=== PATIENT | female | born 1950 | race Caucasian/White ===

== ENCOUNTER → 2016-07-11 | Outpatient (CLI) | payer BC ==
--- NOTE | 2016-07-11 16:26 | MR ---
EXAMINATION: MRI lumbar spine HISTORY: Radiculopathy COMPARISON: Radiographs dated 07/08/2015 TECHNIQUE: Multiplanar and multisequence images obtained through the lumbar spine without contrast. FINDINGS: There is grade 1 anterolisthesis of L4 on L5. The vertebral body heights appear grossly ma intained. Moderate endplate edema is noted at T11, T12, and L1. The distal spinal cord appears nancy l and the conus terminates at L1-L2. There is likely mild bilateral sacroiliitis. The visualized ret roperitoneal structures appear normal. Facet hypertrophy is noted from L2 to L5. T12-L1: Small diffuse disc bulge without significant spinal canal stenosis. Moderate to severe left and moderate right neural foraminal stenosis. L1-L2: Small diffuse disc bulge without significant spinal canal stenosis. Moderate bilateral neural foraminal stenosis. L2-L3: Small diffuse disc bulge with mild facet hypertrophy resulting in mild spinal canal stenosis. Severe right and mild left neural foraminal stenosis. L3-L4: Tiny diffuse disc bulge without significant spinal canal stenosis. Moderate bilateral neural foraminal stenosis. L4-L5: Large diffuse pseudobulge with severe spinal canal stenosis. Moderate right and mild left ryan ral foraminal stenosis. L5-S1: Unremarkable. IMPRESSION: 1. Moderate multilevel degenerative disc disease noted within the lumbar spine most prominent at L4- L5 with grade 1 anterolisthesis and severe spinal canal stenosis. Individual details above.
== END ==
LOC: MW.MRI 12:09
PROVIDERS: ATTEND Student in an Organized Health Care Education/Training Program
DX: M48.06 Spinal stenosis, lumbar region (principal); M51.16 Intervertebral disc disorders with radiculopathy, lumbar region
CPT/HCPCS: 72148; 72148-26

== ENCOUNTER 2016-07-30 17:32 | Emergency (ER) | payer BC ==
[2016-07-30] MEDS ORDERED: Sodium Chloride 0.9% 2.5 ML Syringe FLUSH PRN (17:45)
[2016-07-30] MEDS ORDERED: Sodium Chloride 0.9% 10 ML Syringe FLUSH PRN (17:45)
--- NOTE | 2016-07-30 17:49 | EDM.PDOC ---
<Rina Moreno - Last Filed: 07/30/16 18:39> ED HPI GENERAL MEDICAL PROBLEM - General Chief Complaint: ENT Problem Stated Complaint: SWOLLEN AND ABNORMAL PAIN AFTER DENTAL WORK Time Seen by Provider: 07/30/16 17:38 - History of Present Illness INITIAL COMMENTS - FREE TEXT/NARRATIVE: HISTORY AND PHYSICAL: History of present illness: The patient is a 66-year-old female who presents with complaints of swelling to her face and neck after she was at the dentist at 11:00 AM and he was throwing her tooth and it triggered the swelling. According to the patient she was there to have a filling and he was doing drilling on her right lower jaw area when suddenly there was swelling of her mandible and her face and he stopped the procedure. He told her that with the drilling air was injected into the tissues and that she would need to ice it and it would go away spontaneously. The patient was also placed on antibiotics but not given anything for pain. The patient states that her face and right eyelid and jaw have maintained the swelling she had initially but she feels that her side of her neck is becoming more swollen and she is feeling very anxious about this. She is able to swallow in fact had an ice cream shake before coming here without difficulty. She's not feeling short of breath or having chest tightness. The patient has a history of hypercholesterolemia hypertension hypothyroidism and depression all of which are stable and she also states she watches her diet for borderline diabetes. Review of systems: As per history of present illness and below otherwise all systems reviewed and negative. Past medical history: As per history of present illness and as reviewed below otherwise noncontributory. Surgical history: As per history of present illness and as reviewed below otherwise noncontributory. Social history: No reported history of drug or alcohol abuse. Family history: As per history of present illness and as reviewed below otherwise noncontributory. Physical exam: General: Well-developed well-nourished female speaking clearly and easily without distress and is not breathless. She has visible soft tissue swelling of her right mandible, right cheek and periorbital area without any erythema or warmth. There is some tenderness at the right mandible area and there is palpable crepitus in this region as well as inferiorly in the soft tissue of the neck. The point of maximum crepitus along the angle of the mandible but it does extend inferiorly and superiorly with less intensity There is no fluctuance appreciated throughout the soft tissue swelling HEENT: Atraumatic, normocephalic, pupils reactive, EOMs intact, negative for conjunctival pallor or scleral icterus, mucous membranes moist, throat clear, neck supple, nontender, trachea midline. There is some gum swelling and tenderness at the rate mandibular area but no fluctuance is appreciated. Lungs: Clear to auscultation, breath sounds equal bilaterally, chest nontender. No work of breathing and no chest wall crepitus is appreciated Heart: S1S2, regular, negative for clicks, rubs, or JVD. Abdomen: Soft, nondistended, nontender. NABS Genitourinary: Deferred. Rectal: Deferred. Extremities: Atraumatic, negative for cords or calf pain. Neurovascular unremarkable. Neuro: Awake, alert, oriented. Cranial nerves II through XII unremarkable. Cerebellum unremarkable. Motor and sensory unremarkable throughout. Exam nonfocal. Diagnostics: CBC CMP CT scan soft tissue of the neck Therapeutics: Toradol CT scan of the soft tissue neck was endorsed to Dr. Cleary at 1900 hours. He will follow that CAT scan up and disposition the patient appropriately. She is currently breathing easily having no difficulty with swallow. Patient was given antibiotics by her dentist or rate which she has not started. Impression: Soft tissue facial and neck subcutaneous air after dental procedure stable Definitive disposition and diagnosis as appropriate pending reevaluation and review of above. Right Face Pain Score (Numeric/FACES): 5 - Related Data Allergies Allergy/AdvReac Type Severity Reaction Status Date / Time No Known Allergies Allergy Verified 07/30/16 17:37 Home Meds: Home Meds Esomeprazole [NexIUM] 40 mg PO DAILY 09/25/13 [History] Levothyroxine 100 mcg PO DAILY 09/25/13 [History] Metoprolol Tartrate 25 mg PO BID 09/25/13 [History] Simvastatin [Zocor] 40 mg PO BEDTIME 09/25/13 [History] ALPRAZolam [Alprazolam ODT] 1 tab PO TID 07/30/16 [History] Amoxicillin 1 cap PO TID 07/30/16 [History] Cholecalciferol (Vitamin D3) [Vitamin D3] 1 tab PO DAILY 07/30/16 [History] Doxepin HCl [Doxepin] 250 mg PO DAILY 07/30/16 [History] Losartan Potassium 1 tab PO DAILY 07/30/16 [History] Past Medical History HEENT History: Reports: None Cardiovascular History: Reports: Hypertension Respiratory History: Reports: None Gastrointestinal History: Reports: None Genitourinary History: Reports: None Neurological History: Reports: None Psychiatric History: Reports: Depression Endocrine/Metabolic History: Reports: Diabetes, type II - Infectious Disease History Infectious Disease History: Reports: Chicken pox, Influenza, Measles - Past Surgical History HEENT Surgical History: Reports: Tonsillectomy GI Surgical History: Reports: None Female Surgical History: Reports: None Endocrine Surgical History: Reports: Thyroidectomy Musculoskeletal Surgical History: Reports: None Social & Family History - Tobacco Use Smoking Status *Q: Never Smoker - Alcohol Use Days Per Week of Alcohol Use: 0 - Recreational Drug Use Recreational Drug Use: No ED ROS GENERAL - Review of Systems Review Of Systems: ROS reveals no pertinent complaints other than HPI. ED EXAM, GENERAL - Physical Exam Exam: See Below (See dictation) Course - Vital Signs Last Recorded V/S: Last Vital Signs Temp 36.2 C 07/30/16 17:38 Pulse 81 07/30/16 17:38 Resp 16 07/30/16 17:38 BP 166/81 H 07/30/16 17:38 Pulse Ox 99 07/30/16 17:38 - Orders/Labs/Meds Orders: Active Orders 24 hr Category Date Time Status EKG Documentation Completion [RC] STAT Care 07/30/16 20:27 Ordered Chest 1V Frontal [CR] Stat Exams 07/30/16 20:23 Ordered Soft Tissue Neck w Cont [CT] Stat Exams 07/30/16 17:45 Ordered CULTURE BLOOD [BC] Stat Lab 07/30/16 20:14 Ordered CULTURE BLOOD [BC] Stat Lab 07/30/16 20:14 Ordered Clindamycin Phosphate [Cleocin] 300 mg Med 07/30/16 20:14 Ordered Sodium Chloride 0.9% [Normal Saline] 50 ml IV ONETIME Piperacillin/Tazobactam [Piperacil-Tazobact] 4.5 gm Med 07/30/16 20:14 Ordered Sodium Chloride 0.9% [Normal Saline] 100 ml IV ONETIME Sodium Chloride 0.9% [Normal Saline] 1,000 ml Med 07/30/16 20:30 Active IV ASDIRECTED Sodium Chloride 0.9% [Saline Flush] Med 07/30/16 17:45 Active 10 ml FLUSH ASDIRECTED PRN Sodium Chloride 0.9% [Saline Flush] Med 07/30/16 17:45 Active 2.5 ml FLUSH ASDIRECTED PRN Vancomycin 1,000 mg Med 07/30/16 20:14 Ordered Dextrose 5% in Water 250 ml IV ONETIME Blood Culture x2 Reflex Set [OM.PC] Stat Oth 07/30/16 20:14 Ordered Saline Lock Insert [OM.PC] Stat Oth 07/30/16 17:45 Ordered Medication Orders Piperacillin Sod/Tazobactam (Sod 4.5 gm/ Sodium Chloride) 100 mls @ 100 mls/hr IV ONETIME ONE Stop: 07/30/16 21:13 Last Admin: 07/30/16 20:28 Dose: 100 mls/hr Vancomycin HCl 1,000 mg/ (Dextrose/Water) 250 mls @ 167 mls/hr IV ONETIME ONE Stop: 07/30/16 21:43 Sodium Chloride (Normal Saline) 1,000 mls @ 999 mls/hr IV ASDIRECTED JORGE Sodium Chloride (Saline Flush) 10 ml FLUSH ASDIRECTED PRN PRN Reason: Keep Vein Open Sodium Chloride (Saline Flush) 2.5 ml FLUSH ASDIRECTED PRN PRN Reason: Keep Vein Open Labs: Laboratory Tests 07/30/16 07/30/16 07/30/16 Range/Units 18:04 18:04 20:26 WBC 13.90 H (4.0-11.0) K/uL RBC 4.77 (4.30-5.90) M/uL Hgb 13.5 (12.0-16.0) g/dL Hct 40.2 (36.0-46.0) % MCV 84.3 (80.0-98.0) fL MCH 28.3 (27.0-32.0) pg MCHC 33.6 (31.0-37.0) g/dL RDW Std Deviation 38.9 (28.0-62.0) fl RDW Coeff of Eran 13 (11.0-15.0) % Plt Count 238 (150-400) K/uL MPV 9.20 (7.40-12.00) fL Neut % (Auto) 72.6 (48.0-80.0) % Lymph % (Auto) 19.8 (16.0-40.0) % [place] % (Auto) 6.3 (0.0-15.0) % Eos % (Auto) 1.2 (0.0-7.0) % Baso % (Auto) 0.1 (0.0-1.5) % Neut # 10.1 H (1.4-5.7) K/uL Lymph # 2.8 H (0.6-2.4) K/uL [place] # 0.9 H (0.0-0.8) K/uL Eos # 0.2 (0.0-0.7) K/uL Baso # 0.0 (0.0-0.1) K/uL Nucleated RBC % 0.0 /100WBC Nucleated RBCs # 0 K/uL Lactate 1.8 (0.20-2.00) mmol/L Sodium 139 (136-146) mmol/L Potassium 4.0 (3.5-5.1) mmol/L Chloride 103 (98-110) mmol/L Carbon Dioxide 27 (21-31) mmol/L BUN 12 (6.0-23.0) mg/dL Creatinine 0.8 (0.6-1.5) mg/dL Est Cr Clr Drug Dosing TNP Estimated GFR (MDRD) > 60.0 ml/min Glucose 130 H (60-110) mg/dL Calcium 9.3 (8.8-10.8) mg/dL Total Bilirubin 0.5 (0.1-1.5) mg/dL AST 19 (5-40) IU/L ALT 23 (8-54) IU/L Alkaline Phosphatase 124 (40-150) Total Protein 7.5 (6.0-8.0) g/dL Albumin 4.3 (3.4-4.8) g/dL Globulin 3.2 (2.0-3.5) g/dL Albumin/Globulin Ratio 1.3 (1.3-2.8) Meds: Medications Generic Name Dose Route Start Last Admin Trade Name Freq PRN Reason Stop Dose Admin Piperacillin Sod/Tazobactam 100 mls @ 100 mls/hr 07/30/16 20:14 07/30/16 20: 28 Sod 4.5 gm/ Sodium Chloride IV 07/30/16 21:13 100 mls/hr ONETIME ONE Administration Vancomycin HCl 1,000 mg/ 250 mls @ 167 mls/hr 07/30/16 20:14 Dextrose/Water IV 07/30/16 21:43 ONETIME ONE Sodium Chloride 1,000 mls @ 999 mls/hr 07/30/16 20:30 Normal Saline IV ASDIRECTED JORGE Sodium Chloride 10 ml 07/30/16 17:45 Saline Flush FLUSH ASDIRECTED PRN Keep Vein Open Sodium Chloride 2.5 ml 07/30/16 17:45 Saline Flush FLUSH ASDIRECTED PRN Keep Vein Open Discontinued Medications Generic Name Dose Route Start Last Admin Trade Name Freq PRN Reason Stop Dose Admin Clindamycin Phosphate 300 mg/ 52 mls @ 100 mls/hr 07/30/16 20:14 Sodium Chloride IV 07/30/16 20:45 ONETIME ONE Iopamidol 80 ml 07/30/16 17:52 07/30/16 17:53 Isovue Multipack-370 (76%) IVPUSH 07/30/16 17:53 80 ml ONETIME STA Administration Ketorolac Tromethamine 30 mg 07/30/16 17:53 07/30/16 18:28 Toradol IVPUSH 07/30/16 17:54 30 mg ONETIME ONE Administration Morphine Sulfate 2 mg 07/30/16 17:53 07/30/16 18:37 Morphine IVPUSH 07/30/16 17:54 Not Given ONETIME ONE Departure - Departure Disposition: DC/Tfer to Acute Hospital 02 Condition: good Clinical Impression: Right facial swelling, Pneumomediastinum, Leukocytosis, Pneumothorax on left Subcutaneous air Qualifiers: Encounter type: initial encounter Qualified Code(s): T79.7XXA - Traumatic subcutaneous emphysema, initial encounter Referrals: Alonzo Gupta MD [Primary Care Provider] - Forms: ED Department Discharge - My Orders Last 24 Hours: My Active Orders 07/30/16 20:14 CULTURE BLOOD [BC] Stat CULTURE BLOOD [BC] Stat Clindamycin Phosphate [Cleocin] 300 mg Sodium Chloride 0.9% [Normal Saline] 50 ml IV ONETIME Piperacillin/Tazobactam [Piperacil-Tazobact] 4.5 gm Sodium Chloride 0.9% [ Normal Saline] 100 ml IV ONETIME Vancomycin 1,000 mg Dextrose 5% in Water 250 ml IV ONETIME Blood Culture x2 Reflex Set [OM.PC] Stat 07/30/16 20:23 Chest 1V Frontal [CR] Stat 07/30/16 20:27 EKG Documentation Completion [RC] STAT 07/30/16 20:30 Sodium Chloride 0.9% [Normal Saline] 1,000 ml IV ASDIRECTED - Assessment/Plan Last 24 Hours: My Active Orders 07/30/16 20:14 CULTURE BLOOD [BC] Stat CULTURE BLOOD [BC] Stat Clindamycin Phosphate [Cleocin] 300 mg Sodium Chloride 0.9% [Normal Saline] 50 ml IV ONETIME Piperacillin/Tazobactam [Piperacil-Tazobact] 4.5 gm Sodium Chloride 0.9% [ Normal Saline] 100 ml IV ONETIME Vancomycin 1,000 mg Dextrose 5% in Water 250 ml IV ONETIME Blood Culture x2 Reflex Set [OM.PC] Stat 07/30/16 20:23 Chest 1V Frontal [CR] Stat 07/30/16 20:27 EKG Documentation Completion [RC] STAT 07/30/16 20:30 Sodium Chloride 0.9% [Normal Saline] 1,000 ml IV ASDIRECTED <Denys Cleary - Last Filed: 07/30/16 21:00> Course - Vital Signs Text/Narrative:: At 1900 assumed care the patient from Dr. Moreno to follow results of CT and disposition patient. Per tomorrow patient has been clinically stable and well-appearing with unremarkable vital signs. She is afebrile. 66-year-old female with a history of hypertension hypothyroidism depression and type 2 diabetes which is diet controlled, now with right neck and right facial swelling and discomfort. White blood cell count elevated at 13.9. Cutaneous air of the right mandibular and right neck distribution prompted evaluation with a CT of the neck. Result of CT of the neck received by me at 8:12 PM shows "extensive pneumomediastinum with probable small left apical pneumothorax. Extensive subcutaneous emphysema right greater than left which involves the superficial and deep soft tissues." She history was of dental procedure and not fever or infectious prodrome however cannot rule out possibility of mediastinitis with a gas forming organism. Blood cultures ordered and spectrum antibiotic coverage with Zosyn vancomycin and clindamycin ordered. Case discussed with Dr. Desai surgery weigher production nazia is aware of history and findings and agrees with stat transport to a facility with cardiothoracic surgery availability, for availability of surgical treatment as needed. Case discussed with Dr. Grimaldo emergency medicine physician at [facility] in [place], Dr. Grimaldo as where history and findings accept patient in emergent transfer for ICU admission and CT surgery consultation as needed. Patient continues to be hemodynamically stable. EKG interpreted by me with normal sinus rhythm at 76 normal axis no STEMI. Critical care 32 minutes. Multiple bedside reevaluation in the setting of potentially life-threatening presumed infection of mediastinitis. Consultation call to surgery in transfer arrangements to the hospital made. Departure - Departure Time of Disposition: 20:55 Condition: serious
[2016-07-30] MEDS ORDERED: Iopamidol 755 MG/ML 500 ML Multipack Bottle IVPUSH STA (17:52)
[2016-07-30] MEDS ORDERED: Ketorolac 30 MG/ML SDV IVPUSH ONE (17:53)
[2016-07-30] MEDS ORDERED: Morphine 2 MG/ML Syringe IVPUSH ONE (17:53)
[2016-07-30 18:34] LABS: CHLORIDE,CL 103 mmol/L (98-110); SODIUM,NA 139 mmol/L (136-146)
[2016-07-30] MEDS ORDERED: Piperacillin/Tazobactam 4.5 GM in Sodium Chloride 0.9% 100 ML IV ONE (20:14)
[2016-07-30] MEDS ORDERED: Clindamycin Phosphate 300 MG in Dextrose 5% in Water 50 ML IV ONE ×2 (20:14)
[2016-07-30] MEDS ORDERED: Sodium Chloride 0.9% 1,000 ML IV SCH (20:30)
[2016-07-30] MEDS ORDERED: Clindamycin Phosphate in D5W 300 MG in Premix Bag 1 BAG IV ONE ×2 (20:50)
--- NOTE | 2016-07-31 15:50 | CT ---
EXAM DATE: 07/30/16 PATIENT'S AGE: 66 Patient: KARLA BOLANOS Facility: [place], [place] Site . Site : 1950 Study: CT ST Neck [id number]/20/2017 7:20:19 PM Ordering Physician: Tiffanie Flynn Final Report: INDICATION: Subcutaneous emphysema. Evaluate deep versus superficial TECHNIQUE: CT soft tissue of the neck was acquired with IV contrast. COMPARISON: None FINDINGS: Skull base: Unremarkable. Pharynx: Unremarkable. Larynx and trachea: Unremarkable. Salivary glands: Unremarkable. Thyroid gland: Unremarkable. Vessels: Unremarkable for age. Bones: Unremarkable for age. Misc: No mass or lymphadenopathy. Extensive subcutaneous emphysema right greater than left which involves the superficial and deep soft tissues. Probable 5 millimeters asymmetrical density anterior to the right side of the posterior arytenoid cartilage. Lung apices: Pneumomediastinum with probable small left apical pneumothorax. IMPRESSION: Extensive pneumomediastinum with probable small left apical pneumothorax. Extensive subcutaneous emphysema right greater than left which involves the superficial and deep soft tissues. Probable 5 millimeter asymmetric density anterior to the right side of the posterior arytenoid cartilage. Dictated by Alonzo Chen MD @ 07/30/2016 7:59:25 PM Dictated by: Alonzo Chen MD @ 07/30/2016 19:59:41 ----- ADDENDUM ----- Confirmation of report received on 07/30/2016 at 8:[address] Cleary: Dictated by Alonzo Chen MD @ Jul 30 2016 8:39PM (Electronic Signature) Report Signed by Proxy and Original Signed Document filed in the Medical Record. [facility] HOSPITALJose Raul
--- NOTE | 2016-07-31 15:51 | CR ---
EXAM DATE: 07/30/16 PATIENT'S AGE: 66 Patient: KARLA BOLANOS Facility: [place], [place] Site . Site : 1950 Study: XRay Chest [id number]/20/2017 8:45:58 PM Ordering Physician: Evin Mcfarlane Final Report: INDICATION: pain, sob TECHNIQUE: Chest 1 view COMPARISON: None FINDINGS: Cardiovascular and mediastinum: Heart size and vasculature are normal in caliber and appearance. Mediastinum is within normal limits. Lungs and pleural space: Horizontal stranding/atelectasis along the lingula. No sign of pleural effusion. No pneumothorax. Bones and soft tissues: Degenerative changes. IMPRESSION: No acute cardiopulmonary disease. Dictated by Jorden Hayden MD @ 07/30/2016 8:53:14 PM Dictated by: Jorden Hayden MD @ 07/30/2016 20:54:28 (Electronic Signature) Report Signed by Proxy and Original Signed Document filed in the Medical Record. MTDD
== END 2016-07-30 21:41 ==
LOC: MW.ED 17:32
DX: R22.2 Localized swelling, mass and lump, trunk (principal); D72.829 Elevated white blood cell count, unspecified; J93.9 Pneumothorax, unspecified; E78.00 Pure hypercholesterolemia, unspecified; I10 Essential (primary) hypertension; E03.9 Hypothyroidism, unspecified; Z79.899 Other long term (current) drug therapy; E11.9 Type 2 diabetes mellitus without complications; Z98.890 Other specified postprocedural states; T79.7XXA Traumatic subcutaneous emphysema, initial encounter
CPT/HCPCS: 36415; 70491; 71010; 80053; 83605; 85025; 87040; 93005; 96365; 96368; 96375; 99285; J1885; J2543; J3370; J7030; J7040; J7050; Q9967

== ENCOUNTER 2017-06-05 09:38 | Day surgery (SDC) | payer BC ==
[~2017-06-05 09:38] MED LIST: Lactated Ringers 1,000 ML IV SCH; Sodium Chloride 0.9% 10 ML Syringe FLUSH PRN; Sodium Chloride 0.9% 2.5 ML Syringe FLUSH PRN
[2017-06-05] MEDS ORDERED: Lidocaine 2% 5 ML SDV ONE (11:03)
[2017-06-05] MEDS ORDERED: Propofol 200 MG/20 ML SDV ONE (11:04)
[2017-06-05] MEDS ORDERED: fentaNYL 100 MCG/2 ML SDV ONE (11:04)
--- NOTE | 2017-06-05 11:25 | PCM.PREANE ---
Preanesthetic Assessment - Anesthesia/Transfusion/Family Hx Anesthesia History: Prior Anesthesia Reaction Type of Anesthesia Reaction: Other (see below) (stopped breathing during dental sedation in oral surgeon office) Transfusion History: No Prior Transfusion(s) - Review of Systems General: No Symptoms Pulmonary: No Symptoms Cardiovascular: No Symptoms Gastrointestinal: No Symptoms Neurological: No Symptoms Other: Reports: None - Physical Assessment NPO Status Date: 06/04/17 NPO Status Time: 21:00 O2 Sat by Pulse Oximetry: 96 Respiratory Rate: 16 Vital Signs: Last Vital Signs Temp 36.8 C 06/05/17 10:01 Pulse 66 06/05/17 10:01 Resp 16 06/05/17 10:01 BP 138/80 06/05/17 10:01 Pulse Ox 96 06/05/17 10:01 Height: 1.57 m Weight: 74.843 kg ASA Class: 2 Mental Status: Alert & Oriented x3 Airway Class: Mallampati = 2 Dentition: Reports: Normal Dentition ROM/Head Extension: Full Lungs: Clear to Auscultation, Normal Respiratory Effort Cardiovascular: Regular Rate, Regular Rhythm - Allergies Allergies/Adverse Reactions: Allergies Allergy/AdvReac Type Severity Reaction Status Date / Time No Known Allergies Allergy Verified 07/30/16 17:37 - Anesthesia Plan Pre-Op Medication Ordered: None - Acknowledgements Anesthesia Type Planned: MAC Pt an Appropriate Candidate for the Planned Anesthesia: Yes Alternatives and Risks of Anesthesia Discussed w Pt/Guardian: Yes Pt/Guardian Understands and Agrees with Anesthesia Plan: Yes Additional Comments: has chronic cough, also has vocal cord paralysis since thyroid surgery, DM is diet controll only, PreAnesthesia Questionnaire HEENT History: Reports: Other (See Below) Other HEENT History: wears glasses Cardiovascular History: Reports: Heart Murmur, High Cholesterol, Hypertension Respiratory History: Reports: None Gastrointestinal History: Reports: GERD Genitourinary History: Reports: None Musculoskeletal History: Reports: Arthritis, Back Pain, Chronic, Fracture Other Musculoskeletal History: hx fx wrist as a child Neurological History: Reports: None Psychiatric History: Reports: Anxiety, Depression Endocrine/Metabolic History: Reports: Diabetes, Type II, Hypothyroidism - Infectious Disease History Infectious Disease History: Reports: Chicken Pox, Influenza, Measles - Past Surgical History Head Surgeries/Procedures: Reports: None HEENT Surgical History: Reports: Tonsillectomy GI Surgical History: Reports: None Female Surgical History: Reports: None Endocrine Surgical History: Reports: Thyroidectomy Musculoskeletal Surgical History: Reports: None - SUBSTANCE USE Smoking Status *Q: Never Smoker Days Per Week of Alcohol Use: 0 Recreational Drug Use History: No - HOME MEDS Home Medications: Home Meds Esomeprazole [NexIUM] 40 mg PO DAILY 09/25/13 [History] Levothyroxine 100 mcg PO DAILY 09/25/13 [History] Metoprolol Tartrate 25 mg PO BID 09/25/13 [History] Simvastatin [Zocor] 40 mg PO BEDTIME 09/25/13 [History] Doxepin HCl [Doxepin] 2 tab PO DAILY 07/30/16 [History] ALPRAZolam [Alprazolam] 1 - 2 tab PO DAILY 05/31/17 [History] Ibuprofen [Advil] 200 mg PO ASDIRECTED PRN 05/31/17 [History] Losartan Potassium 25 mg PO DAILY 05/31/17 [History] - CURRENT (IN HOUSE) MEDS Current Meds: Current Medications Lactated Ringer's (Ringers, Lactated) 1,000 mls @ 125 mls/hr IV ASDIRECTED JORGE Last Admin: 06/05/17 10:03 Dose: 125 mls/hr Sodium Chloride (Saline Flush) 10 ml FLUSH ASDIRECTED PRN PRN Reason: Keep Vein Open Sodium Chloride (Saline Flush) 2.5 ml FLUSH ASDIRECTED PRN PRN Reason: Keep Vein Open Sodium Chloride (Saline Flush) 10 ml FLUSH ASDIRECTED PRN PRN Reason: Keep Vein Open Sodium Chloride (Saline Flush) 2.5 ml FLUSH ASDIRECTED PRN PRN Reason: Keep Vein Open Discontinued Medications Fentanyl (Sublimaze) Confirm Administered Dose 100 mcg .ROUTE .STK-MED ONE Stop: 06/05/17 11:05 Lidocaine (Xylocaine-Mpf 2%) Confirm Administered Dose 5 ml .ROUTE .STK-MED ONE Stop: 06/05/17 11:04 Propofol (Diprivan 20 Ml) Confirm Administered Dose 400 mg .ROUTE .STK-MED ONE Stop: 06/05/17 11:05
[2017-06-05] MEDS ORDERED: Glycopyrrolate 0.2 MG/ML SDV ONE (13:30)
--- NOTE | 2017-06-05 13:52 | PCM.OPNOTE ---
- General Post-Op/Procedure Note Date of Surgery/Procedure: 06/05/17 Operative Procedure(s): Screening colonoscopy Findings: Screening colonoscopy Pre Op Diagnosis: Screening colonoscopy Post-Op Diagnosis: Normal colon Anesthesia Technique: MAC Primary Surgeon: Shena Desai Condition: Good
--- NOTE | 2017-06-05 14:26 | OR ---
SURGEON: KEYANA ROSE MD DATE OF PROCEDURE: 06/05/2017 PREOPERATIVE DIAGNOSIS: Screening colonoscopy. POSTOPERATIVE DIAGNOSIS: Screening colonoscopy. PROCEDURE PERFORMED: Screening colonoscopy. ANESTHESIA: MAC. INSTRUMENT USED: Olympus colonoscope. EXTENT OF EXAM: To the cecum. PREPARATION: Good. LIMITATIONS: None. INDICATIONS FOR EXAMINATION: The patient is a 67-year-old female who presents for a repeat screening colonoscopy. She had one approximately 10 years ago that was normal. The patient and I discussed the procedure as well as expected perioperative course. We discussed the risks including bleeding, infection, or damage to surrounding structures including perforation. The patient verbalized understanding and wishes to proceed. PROCEDURE IN DETAIL: The patient was brought into the endoscopy suite and placed in the left lateral decubitus position. A time-out was completed verifying the patient's name, age, date of , allergies, and procedure to be performed. Monitored anesthesia care was induced and continuous oxygen was provided via nasal cannula throughout the procedure. After adequate sedation was achieved, a digital rectal exam was performed. This exam was within normal limits. A well lubricated colonoscope was inserted into the rectum and advanced under direct visualization to the level of the cecum. The cecum was identified by both visual and anatomic landmarks. A photograph was taken of the cecal cap as well as the scope retroflexed within the cecum. The scope was then straightened out and fully withdrawn while examining the color, texture, anatomy, and integrity of the mucosa from the cecum to the anal canal. The patient was found to have normal colonic mucosa. The scope was brought into the rectum and retroflexed to allow visualization of the anal canal opening. This appeared normal and a photograph was taken. The scope was then straightened out and removed from the patient. The cecum to anus time was 7 minutes. The patient tolerated the procedure well and was taken to PACU in stable condition. ENDOSCOPIC DIAGNOSIS: Normal colonoscopy. RECOMMENDATIONS: Follow up in clinic in 10 years. KEVIN / FERNANDO /[id number]
--- NOTE | 2017-06-05 14:44 | PCM.POSTAN ---
POST ANESTHESIA ASSESSMENT - MENTAL STATUS Mental Status: Alert, Oriented - RESPIRATORY Respiratory Status: Respiratory Rate WNL, Airway Patent, O2 Saturation Stable - CARDIOVASCULAR CV Status: Pulse Rate WNL, Blood Pressure Stable - GASTROINTESTINAL GI Status: No Symptoms - POST OP HYDRATION Hydration Status: Adequate & Stable
--- NOTE | 2017-06-05 14:44 | PCM48HPAN ---
Post Anesthesia Note - EVALUATION WITHIN 48HRS OF ANESTHETIC Vital Signs in Normal Range: Yes Patient Participated in Evaluation: Yes Respiratory Function Stable: Yes Airway Patent: Yes Cardiovascular Function Stable: Yes Hydration Status Stable: Yes Pain Control Satisfactory: Yes Nausea and Vomiting Control Satisfactory: Yes Mental Status Recovered: Yes
[2017-06-05 14:47] VITALS: BP 124/70
== END 2017-06-05 14:40 | disposition home or self-care (01) ==
LOC: MW.SDS 09:38
PROVIDERS: ATTEND Surgery
DX: Z12.11 Encounter for screening for malignant neoplasm of colon (principal); E78.00 Pure hypercholesterolemia, unspecified; I10 Essential (primary) hypertension; R01.1 Cardiac murmur, unspecified; K21.9 Gastro-esophageal reflux disease without esophagitis; M19.90 Unspecified osteoarthritis, unspecified site; F41.9 Anxiety disorder, unspecified; F32.9 Major depressive disorder, single episode, unspecified; E11.9 Type 2 diabetes mellitus without complications; E89.0 Postprocedural hypothyroidism; Z90.89 Acquired absence of other organs; Z79.899 Other long term (current) drug therapy
CPT/HCPCS: 45378; J3010; J7120; J2704

== ENCOUNTER 2019-01-26 21:45 | Emergency (ER) | payer MEDICARE, BC ==
[2019-01-26] MEDS ORDERED: Diphtheria,Pertussis(Acell),Tetanus Vaccine 0.5 ML Syringe IM ONE (22:28)
--- NOTE | 2019-01-26 22:34 | EDM.PDOC ---
ED HPI GENERAL MEDICAL PROBLEM - General Chief Complaint: Bite:Animal, Insect Stated Complaint: CAT BITE ON RIGHT TOE Time Seen by Provider: 01/26/19 22:20 - History of Present Illness INITIAL COMMENTS - FREE TEXT/NARRATIVE: HISTORY AND PHYSICAL: History of present illness: The patient is a 69-year-old female who presents after she was bitten on her right great toe by her own cat while feeding the cat food. The cat is in good health and can be observed in the cat is up-to-date on immunizations. She only sustained a puncture wound to the inner aspect of her right great toe and she washed it out and there is no redness or drainage that she is appreciated but she is concerned that she needs prophylactic antibiotics. The patient is a type II diabetic and takes other prescription medications. She is unsure of her last tetanus shot. She has no other injuries and earlier today she was in her usual state of good maggy without any systemic compaints Review of systems: As per history of present illness and below otherwise all systems reviewed and negative. Past medical history: As per history of present illness and as reviewed below otherwise noncontributory. Surgical history: As per history of present illness and as reviewed below otherwise noncontributory. Social history: No reported history of drug or alcohol abuse. Family history: As per history of present illness and as reviewed below otherwise noncontributory. Physical exam: General: Well-developed well-nourished female who is nontoxic and vital signs are noted by me HEENT: Atraumatic, normocephalic, negative for conjunctival pallor or scleral icterus, mucous membranes moist, throat clear, neck supple, nontender, trachea midline. Lungs: Clear to auscultation, breath sounds equal bilaterally, chest nontender. Heart: S1S2, regular and rhythm no overt murmurs Abdomen: Soft, nondistended, nontender. NABS Pelvis: Deferred Genitourinary: Deferred. Rectal: Deferred. Extremities: Atraumatic, full range of motion of all extremities with the exception of the right great toe where there is a small punctum seen on the inner aspect of the toe medially which has no redness drainage or swelling and the remainder of the toe has no redness swelling tenderness crepitus or deformities. Neurovascular unremarkable. Neuro: Awake, alert, oriented. Cranial nerves II through XII unremarkable. Cerebellum unremarkable. Motor and sensory unremarkable throughout. Exam nonfocal. Diagnostics: Patient declined an x-ray of the toe Therapeutics: Tdap Impression: Cat bite right great toe Definitive disposition and diagnosis as appropriate pending reevaluation and review of above. Right great toe Pain Score (Numeric/FACES): 3 - Related Data Allergies Allergy/AdvReac Type Severity Reaction Status Date / Time No Known Allergies Allergy Verified 01/26/19 22:22 Home Meds: Home Meds Esomeprazole [NexIUM] 40 mg PO DAILY 09/25/13 [History] Levothyroxine 100 mcg PO DAILY 09/25/13 [History] Metoprolol Tartrate 25 mg PO BID 09/25/13 [History] Simvastatin [Zocor] 40 mg PO BEDTIME 09/25/13 [History] Doxepin HCl [Doxepin] 1 tab PO DAILY 07/30/16 [History] ALPRAZolam [Alprazolam] 1 - 3 tab PO DAILY 05/31/17 [History] Ibuprofen [Advil] 200 mg PO ASDIRECTED PRN 05/31/17 [History] Losartan Potassium 25 mg PO DAILY 05/31/17 [History] QUEtiapine [SEROquel] 100 mg PO BEDTIME 05/04/18 [History] traZODone HCl [Trazodone HCl] 50 mg PO BEDTIME 05/04/18 [History] Diltiazem [Cardizem CD] 120 mg PO DAILY 01/26/19 [History] Glimepiride 1 mg PO 01/26/19 [History] Liothyronine [Cytomel] 01/26/19 [History] Ranitidine HCl [Zantac] 25 mg IJ 01/26/19 [History] Past Medical History HEENT History: Reports: Other (See Below) Other HEENT History: wears glasses Cardiovascular History: Reports: Heart Murmur, High Cholesterol, Hypertension Respiratory History: Reports: None Gastrointestinal History: Reports: GERD Genitourinary History: Reports: None Musculoskeletal History: Reports: Arthritis, Back Pain, Chronic, Fracture Other Musculoskeletal History: hx fx wrist as a child Neurological History: Reports: None Psychiatric History: Reports: Anxiety, Depression Endocrine/Metabolic History: Reports: Diabetes, Type II, Hypothyroidism Immunologic History: Reports: None - Infectious Disease History Infectious Disease History: Reports: Chicken Pox, Influenza, Measles - Past Surgical History Head Surgeries/Procedures: Reports: None HEENT Surgical History: Reports: Tonsillectomy GI Surgical History: Reports: None Female Surgical History: Reports: None Endocrine Surgical History: Reports: Thyroidectomy Musculoskeletal Surgical History: Reports: None Social & Family History - Family History Family Medical History: Noncontributory - Caffeine Use Caffeine Use: Reports: Coffee, Tea ED ROS GENERAL - Review of Systems Review Of Systems: ROS reveals no pertinent complaints other than HPI. ED EXAM, ANIMAL BITE - Physical Exam Exam: See Below (see Dictation) Course - Vital Signs Last Recorded V/S: Last Vital Signs Temp 36.9 C 01/26/19 22:21 Pulse 79 01/26/19 22:21 Resp 16 01/26/19 22:21 BP 149/77 H 01/26/19 22:21 Pulse Ox 97 01/26/19 22:21 - Orders/Labs/Meds Orders: Active Orders 24 hr Category Date Time Status Vaccines to be Administered [RC] PER UNIT ROUTINE Care 01/26/19 22:28 Ordered Diphth,Pertuss(Acell),Tet Vac [Adacel] Med 01/26/19 22:28 Once 0.5 ml IM .ONCE ONE Departure - Departure Time of Disposition: 22:32 Disposition: Home, Self-Care 01 Condition: Good Clinical Impression: Cat bite Qualifiers: Encounter type: initial encounter Qualified Code(s): W55.01XA - Bitten by cat, initial encounter - Discharge Information Referrals: Calin Nieto MD [Primary Care Provider] - Additional Instructions: The following information is given to patients seen in the emergency department who are being discharged to home. This information is to outline your options for follow-up care. We provide all patients seen in our emergency department with a follow-up referral. The need for follow-up, as well as the timing and circumstances, are variable depending upon the specifics of your emergency department visit. If you don't have a primary care physician on staff, we will provide you with a referral. We always advise you to contact your personal physician following an emergency department visit to inform them of the circumstance of the visit and for follow-up with them and/or the need for any referrals to a consulting specialist. The emergency department will also refer you to a specialist when appropriate. This referral assures that you have the opportunity for followup care with a specialist. All of these measure are taken in an effort to provide you with optimal care, which includes your followup. Under all circumstances we always encourage you to contact your private physician who remains a resource for coordinating your care. When calling for followup care, please make the office aware that this follow-up is from your recent emergency room visit. If for any reason you are refused follow-up, please contact the [facility] emergency department at and ask to speak to the emergency department charge nurse. Primary care- Internal Medicine and Family [address] [address] Elevate the foot as much as possible and keep the area clean and dry with mild soap and water pat dry and apply bacitracin or Neosporin. He states the antibiotics as prescribed here from [facility], Augmentin. Please follow-up with your provider in the clinic or one of hours for reevaluation and further care and return to ER as needed and as discussed continue to observe your cat for any abnormal behavior or behavioral changes and bring to the neuroradiologist as needed - My Orders Last 24 Hours: My Active Orders 01/26/19 22:28 Vaccines to be Administered [RC] PER UNIT ROUTINE Diphth,Pertuss(Acell),Tet Vac [Adacel] 0.5 ml IM .ONCE ONE - Assessment/Plan Last 24 Hours: My Active Orders 01/26/19 22:28 Vaccines to be Administered [RC] PER UNIT ROUTINE Diphth,Pertuss(Acell),Tet Vac [Adacel] 0.5 ml IM .ONCE ONE
[2019-01-26 22:57] VITALS: BP 140/74; PULSE 74
== END 2019-01-26 23:01 | disposition home or self-care (01) ==
LOC: MW.ED 21:45
DX: S91.151A Open bite of right great toe without damage to nail, initial encounter (principal); I10 Essential (primary) hypertension; E78.00 Pure hypercholesterolemia, unspecified; K21.9 Gastro-esophageal reflux disease without esophagitis; F41.9 Anxiety disorder, unspecified; F32.9 Major depressive disorder, single episode, unspecified; E03.9 Hypothyroidism, unspecified; E11.9 Type 2 diabetes mellitus without complications; Z23 Encounter for immunization; Z79.899 Other long term (current) drug therapy; Z79.84 Long term (current) use of oral hypoglycemic drugs; W55.01XA Bitten by cat, initial encounter
CPT/HCPCS: 90471; 90715; 99282; 99283

== ENCOUNTER 2019-02-21 12:27 | Emergency (ER) | payer MEDICARE, BC ==
--- NOTE | 2019-02-21 12:52 | EDM.PDOC ---
ED HPI GENERAL MEDICAL PROBLEM - General Chief Complaint: Genitourinary Problem Stated Complaint: LUMP Time Seen by Provider: 02/21/19 12:28 Source of Information: Reports: Patient History Limitations: Reports: No Limitations - History of Present Illness INITIAL COMMENTS - FREE TEXT/NARRATIVE: HISTORY AND PHYSICAL: History of present illness: Patient is a 69-year-old female who presents to the ED today with concern of a lump on the left side of her genitalia that she had noticed since this morning. Patient states the lump is slightly painful when she presses on it and is red. Patient states she has not had this lump before. Patient denies any other symptoms or concerns at this time. Patient denies any drainage of the lump. Patient denies any change in vaginal discharge or vaginal irritation. Patient denies fever, chills, chest pain, shortness of breath, or cough. Denies headache, neck stiff ness, change in vision, syncope, or near syncope. Denies nausea, vomiting, abdominal pain, diarrhea, constipation, or dysuria. Has not noted any blood in urine or stool. Patient has been eating and drinking appropriately. Review of systems: As per history of present illness and below otherwise all systems reviewed and negative. Past medical history: As per history of present illness and as reviewed below otherwise noncontributory. Surgical history: As per history of present illness and as reviewed below otherwise noncontributory. Social history: See social history for further information Family history: As per history of present illness and as reviewed below otherwise noncontributory. Physical exam: General: Patient is alert, oriented, and in no acute distress. Patient laying comfortably on exam table. HEENT: Atraumatic, normocephalic, pupils equal and reactive bilaterally, negative for conjunctival pallor or scleral icterus, mucous membranes moist, TMs normal bilaterally, throat clear, neck supple, nontender, trachea midline. No drooling or trismus noted. No meningeal signs. No hot potato voice noted. Lungs: Clear to auscultation, breath sounds equal bilaterally, chest nontender. Heart: S1S2, regular rate and rhythm without overt murmur Abdomen: Soft, nondistended, nontender. Negative for masses or hepatosplenomegaly. Negative for costovertebral tenderness. Pelvis: Stable nontender. Genitourinary: There is a 1cm circular area of erythema of the outer labia majora that has localized erythematous and mildly painful to palpation and non edematous. Margins easily palpated and no depth to the lesion, no crepitus. Rectal: Deferred. Skin: Intact, warm, dry. No lesions or rashes noted. Extremities: Atraumatic, negative for cords or calf pain. Neurovascular unremarkable. Neuro: Awake, alert, oriented. Cranial nerves II through XII unremarkable. Cerebellum unremarkable. Motor and sensory unremarkable throughout. Exam nonfocal. Notes: Dr. Moreno verbally involved in patient care. Discussed the importance for follow-up with the women's health provider. Voices understanding and is agreeable to plan of care. Denies any further questions or concerns at this time. Diagnostics: None Therapeutics: None Prescription: Keflex Impression: Labia majora cellulitis, left Plan: 1. Take medication as prescribed. You can alternate ibuprofen and Tylenol as directed for pain and discomfort. 2. Follow-up with the women's health provider as discussed. The number has been provided above for you to call and set up an appointment time to call saturday. 3. Return to the ED as needed and as discussed. Continue to monitor infection for improvement/spreading infection as discussed. Definitive disposition and diagnosis as appropriate pending reevaluation and review of above. Vagina Pain Score (Numeric/FACES): 3 - Related Data Allergies Allergy/AdvReac Type Severity Reaction Status Date / Time levofloxacin Allergy Other Verified 02/21/19 12:40 Home Meds: Home Meds Esomeprazole [NexIUM] 40 mg PO DAILY 09/25/13 [History] Simvastatin [Zocor] 40 mg PO BEDTIME 09/25/13 [History] Doxepin HCl [Doxepin] 1 tab PO DAILY 07/30/16 [History] ALPRAZolam [Alprazolam] 1 - 3 tab PO DAILY 05/31/17 [History] Losartan Potassium 25 mg PO DAILY 05/31/17 [History] QUEtiapine [SEROquel] 100 mg PO BEDTIME 05/04/18 [History] Diltiazem [Cardizem CD] 120 mg PO DAILY 01/26/19 [History] Glimepiride 1 mg PO DAILY 01/26/19 [History] Liothyronine [Cytomel] 25 mg PO BTNUNITS 01/26/19 [History] Citalopram [Citalopram HBr] 20 mg PO DAILY 02/21/19 [History] Ketamine Hcl [Ketamine Nasal Harper Compound] 100 mg NASBOTH QID 02/21/19 [ History] Levothyroxine [Synthroid] 50 mcg PO DAILY 02/21/19 [History] raNITIdine HCl [Zantac] 150 mg PO DAILY 02/21/19 [History] Past Medical History HEENT History: Reports: Other (See Below) Other HEENT History: wears glasses Cardiovascular History: Reports: Heart Murmur, High Cholesterol, Hypertension Respiratory History: Reports: None Gastrointestinal History: Reports: GERD Genitourinary History: Reports: None Musculoskeletal History: Reports: Arthritis, Back Pain, Chronic, Fracture Other Musculoskeletal History: hx fx wrist as a child Neurological History: Reports: None Psychiatric History: Reports: Anxiety, Depression Endocrine/Metabolic History: Reports: Diabetes, Type II, Hypothyroidism Immunologic History: Reports: None - Infectious Disease History Infectious Disease History: Reports: Chicken Pox, Measles, Mumps - Past Surgical History Head Surgeries/Procedures: Reports: None HEENT Surgical History: Reports: Tonsillectomy GI Surgical History: Reports: None Female Surgical History: Reports: None Endocrine Surgical History: Reports: Thyroidectomy Musculoskeletal Surgical History: Reports: None Social & Family History - Family History Family Medical History: Noncontributory - Tobacco Use Smoking Status *Q: Never Smoker - Caffeine Use Caffeine Use: Reports: Coffee, Tea - Recreational Drug Use Recreational Drug Use: No ED ROS GENERAL - Review of Systems Review Of Systems: ROS reveals no pertinent complaints other than HPI. ED EXAM, GENERAL - Physical Exam Exam: See Below (See dictation) Course - Vital Signs Last Recorded V/S: Last Vital Signs Temp 98.0 F 02/21/19 12:40 Pulse 93 02/21/19 12:40 Resp 15 02/21/19 12:40 BP 145/75 H 02/21/19 12:40 Pulse Ox 97 02/21/19 12:40 Departure - Departure Time of Disposition: 13:28 Disposition: Home, Self-Care 01 Clinical Impression: Cellulitis of labia majora - Discharge Information Referrals: Calin Nieto MD [Primary Care Provider] - Forms: ED Department Discharge Additional Instructions: The following information is given to patients seen in the emergency department who are being discharged to home. This information is to outline your options for follow-up care. We provide all patients seen in our emergency department with a follow-up referral. The need for follow-up, as well as the timing and circumstances, are variable depending upon the specifics of your emergency department visit. If you don't have a primary care physician on staff, we will provide you with a referral. We always advise you to contact your personal physician following an emergency department visit to inform them of the circumstance of the visit and for follow-up with them and/or the need for any referrals to a consulting specialist. The emergency department will also refer you to a specialist when appropriate. This referral assures that you have the opportunity for follow-up care with a specialist. All of these measure are taken in an effort to provide you with optimal care, which includes your follow-up. Under all circumstances we always encourage you to contact your private physician who remains a resource for coordinating your care. When calling for follow-up care, please make the office aware that this follow-up is from your recent emergency room visit. If for any reason you are refused follow-up, please contact the [facility] Emergency Department at and asked to speak to the emergency department charge nurse. [facility] [address] [place] [id number] [facility] [address] [place] [id number] [facility] [address], [place] [address] 1. Take medication as prescribed. You can alternate ibuprofen and Tylenol as directed for pain and discomfort. 2. Follow-up with the women's health provider as discussed. The number has been provided above for you to call and set up an appointment time to call saturday morning. 3. Return to the ED as needed and as discussed. Continue to monitor infection for improvement/spreading infection as discussed.
[2019-02-21 13:47] VITALS: BP 136/76; PULSE 83
== END 2019-02-21 13:53 | disposition home or self-care (01) ==
LOC: MW.ED 12:27
DX: N76.2 Acute vulvitis (principal); E78.00 Pure hypercholesterolemia, unspecified; I10 Essential (primary) hypertension; K21.9 Gastro-esophageal reflux disease without esophagitis; E11.9 Type 2 diabetes mellitus without complications; E03.9 Hypothyroidism, unspecified; F32.9 Major depressive disorder, single episode, unspecified; F41.9 Anxiety disorder, unspecified; Z88.1 Allergy status to other antibiotic agents; Z79.899 Other long term (current) drug therapy; Z79.890 Hormone replacement therapy; Z79.84 Long term (current) use of oral hypoglycemic drugs
CPT/HCPCS: 99282

== ENCOUNTER 2019-07-27 19:27 | Observation (INO) | payer MEDICARE, BC ==
[2019-07-27] MEDS ORDERED: Aspirin 81 MG Tab.Chew PO ONE (20:24)
--- NOTE | 2019-07-27 20:33 | EDM.PDOC ---
ED HPI GENERAL MEDICAL PROBLEM - General Chief Complaint: Cardiovascular Problem Stated Complaint: IRREGULAR HEART BEAT,SLIGHT CHEST PAIN Time Seen by Provider: 07/27/19 20:14 Source of Information: Reports: Patient History Limitations: Reports: No Limitations - History of Present Illness INITIAL COMMENTS - FREE TEXT/NARRATIVE: HISTORY OF PRESENT ILLNESS: Patient is a 69-year-old female with history of diabetes, hypertension, hyperlipidemia who presents the ER with complaints of palpitations and chest pain. States she has been having the chest pain intermittently for the past 2 to 3 weeks occurring more frequently rating the pain as 2 out of 10 in severity. States she is unable to describe the pain states it "just hurts". Denies any radiation of pain. No diaphoresis, nausea or vomiting. Denies any associated dyspnea or abdominal pain. No syncope. Pt recently had ZIO placed by Dr. Blunt. Father has history of CAD. Patient has a history of depression and her provider for this recently unexpectedly. Denies any suicidal or homicidal ideation. No hallucinations. REVIEW OF SYSTEMS: Other than the symptoms associated with the present events, the following is reported with regard to recent health: General: (-) fever. HENT: (-) congestion. 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 Cardiovascular: (+) chest pain. GI: (-) abdominal pain. : (-) urinary complaints. Musculoskeletal: (-) other aches or pains. Endocrine: (-) generalized weakness. Neurological: (-) localized weakness. Skin: (-) rash PAST MEDICAL HISTORY: reviewed as per nursing notes SOCIAL HISTORY: reviewed as per nursing notes, MEDICATIONS: Per nurse's note ALLERGIES: Per nurse's note, reviewed by me PHYSICAL EXAMINATION: GENERALIZED APPEARANCE: well developed, well nourished in no distress VITAL SIGNS: Per nurse's note, reviewed by me SKIN: Warm, dry; (-) cyanosis; (-) rash. HEAD: (-) scalp swelling, (-) tenderness. EYES: (-) conjunctival pallor, (-) scleral icterus. ENMT: (-) stridor; mucous membranes moist. NECK: (-) tenderness, (-) stiffness, CHEST AND RESPIRATORY: (-) rales, (-) rhonchi, (-) wheezes; breath sounds equal bilaterally. HEART AND CARDIOVASCULAR: (-) irregularity; (-) murmur, (-) gallop. ABDOMEN AND GI: Soft; (-) tenderness, (-) guarding, (-) rebound, (-) palpable masses, EXTREMITIES: (-) deformity, (-) edema. NEURO AND PSYCH: Alert. Cranial nerves grossly intact; strength symmetric. gait steady. no SI/HI DIAGNOSTICS: EKG: sr at 81 bpm. atrial premature complex. nml axis. no st elevation. CXR: as read by radiologist Labs ordered and reviewed by myself. EMERGENCY DEPARTMENT COURSE AND TREATMENT: Patient's condition remained stable during Emergency Department evaluation. given ASA here. EKG and first troponin negative. Pt moderate risk HEART score, will require admission for serial enzymes. Case d/w Dr. Cho who kindly agrees to admit PLAN AND FOLLOW-UP: admit. headache Pain Score (Numeric/FACES): 5 - Related Data Allergies Allergy/AdvReac Type Severity Reaction Status Date / Time levofloxacin Allergy Other Verified 02/21/19 12:40 Home Meds: Home Meds Esomeprazole [NexIUM] 40 mg PO BEDTIME 09/25/13 [History] Doxepin HCl [Doxepin] 1 tab PO BEDTIME 07/30/16 [History] ALPRAZolam [Alprazolam] 1 tab PO BID 05/31/17 [History] Losartan Potassium 25 mg PO BEDTIME 05/31/17 [History] QUEtiapine [SEROquel] 50 mg PO BEDTIME 05/04/18 [History] Diltiazem [Cardizem CD] 120 mg PO DAILY 01/26/19 [History] Glimepiride 1 mg PO DAILY 01/26/19 [History] Liothyronine [Cytomel] 12.5 mg PO DAILY 01/26/19 [History] Citalopram [Citalopram HBr] 20 mg PO BEDTIME 02/21/19 [History] Ketamine Hcl [Ketamine Nasal [place] Compound] 100 mg NASBOTH QID 02/21/19 [ History] Levothyroxine [Synthroid] 75 mcg PO DAILY 02/21/19 [History] Acetaminophen 1,000 mg PO ASDIRECTED PRN 07/28/19 [History] Ascorbic Acid [Vitamin C] 250 mg PO BEDTIME 07/28/19 [History] Cholecalciferol (Vitamin D3) [Vitamin D3] 10,000 unit PO BEDTIME 07/28/19 [ History] Ferrous Fumarate/Vitamin C [Vitron-C] 65 mg PO BID 07/28/19 [History] Losartan Potassium 50 mg PO DAILY 07/28/19 [History] Rosuvastatin [Crestor] 10 mg PO BEDTIME 07/28/19 [History] Past Medical History HEENT History: Reports: Other (See Below) Other HEENT History: wears glasses Cardiovascular History: Reports: Heart Murmur, High Cholesterol, Hypertension Respiratory History: Reports: None Gastrointestinal History: Reports: GERD Genitourinary History: Reports: None Musculoskeletal History: Reports: Arthritis, Back Pain, Chronic, Fracture Other Musculoskeletal History: hx fx wrist as a child Neurological History: Reports: None Psychiatric History: Reports: Anxiety, Depression Endocrine/Metabolic History: Reports: Diabetes, Type II, Hypothyroidism Immunologic History: Reports: None - Infectious Disease History Infectious Disease History: Reports: Chicken Pox, Measles, Mononucleosis - Past Surgical History Head Surgeries/Procedures: Reports: None HEENT Surgical History: Reports: Tonsillectomy GI Surgical History: Reports: None Female Surgical History: Reports: None Endocrine Surgical History: Reports: Thyroidectomy Musculoskeletal Surgical History: Reports: None Social & Family History - Family History Family Medical History: Noncontributory - Tobacco Use Smoking Status *Q: Never Smoker - Caffeine Use Caffeine Use: Reports: Coffee, Tea - Recreational Drug Use Recreational Drug Use: No ED ROS GENERAL - Review of Systems Review Of Systems: See Below (see dictation) ED EXAM, GENERAL - Physical Exam Exam: See Below (see dictation) Course - Vital Signs Last Recorded V/S: Last Vital Signs Temp 97.5 F 07/28/19 00:54 Pulse 66 07/28/19 01:42 Resp 16 07/28/19 00:54 BP 143/77 H 07/28/19 01:43 Pulse Ox 97 07/28/19 00:54 - Orders/Labs/Meds Orders: Active Orders 24 hr Category Date Time Status Cardiac Monitoring [RC] . DIRECTED Care 07/27/19 20:25 Active EKG 12 Lead [EKG Documentation Completion] [RC] STAT Care 07/27/19 19:58 Active Medication Orders Citalopram Hydrobromide (Celexa) 20 mg PO BEDTIME JORGE Last Admin: 07/28/19 01:43 Dose: 20 mg Diltiazem HCl (Cardizem Cd) 120 mg PO BEDTIME [facility] Last Admin: 07/28/19 01:42 Dose: 120 mg Doxepin HCl (Sinequan) 100 mg PO BEDTIME [facility] Last Admin: 07/28/19 02:19 Dose: 100 mg Famotidine (Pepcid) 20 mg PO DAILY [facility] Glimepiride (Glimepiride) 1 mg PO DAILY [facility] Insulin Aspart (Novolog) 0 unit SUBCUT TIDAC [facility]; Protocol Levothyroxine Sodium (Synthroid) 50 mcg PO DAILY [facility] Losartan Potassium (Cozaar) 25 mg PO BEDTIME [facility] Last Admin: 07/28/19 01:43 Dose: 25 mg Losartan Potassium (Cozaar) 50 mg PO DAILY [facility] Omeprazole (Omeprazole) 40 mg PO ACBREAKFAST [facility] Ondansetron HCl (Zofran) 4 mg IVPUSH Q4H PRN PRN Reason: Nausea Quetiapine Fumarate (Seroquel) 50 mg PO BEDTIME [facility] Last Admin: 07/28/19 02:19 Dose: 50 mg Rosuvastatin Calcium (Crestor) 10 mg PO BEDTIME [facility] Last Admin: 07/28/19 02:12 Dose: 10 mg Labs: Laboratory Tests 07/27/19 07/27/19 Range/Units 20:00 20:00 WBC 11.35 H (4.0-11.0) K/uL RBC 4.45 (4.30-5.90) M/uL Hgb 13.0 (12.0-16.0) g/dL Hct 38.8 (36.0-46.0) % MCV 87.2 (80.0-98.0) fL MCH 29.2 (27.0-32.0) pg MCHC 33.5 (31.0-37.0) g/dL RDW Std Deviation 42.9 (28.0-62.0) fl RDW Coeff of Eran 14 (11.0-15.0) % Plt Count 239 (150-400) K/uL MPV 9.10 (7.40-12.00) fL Neut % (Auto) 67.8 (48.0-80.0) % Lymph % (Auto) 24.2 (16.0-40.0) % [place] % (Auto) 6.4 (0.0-15.0) % Eos % (Auto) 1.4 (0.0-7.0) % Baso % (Auto) 0.2 (0.0-1.5) % Neut # (Auto) 7.7 H (1.4-5.7) K/uL Lymph # (Auto) 2.8 H (0.6-2.4) K/uL [place] # (Auto) 0.7 (0.0-0.8) K/uL Eos # (Auto) 0.2 (0.0-0.7) K/uL Baso # (Auto) 0.0 (0.0-0.1) K/uL Nucleated RBC % 0.0 /100WBC Nucleated RBCs # 0 K/uL Sodium 135 L (136-145) mmol/L Potassium 3.5 (3.5-5.1) mmol/L Chloride 97 L (98-107) mmol/L Carbon Dioxide 29.8 (21.0-32.0) mmol/L BUN 12 (7.0-18.0) mg/dL Creatinine 0.7 (0.6-1.0) mg/dL Est Cr Clr Drug Dosing 61.68 mL/min Estimated GFR (MDRD) > 60.0 ml/min Glucose 144 H (74-106) mg/dL Calcium 9.1 (8.5-10.1) mg/dL Magnesium 1.8 (1.8-2.4) mg/dL Troponin I < 0.050 (0.000-0.056) ng/mL Meds: Medications Generic Name Dose Route Start Last Admin Trade Name Famq PRN Reason Stop Dose Admin Citalopram Hydrobromide 20 mg 07/28/19 01:30 07/28/19 01:43 Celexa PO 20 mg BEDTIME JORGE Administration Diltiazem HCl 120 mg 07/28/19 01:30 07/28/19 01:42 Cardizem Cd PO 120 mg BEDTIME JORGE Administration Doxepin HCl 100 mg 07/28/19 02:00 07/28/19 02:19 Sinequan PO 100 mg BEDTIME JORGE Administration Famotidine 20 mg 07/28/19 09:00 Pepcid PO DAILY JOR[facility] Glimepiride 1 mg 07/28/19 09:00 Glimepiride PO DAILY [facility] Insulin Aspart 0 unit 07/28/19 07:30 Novolog SUBCUT TIDAC [facility] Protocol Levothyroxine Sodium 50 mcg 07/28/19 09:00 Synthroid PO DAILY [facility] Losartan Potassium 25 mg 07/28/19 01:30 07/28/19 01:43 Cozaar PO 25 mg BEDTIME JORGE Administration Losartan Potassium 50 mg 07/28/19 09:00 Cozaar PO DAILY [facility] Omeprazole 40 mg 07/28/19 07:30 Omeprazole PO ACBREAKFAST [facility] Ondansetron HCl 4 mg 07/27/19 23:41 Zofran IVPUSH Q4H PRN Nausea Quetiapine Fumarate 50 mg 07/28/19 01:59 07/28/19 02:19 Seroquel PO 50 mg BEDTIME JORGE Administration Rosuvastatin Calcium 10 mg 07/28/19 01:50 07/28/19 02:12 Crestor PO 10 mg BEDTIME JORGE Administration Discontinued Medications Generic Name Dose Route Start Last Admin Trade Name Freq PRN Reason Stop Dose Admin Aspirin 324 mg 07/27/19 20:24 07/27/19 20:34 Aspirin PO 07/27/19 20:25 324 mg ONETIME ONE Administration Citalopram Hydrobromide 20 mg 07/28/19 09:00 Celexa PO DAILY [facility] Diltiazem HCl 120 mg 07/28/19 09:00 Cardizem Cd PO DAILY [facility] Doxepin HCl 100 mg 07/28/19 09:00 Sinequan PO DAILY [facility] Losartan Potassium 25 mg 07/28/19 09:00 Cozaar PO DAILY [facility] Quetiapine Fumarate 100 mg 07/28/19 21:00 Seroquel PO BEDTIME [facility] Simvastatin 40 mg 07/28/19 21:00 Zocor PO BEDTIME [facility] Departure - Departure Time of Disposition: 21:30 Disposition: Admitted As Inpatient 68 Condition: Good Clinical Impression: Chest pain, Palpitations Sepsis Event Note - Evaluation Sepsis Screening Result: No Definite Risk - Focused Exam Vital Signs: Vital Signs Temp Pulse Resp BP Pulse Ox 07/27/19 19:44 95.2 F L 82 20 172/94 H 96 Date Exam was Performed: 07/28/19 Time Exam was Performed: 05:19 - My Orders Last 24 Hours: My Active Orders 07/27/19 19:58 EKG 12 Lead [EKG Documentation Completion] [RC] STAT 03/16/20 20:25 Cardiac Monitoring [RC] . DIRECTED - Assessment/Plan Last 24 Hours: My Active Orders 07/27/19 19:58 EKG 12 Lead [EKG Documentation Completion] [RC] STAT 07/27/19 20:25 Cardiac Monitoring [RC] . DIRECTED
[2019-07-27 20:36] LABS: BLOOD UREA NITROGEN,BUN 12 mg/dL (7.0-18.0); CARBON DIOXIDE,CO2 29.8 mmol/L (21.0-32.0); CHLORIDE,CL 97 mmol/L (98-107); GLUCOSE RANDOM 144 mg/dL (74-106); POTASSIUM,K 3.5 mmol/L (3.5-5.1); SODIUM,NA 135 mmol/L (136-145)
--- NOTE | 2019-07-27 20:49 | CR ---
Chest: PA view of the chest was obtained. Comparison: Prior chest x-ray of 05/04/18. Stable scarring is noted within the left midlung and right lower lung. No acute parenchymal change is seen. Heart is enlarged. Recording device is seen overlying the chest. Slight scoliosis is noted within the spine. Impression: 1. Findings as noted above. 2. Nothing acute is appreciated. Diagnostic code #2 Study was dictated in MDT
[2019-07-27] MEDS ORDERED: Ondansetron 4 MG/2 ML SDV IVPUSH PRN (23:41)
--- NOTE | 2019-07-27 23:46 | PCM.HP.2 ---
H&P History of Present Illness - General Date of Service: 07/27/19 Admit Problem/Dx: Admission Diagnosis/Problem Admission Diagnosis/Problem Chest pain - History of Present Illness Initial Comments - Free Text/Narative: 69 yo female with pmh of hypothyroidism, hypertension, and DM who presents with one day history of palpitations. PAtient also reports four day history of pain under left breast. She reports generalized fatigue. She denies any fevers, chills, or cough. headache Pain Score (Numeric/FACES): 5 - Related Data Allergies/Adverse Reactions: Allergies Allergy/AdvReac Type Severity Reaction Status Date / Time levofloxacin Allergy Other Verified 02/21/19 12:40 Home Medications: Home Meds Esomeprazole [NexIUM] 40 mg PO BEDTIME 09/25/13 [History] Doxepin HCl [Doxepin] 1 tab PO BEDTIME 07/30/16 [History] ALPRAZolam [Alprazolam] 1 tab PO BID 05/31/17 [History] Losartan Potassium 25 mg PO BEDTIME 05/31/17 [History] QUEtiapine [SEROquel] 50 mg PO BEDTIME 05/04/18 [History] Diltiazem [Cardizem CD] 120 mg PO DAILY 01/26/19 [History] Glimepiride 1 mg PO DAILY 01/26/19 [History] Liothyronine [Cytomel] 12.5 mg PO DAILY 01/26/19 [History] Citalopram [Citalopram HBr] 20 mg PO BEDTIME 02/21/19 [History] Ketamine Hcl [Ketamine Nasal [place] Compound] 100 mg NASBOTH QID 02/21/19 [ History] Levothyroxine [Synthroid] 75 mcg PO DAILY 02/21/19 [History] Acetaminophen 1,000 mg PO ASDIRECTED PRN 07/28/19 [History] Ascorbic Acid [Vitamin C] 250 mg PO BEDTIME 07/28/19 [History] Cholecalciferol (Vitamin D3) [Vitamin D3] 10,000 unit PO BEDTIME 07/28/19 [ History] Ferrous Fumarate/Vitamin C [Vitron-C] 65 mg PO BID 07/28/19 [History] Losartan Potassium 50 mg PO DAILY 07/28/19 [History] Rosuvastatin [Crestor] 10 mg PO BEDTIME 07/28/19 [History] Past Medical History HEENT History: Reports: Other (See Below) Other HEENT History: wears glasses Cardiovascular History: Reports: Heart Murmur, High Cholesterol, Hypertension Respiratory History: Reports: None Gastrointestinal History: Reports: GERD Genitourinary History: Reports: None Musculoskeletal History: Reports: Arthritis, Back Pain, Chronic, Fracture Other Musculoskeletal History: hx fx wrist as a child Neurological History: Reports: None Psychiatric History: Reports: Anxiety, Depression Endocrine/Metabolic History: Reports: Diabetes, Type II, Hypothyroidism Immunologic History: Reports: None - Infectious Disease History Infectious Disease History: Reports: Chicken Pox, Measles, Mononucleosis - Past Surgical History Head Surgeries/Procedures: Reports: None HEENT Surgical History: Reports: Tonsillectomy GI Surgical History: Reports: None Female Surgical History: Reports: None Endocrine Surgical History: Reports: Thyroidectomy Musculoskeletal Surgical History: Reports: None Social & Family History - Family History Family Medical History: Noncontributory - Tobacco Use Smoking Status *Q: Never Smoker - Caffeine Use Caffeine Use: Reports: Coffee, Tea - Recreational Drug Use Recreational Drug Use: No H&P Review of Systems - Review of Systems: Review Of Systems: Comprehensive ROS is negative, except as noted in HPI. Exam - Exam Exam: See Below - Vital Signs Vital Signs: Last Vital Signs Temp 37.2 C 07/27/19 22:05 Pulse 83 07/27/19 22:05 Resp 18 07/27/19 22:05 BP 122/62 07/27/19 22:05 Pulse Ox 95 07/27/19 22:05 Weight: 65.771 kg - Exam General: Alert, Oriented HEENT: Mucosa Moist & [place] Lungs: Clear to Auscultation, Normal Respiratory Effort Cardiovascular: Regular Rate, Regular Rhythm GI/Abdominal Exam: Normal Bowel Sounds, Soft, Non-Tender Extremities: Non-Tender, No Pedal Edema - Patient Data Lab Results Last 24 hrs: Laboratory Results - last 24 hr 07/27/19 07/27/19 Range/Units 20:00 20:00 WBC 11.35 H (4.0-11.0) K/uL RBC 4.45 (4.30-5.90) M/uL Hgb 13.0 (12.0-16.0) g/dL Hct 38.8 (36.0-46.0) % MCV 87.2 (80.0-98.0) fL MCH 29.2 (27.0-32.0) pg MCHC 33.5 (31.0-37.0) g/dL RDW Std Deviation 42.9 (28.0-62.0) fl RDW Coeff of Eran 14 (11.0-15.0) % Plt Count 239 (150-400) K/uL MPV 9.10 (7.40-12.00) fL Neut % (Auto) 67.8 (48.0-80.0) % Lymph % (Auto) 24.2 (16.0-40.0) % [place] % (Auto) 6.4 (0.0-15.0) % Eos % (Auto) 1.4 (0.0-7.0) % Baso % (Auto) 0.2 (0.0-1.5) % Neut # (Auto) 7.7 H (1.4-5.7) K/uL Lymph # (Auto) 2.8 H (0.6-2.4) K/uL [place] # (Auto) 0.7 (0.0-0.8) K/uL Eos # (Auto) 0.2 (0.0-0.7) K/uL Baso # (Auto) 0.0 (0.0-0.1) K/uL Nucleated RBC % 0.0 /100WBC Nucleated RBCs # 0 K/uL Sodium 135 L (136-145) mmol/L Potassium 3.5 (3.5-5.1) mmol/L Chloride 97 L (98-107) mmol/L Carbon Dioxide 29.8 (21.0-32.0) mmol/L BUN 12 (7.0-18.0) mg/dL Creatinine 0.7 (0.6-1.0) mg/dL Est Cr Clr Drug Dosing 61.68 mL/min Estimated GFR (MDRD) > 60.0 ml/min Glucose 144 H (74-106) mg/dL Calcium 9.1 (8.5-10.1) mg/dL Magnesium 1.8 (1.8-2.4) mg/dL Troponin I < 0.050 (0.000-0.056) ng/mL Result Diagrams: 07/28/19 08:25 07/28/19 08:25 Sepsis Event Note - Evaluation Sepsis Screening Result: No Definite Risk - Focused Exam Vital Signs: Vital Signs Temp Pulse Resp BP Pulse Ox 07/27/19 22:05 37.2 C 83 18 122/62 95 07/27/19 19:44 35.1 C L 82 20 172/94 H 96 Date Exam was Performed: 07/28/19 Time Exam was Performed: 16:25 Problem List Initiated/Reviewed/Updated: Yes Orders Last 24hrs: Active Orders 24 hr Category Date Time Status Admission Status [Patient Status] [ADT] Stat ADT 07/27/19 21:30 Active Antiembolic Devices [RC] PER UNIT ROUTINE Care 07/27/19 23:42 Active Cardiac Monitoring [RC] . DIRECTED Care 07/27/19 20:25 Active EKG 12 Lead [EKG Documentation Completion] [RC] STAT Care 07/27/19 19:58 Active Oxygen Therapy [RC] PRN Care 07/27/19 23:41 Active Telemetry Monitoring [Cardiac Monitoring] [RC] . Care 07/27/19 22:42 Active DIRECTED Up ad [place]ud[place]ka [RC] ASDIRECTED Care 07/27/19 23:41 Active VTE/DVT Education [RC] PER UNIT ROUTINE Care 07/27/19 23:41 Active Vital Signs [RC] Q4H Care 07/27/19 23:41 Active [employer] [place] [employer] Diet [DIET] Diet 07/27/19 Breakfast Active BASIC METABOLIC PANEL,BMP [CHEM] AM Lab 07/28/19 05:11 Ordered CBC WITH AUTO DIFF [HEME] AM Lab 07/28/19 05:11 Ordered TROPONIN I [CHEM] Q6H Lab 07/27/19 02:00 Ordered TROPONIN I [CHEM] Q6H Lab 07/27/19 08:00 Ordered UA RFX RACHEL AND CULT IF INDIC [URIN] Routine Lab 07/27/19 23:43 Ordered Citalopram [Celexa] Med 07/28/19 09:00 Ordered 20 mg PO DAILY Diltiazem [Cardizem CD] Med 07/28/19 09:00 Ordered 120 mg PO DAILY Doxepin HCl [Doxepin] Med 07/28/19 09:00 Ordered 1 tab PO DAILY Esomeprazole [NexIUM] Med 07/28/19 09:00 Ordered 40 mg PO DAILY Glimepiride Med 07/28/19 09:00 Ordered 1 mg PO DAILY Insulin Aspart [NovoLOG] Med 07/28/19 07:30 Ordered See Protocol SUBCUT TIDAC Levothyroxine [Synthroid] Med 07/28/19 09:00 Ordered 50 mcg PO DAILY Losartan Potassium Med 07/28/19 09:00 Ordered 25 mg PO DAILY Ondansetron [Zofran] Med 07/27/19 23:41 Ordered 4 mg IVPUSH Q4H PRN QUEtiapine [SEROqueL] Med 07/28/19 21:00 Ordered 100 mg PO BEDTIME Simvastatin [Zocor] Med 07/28/19 21:00 Ordered 40 mg PO BEDTIME raNITIdine HCl Med 07/28/19 09:00 Ordered 150 mg PO DAILY Sequential Compression Device [OM.PC] Per Unit Routine Oth 07/27/19 23:42 Ordered Resuscitation Status Routine Resus Stat 07/27/19 23:41 Ordered Medication Orders Citalopram Hydrobromide (Celexa) 20 mg PO DAILY [facility] Diltiazem HCl (Cardizem Cd) 120 mg PO DAILY [facility] Glimepiride (Glimepiride) 1 mg PO DAILY [facility] Insulin Aspart (Novolog) 0 unit SUBCUT TIDAC [facility]OR[facility]; Protocol Levothyroxine Sodium (Synthroid) 50 mcg PO DAILY [facility]ORGE Non-Formulary Medication (Doxepin Hcl [Doxepin]) 1 tab PO DAILY [facility]ORGE Non-Formulary Medication (Esomeprazole [Nexium]) 40 mg PO DAILY JORGE Non-Formulary Medication (Losartan Potassium) 25 mg PO DAILY JORGE Non-Formulary Medication (Ranitidine Hcl) 150 mg PO DAILY [facility] Ondansetron HCl (Zofran) 4 mg IVPUSH Q4H PRN PRN Reason: Nausea Quetiapine Fumarate (Seroquel) 100 mg PO BEDTIME JORGE Simvastatin (Zocor) 40 mg PO BEDTIME JORGE Assessment/Plan Comment:: 69 yo female admitted for palpitations and chest pain. We will monitor overnight on telemetry and rule out acute coronary syndrome with serial negative cardiac enzymes - Mortality Measure Prognosis:: Good
[2019-07-28] MEDS ORDERED: Diltiazem 120 MG Cap.CD PO SCH ×2 (01:30→09:00)
[2019-07-28] MEDS ORDERED: Losartan 50 MG Tab PO SCH ×3 (01:30→09:00)
[2019-07-28] MEDS ORDERED: Citalopram 20 MG Tab PO SCH ×2 (01:30→09:00)
[2019-07-28] MEDS ORDERED: Rosuvastatin 10 MG Tab PO SCH (01:50)
[2019-07-28] MEDS ORDERED: Doxepin 25 MG Cap PO SCH ×2 (02:00→09:00)
[2019-07-28] MEDS ORDERED: Insulin Aspart 100 Units/ML 3 ML Pen SUBCUT SCH (07:30)
[2019-07-28] MEDS ORDERED: Omeprazole 20 MG Cap.CR PO SCH (07:30)
[2019-07-28] MEDS ORDERED: Levothyroxine 75 MCG Tab PO SCH (07:30)
[2019-07-28] MEDS ORDERED: Famotidine 20 MG Tab PO SCH (09:00)
[2019-07-28 09:18] LABS: BLOOD UREA NITROGEN,BUN 13 mg/dL (7.0-18.0); CARBON DIOXIDE,CO2 34.2 mmol/L (21.0-32.0); CHLORIDE,CL 99 mmol/L (98-107); GLUCOSE RANDOM 157 mg/dL (74-106); POTASSIUM,K 3.9 mmol/L (3.5-5.1); SODIUM,NA 138 mmol/L (136-145)
[2019-07-28] MEDS ORDERED: Acetaminophen 325 MG Tab PO ONE (11:28)
--- NOTE | 2019-07-28 11:52 | PCM.DCSUM1 ---
Discharge Summary - Hospital Course Brief History: 69 yo female with pmh of hypothyroidism, hypertension, and DM who presents with one day history of palpitations. PAtient also reports four day history of pain under left breast. She reports generalized fatigue. She denies any fevers, chills, or cough. Troponins trend, telemetry showed no signs of ischemia. She is wondering why blood pressure has been elevated that last few weeks. We discussed salt intake along with stress and anxiety. She was told to monitor BP at home and keep a log. Try rid her diet of salts and stay away from soups and broths along with processed foods. She will have follow up with PCP and Dr Horn. Zio patch remains in place. She is to return to ED or clinic if concerns should arise. She is to continue all home medications - Discharge Data Discharge Date: 07/28/19 Discharge Disposition: Home, Self-Care 01 Condition: Good - Referral to Home Health Primary Care Physician: Calin Nieto MD - Patient Instructions Diet: Heart Healthy Diet Activity: As Tolerated, No Strenuous Activities Driving: Do Not Drive Showering/Bathing: May Shower Notify Provider of: Fever, Increased Pain, Swelling and Redness, Drainage, Nausea and/or Vomiting Other/Special Instructions: Monitor Blood pressure at home. - Discharge Plan *PRESCRIPTION DRUG MONITORING PROGRAM REVIEWED*: Not Applicable *COPY OF PRESCRIPTION DRUG MONITORING REPORT IN PATIENT KAREY: Not Applicable Home Medications: Home Meds Esomeprazole [NexIUM] 40 mg PO BEDTIME 09/25/13 [History] Doxepin HCl [Doxepin] 1 tab PO BEDTIME 07/30/16 [History] ALPRAZolam [Alprazolam] 1 tab PO BID 05/31/17 [History] Losartan Potassium 25 mg PO BEDTIME 05/31/17 [History] QUEtiapine [SEROquel] 50 mg PO BEDTIME 05/04/18 [History] Diltiazem [Cardizem CD] 120 mg PO DAILY 01/26/19 [History] Glimepiride 1 mg PO DAILY 01/26/19 [History] Liothyronine [Cytomel] 12.5 mg PO DAILY 01/26/19 [History] Citalopram [Citalopram HBr] 20 mg PO BEDTIME 02/21/19 [History] Ketamine Hcl [Ketamine Nasal [place] Compound] 100 mg NASBOTH QID 02/21/19 [ History] Levothyroxine [Synthroid] 75 mcg PO DAILY 02/21/19 [History] Acetaminophen 1,000 mg PO ASDIRECTED PRN 07/28/19 [History] Ascorbic Acid [Vitamin C] 250 mg PO BEDTIME 07/28/19 [History] Cholecalciferol (Vitamin D3) [Vitamin D3] 10,000 unit PO BEDTIME 07/28/19 [ History] Ferrous Fumarate/Vitamin C [Vitron-C] 65 mg PO BID 07/28/19 [History] Losartan Potassium 50 mg PO DAILY 07/28/19 [History] Rosuvastatin [Crestor] 10 mg PO BEDTIME 07/28/19 [History] Oxygen Therapy Mode: Room Air Patient Handouts: Nonspecific Chest Pain, Adult, [id number] Referrals: Judith Horn MD [Physician] - 08/18/19 9:45 am Calin Nieto MD [Primary Care Provider] - 08/05/19 4:00 pm (Arrive 15 minutes early with a photo ID and insurance card. ) - Discharge Summary/Plan Comment DC Time >30 min.: No - Patient Data Vitals - Most Recent: Last Vital Signs Temp 98.1 F 07/28/19 05:35 Pulse 89 07/28/19 05:35 Resp 18 07/28/19 05:35 BP 133/79 07/28/19 09:09 Pulse Ox 95 07/28/19 05:35 Weight - Most Recent: 74.571 kg I&O - Last 24 hours: Intake & Output 07/27/19 07/28/19 07/28/19 22:59 06:59 14:59 Intake Total 600 Output Total 1200 Balance -600 Lab Results - Last 24 hrs: Laboratory Results - last 24 hr 07/27/19 07/27/19 07/28/19 Range/Units 20:00 20:00 02:07 WBC 11.35 H (4.0-11.0) K/uL RBC 4.45 (4.30-5.90) M/uL Hgb 13.0 (12.0-16.0) g/dL Hct 38.8 (36.0-46.0) % MCV 87.2 (80.0-98.0) fL MCH 29.2 (27.0-32.0) pg MCHC 33.5 (31.0-37.0) g/dL RDW Std Deviation 42.9 (28.0-62.0) fl RDW Coeff of Eran 14 (11.0-15.0) % Plt Count 239 (150-400) K/uL MPV 9.10 (7.40-12.00) fL Neut % (Auto) 67.8 (48.0-80.0) % Lymph % (Auto) 24.2 (16.0-40.0) % Sumner % (Auto) 6.4 (0.0-15.0) % Eos % (Auto) 1.4 (0.0-7.0) % Baso % (Auto) 0.2 (0.0-1.5) % Neut # (Auto) 7.7 H (1.4-5.7) K/uL Lymph # (Auto) 2.8 H (0.6-2.4) K/uL Sumner # (Auto) 0.7 (0.0-0.8) K/uL Eos # (Auto) 0.2 (0.0-0.7) K/uL Baso # (Auto) 0.0 (0.0-0.1) K/uL Nucleated RBC % 0.0 /100WBC Nucleated RBCs # 0 K/uL Sodium 135 L (136-145) mmol/L Potassium 3.5 (3.5-5.1) mmol/L Chloride 97 L (98-107) mmol/L Carbon Dioxide 29.8 (21.0-32.0) mmol/L BUN 12 (7.0-18.0) mg/dL Creatinine 0.7 (0.6-1.0) mg/dL Est Cr Clr Drug Dosing 61.68 mL/min Estimated GFR (MDRD) > 60.0 ml/min Glucose 144 H (74-106) mg/dL POC Glucose (60-110) mg/dL Calcium 9.1 (8.5-10.1) mg/dL Magnesium 1.8 (1.8-2.4) mg/dL Troponin I < 0.050 < 0.050 (0.000-0.056) ng/mL 07/28/19 07/28/19 07/28/19 Range/Units 07:16 08:25 08:25 WBC 8.33 (4.0-11.0) K/uL RBC 4.47 (4.30-5.90) M/uL Hgb 13.0 (12.0-16.0) g/dL Hct 39.4 (36.0-46.0) % MCV 88.1 (80.0-98.0) fL MCH 29.1 (27.0-32.0) pg MCHC 33.0 (31.0-37.0) g/dL RDW Std Deviation 43.4 (28.0-62.0) fl RDW Coeff of Eran 14 (11.0-15.0) % Plt Count 235 (150-400) K/uL MPV 9.30 (7.40-12.00) fL Neut % (Auto) 53.7 (48.0-80.0) % Lymph % (Auto) 35.8 (16.0-40.0) % Sumner % (Auto) 7.7 (0.0-15.0) % Eos % (Auto) 2.6 (0.0-7.0) % Baso % (Auto) 0.2 (0.0-1.5) % Neut # (Auto) 4.5 (1.4-5.7) K/uL Lymph # (Auto) 3.0 H (0.6-2.4) K/uL Sumner # (Auto) 0.6 (0.0-0.8) K/uL Eos # (Auto) 0.2 (0.0-0.7) K/uL Baso # (Auto) 0.0 (0.0-0.1) K/uL Nucleated RBC % 0.0 /100WBC Nucleated RBCs # 0 K/uL Sodium 138 (136-145) mmol/L Potassium 3.9 (3.5-5.1) mmol/L Chloride 99 (98-107) mmol/L Carbon Dioxide 34.2 H (21.0-32.0) mmol/L BUN 13 (7.0-18.0) mg/dL Creatinine 0.7 (0.6-1.0) mg/dL Est Cr Clr Drug Dosing 61.68 mL/min Estimated GFR (MDRD) > 60.0 ml/min Glucose 157 H (74-106) mg/dL POC Glucose 88 (60-110) mg/dL Calcium 9.5 (8.5-10.1) mg/dL Magnesium (1.8-2.4) mg/dL Troponin I (0.000-0.056) ng/mL 07/28/19 Range/Units 08:25 WBC (4.0-11.0) K/uL RBC (4.30-5.90) M/uL Hgb (12.0-16.0) g/dL Hct (36.0-46.0) % MCV (80.0-98.0) fL MCH (27.0-32.0) pg MCHC (31.0-37.0) g/dL RDW Std Deviation (28.0-62.0) fl RDW Coeff of Eran (11.0-15.0) % Plt Count (150-400) K/uL MPV (7.40-12.00) fL Neut % (Auto) (48.0-80.0) % Lymph % (Auto) (16.0-40.0) % Sumner % (Auto) (0.0-15.0) % Eos % (Auto) (0.0-7.0) % Baso % (Auto) (0.0-1.5) % Neut # (Auto) (1.4-5.7) K/uL Lymph # (Auto) (0.6-2.4) K/uL Sumner # (Auto) (0.0-0.8) K/uL Eos # (Auto) (0.0-0.7) K/uL Baso # (Auto) (0.0-0.1) K/uL Nucleated RBC % /100WBC Nucleated RBCs # K/uL Sodium (136-145) mmol/L Potassium (3.5-5.1) mmol/L Chloride (98-107) mmol/L Carbon Dioxide (21.0-32.0) mmol/L BUN (7.0-18.0) mg/dL Creatinine (0.6-1.0) mg/dL Est Cr Clr Drug Dosing mL/min Estimated GFR (MDRD) ml/min Glucose (74-106) mg/dL POC Glucose (60-110) mg/dL Calcium (8.5-10.1) mg/dL Magnesium (1.8-2.4) mg/dL Troponin I < 0.050 (0.000-0.056) ng/mL Med Orders - Current: Current Medications Citalopram Hydrobromide (Celexa) 20 mg PO BEDTIME [facility] Last Admin: 07/28/19 01:43 Dose: 20 mg Diltiazem HCl (Cardizem Cd) 120 mg PO BEDTIME [facility] Last Admin: 07/28/19 01:42 Dose: 120 mg Doxepin HCl (Sinequan) 100 mg PO BEDTIME [facility] Last Admin: 07/28/19 02:19 Dose: 100 mg Famotidine (Pepcid) 20 mg PO DAILY [facility] Last Admin: 07/28/19 09:39 Dose: Not Given Glimepiride (Glimepiride) 1 mg PO DAILY [facility] Last Admin: 07/28/19 10:54 Dose: 1 mg Insulin Aspart (Novolog) 0 unit SUBCUT TIDAC [facility]; Protocol Last Admin: 07/28/19 07:16 Dose: Not Given Levothyroxine Sodium (Levothyroxine) 75 mcg PO ACBREAKFAST [facility] Last Admin: 07/28/19 07:26 Dose: 75 mcg Losartan Potassium (Cozaar) 25 mg PO BEDTIME [facility] Last Admin: 07/28/19 01:43 Dose: 25 mg Losartan Potassium (Cozaar) 50 mg PO DAILY [facility] Last Admin: 07/28/19 09:09 Dose: 50 mg Omeprazole (Omeprazole) 40 mg PO ACBREAKFAST [facility] Last Admin: 07/28/19 07:22 Dose: 40 mg Ondansetron HCl (Zofran) 4 mg IVPUSH Q4H PRN PRN Reason: Nausea Quetiapine Fumarate (Seroquel) 50 mg PO BEDTIME [facility] Last Admin: 07/28/19 02:19 Dose: 50 mg Rosuvastatin Calcium (Crestor) 10 mg PO BEDTIME [facility] Last Admin: 07/28/19 02:12 Dose: 10 mg Discontinued Medications Acetaminophen (Tylenol) 650 mg PO NOW ONE Stop: 07/28/19 11:29 Aspirin (Aspirin) 324 mg PO ONETIME ONE Stop: 07/27/19 20:25 Last Admin: 07/27/19 20:34 Dose: 324 mg Citalopram Hydrobromide (Celexa) 20 mg PO DAILY [facility] Diltiazem HCl (Cardizem Cd) 120 mg PO DAILY [facility] Doxepin HCl (Sinequan) 100 mg PO DAILY [facility] Losartan Potassium (Cozaar) 25 mg PO DAILY [facility] Quetiapine Fumarate (Seroquel) 100 mg PO BEDTIME [facility] Simvastatin (Zocor) 40 mg PO BEDTIME [facility]
[2019-07-28 13:33] VITALS: BP 132/64; PULSE 70
[2019-07-28] MEDS ORDERED: QUEtiapine 100 MG Tab PO SCH (21:00)
[2019-07-28] MEDS ORDERED: Simvastatin 40 MG Tab PO SCH (21:00)
== END 2019-07-28 13:00 | disposition home or self-care (01) ==
LOC: MW.ED 19:27 → MW.MS 21:30
PROVIDERS: ADMIT Internal Medicine; ATTEND Internal Medicine
DX: R07.9 Chest pain, unspecified (principal); R00.2 Palpitations; E03.9 Hypothyroidism, unspecified; I10 Essential (primary) hypertension; E11.9 Type 2 diabetes mellitus without complications; K21.9 Gastro-esophageal reflux disease without esophagitis; F32.9 Major depressive disorder, single episode, unspecified; F41.9 Anxiety disorder, unspecified; E78.00 Pure hypercholesterolemia, unspecified; Z79.84 Long term (current) use of oral hypoglycemic drugs; Z79.890 Hormone replacement therapy; Z79.899 Other long term (current) drug therapy; Z88.8 Allergy status to other drugs, medicaments and biological substances
CPT/HCPCS: 36415; 71045; 80048; 82962; 83735; 84484; 85025; 93005; 99285; A9270

== ENCOUNTER 2020-02-29 14:05 | Emergency (ER) | payer MEDICARE, BC ==
--- NOTE | 2020-02-29 14:26 | EDM.PDOC ---
ED [facility] GENERAL MEDICAL PROBLEM - General Chief Complaint: Abdominal Pain Stated Complaint: STOMACH PAIN,BLOODY STOOL Time Seen by Provider: 02/29/20 14:15 - History of Present Illness INITIAL COMMENTS - FREE TEXT/NARRATIVE: HISTORY AND PHYSICAL: History of present illness: This 70-year-old female with a past medical history of hypertension, diabetes mellitus and irregular heartbeat presents emergency department complaining of allover abdominal pain that has waxed and waned over the last few months. She has intermittent constipation and now has lots of gas and when she passes flatus she has blood and mucus come out. She is not having any diarrhea. No fevers. No vaginal symptoms or urinary symptoms. She rates the pain as moderate. Laying down at night seems to make it better. No vomiting but there is nausea. No other associated signs or symptoms. No other modifying, aggravating or alleviating factors. Review of systems: A 10-point review of systems, other than pertinent positives and negatives as stated per HPI, is otherwise negative. Past medical history: As per history of present illness and as reviewed below otherwise noncontributory. Surgical history: As per history of present illness and as reviewed below otherwise noncontributory. Social history: No reported history of drug or alcohol abuse. Family history: As per history of present illness and as reviewed below otherwise noncontribu tory. Physical exam: VITAL SIGNS: Reviewed. GENERAL: Peers to be in acute pain. Nontoxic appearing. HEAD: No signs of head trauma. EYES: Pupils are equal. Extraocular motions intact. EARS: Hearing grossly intact. MOUTH: Oropharynx is normal. NECK: No adenopathy, no JVD. CHEST: Chest with clear breath sounds bilaterally. No wheezes, rales, or rhonchi. CARDIAC: Regular rate and rhythm. Normal S1 and S2, without murmurs, gallops, or rubs. VASCULAR: Peripheral pulses normal and equal in all extremities. ABDOMEN: Soft, mild diffuse tenderness. No focal abdominal tenderness. No rebound or guarding. No distention. MUSCULOSKELETAL: Good range of motion of all major joints. Extremities without clubbing, cyanosis or edema. NEUROLOGIC EXAM: Alert and oriented x 3. No focal sensory or motor deficits. Speech normal. Follows commands. PSYCHIATRIC: Mood normal. SKIN: No rash or lesions. Initial Differential Diagnosis & Plan: The differential diagnosis would include appendicitis, cholecystitis, pyelonephritis, pancreatitis, mesenteric infarction, diverticulitis, small bowel obstruction, volvulus, and ACS. We will obtain labs, CT abdomen pelvis with IV contrast, and give symptomatic therapy initially with Compazine and reevaluate. Definitive disposition and diagnosis as appropriate pending reevaluation and review of above. abdomen Pain Score (Numeric/FACES): 6 - Related Data Allergies Allergy/AdvReac Type Severity Reaction Status Date / Time levofloxacin Allergy Other Verified 02/29/20 14:24 Home Meds: Home Meds Esomeprazole [NexIUM] 40 mg PO BEDTIME 09/25/13 [History] Doxepin HCl [Doxepin] 1 tab PO BEDTIME 07/30/16 [History] ALPRAZolam [Alprazolam] 1 tab PO BID 05/31/17 [History] Losartan Potassium 25 mg PO BEDTIME 05/31/17 [History] QUEtiapine [SEROquel] 50 mg PO BEDTIME 05/04/18 [History] Diltiazem [Cardizem CD] 120 mg PO DAILY 01/26/19 [History] Glimepiride 1 mg PO DAILY 01/26/19 [History] Liothyronine [Cytomel] 12.5 mg PO DAILY 01/26/19 [History] Citalopram [Citalopram HBr] 20 mg PO BEDTIME 02/21/19 [History] Ketamine Hcl [Ketamine Nasal [place] Compound] 100 mg NASBOTH QID 02/21/19 [History] Levothyroxine [Synthroid] 75 mcg PO DAILY 02/21/19 [History] Acetaminophen 1,000 mg PO ASDIRECTED PRN 07/28/19 [History] Ascorbic Acid [Vitamin C] 250 mg PO BEDTIME 07/28/19 [History] Cholecalciferol (Vitamin D3) [Vitamin D3] 10,000 unit PO BEDTIME 07/28/19 [History] Ferrous Fumarate/Vitamin C [Vitron-C] 65 mg PO BID 07/28/19 [History] Losartan Potassium 50 mg PO DAILY 07/28/19 [History] Rosuvastatin [Crestor] 10 mg PO BEDTIME 07/28/19 [History] Dicyclomine [Bentyl] 20 mg PO TID 4 Days #12 tab 02/29/20 [Rx] Prochlorperazine Maleate [Compazine] 10 mg PO TID PRN #30 tablet 02/29/20 [Rx] Psyllium Husk (With Sugar) [Metamucil Powder] 2 tbsp PO TID 14 Days #1042 powder 02/29/20 [Rx] Past Medical History HEENT History: Reports: Other (See Below) Other HEENT History: wears glasses Cardiovascular History: Reports: Heart Murmur, High Cholesterol, Hypertension Respiratory History: Reports: None Gastrointestinal History: Reports: GERD Genitourinary History: Reports: None Musculoskeletal History: Reports: Arthritis, Back Pain, Chronic, Fracture Other Musculoskeletal History: hx fx wrist as a child Neurological History: Reports: None Psychiatric History: Reports: Anxiety, Depression Endocrine/Metabolic History: Reports: Diabetes, Type II, Hypothyroidism Immunologic History: Reports: None - Infectious Disease History Infectious Disease History: Reports: Chicken Pox, Measles, Mononucleosis - Past Surgical History Head Surgeries/Procedures: Reports: None HEENT Surgical History: Reports: Tonsillectomy GI Surgical History: Reports: None Female Surgical History: Reports: None Endocrine Surgical History: Reports: Thyroidectomy Musculoskeletal Surgical History: Reports: None Social & Family History - Family History Family Medical History: Noncontributory - Caffeine Use Caffeine Use: Reports: Coffee, Tea ED ROS GENERAL - Review of Systems Review Of Systems: See Below (Noted) ED EXAM, GI/ABD - Physical Exam Exam: See Below (Noted) Course - Vital Signs Last Recorded V/S: Last Vital Signs Temp 95.5 F L 02/29/20 14:18 Pulse 85 02/29/20 14:18 Resp 16 02/29/20 14:18 BP 154/93 H 02/29/20 14:18 Pulse Ox 97 02/29/20 14:18 - Orders/Labs/Meds Orders: Active Orders 24 hr Category Date Time Status CULTURE URINE [RM] Stat Lab 02/29/20 15:56 Received Labs: Laboratory Tests 02/29/20 02/29/20 02/29/20 Range/Units 14:49 14:49 15:56 WBC 13.46 H (4.0-11.0) K/uL RBC 4.48 (4.30-5.90) M/uL Hgb 13.3 (12.0-16.0) g/dL Hct 39.4 (36.0-46.0) % MCV 87.9 (80.0-98.0) fL MCH 29.7 (27.0-32.0) pg MCHC 33.8 (31.0-37.0) g/dL RDW Std Deviation 38.5 (28.0-62.0) fl RDW Coeff of Eran 12 (11.0-15.0) % Plt Count 270 (150-400) K/uL MPV 8.60 (7.40-12.00) fL Neut % (Auto) 74.6 (48.0-80.0) % Lymph % (Auto) 17.5 (16.0-40.0) % [place] % (Auto) 6.9 (0.0-15.0) % Eos % (Auto) 0.9 (0.0-7.0) % Baso % (Auto) 0.1 (0.0-1.5) % Neut # (Auto) 10.0 H (1.4-5.7) K/uL Lymph # (Auto) 2.4 (0.6-2.4) K/uL [place] # (Auto) 0.9 H (0.0-0.8) K/uL Eos # (Auto) 0.1 (0.0-0.7) K/uL Baso # (Auto) 0.0 (0.0-0.1) K/uL Nucleated RBC % 0.0 /100WBC Nucleated RBCs # 0 K/uL Sodium 131 L (136-145) mmol/L Potassium 3.7 (3.5-5.1) mmol/L Chloride 92 L (98-107) mmol/L Carbon Dioxide 31.8 (21.0-32.0) mmol/L BUN 14 (7.0-18.0) mg/dL Creatinine 0.7 (0.6-1.0) mg/dL Est Cr Clr Drug Dosing 60.84 mL/min Estimated GFR (MDRD) > 60.0 ml/min Glucose 132 H (74-106) mg/dL POC Glucose (60-110) mg/dL Calcium 9.2 (8.5-10.1) mg/dL Total Bilirubin 0.5 (0.2-1.0) mg/dL AST 18 (15-37) IU/L ALT 37 (14-63) IU/L Alkaline Phosphatase 121 H (46-116) U/L Total Protein 7.6 (6.4-8.2) g/dL Albumin 4.1 (3.4-5.0) g/dL Globulin 3.5 (2.6-4.0) g/dL Albumin/Globulin Ratio 1.2 (0.9-1.6) Urine Color YELLOW Urine Appearance CLEAR Urine pH 6.5 (5.0-8.0) Ur Specific [place] <= 1.005 (1.001-1.035) Urine Protein NEGATIVE (NEGATIVE) mg/dL Urine Glucose (UA) NEGATIVE (NEGATIVE) mg/dL Urine Ketones NEGATIVE (NEGATIVE) mg/dL Urine Occult Blood NEGATIVE (NEGATIVE) Urine Nitrite NEGATIVE (NEGATIVE) Urine Bilirubin NEGATIVE (NEGATIVE) Urine Urobilinogen 0.2 (<2.0) EU/dL Ur Leukocyte Esterase TRACE H (NEGATIVE) Urine RBC 0-1 (0-2/HPF) Urine WBC 1-2 (0-5/HPF) Ur Epithelial Cells OCCASIONAL (NONE-FEW) Amorphous Sediment RARE (NEGATIVE) Urine Bacteria FEW (NEGATIVE) Urine Mucus RARE (NONE-MOD) 02/29/20 Range/Units 16:15 WBC (4.0-11.0) K/uL RBC (4.30-5.90) M/uL Hgb (12.0-16.0) g/dL Hct (36.0-46.0) % MCV (80.0-98.0) fL MCH (27.0-32.0) pg MCHC (31.0-37.0) g/dL RDW Std Deviation (28.0-62.0) fl RDW Coeff of Eran (11.0-15.0) % Plt Count (150-400) K/uL MPV (7.40-12.00) fL Neut % (Auto) (48.0-80.0) % Lymph % (Auto) (16.0-40.0) % [place] % (Auto) (0.0-15.0) % Eos % (Auto) (0.0-7.0) % Baso % (Auto) (0.0-1.5) % Neut # (Auto) (1.4-5.7) K/uL Lymph # (Auto) (0.6-2.4) K/uL [place] # (Auto) (0.0-0.8) K/uL Eos # (Auto) (0.0-0.7) K/uL Baso # (Auto) (0.0-0.1) K/uL Nucleated RBC % /100WBC Nucleated RBCs # K/uL Sodium (136-145) mmol/L Potassium (3.5-5.1) mmol/L Chloride (98-107) mmol/L Carbon Dioxide (21.0-32.0) mmol/L BUN (7.0-18.0) mg/dL Creatinine (0.6-1.0) mg/dL Est Cr Clr Drug Dosing mL/min Estimated GFR (MDRD) ml/min Glucose (74-106) mg/dL POC Glucose 109 (60-110) mg/dL Calcium (8.5-10.1) mg/dL Total Bilirubin (0.2-1.0) mg/dL AST (15-37) IU/L ALT (14-63) IU/L Alkaline Phosphatase (46-116) U/L Total Protein (6.4-8.2) g/dL Albumin (3.4-5.0) g/dL Globulin (2.6-4.0) g/dL Albumin/Globulin Ratio (0.9-1.6) Urine Color Urine Appearance Urine pH (5.0-8.0) Ur Specific Hudson (1.001-1.035) Urine Protein (NEGATIVE) mg/dL Urine Glucose (UA) (NEGATIVE) mg/dL Urine Ketones (NEGATIVE) mg/dL Urine Occult Blood (NEGATIVE) Urine Nitrite (NEGATIVE) Urine Bilirubin (NEGATIVE) Urine Urobilinogen (<2.0) EU/dL Ur Leukocyte Esterase (NEGATIVE) Urine RBC (0-2/HPF) Urine WBC (0-5/HPF) Ur Epithelial Cells (NONE-FEW) Amorphous Sediment (NEGATIVE) Urine Bacteria (NEGATIVE) Urine Mucus (NONE-MOD) Meds: Medications Discontinued Medications Generic Name Dose Route Start Last Admin Trade Name Freq PRN Reason Stop Dose Admin Sodium Chloride 1,000 mls @ 2,000 mls/hr 02/29/20 14:27 02/29/20 14:47 Normal Saline IV 02/29/20 14:56 2,000 mls/hr .Bolus ONE Administration Iopamidol 100 ml 02/29/20 16:21 02/29/20 16:21 Isovue Multipack-370 (76%) IVPUSH 02/29/20 16:22 100 ml ONETIME STA Administration Prochlorperazine Edisylate 10 mg 02/29/20 14:27 02/29/20 14:46 Compazine IVPUSH 02/29/20 14:28 10 mg ONETIME ONE Administration - Re-Assessments/Exams Free Text/Narrative Re-Assessment/Exam: 02/29/20 17:22 Patient reevaluated. Tolerating oral intake. Feeling slightly better. Relieved that her CT scan was normal. Antibiotics not indicated. I will discharge her home at this time. My diagnostic impression: 1. Abdominal pain 2. Diarrhea Departure - Departure Time of Disposition: 17:18 Disposition: Home, Self-Care 01 Clinical Impression: Diarrhea, Abdominal pain - Discharge Information *PRESCRIPTION DRUG MONITORING PROGRAM REVIEWED*: Not Applicable *COPY OF PRESCRIPTION DRUG MONITORING REPORT IN PATIENT KAREY: Not Applicable Referrals: Calin Nieto MD [Primary Care Provider] - Forms: ED Department Discharge Additional Instructions: The following information is given to patients seen in the emergency department who are being discharged to home. This information is to outline your options for follow-up care. We provide all patients seen in our emergency department with a follow-up referral. The need for follow-up, as well as the timing and circumstances, are variable depending upon the specifics of your emergency department visit. If you don't have a primary care physician on staff, we will provide you with a referral. We always advise you to contact your personal physician following an emergency department visit to inform them of the circumstance of the visit and for follow-up with them and/or the need for any referrals to a consulting specialist. The emergency department will also refer you to a specialist when appropriate. This referral assures that you have the opportunity for follow-up care with a specialist. All of these measure are taken in an effort to provide you with optimal care, which includes your follow-up. Thank you for coming to the [facility] urgency department for your care today. It was Dr. Yang's pleasure to take care of you. [facility] - [facility] [address] [place] [id number] [facility] [address] [place] [address] Your CAT scan today was normal. Your laboratory findings are essentially normal. Please return the emergency department for fever, uncontrolled pain or any other concerns. The cause of your abdominal pain and cramping is unclear. If this continues you should have stool cultures done by your primary care doctor. Please return for worsening or any other concerns. Under all circumstances we always encourage you to contact your private physician who remains a resource for coordinating your care. When calling for follow-up care, please make the office aware that this follow-up is from your recent emergency room visit. If for any reason you are refused follow-up, please contact the [facility] Emergency Department at and asked to speak to the emergency department charge nurse. Sepsis Event Note (ED) - Focused Exam Vital Signs: Vital Signs Temp Pulse Resp BP Pulse Ox 02/29/20 14:18 95.5 F L 85 16 154/93 H 97 - My Orders Last 24 Hours: My Active Orders 02/29/20 15:56 CULTURE URINE [RM] Stat - Assessment/Plan Last 24 Hours: My Active Orders 02/29/20 15:56 CULTURE URINE [RM] Stat
[2020-02-29] MEDS ORDERED: Sodium Chloride 0.9% 1,000 ML IV ONE (14:27)
[2020-02-29] MEDS ORDERED: Prochlorperazine 10 MG/2 ML SDV IVPUSH ONE (14:27)
[2020-02-29 15:25] LABS: BLOOD UREA NITROGEN,BUN 14 mg/dL (7.0-18.0); CARBON DIOXIDE,CO2 31.8 mmol/L (21.0-32.0); CHLORIDE,CL 92 mmol/L (98-107); GLUCOSE RANDOM 132 mg/dL (74-106); POTASSIUM,K 3.7 mmol/L (3.5-5.1); SODIUM,NA 131 mmol/L (136-145)
[2020-02-29] MEDS ORDERED: Iopamidol 755 MG/ML 500 ML Multipack Bottle IVPUSH STA (16:21)
--- NOTE | 2020-02-29 16:44 | CT ---
INDICATION: Constipation. Abdominal pain. Diarrhea. Mucus in stools. COMPARISON: None TECHNIQUE: CT examination of the abdomen and pelvis was performed following the uneventful intravenous administration of 100 cc of Isovue 370. Thin section axial images were obtained from the lung bases through the pubic symphysis. Oral contrast was not administered. Please note that all CT scans at this facility use dose modulation, iterative reconstruction, and/or weight-based dosing when appropriate to reduce radiation dose to as low as reasonably achievable. FINDINGS: LUNG BASES: Minimal bibasilar subsegmental atelectasis.Heart size top-normal at the lung bases. Small hiatal hernia. LIVER/BILIARY SYSTEM:Hepatic steatosis. No focal mass or biliary ductal dilatation. Tiny calculi or sludge within the gallbladder. No evidence of acute cholecystitis or common duct obstruction. ADRENALS: Normal KIDNEYS, URETERS and BLADDER:The kidneys appear normal. No visible mass, calculus or hydronephrosis. The ureters and bladder as visualized appear normal. SPLEEN:Normal appearance. PANCREAS: Appears normal. RETROPERITONEUM and MESENTERY: There is no mass, adenopathy or aortic aneurysm. Relatively mild atherosclerotic vascular calcification GASTROINTESTINAL SYSTEM: There is no evidence of diverticulitis, colitis or mechanical obstruction. There is diverticulosis. There is no undue fecal retention pattern. The small bowel as visualized appears normal. The etiology of the given clinical symptomatology is not clearly visible on this exam. PELVIS: No mass, adenopathy or free fluid. OSSEOUS STRUCTURES and ABDOMINAL WALL: There is an age-appropriate appearance of the osseous structures.No significant abdominal wall defect. OTHER: No free fluid or free air. IMPRESSION: There is no visible etiology for the given clinical symptomatology of constipation, abdominal pain, diarrhea and mucus in the stools. Incidental findings as discussed above Please note that all CT scans at this facility use dose modulation, iterative reconstruction, and/or weight-based dosing when appropriate to reduce radiation dose to as low as reasonably achievable. Dictated by Kris Interiano MD @ Feb 29 2020 4:34PM Signed by Dr. Kris Interiano @ Feb 29 2020 4:42PM
[2020-02-29 19:49] VITALS: BP 154/84; PULSE 81
== END 2020-02-29 18:00 | disposition home or self-care (01) ==
LOC: MW.ED 14:05
DX: R19.7 Diarrhea, unspecified (principal); R10.84 Generalized abdominal pain; I10 Essential (primary) hypertension; E11.9 Type 2 diabetes mellitus without complications; K59.00 Constipation, unspecified; K21.9 Gastro-esophageal reflux disease without esophagitis; E03.9 Hypothyroidism, unspecified; F41.9 Anxiety disorder, unspecified; F32.9 Major depressive disorder, single episode, unspecified; Z88.1 Allergy status to other antibiotic agents; Z79.899 Other long term (current) drug therapy
CPT/HCPCS: 36415; 74177; 80053; 81001; 82962; 85025; 87086; 96374; 99284; J0780; J7030; Q9967; 99283

== ENCOUNTER 2020-09-20 10:38 | Day surgery (SDC) | payer MEDICARE, BC ==
[~2020-09-20 10:38] MED LIST changes: +Midazolam 1 MG/ML 2 ML SDV ONE; +Propofol 200 MG/20 ML SDV ONE; +Sodium Chloride 0.9% 10 ML SDV IV PRN; +fentaNYL 100 MCG/2 ML SDV ONE
--- NOTE | 2020-09-20 11:30 | PCM.PREANE ---
Preanesthetic Assessment - Anesthesia/Transfusion/Family Hx Anesthesia History: Prior Anesthesia Without Reaction Other Type of Anesthesia Reaction Comment: apenic during dental procedure, given propofol, versed and fentanyl Transfusion History: No Prior Transfusion(s) - Review of Systems General: No Symptoms Pulmonary: No Symptoms Cardiovascular: No Symptoms Gastrointestinal: No Symptoms Neurological: No Symptoms Other: Reports: None - Physical Assessment NPO Status Date: 09/20/20 NPO Status Time: 00:01 Vital Signs: Last Vital Signs Temp 97.2 F 09/20/20 11:08 Pulse 87 09/20/20 11:08 Resp 16 09/20/20 11:08 BP 180/95 H 09/20/20 11:08 Pulse Ox 95 09/20/20 11:08 Height: 5 ft 2 in Weight: 182 lb ASA Class: 3 Mental Status: Alert & Oriented x3 Dentition: Reports: Normal Dentition ROM/Head Extension: Limited/Partial Lungs: Clear to Auscultation, Normal Respiratory Effort Cardiovascular: Regular Rate, Regular Rhythm - Allergies Allergies/Adverse Reactions: Allergies Allergy/AdvReac Type Severity Reaction Status Date / Time levofloxacin Allergy Swelling Verified 09/20/20 11:10 - Anesthesia Plan Pre-Op Medication Ordered: None - Acknowledgements Anesthesia Type Planned: General Anesthesia Pt an Appropriate Candidate for the Planned Anesthesia: Yes Alternatives and Risks of Anesthesia Discussed w Pt/Guardian: Yes Pt/Guardian Understands and Agrees with Anesthesia Plan: Yes Additional Comments: npo hayfever anxiety depression rigo htn asthma prn inhalers obesity bmi 33 tob none etoh 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 hx svt on rx hx chest pain stress test a few years ago told nl par no questions aodm oral surgeon told her she was allergic to either propofol, fentanyl, or versed after an oral surgery in their office PreAnesthesia Questionnaire HEENT History: Reports: Allergic Rhinitis, Other (See Below) Other HEENT History: wears glasses Cardiovascular History: Reports: Arrhythmia, Heart Murmur, High Cholesterol, Hypertension Other Cardiovascular History: murmur not usually heard, has "irregular" heartbeat Respiratory History: Reports: Other (See Below) Other Respiratory History: has chronic cough due to sinus drainage Gastrointestinal History: Reports: GERD, Hiatal Hernia Genitourinary History: Reports: None HEATING UNIT MECHANIC 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: Reports: None Musculoskeletal History: Reports: Arthritis, Back Pain, Chronic, Fracture, Neck Pain, Chronic Other Musculoskeletal History: hx fx wrist as a child, hx of spinal stenosis Neurological History: Reports: Other (See Below) Other Neuro History: degenerative disc disease Psychiatric History: Reports: Anxiety, Depression Endocrine/Metabolic History: Reports: Diabetes, Type II, Hypothyroidism Hematologic History: Reports: None Immunologic History: Reports: None Oncologic (Cancer) History: Reports: None Dermatologic History: Reports: None - Infectious Disease History Infectious Disease History: Reports: Chicken Pox, Measles, Mononucleosis - Past Surgical History Head Surgeries/Procedures: Reports: None HEENT Surgical History: Reports: Oral Surgery, Tonsillectomy Other HEENT Surgeries/Procedures: has 1 upper and lower dental implants, has 1 paralyzed vocal cord and the other ome tends to spasm (damaged during thyroidectomy) Cardiovascular Surgical History: Reports: None Respiratory Surgical History: Reports: None GI Surgical History: Reports: Colonoscopy Female Surgical History: Reports: None Endocrine Surgical History: Reports: Thyroidectomy Neurological Surgical History: Reports: None Musculoskeletal Surgical History: Reports: None Oncologic Surgical History: Reports: None Dermatological Surgical History: Reports: None - SUBSTANCE USE Tobacco Use Status *Q: Never Tobacco User Recreational Drug Use History: No - HOME MEDS Home Medications: Home Meds Esomeprazole [NexIUM] 40 mg PO BEDTIME 09/25/13 [History] Doxepin HCl [Doxepin] 100 mg PO BEDTIME 07/30/16 [History] ALPRAZolam [Alprazolam] 1 mg PO TID 05/31/17 [History] Diltiazem [Cardizem CD] 120 mg PO BEDTIME 01/26/19 [History] Glimepiride 1 mg PO QAM 01/26/19 [History] Citalopram [Citalopram HBr] 20 mg PO BEDTIME 02/21/19 [History] Acetaminophen 1,000 mg PO Q4H PRN 07/28/19 [History] Cholecalciferol (Vitamin D3) [Vitamin D3] 5,000 unit PO BEDTIME 07/28/19 [History] Rosuvastatin [Crestor] 10 mg PO BEDTIME 07/28/19 [History] Ibuprofen [Advil] 600 mg PO ASDIRECTED PRN 09/14/20 [History] Irbesartan [Avapro] 150 mg PO DAILY 09/14/20 [History] Levothyroxine Sodium [Synthroid] 100 mcg PO QAM 09/14/20 [History] risperiDONE [Risperdal] 1 mg PO BID 09/14/20 [History] - CURRENT (IN HOUSE) MEDS Current Meds: Current Medications Lactated Ringer's (Ringers, Lactated) 1,000 mls @ 125 mls/hr IV ASDIRECTED JORGE Sodium Chloride (Sodium Chloride 0.9% 10 Ml Syringe) 10 ml FLUSH ASDIRECTED PRN PRN Reason: Keep Vein Open Sodium Chloride (Sodium Chloride 0.9% 2.5 Ml Syringe) 2.5 ml FLUSH ASDIRECTED PRN PRN Reason: Keep Vein Open Sodium Chloride (Sodium Chloride 0.9% 10 Ml Syringe) 10 ml FLUSH ASDIRECTED PRN PRN Reason: Keep Vein Open Sodium Chloride (Sodium Chloride 0.9% 2.5 Ml Syringe) 2.5 ml FLUSH ASDIRECTED PRN PRN Reason: Keep Vein Open Sodium Chloride (Sodium Chloride 0.9% 10 Ml Sdv) 10 ml IV ASDIRECTED PRN PRN Reason: IV Use Discontinued Medications Fentanyl (Fentanyl 100 Mcg/2 Ml Sdv) Confirm Administered Dose 100 mcg .ROUTE .STK-MED ONE Stop: 09/20/20 07:42 Midazolam HCl (Midazolam 1 Mg/Ml 2 Ml Sdv) Confirm Administered Dose 2 mg .ROUTE .STK-MED ONE Stop: 09/20/20 07:42 Propofol (Propofol 200 Mg/20 Ml Sdv) Confirm Administered Dose 200 mg .ROUTE .STK-MED ONE Stop: 09/20/20 07:42
--- NOTE | 2020-09-20 12:09 | PCM.OPNOTE ---
- General Post-Op/Procedure Note Date of Surgery/Procedure: 09/20/20 Operative Procedure(s): Diagnostic colonoscopy with biopsy Findings: Normal appearing colon. Biopsies of cecum, ascending colon, transverse colon, descending colon, sigmoid colon and rectum. Pre Op Diagnosis: Change in bowel habits Post-Op Diagnosis: same Anesthesia Technique: MAC Primary Surgeon: Shena Desai Condition: Good
[2020-09-20 12:15] VITALS: BP 141/78; PULSE 74
--- NOTE | 2020-09-20 12:27 | PCM.POSTAN ---
POST ANESTHESIA ASSESSMENT - MENTAL STATUS Mental Status: Alert (no anesthetic problems), Oriented - VITAL SIGNS Vital Signs: Last Vital Signs Temp 97.2 F 09/20/20 11:08 Pulse 74 09/20/20 12:13 Resp 16 09/20/20 12:13 BP 141/78 H 09/20/20 12:13 Pulse Ox 95 09/20/20 12:13 - RESPIRATORY Respiratory Status: Respiratory Rate WNL, Airway Patent, O2 Saturation Stable - CARDIOVASCULAR CV Status: Pulse Rate WNL, Blood Pressure Stable - GASTROINTESTINAL GI Status: No Symptoms - POST OP HYDRATION Hydration Status: Adequate & Stable
--- NOTE | 2020-09-20 13:06 | PCM48HPAN ---
Post Anesthesia Note - EVALUATION WITHIN 48HRS OF ANESTHETIC Vital Signs in Normal Range: Yes Patient Participated in Evaluation: Yes Respiratory Function Stable: Yes Airway Patent: Yes Cardiovascular Function Stable: Yes Hydration Status Stable: Yes Pain Control Satisfactory: Yes Nausea and Vomiting Control Satisfactory: Yes Mental Status Recovered: Yes Vital Signs: Last Vital Signs Temp 97.2 F 09/20/20 11:08 Pulse 74 09/20/20 12:13 Resp 16 09/20/20 12:13 BP 141/78 H 09/20/20 12:13 Pulse Ox 95 09/20/20 12:13
--- NOTE | 2020-09-20 17:38 | OR ---
SURGEON: KEYANA ROSE MD DATE OF PROCEDURE: 09/20/2020 PREOPERATIVE DIAGNOSIS: Change in bowel habits. POSTOPERATIVE DIAGNOSIS: Change in bowel habits. PROCEDURE PERFORMED: Diagnostic colonoscopy. ANESTHESIA: MAC. INSTRUMENT USED: Olympus colonoscope. EXTENT OF EXAM: To the cecum. PREPARATION: Good. LIMITATIONS: None. INDICATIONS FOR EXAMINATION: The patient is a 70-year-old female who presents to clinic with a change in her bowel habits. We have tried conservative measures since she had a colonoscopy 2 years ago, which was grossly normal. Despite multiple attempts with different [id number] treatments, nothing has changed. The decision was made to proceed with a diagnostic colonoscopy. I explained the procedure, expected perioperative course, and the risks. She verbalized understanding and wishes to proceed. PROCEDURE IN DETAIL: The patient was brought to the endoscopy suite and placed in the left lateral decubitus position. A time-out was completed verifying the patient's name, age, date of , allergies, and procedure to be performed. Monitored anesthesia care was induced and continuous oxygen was provided via face mask throughout the procedure. After adequate sedation was achieved, a digital rectal exam was performed. This exam was within normal limits. A well-lubricated colonoscope was inserted into the rectum and advanced under direct visualization to the level of the cecum. The cecum was identified by both visual and anatomic landmarks. A photograph was taken of the cecal cap as well as with the scope retroflexed within the cecum. The scope was then fully withdrawn while examining the color, texture, anatomy, and integrity of mucosa from the cecum to the anal canal. The terminal ileum was closely inspected. This all appeared normal. The colonic mucosa showed no evidence of inflammation or ulceration. There were no polyps that were identified during the case. Random biopsies were taken of the cecum, ascending colon, transverse colon, descending colon, sigmoid colon, and rectum. These were sent for histologic review. The scope was then brought into the rectum, and a photograph taken of the rectum as well as with the scope retroflexed within the rectum. All the tissue here appeared normal. The scope was then straightened out and fully withdrawn. The cecum to anus time was 8 minutes. The patient tolerated the procedure well and was transferred to the PACU in stable condition. ENDOSCOPIC DIAGNOSIS: Change in bowel habits. RECOMMENDATIONS: Follow up in clinic in 2 weeks. KEVIN KING /[id number]
== END 2020-09-20 12:50 | disposition home or self-care (01) ==
LOC: MW.SDS 10:38
PROVIDERS: ATTEND Surgery
DX: R19.4 Change in bowel habit (principal); R14.0 Abdominal distension (gaseous); R15.9 Full incontinence of feces; E11.9 Type 2 diabetes mellitus without complications; E78.5 Hyperlipidemia, unspecified; E78.00 Pure hypercholesterolemia, unspecified; I10 Essential (primary) hypertension; E03.9 Hypothyroidism, unspecified; J45.909 Unspecified asthma, uncomplicated; E66.9 Obesity, unspecified; Z68.33 Body mass index [BMI] 33.0-33.9, adult; Z88.8 Allergy status to other drugs, medicaments and biological substances; Z79.899 Other long term (current) drug therapy
CPT/HCPCS: 45380; J2250; J2704; J3010; 88305

== ENCOUNTER 2020-11-04 21:59 | Emergency (ER) | payer MEDICARE, BC ==
[2020-11-04] MEDS ORDERED: Sodium Chloride 0.9% 10 ML Syringe FLUSH PRN (22:05)
[2020-11-04] MEDS ORDERED: Sodium Chloride 0.9% 2.5 ML Syringe FLUSH PRN (22:05)
[2020-11-04] MEDS ORDERED: Dexamethasone 10 MG/ML SDV IVPUSH ONE (22:05)
[2020-11-04] MEDS ORDERED: diphenhydrAMINE 50 MG/ML SDV IVPUSH ONE (22:05)
[2020-11-04] MEDS ORDERED: Dexamethasone 10 MG/ML SDV ONE (22:06)
[2020-11-04] MEDS ORDERED: diphenhydrAMINE 50 MG/ML SDV ONE (22:06)
--- NOTE | 2020-11-04 23:36 | EDM.PDOC ---
ED HPI GENERAL MEDICAL PROBLEM - General Chief Complaint: Allergic Reaction Stated Complaint: POSSIBLE MEDICATION REACTION Time Seen by Provider: 11/04/20 22:04 - History of Present Illness INITIAL COMMENTS - FREE TEXT/NARRATIVE: History of present illness: [] The patient reports she had a scratchy throat this morning. About a 2 days ago they increased her risperidone dose. Yesterday she had dental work and she started on amoxicillin. She has been on amoxicillin multiple times in the past. Tonight she felt like her throat was tight and scratchy and her voice was changed. She was little short of breath. She came in as a presumed allergic reaction. Her risperidone dose was increased 2 days ago and her amoxicillin was restarted today. She has been on both. She notes that for 4 days she has had intermittent red what she calls sores on her arms. Review of systems: As per history of present illness and below otherwise all systems reviewed and negative. Past medical history: As per history of present illness and as reviewed below otherwise noncontributory. Surgical history: As per history of present illness and as reviewed below otherwise noncontributory. Social history: No reported history of drug or alcohol abuse. Family history: As per history of present illness and as reviewed below otherwise noncontributory. Physical exam: Constitutional - well developed, well-nourished and in no acute distress HEENT - normocephalic, no evidence of trauma - external nose and mouth normal - no mass in neck and no JVD - mucosae moist EYES - full EOM, PERRL, no icterus - no evidence of inflammation, injection, or drainage Respiratory - no respiratory distress, equal bilateral expansion, lungs clear to auscultation and no abnormal lung sounds Cardiovascular - Regular Rhythm with S1 and S2 appreciated and no murmur, gallop or rub. GI - abdomen soft without distension or organomegaly - normal bowel sounds - no guard or rebound Musculoskeletal no gross deformity of long bones or joints - no tenderness, swelling or edema Neurologic - Alert and oriented times four - CN II-XII grossly intact - motor sensory and coordination symmetrically normal Psychiatric - appropriate mood and affect with normal thought content Hematologic - No petechiae or purpura - mucosa appropriate color and sclera not pale - normal nail bed color and refill Integument -the patient has reddened wheals that are raised on her posterior arms. These armond and disappear with compression and stretching of the skin. No evidence of trauma - normal turgor Diagnostics: [] Therapeutics: [] Impression: [] Plan: [] Definitive disposition and diagnosis as appropriate pending reevaluation and review of above. - Related Data Allergies Allergy/AdvReac Type Severity Reaction Status Date / Time levofloxacin Allergy Swelling Verified 09/20/20 11:10 Home Meds: Home Meds Esomeprazole [NexIUM] 40 mg PO BEDTIME 09/25/13 [History] Doxepin HCl [Doxepin] 100 mg PO BEDTIME 07/30/16 [History] ALPRAZolam [Alprazolam] 1 mg PO TID 05/31/17 [History] Diltiazem [Cardizem CD] 120 mg PO BEDTIME 01/26/19 [History] Glimepiride 1 mg PO QAM 01/26/19 [History] Citalopram [Citalopram HBr] 20 mg PO BEDTIME 02/21/19 [History] Acetaminophen 1,000 mg PO Q4H PRN 07/28/19 [History] Cholecalciferol (Vitamin D3) [Vitamin D3] 5,000 unit PO BEDTIME 07/28/19 [History] Rosuvastatin [Crestor] 10 mg PO BEDTIME 07/28/19 [History] Ibuprofen [Advil] 600 mg PO ASDIRECTED PRN 09/14/20 [History] Irbesartan [Avapro] 150 mg PO DAILY 09/14/20 [History] Levothyroxine Sodium [Synthroid] 100 mcg PO QAM 09/14/20 [History] risperiDONE [Risperdal] 1 mg PO BID 09/14/20 [History] methylPREDNISolone [Medrol Dose Pack] 4 mg PO DAILY #21 tab 11/04/20 [Rx] methylPREDNISolone [Medrol Dose Pack] 4 mg PO DAILY #21 tab 11/04/20 [Rx] Past Medical History HEENT History: Reports: Allergic Rhinitis, Other (See Below) Other HEENT History: wears glasses Cardiovascular History: Reports: Arrhythmia, Heart Murmur, High Cholesterol, Hypertension Other Cardiovascular History: murmur not usually heard, has "irregular" heartbeat Respiratory History: Reports: Other (See Below) Other Respiratory History: has chronic cough due to sinus drainage Gastrointestinal History: Reports: GERD, Hiatal Hernia Genitourinary History: Reports: None BRIM BLOCKER History: Reports: None Musculoskeletal History: Reports: Arthritis, Back Pain, Chronic, Fracture, Neck Pain, Chronic Other Musculoskeletal History: hx fx wrist as a child, hx of spinal stenosis Neurological History: Reports: Other (See Below) Other Neuro History: degenerative disc disease Psychiatric History: Reports: Anxiety, Depression Endocrine/Metabolic History: Reports: Diabetes, Type II, Hypothyroidism, Obesity/BMI 30+ Hematologic History: Reports: None Immunologic History: Reports: None Oncologic (Cancer) History: Reports: None Dermatologic History: Reports: None - Infectious Disease History Infectious Disease History: Reports: Chicken Pox, Measles, Mononucleosis - Past Surgical History Head Surgeries/Procedures: Reports: None HEENT Surgical History: Reports: Oral Surgery, Tonsillectomy Other HEENT Surgeries/Procedures: has 1 upper and lower dental implants, has 1 paralyzed vocal cord and the other ome tends to spasm (damaged during thyroidectomy) Cardiovascular Surgical History: Reports: None Respiratory Surgical History: Reports: None GI Surgical History: Reports: Colonoscopy Female Surgical History: Reports: None Endocrine Surgical History: Reports: Thyroidectomy Neurological Surgical History: Reports: None Musculoskeletal Surgical History: Reports: None Oncologic Surgical History: Reports: None Dermatological Surgical History: Reports: None Social & Family History - Family History Family Medical History: No Pertinent Family History - Tobacco Use Tobacco Use Status *Q: Never Tobacco User Second Hand Smoke Exposure: No - Caffeine Use Caffeine Use: Reports: Coffee, Tea - Recreational Drug Use Recreational Drug Use: No ED ROS ALLERGIC REACTION - Review of Systems Review Of Systems: Comprehensive ROS is negative, except as noted in HPI. ED EXAM GENERAL NO PERIP PULSE - Physical Exam Exam: See Below Text/Narrative:: My physical exam is in the HPI Course - Vital Signs Text/Narrative:: The patient improved markedly. Her voice is normal. She had no respiratory distress. She had hives on her I's. Is very unlikely that these hives that preceded her adjustment of her dose of risperidone and her amoxicillin restart had anything to do with that. Last Recorded V/S: Last Vital Signs Temp 36.3 C 11/04/20 22:05 Pulse 97 11/04/20 22:05 Resp 18 11/04/20 22:05 BP 160/76 H 11/04/20 22:05 Pulse Ox 96 11/04/20 22:05 - Orders/Labs/Meds Orders: Active Orders 24 hr Category Date Time Status CULTURE URINE [MREF] Stat Lab 11/05/20 00:06 Ordered UA W/RACHEL RFLX IF INDICATED [URIN] Stat Lab 11/04/20 22:10 Ordered Sodium Chloride 0.9% [Saline Flush] Med 11/04/20 22:05 Active 10 ml FLUSH ASDIRECTED PRN Sodium Chloride 0.9% [Saline Flush] Med 11/04/20 22:05 Active 2.5 ml FLUSH ASDIRECTED PRN Saline Lock Insert [OM.PC] Stat Oth 11/04/20 22:05 Ordered Medication Orders Sodium Chloride (Sodium Chloride 0.9% 10 Ml Syringe) 10 ml FLUSH ASDIRECTED PRN PRN Reason: Keep Vein Open Sodium Chloride (Sodium Chloride 0.9% 2.5 Ml Syringe) 2.5 ml FLUSH ASDIRECTED PRN PRN Reason: Keep Vein Open Meds: Medications Generic Name Dose Route Start Last Admin Trade Name Freq PRN Reason Stop Dose Admin Sodium Chloride 10 ml 11/04/20 22:05 Sodium Chloride 0.9% 10 Ml Syringe FLUSH ASDIRECTED PRN Keep Vein Open Sodium Chloride 2.5 ml 11/04/20 22:05 Sodium Chloride 0.9% 2.5 Ml Syringe FLUSH ASDIRECTED PRN Keep Vein Open Discontinued Medications Generic Name Dose Route Start Last Admin Trade Name Freq PRN Reason Stop Dose Admin Dexamethasone 10 mg 11/04/20 22:05 11/04/20 22:28 Dexamethasone 10 Mg/Ml Sdv IVPUSH 11/04/20 22:06 10 mg ONETIME ONE Administration Dexamethasone Confirm 11/04/20 22:06 11/04/20 22:28 Dexamethasone 10 Mg/Ml Sdv Administered 11/04/20 22:07 Not Given Dose 10 mg .ROUTE .STK-MED ONE Diphenhydramine HCl 50 mg 11/04/20 22:05 11/04/20 22:28 Diphenhydramine 50 Mg/Ml Sdv IVPUSH 11/04/20 22:06 50 mg ONETIME ONE Administration Diphenhydramine HCl Confirm 11/04/20 22:06 11/04/20 22:28 Diphenhydramine 50 Mg/Ml Sdv Administered 11/04/20 22:07 Not Given Dose 50 mg .ROUTE .STK-MED ONE Departure - Departure Time of Disposition: 00:30 Disposition: Home, Self-Care 01 Condition: Good Clinical Impression: Dysuria, Urticaria, Allergic reaction - Discharge Information Prescriptions: methylPREDNISolone [Medrol Dose Pack] 4 mg PO DAILY #21 tab methylPREDNISolone [Medrol Dose Pack] 4 mg PO DAILY #21 tab Instructions: Hives, Allergies, Adult, [id number] Referrals: Calin Nieto MD [Primary Care Provider] - Forms: ED Department Discharge Additional Instructions: Take Benadryl for at least 3 days 25 mg 3 times a day and follow-up with your doctor. [facility] [address] [place] [id number] [place] [address] The following information is given to patients seen in the emergency department who are being discharged to home. This information is to outline your options for follow-up care. We provide all patients seen in our emergency department with a follow-up referral. The need for follow-up, as well as the timing and circumstances, are variable depending upon the specifics of your emergency department visit. If you don't have a primary care physician on staff, we will provide you with a referral. We always advise you to contact your personal physician following an emergency department visit to inform them of the circumstance of the visit and for follow-up with them and/or the need for any referrals to a consulting specialist. The emergency department will also refer you to a specialist when appropriate. This referral assures that you have the opportunity for follow-up care with a specialist. All of these measure are taken in an effort to provide you with optimal care, which includes your follow-up. Under all circumstances we always encourage you to contact your private physician who remains a resource for coordinating your care. When calling for follow-up care, please make the office aware that this follow-up is from your recent emergency room visit. If for any reason you are refused follow-up, please contact the [facility] Emergency Department at and asked to speak to the emergency department charge nurse. Sepsis Event Note (ED) - Evaluation Sepsis Screening Result: No Definite Risk - Focused Exam Vital Signs: Vital Signs Temp Pulse Resp BP Pulse Ox 11/04/20 22:05 36.3 C 97 18 160/76 H 96 - My Orders Last 24 Hours: My Active Orders 11/04/20 22:05 Sodium Chloride 0.9% [Saline Flush] 10 ml FLUSH ASDIRECTED PRN Sodium Chloride 0.9% [Saline Flush] 2.5 ml FLUSH ASDIRECTED PRN Saline Lock Insert [OM.PC] Stat 11/04/20 22:10 UA W/RACHEL RFLX IF INDICATED [URIN] Stat 11/05/20 00:06 CULTURE URINE [MREF] Stat - Assessment/Plan Last 24 Hours: My Active Orders 11/04/20 22:05 Sodium Chloride 0.9% [Saline Flush] 10 ml FLUSH ASDIRECTED PRN Sodium Chloride 0.9% [Saline Flush] 2.5 ml FLUSH ASDIRECTED PRN Saline Lock Insert [OM.PC] Stat 11/04/20 22:10 UA W/RACHEL RFLX IF INDICATED [URIN] Stat 11/05/20 00:06 CULTURE URINE [MREF] Stat
[2020-11-05 01:24] VITALS: BP 147/70; PULSE 82
== END 2020-11-05 01:23 | disposition home or self-care (01) ==
LOC: MW.ED 21:59
DX: N39.0 Urinary tract infection, site not specified (principal); L50.0 Allergic urticaria; E78.00 Pure hypercholesterolemia, unspecified; I10 Essential (primary) hypertension; K21.9 Gastro-esophageal reflux disease without esophagitis; E11.9 Type 2 diabetes mellitus without complications; E03.9 Hypothyroidism, unspecified; E66.9 Obesity, unspecified; Z68.32 Body mass index [BMI] 32.0-32.9, adult; Z79.899 Other long term (current) drug therapy; Z88.1 Allergy status to other antibiotic agents
CPT/HCPCS: 81001; 87086; 87088; 87186; 96374; 96375; 99283; J1100; J1200; 99284

== ENCOUNTER 2020-11-11 02:41 | Inpatient (IN) | payer MEDICARE, BC ==
[2020-11-11] MEDS ORDERED: Nystatin Susp 100,000 Unit/ML 5 ML UD Cup PO ONE (03:55)
[2020-11-11] MEDS ORDERED: Al and Mag Hydroxide/Diphenhydramine/Lidocaine/Simethicone 237 ML Bottle PO STA (03:55)
--- NOTE | 2020-11-11 04:20 | CR ---
For Patients: As a result of the Century Cures Act, medical imaging exams and procedure reports are released immediately into your electronic medical record. You may view this report before your referring provider. If you have questions, please contact your health care provider. INDICATION: Chest pain TECHNIQUE: Chest radiograph 1 view COMPARISON: 05/04/2018 FINDINGS: Moderate degradation of image quality noted due to body habitus. Mediastinum: The mediastinum is normal in appearance. Moderate cardiomegaly is noted without interval change. Lung: Small lung volumes are present bilaterally with stable linear scarring seen in the left midlung zone. No sign of pleural effusion seen. No pneumothorax is identified. Bone and Soft tissue: Unremarkable for age. IMPRESSION: 1. Moderate cardiomegaly is noted without interval change. Dictated by Raúl Boogie MD @ 11/11/2020 4:17:54 AM Dictated by: Raúl Boogie MD @ 11/11/2020 04:17:58 (Electronically Signed)
[2020-11-11 04:46] LABS: BLOOD UREA NITROGEN,BUN 11 mg/dL (7.0-18.0); CARBON DIOXIDE,CO2 30.6 mmol/L (21.0-32.0); CHLORIDE,CL 84 mmol/L (98-107); GLUCOSE RANDOM 129 mg/dL (74-106); POTASSIUM,K 3.8 mmol/L (3.5-5.1)
[2020-11-11 04:48] LABS: SODIUM,NA 119 mmol/L (136-145)
[2020-11-11] MEDS ORDERED: Sodium Chloride 0.9% 1,000 ML IV ONE (05:08)
--- NOTE | 2020-11-11 05:49 | EDM.PDOC ---
ED HPI GENERAL MEDICAL PROBLEM - General Chief Complaint: General Stated Complaint: ANXIETY, UTI Time Seen by Provider: 11/11/20 03:05 - History of Present Illness INITIAL COMMENTS - FREE TEXT/NARRATIVE: CHIEF COMPLAINT(S): "I have a bladder infection." HISTORY OF PRESENT ILLNESS: This is a 70-year-old with man with a past medical history of recent diagnosis of urinary tract infection and resultant allergic reaction after taking amoxicillin after some dental work who was placed on methylprednisolone, history of depression and anxiety with multiple inpatient admissions, diabetes mellitus, hyperlipidemia, hypothyroidism who comes to the emergency department with a chief complaint of "I have a bladder infection." The patient states that for approximately 1 week now she has been feeling like she cannot empty her bladder. She denies any dysuria, hematuria, vaginal bleeding or vaginal discharge. She states that when she goes to the restroom she just cannot urinate. In addition to this she states that she has been on nitrofurantoin for the last 3 days which is appropriate according to her cultures and was contacted by the emergency department and her primary care physician to make sure. She states in addition to this she has lots of acid reflux and states that her throat and tongue lyles and that she is not eating a lot and does not have an appetite. She states that she is panicking and has depression. She thinks is that "it is in my mind I think." She states "I am diabetic." She denies any chest pain, shortness of breath, blurry vision, headache, numbness, tingling, abdominal pain, nausea, vomiting, diarrhea, constipation. She states that she is feeling depressed. She states that she frequently has suicidal ideation. She states that she does not have a plan but states that cutting her wrists would be the best way. She states that she has never tried to commit suicide in the past but has been admitted multiple times to inpatient psychiatry for depression. She states that she was admitted as she presented in admitted herself. REVIEW OF SYSTEMS: Constitutional: Denies fever, chills. Eyes: Denies eye pain Ears, Nose, Mouth, & Throat: Positive for tongue and mouth pain. Denies ear ache, runny nose Cardiovascular: Denies chest pain Respiratory: Denies shortness of breath Gastrointestinal: Denies Nausea, vomiting, diarrhea, hematochezia. Genitourinary: Positive for inability to urinate. Denies hematuria, dysuria, vaginal bleeding, vaginal discharge Skin:Denies a rash MSK: Denies joint pain Neurological: Denies blurred vision, numbness, tingling, weakness psychiatric: Positive for depression and suicidal ideation. PAST MEDICAL HISTORY: As per history of present illness and as reviewed below otherwise noncontributory. SURGICAL HISTORY: As per history of present illness and as reviewed below otherwise noncontributory. SOCIAL HISTORY: As per history of present illness and as reviewed below otherwise noncontributory. FAMILY HISTORY: As per history of present illness and as reviewed below otherwise noncontributory. EXAMINATION OF ORGAN SYSTEMS/BODY AREAS: Constitutional: Blood pressure is 138/88, heart rate 73, respiratory rate 18 with an oxygen saturation of 97% on room air. Temperature 36.3 General: Elderly woman who is sitting on the edge of the bed rocking back and forth Psychiatric: Flattened affect, depressed mood, almost catatonic. Positive for suicidal ideation. Denies suicidal attempt but is having thoughts. Denies any auditory or visual hallucinations. Eyes: No scleral icterus or conjunctival erythema pupils are equal round and reactive to light. Extraocular movements intact. No vertical or horizontal nystagmus. ENMT: Moist mucous membranes. No pharyngeal erythema there appears to be multiple white patches on the patient's roof of her mouth and under her tongue which is easily scraped off. Cardiovascular: Regular, rate, and rhythm. No gallops, murmurs, or rubs. Bilateral upper extremity pulses symmetric and intact. No peripheral edema. No JVD. Respiratory: Lungs clear to auscultation bilaterally. No wheezes, rales, or rhonchi. Gastrointestinal: Soft, non-tender, non-distended. Normoactive bowel sounds Genitourinary: No suprapubic tenderness no palpable masses. Musculoskeletal: Normal range of motion. Skin: No lesions or abrasions. Neurological: AOx4. CN grossly intact. Strength 5/5 in bilateral upper and lower extremity. Sensation is intact bilaterally in upper and lower extremity. Gait appears normal. MEDICAL DECISION MAKING AND COURSE IN THE ED WITH INTERPRETATION/REVIEW OF DIAGNOSTIC STUDIES: This is a 70-year-old with man with a past medical history of recent diagnosis of urinary tract infection and resultant allergic reaction after taking amoxicillin after some dental work who was placed on me thylprednisolone, history of depression and anxiety with multiple inpatient admissions, diabetes mellitus, hyperlipidemia, hypothyroidism who comes to the emergency department with with multiple clients including inability to urinate and concerned about urinary tract infection, evidence of what looks like thrush, and depression with suicidal ideation who has flattened affect and almost catatonic state. At this time I did discuss with patient that I would like to medically clear her. I would like to obtain a repeat urinalysis and screening laboratory analysis. I did discuss with her that at this time given the suicidal ideation and your history of depression that if everything checks out that we could admit her to an inpatient psychiatric unit. At this time the patient's is at bedside and able to watch the patient. lunchroom monitor at this time revealed sinus rhythm with normal rate and pulse oximetry with good waveform was 97 to 98% on room air. For the thrush we will provide the patient with Magic mouthwash and nystatin. We will provide the patient with 1 L of normal saline bolus. On review of the patient's prior record the prior urine culture did show E. coli which is ESBL. It was susceptible to nitrofurantoin. I do believe the patient's thrush is likely secondary to the recent dental procedure and methylprednisolone secondary to the allergic reaction she had to amoxicillin. Laboratory: CBC reveals a leukocytosis of 18.10 with increased neutrophils, lymphocytes and monocytes likely secondary to demargination from steroid use. Otherwise hemoglobin hematocrit and everything else are normal. CMP reveals hyponatremia at 119, hypochloremia 84, hyperglycemia at 129, elevated alkaline phosphatase at 119. Troponin is negative. Free T4 is 1.16 which is normal. He needs it was normal at 2. Covid negative Urinalysis was a clean catch and was negative for leukocyte esterase, negative for nitrites, and trace for blood. Interpretation: Negative. UDS is negative. The radiological images were viewed by myself along with reading the report from the radiologist. Chest x-ray reveals moderate cardiomegaly without any interval change. After initial labs I did discuss that she had hyponatremia and she would need to be admitted to the hospital. We did see if she was able to urinate. She was unable to urinate therefore we did straight catheterize the patient. The patient had approximately 950 cc of urine in her bladder. The patient appears to be normovolemic hyponatremia therefore we will provide the patient with normal saline. I did discuss with him at this time would like to admit him to the hospital. They were amenable to this plan. I contacted Dr. Cho who accepted the patient for admission. DISPOSITION: Patient was admitted to the hospital in stable yet serious condition CONDITION: Serious PROCEDURES: Cardiac monitoring interpretation, pulse oximetry interpretation FINAL IMPRESSION(S)/DIAGNOSES: 1. Acute normovolemic hyponatremia 2. Acute leukocytosis likely reactive secondary to steroid use 3. Acute thrush likely secondary to steroid use. 4. Acute suicidal ideation Aj Monique M.D. - Related Data Allergies Allergy/AdvReac Type Severity Reaction Status Date / Time levofloxacin Allergy Swelling Verified 11/11/20 03:07 Home Meds: Home Meds Esomeprazole [NexIUM] 40 mg PO BEDTIME 09/25/13 [History] Doxepin HCl [Doxepin] 100 mg PO BEDTIME 07/30/16 [History] ALPRAZolam [Alprazolam] 1 mg PO TID 05/31/17 [History] Diltiazem [Cardizem CD] 120 mg PO BEDTIME 01/26/19 [History] Glimepiride 1 mg PO QAM 01/26/19 [History] Citalopram [Citalopram HBr] 20 mg PO BEDTIME 02/21/19 [History] Acetaminophen 1,000 mg PO Q4H PRN 07/28/19 [History] Cholecalciferol (Vitamin D3) [Vitamin D3] 5,000 unit PO BEDTIME 07/28/19 [History] Rosuvastatin [Crestor] 10 mg PO BEDTIME 07/28/19 [History] Ibuprofen [Advil] 600 mg PO ASDIRECTED PRN 09/14/20 [History] Irbesartan [Avapro] 150 mg PO DAILY 09/14/20 [History] Levothyroxine Sodium [Synthroid] 100 mcg PO QAM 09/14/20 [History] risperiDONE [Risperdal] 1 mg PO BID 09/14/20 [History] methylPREDNISolone [Medrol Dose Pack] 4 mg PO DAILY #21 tab 11/04/20 [Rx] methylPREDNISolone [Medrol Dose Pack] 4 mg PO DAILY #21 tab 11/04/20 [Rx] Past Medical History HEENT History: Reports: Allergic Rhinitis, Other (See Below) Other HEENT History: wears glasses Cardiovascular History: Reports: Arrhythmia, Heart Murmur, High Cholesterol, Hypertension Other Cardiovascular History: murmur not usually heard, has "irregular" heartbeat Respiratory History: Reports: Other (See Below) Other Respiratory History: has chronic cough due to sinus drainage Gastrointestinal History: Reports: GERD, Hiatal Hernia Genitourinary History: Reports: None [employer] History: Reports: None Musculoskeletal History: Reports: Arthritis, Back Pain, Chronic, Fracture, Neck Pain, Chronic Other Musculoskeletal History: hx fx wrist as a child, hx of spinal stenosis Neurological History: Reports: Other (See Below) Other Neuro History: degenerative disc disease Psychiatric History: Reports: Anxiety, Depression Endocrine/Metabolic History: Reports: Diabetes, Type II, Hypothyroidism, Obesity/BMI 30+ Hematologic History: Reports: None Immunologic History: Reports: None Oncologic (Cancer) History: Reports: None Dermatologic History: Reports: None - Infectious Disease History Infectious Disease History: Reports: Chicken Pox, Measles, Mononucleosis - Past Surgical History Head Surgeries/Procedures: Reports: None HEENT Surgical History: Reports: Oral Surgery, Tonsillectomy Other HEENT Surgeries/Procedures: has 1 upper and lower dental implants, has 1 paralyzed vocal cord and the other ome tends to spasm (damaged during thyroidectomy) Cardiovascular Surgical History: Reports: None Respiratory Surgical History: Reports: None GI Surgical History: Reports: Colonoscopy Female Surgical History: Reports: None Endocrine Surgical History: Reports: Thyroidectomy Neurological Surgical History: Reports: None Musculoskeletal Surgical History: Reports: None Oncologic Surgical History: Reports: None Dermatological Surgical History: Reports: None Social & Family History - Family History Family Medical History: No Pertinent Family History - Tobacco Use Tobacco Use Status *Q: Never Tobacco User - Caffeine Use Caffeine Use: Reports: Tea - Recreational Drug Use Drug Use in Last 12 Months: No ED ROS GENERAL - Review of Systems Review Of Systems: See Below ED EXAM, GENERAL - Physical Exam Exam: See Below Course - Vital Signs Last Recorded V/S: Last Vital Signs Temp 36.3 C 11/11/20 03:07 Pulse 71 11/11/20 06:38 Resp 17 11/11/20 06:38 BP 155/85 H 11/11/20 06:38 Pulse Ox 96 11/11/20 06:38 - Orders/Labs/Meds Orders: Active Orders 24 hr Category Date Time Status EKG Documentation Completion [RC] STAT Care 11/11/20 03:54 Active Labs: Laboratory Tests 11/11/20 11/11/20 11/11/20 Range/Units 04:15 04:15 04:50 WBC 18.10 H (4.0-11.0) K/uL RBC 4.68 (4.30-5.90) M/uL Hgb 13.4 (12.0-16.0) g/dL Hct 37.6 (36.0-46.0) % MCV 80.3 (80.0-98.0) fL MCH 28.6 (27.0-32.0) pg MCHC 35.6 (31.0-37.0) g/dL RDW Std Deviation 36.1 (28.0-62.0) fl RDW Coeff of Eran 12 (11.0-15.0) % Plt Count 372 (150-400) K/uL MPV 8.30 (7.40-12.00) fL Neut % (Auto) 68.2 (48.0-80.0) % Lymph % (Auto) 21.9 (16.0-40.0) % Sac % (Auto) 8.4 (0.0-15.0) % Eos % (Auto) 1.4 (0.0-7.0) % Baso % (Auto) 0.1 (0.0-1.5) % Neut # (Auto) 12.4 H (1.4-5.7) K/uL Lymph # (Auto) 4.0 H (0.6-2.4) K/uL Sac # (Auto) 1.5 H (0.0-0.8) K/uL Eos # (Auto) 0.3 (0.0-0.7) K/uL Baso # (Auto) 0.0 (0.0-0.1) K/uL Nucleated RBC % 0.0 /100WBC Nucleated RBCs # 0 K/uL Sodium 119 L* (136-145) mmol/L Potassium 3.8 (3.5-5.1) mmol/L Chloride 84 L (98-107) mmol/L Carbon Dioxide 30.6 (21.0-32.0) mmol/L BUN 11 (7.0-18.0) mg/dL Creatinine 0.7 (0.6-1.0) mg/dL Est Cr Clr Drug Dosing 60.84 mL/min Estimated GFR (MDRD) > 60.0 ml/min Glucose 129 H (74-106) mg/dL Calcium 9.1 (8.5-10.1) mg/dL Magnesium 2.0 (1.8-2.4) mg/dL Total Bilirubin 0.8 (0.2-1.0) mg/dL AST 16 (15-37) IU/L ALT 38 (14-63) IU/L Alkaline Phosphatase 119 H (46-116) U/L Troponin I <0.050 (0.000-0.056) ng/mL Total Protein 7.4 (6.4-8.2) g/dL Albumin 4.0 (3.4-5.0) g/dL Globulin 3.4 (2.6-4.0) g/dL Albumin/Globulin Ratio 1.2 (0.9-1.6) Free T4 1.16 (0.76-1.46) ng/dL Urine Color YELLOW Urine Appearance CLEAR Urine pH 7.0 (5.0-8.0) Ur Specific [place] <= 1.005 (1.001-1.035) Urine Protein NEGATIVE (NEGATIVE) mg/dL Urine Glucose (UA) NEGATIVE (NEGATIVE) mg/dL Urine Ketones NEGATIVE (NEGATIVE) mg/dL Urine Occult Blood TRACE-INTACT H (NEGATIVE) Urine Nitrite NEGATIVE (NEGATIVE) Urine Bilirubin NEGATIVE (NEGATIVE) Urine Urobilinogen 0.2 (<2.0) EU/dL Ur Leukocyte Esterase NEGATIVE (NEGATIVE) Urine RBC 0-1 (0-2/HPF) Urine WBC 0-1 (0-5/HPF) Ur Epithelial Cells RARE (NONE-FEW) Urine Bacteria RARE (NEGATIVE) Urine Opiates Screen (NEGATIVE) Ur Oxycodone Screen (NEGATIVE) Urine Methadone Screen (NEGATIVE) Ur Barbiturates Screen (NEGATIVE) Ur Phencyclidine Scrn (NEGATIVE) Ur Amphetamine Screen (NEGATIVE) U Methamphetamines Scrn (NEGATIVE) U Benzodiazepines Scrn (NEGATIVE) U Cocaine Metab Screen (NEGATIVE) U Marijuana (THC) Screen (NEGATIVE) SARS-CoV-2 RNA (BRIDGET) (NEGATIVE) 11/11/20 11/11/20 Range/Units 04:50 05:05 WBC (4.0-11.0) K/uL RBC (4.30-5.90) M/uL Hgb (12.0-16.0) g/dL Hct (36.0-46.0) % MCV (80.0-98.0) fL MCH (27.0-32.0) pg MCHC (31.0-37.0) g/dL RDW Std Deviation (28.0-62.0) fl RDW Coeff of Eran (11.0-15.0) % Plt Count (150-400) K/uL MPV (7.40-12.00) fL Neut % (Auto) (48.0-80.0) % Lymph % (Auto) (16.0-40.0) % Sac % (Auto) (0.0-15.0) % Eos % (Auto) (0.0-7.0) % Baso % (Auto) (0.0-1.5) % Neut # (Auto) (1.4-5.7) K/uL Lymph # (Auto) (0.6-2.4) K/uL Sac # (Auto) (0.0-0.8) K/uL Eos # (Auto) (0.0-0.7) K/uL Baso # (Auto) (0.0-0.1) K/uL Nucleated RBC % /100WBC Nucleated RBCs # K/uL Sodium (136-145) mmol/L Potassium (3.5-5.1) mmol/L Chloride (98-107) mmol/L Carbon Dioxide (21.0-32.0) mmol/L BUN (7.0-18.0) mg/dL Creatinine (0.6-1.0) mg/dL Est Cr Clr Drug Dosing mL/min Estimated GFR (MDRD) ml/min Glucose (74-106) mg/dL Calcium (8.5-10.1) mg/dL Magnesium (1.8-2.4) mg/dL Total Bilirubin (0.2-1.0) mg/dL AST (15-37) IU/L ALT (14-63) IU/L Alkaline Phosphatase (46-116) U/L Troponin I (0.000-0.056) ng/mL Total Protein (6.4-8.2) g/dL Albumin (3.4-5.0) g/dL Globulin (2.6-4.0) g/dL Albumin/Globulin Ratio (0.9-1.6) Free T4 (0.76-1.46) ng/dL Urine Color Urine Appearance Urine pH (5.0-8.0) Ur Specific [place] (1.001-1.035) Urine Protein (NEGATIVE) mg/dL Urine Glucose (UA) (NEGATIVE) mg/dL Urine Ketones (NEGATIVE) mg/dL Urine Occult Blood (NEGATIVE) Urine Nitrite (NEGATIVE) Urine Bilirubin (NEGATIVE) Urine Urobilinogen (<2.0) EU/dL Ur Leukocyte Esterase (NEGATIVE) Urine RBC (0-2/HPF) Urine WBC (0-5/HPF) Ur Epithelial Cells (NONE-FEW) Urine Bacteria (NEGATIVE) Urine Opiates Screen NEGATIVE (NEGATIVE) Ur Oxycodone Screen NEGATIVE (NEGATIVE) Urine Methadone Screen NEGATIVE (NEGATIVE) Ur Barbiturates Screen NEGATIVE (NEGATIVE) Ur Phencyclidine Scrn NEGATIVE (NEGATIVE) Ur Amphetamine Screen NEGATIVE (NEGATIVE) U Methamphetamines Scrn NEGATIVE (NEGATIVE) U Benzodiazepines Scrn NEGATIVE (NEGATIVE) U Cocaine Metab Screen NEGATIVE (NEGATIVE) U Marijuana (THC) Screen NEGATIVE (NEGATIVE) SARS-CoV-2 RNA (BRIDGET) NEGATIVE (NEGATIVE) Meds: Medications Discontinued Medications Generic Name Dose Route Start Last Admin Trade Name Freq PRN Reason Stop Dose Admin Diphenhydr/Magaldrate/Simeth/Lidoca 15 ml 11/11/20 03:55 11/11/20 04:16 Al And Mag Hydroxide/Diphenhydramine/Lidocaine/Simethicone 237 Ml Bottle PO 11/11/20 03:56 15 ml ONETIME STA Administration Sodium Chloride 1,000 mls @ 999 mls/hr 11/11/20 05:08 11/11/20 05:11 Normal Saline IV 11/11/20 06:08 999 mls/hr .BOLUS ONE Administration Nystatin 5 ml 11/11/20 03:55 11/11/20 04:16 Nystatin Susp 100,000 Unit/Ml 5 Ml Ud Cup PO 11/11/20 03:56 5 ml ONETIME ONE Administration Departure - Departure Time of Disposition: 06:15 Disposition: Admitted As Inpatient 68 Condition: Serious Clinical Impression: Hyponatremia, Suicidal ideation - Discharge Information *PRESCRIPTION DRUG MONITORING PROGRAM REVIEWED*: No *COPY OF PRESCRIPTION DRUG MONITORING REPORT IN PATIENT KAREY: No Sepsis Event Note (ED) - Evaluation Sepsis Screening Result: No Definite Risk - Focused Exam Vital Signs: Vital Signs Temp Pulse Resp BP Pulse Ox 11/11/20 05:05 78 18 149/84 H 97 11/11/20 04:15 68 18 151/83 H 97 11/11/20 03:07 36.3 C 73 18 138/88 97 - My Orders Last 24 Hours: My Active Orders 11/11/20 03:54 EKG Documentation Completion [RC] STAT - Assessment/Plan Last 24 Hours: My Active Orders 11/11/20 03:54 EKG Documentation Completion [RC] STAT
--- NOTE | 2020-11-11 05:50 | PCM.EKG ---
#1 Interpretation EKG Date: 11/11/20 Time: 04:22 Rhythm: NSR Rate (Beats/Min): 68 [place]: Normal P-Wave: Present QRS: Normal ST-T: Normal QT: Normal Comparison: No Change (07/27/19) EKG Interpretation Comments: Sinus Rhythm
[2020-11-11] MEDS ORDERED: Lidocaine 2% Viscous Solution 15 ML Cup PO ONE (07:41)
[2020-11-11] MEDS ORDERED: Sodium Chloride 0.9% 2.5 ML Syringe FLUSH PRN (08:13)
--- NOTE | 2020-11-11 08:13 | PCM.HP.2 ---
H&P History of Present Illness - General Date of Service: 11/11/20 Admit Problem/Dx: Admission Diagnosis/Problem Admission Diagnosis/Problem Hyponatremia Source of Information: Patient, Old Records History Limitations: Reports: No Limitations - History of Present Illness Initial Comments - Free Text/Narative: This 70-year-old female with past medical history of hyperlipidemia, hypothyroidism status post thyroidectomy, type 2 diabetes significant history of depression anxiety with inpatient admissions and recent bladder infection with ESBL E. coli presented to the ER early this morning with complaints of having a bladder infection and overall not feeling well. She reports that for the last week she has been feeling weak she cannot empty her bladder. She denies any dysuria, hematuria, vaginal bleeding or vaginal discharge. She reports that she feels like she needs to go to the bathroom but is unable to urinate, or unable to completely empty her bladder. She reports that she was recently placed on nitrofurantoin for the last 3 days. She reports that he feels as though her mental clarity is foggy and this started the last day or 2. Reports that since she had her teeth removed from a dental implants placed she has not been eating or drinking much because of the painful mouth. She reports she recently had allergic reaction to amoxicillin after some dental work, after this she was placed on a Medrol Dosepak and reports that her acid reflux and mouth pain significantly worsened with white coating to her tongue and sores in her mouth. She reports she is having a lot of acid reflux and feels like her throat and tongue are burning. She denies any fevers or chills at home. She reports significant lethargy and overall generalized malaise. She feels at times that her body is glowing or that her skin is cold and the rest of her body is very hot. She reports this has been going on for approximately 5 to 6 years. She denies any chest pain or shortness of breath and no significant abdominal pain. She denies any leg swelling or abdominal swelling. She denies any history of heart failure and no liver disease. She denies any tobacco use no recreational drug use and no alcohol use. She denies any significant intake of sodas or dietary supplements. Patient affect extremely flat during conversation. at bedside. Patient reports she has thought of suicide in the past but currently has no plan and no current thoughts. She is just very nervous regarding her mental clarity being so fogged at this time. She was reassured that this likely could be due to her hyponatremia. Patient and counseled on symptoms of hyponatremia. In the ER leukocytosis noted at 18,000 hemoglobin 13.3 hematocrit 37.6. Platelets 372,000 sodium noted at 119 potassium 3.8 chloride 84 BUN 11 creatinine 0.7. Glucose 129 troponin negative urine negative with trace occult blood negative leukocyte esterase WBCs 0-1. Recently urine culture from the ER revealed ESBL E. coli. Vital signs in the ER stable heart rate 73 blood pressure 138/88 on room air 97% and afebrile. Patient was unable to void in the ER and straight cathed with straight cath nurses drained approximately 1 L of urine from her bladder. Chest x-ray done in the ER reveals moderate cardiomegaly without interval change. No sign of pleural effusion and no pneumothorax noted. Chronic scarring noted in the left midlung. In the ER patient treated with 1 L normal saline along with oral nystatin. Patient admitted inpatient to ICU due to hyponatremia. - Related Data Allergies/Adverse Reactions: Allergies Allergy/AdvReac Type Severity Reaction Status Date / Time amoxicillin Allergy Swelling Verified 11/11/20 09:03 levofloxacin Allergy Swelling Verified 11/11/20 09:03 Home Medications: Home Meds Glimepiride 1 mg PO QAM 01/26/19 [History] Citalopram [Citalopram HBr] 20 mg PO BEDTIME 02/21/19 [History] Rosuvastatin [Crestor] 10 mg PO BEDTIME 07/28/19 [History] Irbesartan [Avapro] 150 mg PO DAILY 09/14/20 [History] Levothyroxine Sodium [Synthroid] 100 mcg PO QAM 09/14/20 [History] ALPRAZolam [Alprazolam ER] 1 mg PO 11/11/20 [History] Acetaminophen [Tylenol Extra Strength] 1,000 mg PO Q4H PRN 11/11/20 [History] Cholecalciferol (Vitamin D3) [Vitamin D3] 2,000 unit PO 11/11/20 [History] Diltiazem [Cardizem CD] 120 mg PO DAILY 11/11/20 [History] Doxepin HCl 150 mg PO 11/11/20 [History] Esomeprazole [NexIUM] 40 mg PO DAILY 11/11/20 [History] nitrofurantoin macrocrystaL [Nitrofurantoin] 100 mg PO BID 11/11/20 [History] Past Medical History HEENT History: Reports: Allergic Rhinitis, Other (See Below) Other HEENT History: wears glasses Cardiovascular History: Reports: Arrhythmia, Heart Murmur, High Cholesterol, Hypertension. Denies: Afib, Blood Clots/VTE/DVT, Heart Failure Other Cardiovascular History: murmur not usually heard, has "irregular" heartbeat Respiratory History: Reports: Other (See Below) Other Respiratory History: has chronic cough due to sinus drainage Gastrointestinal History: Reports: GERD, Hiatal Hernia Genitourinary History: Reports: None INDUSTRIAL PHARMACIST History: Reports: None Musculoskeletal History: Reports: Arthritis, Back Pain, Chronic, Fracture, Neck Pain, Chronic Other Musculoskeletal History: hx fx wrist as a child, hx of spinal stenosis Neurological History: Reports: Other (See Below) Other Neuro History: degenerative disc disease Psychiatric History: Reports: Anxiety, Depression, Suicidal Ideation Endocrine/Metabolic History: Reports: Diabetes, Type II, Hypothyroidism, Obesity/BMI 30+ Hematologic History: Reports: None Immunologic History: Reports: None Oncologic (Cancer) History: Reports: None Dermatologic History: Reports: None - Infectious Disease History Infectious Disease History: Reports: Chicken Pox, Measles, Mononucleosis - Past Surgical History Head Surgeries/Procedures: Reports: None HEENT Surgical History: Reports: Oral Surgery, Tonsillectomy Other HEENT Surgeries/Procedures: has 1 upper and lower dental implants, has 1 paralyzed vocal cord and the other ome tends to spasm (damaged during thyroidectomy) Cardiovascular Surgical History: Reports: None Respiratory Surgical History: Reports: None GI Surgical History: Reports: Colonoscopy Female Surgical History: Reports: None Endocrine Surgical History: Reports: Thyroidectomy Neurological Surgical History: Reports: None Musculoskeletal Surgical History: Reports: None Oncologic Surgical History: Reports: None Dermatological Surgical History: Reports: None Social & Family History - Family History Family Medical History: No Pertinent Family History - Tobacco Use Tobacco Use Status *Q: Never Tobacco User - Caffeine Use Caffeine Use: Reports: Tea - Alcohol Use Alcohol Use History: No - Recreational Drug Use Drug Use in Last 12 Months: No - Living Situation & Occupation Living situation: Reports: Occupation: Retired H&P Review of Systems - Review of Systems: Review Of Systems: See Below General: Reports: Malaise, Weakness, Fatigue, Decreased Appetite. Denies: Fever, Chills HEENT: Reports: Sore Throat. Denies: Headaches, Sinus Congestion, Vertigo Pulmonary: Reports: No Symptoms. Denies: Shortness of Breath Cardiovascular: Reports: No Symptoms. Denies: Chest Pain Gastrointestinal: Reports: Constipation, Decreased Appetite. Denies: Abdominal Pain, Black Stool, Bloody Stool, Diarrhea, Nausea, Vomiting Genitourinary: Reports: Retention. Denies: Dysuria, Burning, Flank Pain Musculoskeletal: Reports: No Symptoms. Denies: Back Pain Skin: Reports: Erythema (Oral labia) Psychiatric: Reports: Depression, Anxiety. Denies: Suicidal Ideation, Hallucinations (Auditory), Hallucinations (Visual) Neurological: Reports: No Symptoms Hematologic/Lymphatic: Reports: No Symptoms Immunologic: Reports: No Symptoms Exam - Exam Exam: See Below - Vital Signs Vital Signs: Last Vital Signs Temp 97.4 F 11/11/20 03:07 Pulse 71 11/11/20 06:38 Resp 17 11/11/20 06:38 BP 155/85 H 11/11/20 06:38 Pulse Ox 96 11/11/20 06:38 Weight: 79.379 kg - Exam General: Alert, Oriented, Cooperative, Other (Very flat affect noted) HEENT: Conjunctiva Clear. No: Mucosa Moist & Edom (Dry lips with erythema noted around outer oral labia), Posterior Pharynx Clear (Erythematous with white plaque noted) Neck: Supple, Trachea Midline, Full Range of Motion Lungs: Clear to Auscultation, Normal Respiratory Effort Cardiovascular: Regular Rate, Regular Rhythm. No: Irregular Rhythm, Systolic Murmur GI/Abdominal Exam: Normal Bowel Sounds, Soft, Non-Tender Back Exam: Normal Inspection, Full Range of Motion Extremities: Normal Inspection, Normal Range of Motion, Non-Tender, No Pedal Edema Skin: Warm, Dry Neurological: Cranial Nerves Intact, Strength Equal Bilateral, Normal Gait Neuro Extensive - Mental Status: Alert, Oriented x3. No: Normal Mood/Affect (Flat affect) Neuro Extensive - Motor, Sensory, Reflexes: CN II-XII Intact, Normal Gait, Normal Reflexes Psychiatric: Alert, Normal Mood, Depressed. No: Normal Affect, Suicidal Ideation - Patient Data Lab Results Last 24 hrs: Laboratory Results - last 24 hr 11/11/20 11/11/20 11/11/20 Range/Units 04:15 04:15 04:50 WBC 18.10 H (4.0-11.0) K/uL RBC 4.68 (4.30-5.90) M/uL Hgb 13.4 (12.0-16.0) g/dL Hct 37.6 (36.0-46.0) % MCV 80.3 (80.0-98.0) fL MCH 28.6 (27.0-32.0) pg MCHC 35.6 (31.0-37.0) g/dL RDW Std Deviation 36.1 (28.0-62.0) fl RDW Coeff of Eran 12 (11.0-15.0) % Plt Count 372 (150-400) K/uL MPV 8.30 (7.40-12.00) fL Neut % (Auto) 68.2 (48.0-80.0) % Lymph % (Auto) 21.9 (16.0-40.0) % Bureau % (Auto) 8.4 (0.0-15.0) % Eos % (Auto) 1.4 (0.0-7.0) % Baso % (Auto) 0.1 (0.0-1.5) % Neut # (Auto) 12.4 H (1.4-5.7) K/uL Lymph # (Auto) 4.0 H (0.6-2.4) K/uL Bureau # (Auto) 1.5 H (0.0-0.8) K/uL Eos # (Auto) 0.3 (0.0-0.7) K/uL Baso # (Auto) 0.0 (0.0-0.1) K/uL Nucleated RBC % 0.0 /100WBC Nucleated RBCs # 0 K/uL Sodium 119 L* (136-145) mmol/L Potassium 3.8 (3.5-5.1) mmol/L Chloride 84 L (98-107) mmol/L Carbon Dioxide 30.6 (21.0-32.0) mmol/L BUN 11 (7.0-18.0) mg/dL Creatinine 0.7 (0.6-1.0) mg/dL Est Cr Clr Drug Dosing 60.84 mL/min Estimated GFR (MDRD) > 60.0 ml/min Glucose 129 H (74-106) mg/dL Calcium 9.1 (8.5-10.1) mg/dL Magnesium 2.0 (1.8-2.4) mg/dL Total Bilirubin 0.8 (0.2-1.0) mg/dL AST 16 (15-37) IU/L ALT 38 (14-63) IU/L Alkaline Phosphatase 119 H (46-116) U/L Troponin I <0.050 (0.000-0.056) ng/mL Total Protein 7.4 (6.4-8.2) g/dL Albumin 4.0 (3.4-5.0) g/dL Globulin 3.4 (2.6-4.0) g/dL Albumin/Globulin Ratio 1.2 (0.9-1.6) Free T4 1.16 (0.76-1.46) ng/dL Urine Color YELLOW Urine Appearance CLEAR Urine pH 7.0 (5.0-8.0) Ur Specific [place] <= 1.005 (1.001-1.035) Urine Protein NEGATIVE (NEGATIVE) mg/dL Urine Glucose (UA) NEGATIVE (NEGATIVE) mg/dL Urine Ketones NEGATIVE (NEGATIVE) mg/dL Urine Occult Blood TRACE-INTACT H (NEGATIVE) Urine Nitrite NEGATIVE (NEGATIVE) Urine Bilirubin NEGATIVE (NEGATIVE) Urine Urobilinogen 0.2 (<2.0) EU/dL Ur Leukocyte Esterase NEGATIVE (NEGATIVE) Urine RBC 0-1 (0-2/HPF) Urine WBC 0-1 (0-5/HPF) Ur Epithelial Cells RARE (NONE-FEW) Urine Bacteria RARE (NEGATIVE) Urine Opiates Screen (NEGATIVE) Ur Oxycodone Screen (NEGATIVE) Urine Methadone Screen (NEGATIVE) Ur Barbiturates Screen (NEGATIVE) Ur Phencyclidine Scrn (NEGATIVE) Ur Amphetamine Screen (NEGATIVE) U Methamphetamines Scrn (NEGATIVE) U Benzodiazepines Scrn (NEGATIVE) U Cocaine Metab Screen (NEGATIVE) U Marijuana (THC) Screen (NEGATIVE) SARS-CoV-2 RNA (BRIDGET) (NEGATIVE) 11/11/20 11/11/20 Range/Units 04:50 05:05 WBC (4.0-11.0) K/uL RBC (4.30-5.90) M/uL Hgb (12.0-16.0) g/dL Hct (36.0-46.0) % MCV (80.0-98.0) fL MCH (27.0-32.0) pg MCHC (31.0-37.0) g/dL RDW Std Deviation (28.0-62.0) fl RDW Coeff of Eran (11.0-15.0) % Plt Count (150-400) K/uL MPV (7.40-12.00) fL Neut % (Auto) (48.0-80.0) % Lymph % (Auto) (16.0-40.0) % Bureau % (Auto) (0.0-15.0) % Eos % (Auto) (0.0-7.0) % Baso % (Auto) (0.0-1.5) % Neut # (Auto) (1.4-5.7) K/uL Lymph # (Auto) (0.6-2.4) K/uL Bureau # (Auto) (0.0-0.8) K/uL Eos # (Auto) (0.0-0.7) K/uL Baso # (Auto) (0.0-0.1) K/uL Nucleated RBC % /100WBC Nucleated RBCs # K/uL Sodium (136-145) mmol/L Potassium (3.5-5.1) mmol/L Chloride (98-107) mmol/L Carbon Dioxide (21.0-32.0) mmol/L BUN (7.0-18.0) mg/dL Creatinine (0.6-1.0) mg/dL Est Cr Clr Drug Dosing mL/min Estimated GFR (MDRD) ml/min Glucose (74-106) mg/dL Calcium (8.5-10.1) mg/dL Magnesium (1.8-2.4) mg/dL Total Bilirubin (0.2-1.0) mg/dL AST (15-37) IU/L ALT (14-63) IU/L Alkaline Phosphatase (46-116) U/L Troponin I (0.000-0.056) ng/mL Total Protein (6.4-8.2) g/dL Albumin (3.4-5.0) g/dL Globulin (2.6-4.0) g/dL Albumin/Globulin Ratio (0.9-1.6) Free T4 (0.76-1.46) ng/dL Urine Color Urine Appearance Urine pH (5.0-8.0) Ur Specific Freeborn (1.001-1.035) Urine Protein (NEGATIVE) mg/dL Urine Glucose (UA) (NEGATIVE) mg/dL Urine Ketones (NEGATIVE) mg/dL Urine Occult Blood (NEGATIVE) Urine Nitrite (NEGATIVE) Urine Bilirubin (NEGATIVE) Urine Urobilinogen (<2.0) EU/dL Ur Leukocyte Esterase (NEGATIVE) Urine RBC (0-2/HPF) Urine WBC (0-5/HPF) Ur Epithelial Cells (NONE-FEW) Urine Bacteria (NEGATIVE) Urine Opiates Screen NEGATIVE (NEGATIVE) Ur Oxycodone Screen NEGATIVE (NEGATIVE) Urine Methadone Screen NEGATIVE (NEGATIVE) Ur Barbiturates Screen NEGATIVE (NEGATIVE) Ur Phencyclidine Scrn NEGATIVE (NEGATIVE) Ur Amphetamine Screen NEGATIVE (NEGATIVE) U Methamphetamines Scrn NEGATIVE (NEGATIVE) U Benzodiazepines Scrn NEGATIVE (NEGATIVE) U Cocaine Metab Screen NEGATIVE (NEGATIVE) U Marijuana (THC) Screen NEGATIVE (NEGATIVE) SARS-CoV-2 RNA (BRIDGET) NEGATIVE (NEGATIVE) Result Diagrams: 11/11/20 04:15 11/11/20 08:34 Sepsis Event Note - Evaluation Sepsis Screening Result: No Definite Risk - Focused Exam Vital Signs: Vital Signs Temp Pulse Resp BP Pulse Ox 11/11/20 06:38 71 17 155/85 H 96 11/11/20 05:05 78 18 149/84 H 97 11/11/20 04:15 68 18 151/83 H 97 11/11/20 03:07 97.4 F 73 18 138/88 97 - Problem List (1) Hyponatremia SNOMED Code(s): 13424458 ICD Code: E87.1 - HYPO-OSMOLALITY AND HYPONATREMIA Status: Acute Current Visit: Yes (2) UTI, Urinary tract infectious disease SNOMED Code(s): 69801247 ICD Code: N39.0 - URINARY TRACT INFECTION, SITE NOT SPECIFIED Status: Acute Current Visit: No (3) Oral thrush SNOMED Code(s): 38980256 ICD Code: B37.0 - CANDIDAL STOMATITIS Status: Acute Current Visit: Yes (4) Urinary retention SNOMED Code(s): 803619555 ICD Code: R33.9 - RETENTION OF URINE, UNSPECIFIED Status: Acute Current Visit: Yes (5) ESBL E. coli carrier SNOMED Code(s): 002398216 ICD Code: Z22.39 - CARRIER OF OTHER SPECIFIED BACTERIAL DISEASES Status: Acute Current Visit: Yes (6) Depression with anxiety SNOMED Code(s): 543355116 ICD Code: F41.8 - OTHER SPECIFIED ANXIETY DISORDERS Status: Chronic Curr ent Visit: Yes (7) H/O thyroidectomy SNOMED Code(s): 742124099, 658987521 ICD Code: 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 Current Visit: Yes (8) Hypothyroidism associated with surgical procedure SNOMED Code(s): 76600288 ICD Code: 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 Current Visit: Yes (9) Type 2 diabetes mellitus SNOMED Code(s): 91100635 ICD Code: E11.9 - TYPE 2 DIABETES MELLITUS WITHOUT COMPLICATIONS Status: Chronic Current Visit: Yes Qualifiers: 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 use: without [facility] use (10) HLD (hyperlipidemia) SNOMED Code(s): 04640120 ICD Code: E78.5 - HYPERLIPIDEMIA, UNSPECIFIED Status: Chronic Current Visit: Yes (11) HTN (hypertension) SNOMED Code(s): 86676998 ICD Code: I10 - ESSENTIAL (PRIMARY) HYPERTENSION Status: Chronic Current Visit: Yes Problem List Initiated/Reviewed/Updated: Yes Orders Last 24hrs: Active Orders 24 hr Category Date Time Status Admission Status [Patient Status] [ADT] Stat ADT 11/11/20 06:15 Active EKG Documentation Completion [RC] STAT Care 11/11/20 03:54 Active Assessment/Plan Comment:: This 70-year-old female admitted with hyponatremia and recent ESBL E. coli UTI 1. Hyponatremia -urine sodium 21 and urine osmolality pending, but appears to be hypovolemic hyponatremia -Repeat sodium 121 -Continue normal saline 100 mL/h -Goal sodium for the next 24 hours, approximately 124-125 -Monitor closely, repeat BMPs every 4 hours for now. 2. ESBL E. coli UTI -Urine looks improved but has significant leukocytosis could be related to dehydration from poor intake and recent steroid taper -We will start meropenem for now - patient does not appear septic at this moment. -CT abdomen pelvis reveals no urinary tract stone or obstruction that is evident. The bladder is noted to be distended. Liver and bile ducts are unremarkable tiny stones and/or sludge are present in the gallbladder otherwise unremarkable. Lung bases are essentially clear heart size is at the upper normal limits. -Check bladder scan likely place Gomez catheter if patient continues to retain urine. -Postvoid residuals ordered 3. Oral thrush -We will give dose of oral Diflucan -Magic mouthwash with nystatin 4 times daily -Recent multiple doses of antibiotics along with steroid taper. 4. Diabetes type 2 -Hold oral agents -Continue NovoLog sliding scale 3 times daily before meals -Start soft ADA diet -Blood sugars 3 times daily AC 5. Hypertension -Restart home medications of diltiazem and Irbesartan 6. Hypothyroidism secondary to thyroidectomy -TSH 5.12 -Restart levothyroxine 7. Depression/anxiety -Need clarification at home medication list will restart medications when able. VTE prophylaxis Heparin GI prophylaxis: Protonix CODE STATUS: Full code Dispo: 2 to 3 days pending improvement. - Mortality Measure Prognosis:: Good
[2020-11-11] MEDS ORDERED: Ondansetron 4 MG/2 ML SDV IVPUSH PRN (08:30)
[2020-11-11] MEDS ORDERED: Glucagon,Human Recombinant 1 MG Vial IM PRN (08:34)
[2020-11-11] MEDS ORDERED: 50% Dextrose in Water 50 ML Syringe IVPUSH PRN (08:34)
[2020-11-11] MEDS ORDERED: Docusate Sodium 100 MG Cap PO PRN (09:00)
[2020-11-11 09:13] LABS: BLOOD UREA NITROGEN,BUN 9 mg/dL (7.0-18.0); CHLORIDE,CL 89 mmol/L (98-107); GLUCOSE RANDOM 114 mg/dL (74-106); POTASSIUM,K 3.8 mmol/L (3.5-5.1); SODIUM,NA 121 mmol/L (136-145)
[2020-11-11] MEDS: Sodium Chloride 0.9% 1,000 ML IV SCH ×2 (09:22→20:15)
[2020-11-11] MEDS: Pantoprazole 40 MG in Sodium Chloride 0.9% 10 ML IV SCH (09:55)
[2020-11-11] MEDS: Heparin Sodium 5,000 Units/ML Vial SUBCUT SCH ×2 (09:56→16:35)
[2020-11-11] MEDS: Meropenem Premix 1 GM in Premix Bag 1 BAG IV SCH ×2 (10:01→16:35)
[2020-11-11] MEDS ORDERED: Fluconazole Susp 40 MG/1 ML 35 ML Bottle PO STA (10:18)
[2020-11-11] MEDS: LIDOCAINE 2% PO SCH ×6 (11:24→18:08)
[2020-11-11] MEDS: NYSTATIN PO SCH ×6 (11:24→18:08)
[2020-11-11] MEDS: DIPHENHYDRAMINE PO SCH ×6 (11:24→18:08)
--- NOTE | 2020-11-11 11:40 | CT ---
INDICATION: History urinary retention. Leukocytosis. TECHNIQUE: Volumetric helical scanning of the abdomen and pelvis was performed without contrast material. Coronal and sagittal reconstructions were obtained. COMPARISON: Abdomen/pelvis CT of 02/29/2020. FINDINGS: No urinary tract stone or obstruction is evident. The kidneys are normal in size, shape and attenuation. The bladder is distended. The uterus and ovaries are grossly negative. No free fluid is evident. The liver and bile ducts are unremarkable. Tiny stones and/or sludge present in the gallbladder. The spleen, adrenal glands and pancreas are within normal limits. The bowel is unremarkable except for a small hiatal hernia. The lung bases are essentially clear, and the heart size is at upper normal limits. IMPRESSION: 1. Bladder distention. 2. Tiny stones and/or sludge in the gallbladder. 3. Small hiatal hernia. Please note that all CT scans at this facility use dose modulation, iterative reconstruction, and/or weight-based dosing when appropriate to reduce radiation dose to as low as reasonably achievable. Dictated by Efrem Dean MD @ 11/11/2020 11:39:[address] Efrem Dean @ Nov 11 2020 11:39AM
[2020-11-11] MEDS ORDERED: Diphenhydramine/Lidocaine/Nystatin Suspension 237 ML Bottle PO SCH (12:00)
[2020-11-11] MEDS: Acetaminophen 325 MG Tab PO PRN ×2 (13:08→17:04)
[2020-11-11] MEDS: Irbesartan 150 MG Tab PO SCH (13:09)
[2020-11-11] MEDS: Diltiazem 120 MG Cap.CD PO SCH (13:09)
[2020-11-11] MEDS: Insulin Aspart 100 Units/ML 3 ML Pen SUBCUT SCH ×2 (13:14→17:59)
[2020-11-11 14:00] LABS: BLOOD UREA NITROGEN,BUN 8 mg/dL (7.0-18.0); CARBON DIOXIDE,CO2 27.7 mmol/L (21.0-32.0); CHLORIDE,CL 90 mmol/L (98-107); GLUCOSE RANDOM 128 mg/dL (74-106); POTASSIUM,K 4.1 mmol/L (3.5-5.1); SODIUM,NA 122 mmol/L (136-145)
[2020-11-11] MEDS: ALPRAZolam 0.5 MG Tab PO PRN (16:33)
[2020-11-11 17:10] LABS: BLOOD UREA NITROGEN,BUN 8 mg/dL (7.0-18.0); CARBON DIOXIDE,CO2 26.6 mmol/L (21.0-32.0); CHLORIDE,CL 89 mmol/L (98-107); GLUCOSE RANDOM 116 mg/dL (74-106); POTASSIUM,K 3.9 mmol/L (3.5-5.1); SODIUM,NA 121 mmol/L (136-145)
[2020-11-11] MEDS: Rosuvastatin 10 MG Tab PO SCH (20:15)
[2020-11-11 21:41] LABS: BLOOD UREA NITROGEN,BUN 8 mg/dL (7.0-18.0); CARBON DIOXIDE,CO2 27.1 mmol/L (21.0-32.0); CHLORIDE,CL 88 mmol/L (98-107); GLUCOSE RANDOM 169 mg/dL (74-106); POTASSIUM,K 3.7 mmol/L (3.5-5.1); SODIUM,NA 124 mmol/L (136-145)
[2020-11-12] MEDS: Meropenem Premix 1 GM in Premix Bag 1 BAG IV SCH ×4 (00:30→23:40)
[2020-11-12 00:58] LABS: BLOOD UREA NITROGEN,BUN 8 mg/dL (7.0-18.0); CARBON DIOXIDE,CO2 27.9 mmol/L (21.0-32.0); CHLORIDE,CL 90 mmol/L (98-107); GLUCOSE RANDOM 108 mg/dL (74-106); POTASSIUM,K 3.9 mmol/L (3.5-5.1); SODIUM,NA 125 mmol/L (136-145)
[2020-11-12 05:34] LABS: BLOOD UREA NITROGEN,BUN 7 mg/dL (7.0-18.0); CARBON DIOXIDE,CO2 29.9 mmol/L (21.0-32.0); CHLORIDE,CL 93 mmol/L (98-107); GLUCOSE RANDOM 123 mg/dL (74-106); POTASSIUM,K 4.2 mmol/L (3.5-5.1); SODIUM,NA 125 mmol/L (136-145)
[2020-11-12] MEDS: Acetaminophen 325 MG Tab PO PRN ×2 (06:25→18:50)
[2020-11-12] MEDS: LIDOCAINE 2% PO SCH ×15 (06:30→23:44)
[2020-11-12] MEDS: DIPHENHYDRAMINE PO SCH ×15 (06:30→23:44)
[2020-11-12] MEDS: NYSTATIN PO SCH ×15 (06:30→23:44)
[2020-11-12] MEDS: Sodium Chloride 0.9% 1,000 ML IV SCH ×2 (06:32→16:20)
[2020-11-12] MEDS: Insulin Aspart 100 Units/ML 3 ML Pen SUBCUT SCH ×5 (06:34→23:53)
[2020-11-12] MEDS: Heparin Sodium 5,000 Units/ML Vial SUBCUT SCH ×4 (06:34→23:42)
[2020-11-12] MEDS: Levothyroxine 100 MCG Tab PO SCH (07:47)
[2020-11-12 09:21] LABS: BLOOD UREA NITROGEN,BUN 6 mg/dL (7.0-18.0); CARBON DIOXIDE,CO2 26.6 mmol/L (21.0-32.0); CHLORIDE,CL 93 mmol/L (98-107); GLUCOSE RANDOM 124 mg/dL (74-106); POTASSIUM,K 3.8 mmol/L (3.5-5.1); SODIUM,NA 125 mmol/L (136-145)
[2020-11-12] MEDS: Pantoprazole 40 MG in Sodium Chloride 0.9% 10 ML IV SCH (09:31)
[2020-11-12] MEDS: Irbesartan 150 MG Tab PO SCH (09:31)
[2020-11-12] MEDS: ALPRAZolam 0.5 MG Tab PO PRN ×2 (09:31→18:52)
[2020-11-12] MEDS: Diltiazem 120 MG Cap.CD PO SCH (09:31)
--- NOTE | 2020-11-12 12:03 | PCM.PN ---
- General Info Date of Service: 11/12/20 - Review of Systems Systems Review Comment:: reports thirst, reports fatigue, denies any nausea, chest pain, or shortness of breath. - Patient Data Vitals - Most Recent: Last Vital Signs Temp 36.5 C 11/12/20 08:00 Pulse 81 11/12/20 09:31 Resp 19 11/12/20 11:00 BP 146/65 H 11/12/20 11:00 Pulse Ox 96 11/12/20 11:00 Weight - Most Recent: 73.573 kg I&O - Last 24 Hours: Intake & Output 11/11/20 11/12/20 11/12/20 22:59 06:59 14:59 Intake Total 1700 1200 800 Output Total 1850 1500 Balance -150 1200 -700 Lab Results Last 24 Hours: Laboratory Results - last 24 hr 11/11/20 11/11/20 11/11/20 Range/Units 06:05 12:31 13:38 WBC (4.0-11.0) K/uL RBC (4.30-5.90) M/uL Hgb (12.0-16.0) g/dL Hct (36.0-46.0) % MCV (80.0-98.0) fL MCH (27.0-32.0) pg MCHC (31.0-37.0) g/dL RDW Std Deviation (28.0-62.0) fl RDW Coeff of Eran (11.0-15.0) % Plt Count (150-400) K/uL MPV (7.40-12.00) fL Neut % (Auto) (48.0-80.0) % Lymph % (Auto) (16.0-40.0) % [place] % (Auto) (0.0-15.0) % Eos % (Auto) (0.0-7.0) % Baso % (Auto) (0.0-1.5) % Neut # (Auto) (1.4-5.7) K/uL Lymph # (Auto) (0.6-2.4) K/uL [place] # (Auto) (0.0-0.8) K/uL Eos # (Auto) (0.0-0.7) K/uL Baso # (Auto) (0.0-0.1) K/uL Nucleated RBC % /100WBC Nucleated RBCs # K/uL Sodium 122 L (136-145) mmol/L Potassium 4.1 (3.5-5.1) mmol/L Chloride 90 L (98-107) mmol/L Carbon Dioxide 27.7 (21.0-32.0) mmol/L BUN 8 (7.0-18.0) mg/dL Creatinine 0.7 (0.6-1.0) mg/dL Est Cr Clr Drug Dosing 60.84 mL/min Estimated GFR (MDRD) > 60.0 ml/min Glucose 128 H (74-106) mg/dL POC Glucose 154 H (70-99) mg/dL Calcium 8.2 L (8.5-10.1) mg/dL Phosphorus (2.6-4.7) mg/dL Magnesium (1.8-2.4) mg/dL Urine Osmolality 154 L (300-900) mosm/kg 11/11/20 11/11/20 11/11/20 Range/Units 16:40 17:53 21:13 WBC (4.0-11.0) K/uL RBC (4.30-5.90) M/uL Hgb (12.0-16.0) g/dL Hct (36.0-46.0) % MCV (80.0-98.0) fL MCH (27.0-32.0) pg MCHC (31.0-37.0) g/dL RDW Std Deviation (28.0-62.0) fl RDW Coeff of Eran (11.0-15.0) % Plt Count (150-400) K/uL MPV (7.40-12.00) fL Neut % (Auto) (48.0-80.0) % Lymph % (Auto) (16.0-40.0) % [place] % (Auto) (0.0-15.0) % Eos % (Auto) (0.0-7.0) % Baso % (Auto) (0.0-1.5) % Neut # (Auto) (1.4-5.7) K/uL Lymph # (Auto) (0.6-2.4) K/uL [place] # (Auto) (0.0-0.8) K/uL Eos # (Auto) (0.0-0.7) K/uL Baso # (Auto) (0.0-0.1) K/uL Nucleated RBC % /100WBC Nucleated RBCs # K/uL Sodium 121 L 124 L (136-145) mmol/L Potassium 3.9 3.7 (3.5-5.1) mmol/L Chloride 89 L 88 L (98-107) mmol/L Carbon Dioxide 26.6 27.1 (21.0-32.0) mmol/L BUN 8 8 (7.0-18.0) mg/dL Creatinine 0.6 0.7 (0.6-1.0) mg/dL Est Cr Clr Drug Dosing 70.98 60.84 mL/min Estimated GFR (MDRD) > 60.0 > 60.0 ml/min Glucose 116 H 169 H (74-106) mg/dL POC Glucose 116 H (70-99) mg/dL Calcium 7.8 L 7.9 L (8.5-10.1) mg/dL Phosphorus (2.6-4.7) mg/dL Magnesium (1.8-2.4) mg/dL Urine Osmolality (300-900) mosm/kg 11/12/20 11/12/20 11/12/20 Range/Units 00:35 01:25 05:00 WBC (4.0-11.0) K/uL RBC (4.30-5.90) M/uL Hgb (12.0-16.0) g/dL Hct (36.0-46.0) % MCV (80.0-98.0) fL MCH (27.0-32.0) pg MCHC (31.0-37.0) g/dL RDW Std Deviation (28.0-62.0) fl RDW Coeff of Eran (11.0-15.0) % Plt Count (150-400) K/uL MPV (7.40-12.00) fL Neut % (Auto) (48.0-80.0) % Lymph % (Auto) (16.0-40.0) % [place] % (Auto) (0.0-15.0) % Eos % (Auto) (0.0-7.0) % Baso % (Auto) (0.0-1.5) % Neut # (Auto) (1.4-5.7) K/uL Lymph # (Auto) (0.6-2.4) K/uL [place] # (Auto) (0.0-0.8) K/uL Eos # (Auto) (0.0-0.7) K/uL Baso # (Auto) (0.0-0.1) K/uL Nucleated RBC % /100WBC Nucleated RBCs # K/uL Sodium 125 L 125 L (136-145) mmol/L Potassium 3.9 4.2 (3.5-5.1) mmol/L Chloride 90 L 93 L (98-107) mmol/L Carbon Dioxide 27.9 29.9 (21.0-32.0) mmol/L BUN 8 7 (7.0-18.0) mg/dL Creatinine 0.7 0.8 (0.6-1.0) mg/dL Est Cr Clr Drug Dosing 60.84 53.23 mL/min Estimated GFR (MDRD) > 60.0 > 60.0 ml/min Glucose 108 H 123 H (74-106) mg/dL POC Glucose 116 H (70-99) mg/dL Calcium 8.1 L 8.2 L (8.5-10.1) mg/dL Phosphorus (2.6-4.7) mg/dL Magnesium (1.8-2.4) mg/dL Urine Osmolality (300-900) mosm/kg 11/12/20 11/12/20 11/12/20 Range/Units 05:00 05:00 06:33 WBC 12.27 H (4.0-11.0) K/uL RBC 4.15 L (4.30-5.90) M/uL Hgb 11.9 L (12.0-16.0) g/dL Hct 34.3 L (36.0-46.0) % MCV 82.7 (80.0-98.0) fL MCH 28.7 (27.0-32.0) pg MCHC 34.7 (31.0-37.0) g/dL RDW Std Deviation 38.7 (28.0-62.0) fl RDW Coeff of Eran 13 (11.0-15.0) % Plt Count 338 (150-400) K/uL MPV 8.30 (7.40-12.00) fL Neut % (Auto) 60.3 (48.0-80.0) % Lymph % (Auto) 29.4 (16.0-40.0) % [place] % (Auto) 8.7 (0.0-15.0) % Eos % (Auto) 1.5 (0.0-7.0) % Baso % (Auto) 0.1 (0.0-1.5) % Neut # (Auto) 7.4 H (1.4-5.7) K/uL Lymph # (Auto) 3.6 H (0.6-2.4) K/uL [place] # (Auto) 1.1 H (0.0-0.8) K/uL Eos # (Auto) 0.2 (0.0-0.7) K/uL Baso # (Auto) 0.0 (0.0-0.1) K/uL Nucleated RBC % 0.0 /100WBC Nucleated RBCs # 0 K/uL Sodium (136-145) mmol/L Potassium (3.5-5.1) mmol/L Chloride (98-107) mmol/L Carbon Dioxide (21.0-32.0) mmol/L BUN (7.0-18.0) mg/dL Creatinine (0.6-1.0) mg/dL Est Cr Clr Drug Dosing mL/min Estimated GFR (MDRD) ml/min Glucose (74-106) mg/dL POC Glucose 122 H (70-99) mg/dL Calcium (8.5-10.1) mg/dL Phosphorus 2.7 (2.6-4.7) mg/dL Magnesium 2.0 (1.8-2.4) mg/dL Urine Osmolality (300-900) mosm/kg 11/12/20 Range/Units 08:50 WBC (4.0-11.0) K/uL RBC (4.30-5.90) M/uL Hgb (12.0-16.0) g/dL Hct (36.0-46.0) % MCV (80.0-98.0) fL MCH (27.0-32.0) pg MCHC (31.0-37.0) g/dL RDW Std Deviation (28.0-62.0) fl RDW Coeff of Eran (11.0-15.0) % Plt Count (150-400) K/uL MPV (7.40-12.00) fL Neut % (Auto) (48.0-80.0) % Lymph % (Auto) (16.0-40.0) % [place] % (Auto) (0.0-15.0) % Eos % (Auto) (0.0-7.0) % Baso % (Auto) (0.0-1.5) % Neut # (Auto) (1.4-5.7) K/uL Lymph # (Auto) (0.6-2.4) K/uL [place] # (Auto) (0.0-0.8) K/uL Eos # (Auto) (0.0-0.7) K/uL Baso # (Auto) (0.0-0.1) K/uL Nucleated RBC % /100WBC Nucleated RBCs # K/uL Sodium 125 L (136-145) mmol/L Potassium 3.8 (3.5-5.1) mmol/L Chloride 93 L (98-107) mmol/L Carbon Dioxide 26.6 (21.0-32.0) mmol/L BUN 6 L (7.0-18.0) mg/dL Creatinine 0.7 (0.6-1.0) mg/dL Est Cr Clr Drug Dosing 60.84 mL/min Estimated GFR (MDRD) > 60.0 ml/min Glucose 124 H (74-106) mg/dL POC Glucose (70-99) mg/dL Calcium 7.7 L (8.5-10.1) mg/dL Phosphorus (2.6-4.7) mg/dL Magnesium (1.8-2.4) mg/dL Urine Osmolality (300-900) mosm/kg Med Orders - Current: Current Medications Acetaminophen (Acetaminophen 325 Mg Tab) 650 mg PO Q4H PRN PRN Reason: Pain (Mild 1-3)/fever Last Admin: 11/12/20 06:25 Dose: 650 mg Documented by: Alprazolam (Alprazolam 0.5 Mg Tab) 1 mg PO TID PRN PRN Reason: Anxiety Lidocaine HCl 5 ml/Diphenhydramine HCl 12.5 mg/Nystatin 5 ml 0 ml PO QID [facility] Last Admin: 11/12/20 06:30 Dose: 5 ml Documented by: Dextrose/Water (50% Dextrose In Water 50 Ml Syringe) 50 ml IVPUSH ASDIRECTED PRN PRN Reason: Hypoglycemia Diltiazem HCl (Diltiazem 120 Mg Cap.Cd) 120 mg PO DAILY [facility] Last Admin: 11/12/20 09:31 Dose: 120 mg Documented by: Docusate Sodium (Docusate Sodium 100 Mg Cap) 100 mg PO BID PRN PRN Reason: Constipation Glucagon (Glucagon,Human Recombinant 1 Mg Vial) 1 mg IM ASDIRECTED PRN PRN Reason: Hypoglycemia Heparin Sodium (Porcine) (Heparin Sodium 5,000 Units/Ml Vial) 5,000 units SUBCUT Q8H [facility] Last Admin: 11/12/20 08:30 Dose: 5,000 units Documented by: Meropenem/Sodium Chloride 1 gm (/ Premix) 50 mls @ 100 mls/hr IV Q8H [facility] Last Admin: 11/12/20 09:30 Dose: 100 mls/hr Documented by: Sodium Chloride (Normal Saline) 1,000 mls @ 100 mls/hr IV Q10H [facility] Last Admin: 11/12/20 06:32 Dose: 100 mls/hr Documented by: Pantoprazole Sodium 40 mg/ (Sodium Chloride) 10 mls @ 300 mls/hr IV Q24H [facility] Last Admin: 11/12/20 09:31 Dose: 300 mls/hr Documented by: Insulin Aspart (Insulin Aspart 100 Units/Ml 3 Ml Pen) 0 unit SUBCUT Q6H [facility]; Protocol Last Admin: 11/12/20 06:36 Dose: Not Given Documented by: Irbesartan (Irbesartan 150 Mg Tab) 150 mg PO DAILY [facility] Last Admin: 11/12/20 09:31 Dose: 150 mg Documented by: Levothyroxine Sodium (Levothyroxine 100 Mcg Tab) 100 mcg PO ACBREAKFAST [facility] Last Admin: 11/12/20 07:47 Dose: 100 mcg Documented by: Non-Formulary Medication (Doxepin Hcl [Doxepin Hcl]) 150 mg PO DAILY [facility] Ondansetron HCl (Ondansetron 4 Mg/2 Ml Sdv) 4 mg IVPUSH Q4H PRN PRN Reason: Nausea Rosuvastatin Calcium (Rosuvastatin 10 Mg Tab) 10 mg PO BEDTIME [facility] Last Admin: 11/11/20 20:15 Dose: 10 mg Documented by: Sodium Chloride (Sodium Chloride 0.9% 2.5 Ml Syringe) 2.5 ml FLUSH ASDIRECTED PRN PRN Reason: Keep Vein Open Discontinued Medications Alprazolam (Alprazolam 0.5 Mg Tab) 1 mg PO BID PRN PRN Reason: Anxiety Last Admin: 11/12/20 09:31 Dose: 1 mg Documented by: Diphenhydr/Magaldrate/Simeth/Lidoca (Al And Mag Hydroxide/Diphenhydramine/Lidocaine/Simethicone 237 Ml Bottle) 15 ml PO ONETIME STA Stop: 11/11/20 03:56 Last Admin: 11/11/20 04:16 Dose: 15 ml Documented by: Fluconazole (Fluconazole Susp 40 Mg/1 Ml 35 Ml Bottle) 150 mg PO NOW STA Stop: 11/11/20 10:19 Last Admin: 11/11/20 11:25 Dose: 4 ml Documented by: Sodium Chloride (Normal Saline) 1,000 mls @ 999 mls/hr IV .BOLUS ONE Stop: 11/11/20 06:08 Last Admin: 11/11/20 05:11 Dose: 999 mls/hr Documented by: Lidocaine HCl (Lidocaine 2% Viscous Solution 15 Ml Cup) 15 ml PO ONETIME ONE Stop: 11/11/20 07:42 Last Admin: 11/11/20 08:03 Dose: Not Given Documented by: Nystatin (Nystatin Susp 100,000 Unit/Ml 5 Ml Ud Cup) 5 ml PO ONETIME ONE Stop: 11/11/20 03:56 Last Admin: 11/11/20 04:16 Dose: 5 ml Documented by: - Exam Urinary Catheter Total Time: 0Days 20Hours General: Alert, Oriented Neck: Supple Lungs: Clear to Auscultation, Normal Respiratory Effort Cardiovascular: Regular Rate, Regular Rhythm GI/Abdominal Exam: Soft, Non-Tender, No Distention Extremities: Non-Tender, No Pedal Edema Skin: Warm, Dry, Intact Neurological: No New Focal Deficit - Patient Data Lab Results Last 24 hrs: Laboratory Results - last 24 hr 11/11/20 11/11/20 11/11/20 Range/Units 06:05 12:31 13:38 WBC (4.0-11.0) K/uL RBC (4.30-5.90) M/uL Hgb (12.0-16.0) g/dL Hct (36.0-46.0) % MCV (80.0-98.0) fL MCH (27.0-32.0) pg MCHC (31.0-37.0) g/dL RDW Std Deviation (28.0-62.0) fl RDW Coeff of Eran (11.0-15.0) % Plt Count (150-400) K/uL MPV (7.40-12.00) fL Neut % (Auto) (48.0-80.0) % Lymph % (Auto) (16.0-40.0) % [place] % (Auto) (0.0-15.0) % Eos % (Auto) (0.0-7.0) % Baso % (Auto) (0.0-1.5) % Neut # (Auto) (1.4-5.7) K/uL Lymph # (Auto) (0.6-2.4) K/uL [place] # (Auto) (0.0-0.8) K/uL Eos # (Auto) (0.0-0.7) K/uL Baso # (Auto) (0.0-0.1) K/uL Nucleated RBC % /100WBC Nucleated RBCs # K/uL Sodium 122 L (136-145) mmol/L Potassium 4.1 (3.5-5.1) mmol/L Chloride 90 L (98-107) mmol/L Carbon Dioxide 27.7 (21.0-32.0) mmol/L BUN 8 (7.0-18.0) mg/dL Creatinine 0.7 (0.6-1.0) mg/dL Est Cr Clr Drug Dosing 60.84 mL/min Estimated GFR (MDRD) > 60.0 ml/min Glucose 128 H (74-106) mg/dL POC Glucose 154 H (70-99) mg/dL Calcium 8.2 L (8.5-10.1) mg/dL Phosphorus (2.6-4.7) mg/dL Magnesium (1.8-2.4) mg/dL Urine Osmolality 154 L (300-900) mosm/kg 11/11/20 11/11/20 11/11/20 Range/Units 16:40 17:53 21:13 WBC (4.0-11.0) K/uL RBC (4.30-5.90) M/uL Hgb (12.0-16.0) g/dL Hct (36.0-46.0) % MCV (80.0-98.0) fL MCH (27.0-32.0) pg MCHC (31.0-37.0) g/dL RDW Std Deviation (28.0-62.0) fl RDW Coeff of Eran (11.0-15.0) % Plt Count (150-400) K/uL MPV (7.40-12.00) fL Neut % (Auto) (48.0-80.0) % Lymph % (Auto) (16.0-40.0) % [place] % (Auto) (0.0-15.0) % Eos % (Auto) (0.0-7.0) % Baso % (Auto) (0.0-1.5) % Neut # (Auto) (1.4-5.7) K/uL Lymph # (Auto) (0.6-2.4) K/uL [place] # (Auto) (0.0-0.8) K/uL Eos # (Auto) (0.0-0.7) K/uL Baso # (Auto) (0.0-0.1) K/uL Nucleated RBC % /100WBC Nucleated RBCs # K/uL Sodium 121 L 124 L (136-145) mmol/L Potassium 3.9 3.7 (3.5-5.1) mmol/L Chloride 89 L 88 L (98-107) mmol/L Carbon Dioxide 26.6 27.1 (21.0-32.0) mmol/L BUN 8 8 (7.0-18.0) mg/dL Creatinine 0.6 0.7 (0.6-1.0) mg/dL Est Cr Clr Drug Dosing 70.98 60.84 mL/min Estimated GFR (MDRD) > 60.0 > 60.0 ml/min Glucose 116 H 169 H (74-106) mg/dL POC Glucose 116 H (70-99) mg/dL Calcium 7.8 L 7.9 L (8.5-10.1) mg/dL Phosphorus (2.6-4.7) mg/dL Magnesium (1.8-2.4) mg/dL Urine Osmolality (300-900) mosm/kg 11/12/20 11/12/20 11/12/20 Range/Units 00:35 01:25 05:00 WBC (4.0-11.0) K/uL RBC (4.30-5.90) M/uL Hgb (12.0-16.0) g/dL Hct (36.0-46.0) % MCV (80.0-98.0) fL MCH (27.0-32.0) pg MCHC (31.0-37.0) g/dL RDW Std Deviation (28.0-62.0) fl RDW Coeff of Eran (11.0-15.0) % Plt Count (150-400) K/uL MPV (7.40-12.00) fL Neut % (Auto) (48.0-80.0) % Lymph % (Auto) (16.0-40.0) % [place] % (Auto) (0.0-15.0) % Eos % (Auto) (0.0-7.0) % Baso % (Auto) (0.0-1.5) % Neut # (Auto) (1.4-5.7) K/uL Lymph # (Auto) (0.6-2.4) K/uL [place] # (Auto) (0.0-0.8) K/uL Eos # (Auto) (0.0-0.7) K/uL Baso # (Auto) (0.0-0.1) K/uL Nucleated RBC % /100WBC Nucleated RBCs # K/uL Sodium 125 L 125 L (136-145) mmol/L Potassium 3.9 4.2 (3.5-5.1) mmol/L Chloride 90 L 93 L (98-107) mmol/L Carbon Dioxide 27.9 29.9 (21.0-32.0) mmol/L BUN 8 7 (7.0-18.0) mg/dL Creatinine 0.7 0.8 (0.6-1.0) mg/dL Est Cr Clr Drug Dosing 60.84 53.23 mL/min Estimated GFR (MDRD) > 60.0 > 60.0 ml/min Glucose 108 H 123 H (74-106) mg/dL POC Glucose 116 H (70-99) mg/dL Calcium 8.1 L 8.2 L (8.5-10.1) mg/dL Phosphorus (2.6-4.7) mg/dL Magnesium (1.8-2.4) mg/dL Urine Osmolality (300-900) mosm/kg 11/12/20 11/12/20 11/12/20 Range/Units 05:00 05:00 06:33 WBC 12.27 H (4.0-11.0) K/uL RBC 4.15 L (4.30-5.90) M/uL Hgb 11.9 L (12.0-16.0) g/dL Hct 34.3 L (36.0-46.0) % MCV 82.7 (80.0-98.0) fL MCH 28.7 (27.0-32.0) pg MCHC 34.7 (31.0-37.0) g/dL RDW Std Deviation 38.7 (28.0-62.0) fl RDW Coeff of Eran 13 (11.0-15.0) % Plt Count 338 (150-400) K/uL MPV 8.30 (7.40-12.00) fL Neut % (Auto) 60.3 (48.0-80.0) % Lymph % (Auto) 29.4 (16.0-40.0) % [place] % (Auto) 8.7 (0.0-15.0) % Eos % (Auto) 1.5 (0.0-7.0) % Baso % (Auto) 0.1 (0.0-1.5) % Neut # (Auto) 7.4 H (1.4-5.7) K/uL Lymph # (Auto) 3.6 H (0.6-2.4) K/uL [place] # (Auto) 1.1 H (0.0-0.8) K/uL Eos # (Auto) 0.2 (0.0-0.7) K/uL Baso # (Auto) 0.0 (0.0-0.1) K/uL Nucleated RBC % 0.0 /100WBC Nucleated RBCs # 0 K/uL Sodium (136-145) mmol/L Potassium (3.5-5.1) mmol/L Chloride (98-107) mmol/L Carbon Dioxide (21.0-32.0) mmol/L BUN (7.0-18.0) mg/dL Creatinine (0.6-1.0) mg/dL Est Cr Clr Drug Dosing mL/min Estimated GFR (MDRD) ml/min Glucose (74-106) mg/dL POC Glucose 122 H (70-99) mg/dL Calcium (8.5-10.1) mg/dL Phosphorus 2.7 (2.6-4.7) mg/dL Magnesium 2.0 (1.8-2.4) mg/dL Urine Osmolality (300-900) mosm/kg 11/12/20 Range/Units 08:50 WBC (4.0-11.0) K/uL RBC (4.30-5.90) M/uL Hgb (12.0-16.0) g/dL Hct (36.0-46.0) % MCV (80.0-98.0) fL MCH (27.0-32.0) pg MCHC (31.0-37.0) g/dL RDW Std Deviation (28.0-62.0) fl RDW Coeff of Eran (11.0-15.0) % Plt Count (150-400) K/uL MPV (7.40-12.00) fL Neut % (Auto) (48.0-80.0) % Lymph % (Auto) (16.0-40.0) % [place] % (Auto) (0.0-15.0) % Eos % (Auto) (0.0-7.0) % Baso % (Auto) (0.0-1.5) % Neut # (Auto) (1.4-5.7) K/uL Lymph # (Auto) (0.6-2.4) K/uL [place] # (Auto) (0.0-0.8) K/uL Eos # (Auto) (0.0-0.7) K/uL Baso # (Auto) (0.0-0.1) K/uL Nucleated RBC % /100WBC Nucleated RBCs # K/uL Sodium 125 L (136-145) mmol/L Potassium 3.8 (3.5-5.1) mmol/L Chloride 93 L (98-107) mmol/L Carbon Dioxide 26.6 (21.0-32.0) mmol/L BUN 6 L (7.0-18.0) mg/dL Creatinine 0.7 (0.6-1.0) mg/dL Est Cr Clr Drug Dosing 60.84 mL/min Estimated GFR (MDRD) > 60.0 ml/min Glucose 124 H (74-106) mg/dL POC Glucose (70-99) mg/dL Calcium 7.7 L (8.5-10.1) mg/dL Phosphorus (2.6-4.7) mg/dL Magnesium (1.8-2.4) mg/dL Urine Osmolality (300-900) mosm/kg Result Diagrams: 11/12/20 05:00 11/12/20 08:50 Sepsis Event Note - Evaluation Sepsis Screening Result: No Definite Risk - Focused Exam Vital Signs: Vital Signs Temp Pulse Resp BP BP Pulse Ox 11/12/20 11:00 19 146/65 H 96 11/12/20 10:00 14 157/82 H 95 11/12/20 09:31 81 157/82 H 11/12/20 09:00 17 144/67 H 94 L 11/12/20 08:00 36.5 C 16 145/66 H 95 11/12/20 05:00 15 138/71 92 L 11/12/20 04:00 16 152/81 H 94 L 11/12/20 03:00 13 101/51 L 93 L 11/12/20 02:00 11 L 138/77 92 L 11/12/20 01:00 17 143/77 H 93 L 11/12/20 00:00 36.1 C 17 153/75 H 93 L - Problem List Review Problem List Initiated/Reviewed/Updated: Yes - My Orders Last 24 Hours: My Active Orders 11/12/20 11:58 ALPRAZolam [Xanax] 1 mg PO TID PRN 11/13/20 09:00 Doxepin HCl [Doxepin HCl] 150 mg PO DAILY - Plan Plan:: This 70-year-old female admitted with hyponatremia and recent ESBL E. coli UTI 1. Hyponatremia -sodium has improved to 125, will continue to monitor 2. ESBL E. coli UTI -continue meropenum Urinary obstruction -possible due to increase dosage of doxapin, will continue with weeks for now, and clement need to be weened of doxapin 3. Oral thrush -oral Diflucan given -Magic mouthwash with nystatin 4 times daily 4. Diabetes type 2 -Hold oral agents -Continue NovoLog sliding scale 3 times daily before meals -Start soft ADA diet -Blood sugars 3 times daily AC 5. Hypertension -medications of diltiazem and Irbesartan 6. Hypothyroidism secondary to thyroidectomy -TSH 5.12 -Restart levothyroxine 7. severe depresion -consider telepsych consult when available. VTE prophylaxis Heparin GI prophylaxis: Protonix CODE STATUS: Full code Dispo: 2 to 3 days pending improvement.
[2020-11-12] MEDS ORDERED: DOXEPIN HCL 150 MG PO SCH ×2 (14:00→21:00)
[2020-11-12 17:07] LABS: BLOOD UREA NITROGEN,BUN 8 mg/dL (7.0-18.0); CARBON DIOXIDE,CO2 27.7 mmol/L (21.0-32.0); CHLORIDE,CL 91 mmol/L (98-107); GLUCOSE RANDOM 118 mg/dL (74-106); SODIUM,NA 123 mmol/L (136-145)
[2020-11-12] MEDS ORDERED: Sodium Chloride 3% 500 ML IV SCH (17:45)
[2020-11-12] MEDS: Rosuvastatin 10 MG Tab PO SCH (20:06)
[2020-11-12 23:30] LABS: BLOOD UREA NITROGEN,BUN 8 mg/dL (7.0-18.0); CARBON DIOXIDE,CO2 28.1 mmol/L (21.0-32.0); CHLORIDE,CL 93 mmol/L (98-107); GLUCOSE RANDOM 121 mg/dL (74-106); POTASSIUM,K 4.1 mmol/L (3.5-5.1); SODIUM,NA 127 mmol/L (136-145)
--- NOTE | 2020-11-12 23:39 | PN ---
THC Physician - Brief Progress EercIMSESEMIN89/03/2021 23:21[facility] Ravi Avila, [place] - JESSENIA (MIKY) - JESSENIA OFELIA KARLA MeghanDate of Service 11/12/2020 23:21HPI/Events o f Note Chart reviewed. On camera, the patient is asleep in bed, appears in NAD. Mrs Andres, R 70 presen nancy on 11/11 with c/o xbladder infectionx and decreased mental clarity. Recent teeth extraction with de ntal implants placed. Placed on Medrol dosepack resulting in dyspepsia, and white patches inside her mouth. PMH: DM2, HTN, HLD, hypothyroid, GERD, chr back pain, depression and anxiety. Investigations r eviewed.A/P:1. Hyponatermia, initially though to be hypovolemic (based on Dante 21 and poor po intake d ue to dental work), but low UOsm suggests polydipsia.Na 119 on 11/11 at 04:15, up to 125 on 11/12 at 00:3 0 and 05:00, down to 123 on 11/12 at 16:40.Goal Na no higher than 131 on 11/13 at 09:00Was on NS at 100 m L/hr initially. Currently on 3% saline at 30 mL/hr.F/up Na q4h.2. UTI with h/o ESBLRecxd 1L NS in ED. Is on Meropenem, acccording to sensitivity or prior cultures.3. Oral candidiasisRec'd Diflucan x1 and currently on Nystatin contwining mouthwash qid.4. [id number] scale to qidAC and bed.Goal BG<180 at a ll times and <150 fasting.5. Hypothyrodiism.TSH 5, FT4 normal.Continue home dose of Levopthyroxine.6. GI/DVT prophylaxis - is on PPI and Heparin SC. SCDs and mobility protocol.Interventions Major-Electr olyte abnormality - evaluation and management, Hypercarbia - evaluation and management, Infection - e valuation and management, Other: oral candidiasis, hypothyroidism.
[2020-11-13 04:46] LABS: BLOOD UREA NITROGEN,BUN 7 mg/dL (7.0-18.0); CARBON DIOXIDE,CO2 31.2 mmol/L (21.0-32.0); CHLORIDE,CL 94 mmol/L (98-107); GLUCOSE RANDOM 129 mg/dL (74-106); POTASSIUM,K 4.1 mmol/L (3.5-5.1); SODIUM,NA 129 mmol/L (136-145)
[2020-11-13] MEDS: LIDOCAINE 2% PO SCH ×9 (05:30→17:48)
[2020-11-13] MEDS: ALPRAZolam 0.5 MG Tab PO PRN ×3 (05:30→20:45)
[2020-11-13] MEDS: NYSTATIN PO SCH ×9 (05:30→17:48)
[2020-11-13] MEDS: DIPHENHYDRAMINE PO SCH ×9 (05:30→17:48)
[2020-11-13] MEDS: Diltiazem 120 MG Cap.CD PO SCH (08:22)
[2020-11-13] MEDS: Irbesartan 150 MG Tab PO SCH (08:22)
[2020-11-13] MEDS: Levothyroxine 100 MCG Tab PO SCH (08:22)
[2020-11-13] MEDS: Heparin Sodium 5,000 Units/ML Vial SUBCUT SCH ×2 (08:23→17:18)
[2020-11-13] MEDS: Pantoprazole 40 MG in Sodium Chloride 0.9% 10 ML IV SCH (08:23)
[2020-11-13] MEDS: Meropenem Premix 1 GM in Premix Bag 1 BAG IV SCH ×2 (08:24→17:17)
[2020-11-13] MEDS: Acetaminophen 325 MG Tab PO PRN (08:46)
[2020-11-13] MEDS: Insulin Aspart 100 Units/ML 3 ML Pen SUBCUT SCH ×4 (09:00→21:58)
[2020-11-13 11:38] LABS: BLOOD UREA NITROGEN,BUN 7 mg/dL (7.0-18.0); CARBON DIOXIDE,CO2 30.4 mmol/L (21.0-32.0); CHLORIDE,CL 93 mmol/L (98-107); GLUCOSE RANDOM 119 mg/dL (74-106); POTASSIUM,K 3.9 mmol/L (3.5-5.1); SODIUM,NA 129 mmol/L (136-145)
--- NOTE | 2020-11-13 12:42 | PCM.PN ---
- General Info Date of Service: 11/13/20 - Review of Systems Systems Review Comment:: reports bad dreams last night, has no apatite today, poor mood - Patient Data Vitals - Most Recent: Last Vital Signs Temp 36.1 C 11/13/20 08:00 Pulse 74 11/13/20 08:22 Resp 11 L 11/13/20 11:00 BP 135/77 11/13/20 11:00 Pulse Ox 94 L 11/13/20 11:00 Weight - Most Recent: 73.936 kg I&O - Last 24 Hours: Intake & Output 11/12/20 11/13/20 11/13/20 22:59 06:59 14:59 Intake Total 1610 945 60 Output Total 450 1350 Balance 1160 -405 60 Lab Results Last 24 Hours: Laboratory Results - last 24 hr 11/12/20 11/12/20 11/12/20 Range/Units 16:40 17:28 23:04 WBC (4.0-11.0) K/uL RBC (4.30-5.90) M/uL Hgb (12.0-16.0) g/dL Hct (36.0-46.0) % MCV (80.0-98.0) fL MCH (27.0-32.0) pg MCHC (31.0-37.0) g/dL RDW Std Deviation (28.0-62.0) fl RDW Coeff of Eran (11.0-15.0) % Plt Count (150-400) K/uL MPV (7.40-12.00) fL Neut % (Auto) (48.0-80.0) % Lymph % (Auto) (16.0-40.0) % Union % (Auto) (0.0-15.0) % Eos % (Auto) (0.0-7.0) % Baso % (Auto) (0.0-1.5) % Neut # (Auto) (1.4-5.7) K/uL Lymph # (Auto) (0.6-2.4) K/uL Union # (Auto) (0.0-0.8) K/uL Eos # (Auto) (0.0-0.7) K/uL Baso # (Auto) (0.0-0.1) K/uL Nucleated RBC % /100WBC Nucleated RBCs # K/uL Sodium 123 L 127 L (136-145) mmol/L Potassium 4.0 4.1 (3.5-5.1) mmol/L Chloride 91 L 93 L (98-107) mmol/L Carbon Dioxide 27.7 28.1 (21.0-32.0) mmol/L BUN 8 8 (7.0-18.0) mg/dL Creatinine 0.7 0.7 (0.6-1.0) mg/dL Est Cr Clr Drug Dosing 60.84 60.84 mL/min Estimated GFR (MDRD) > 60.0 > 60.0 ml/min Glucose 118 H 121 H (74-106) mg/dL POC Glucose 116 H (70-99) mg/dL Calcium 8.0 L 7.8 L (8.5-10.1) mg/dL 11/12/20 11/13/20 11/13/20 Range/Units 23:56 04:15 05:33 WBC (4.0-11.0) K/uL RBC (4.30-5.90) M/uL Hgb (12.0-16.0) g/dL Hct (36.0-46.0) % MCV (80.0-98.0) fL MCH (27.0-32.0) pg MCHC (31.0-37.0) g/dL RDW Std Deviation (28.0-62.0) fl RDW Coeff of Eran (11.0-15.0) % Plt Count (150-400) K/uL MPV (7.40-12.00) fL Neut % (Auto) (48.0-80.0) % Lymph % (Auto) (16.0-40.0) % Union % (Auto) (0.0-15.0) % Eos % (Auto) (0.0-7.0) % Baso % (Auto) (0.0-1.5) % Neut # (Auto) (1.4-5.7) K/uL Lymph # (Auto) (0.6-2.4) K/uL Union # (Auto) (0.0-0.8) K/uL Eos # (Auto) (0.0-0.7) K/uL Baso # (Auto) (0.0-0.1) K/uL Nucleated RBC % /100WBC Nucleated RBCs # K/uL Sodium 129 L (136-145) mmol/L Potassium 4.1 (3.5-5.1) mmol/L Chloride 94 L (98-107) mmol/L Carbon Dioxide 31.2 (21.0-32.0) mmol/L BUN 7 (7.0-18.0) mg/dL Creatinine 0.8 (0.6-1.0) mg/dL Est Cr Clr Drug Dosing 53.23 mL/min Estimated GFR (MDRD) > 60.0 ml/min Glucose 129 H (74-106) mg/dL POC Glucose 122 H 116 H (70-99) mg/dL Calcium 7.9 L (8.5-10.1) mg/dL 11/13/20 11/13/20 11/13/20 Range/Units 08:56 11:04 11:04 WBC 10.25 (4.0-11.0) K/uL RBC 4.08 L (4.30-5.90) M/uL Hgb 11.8 L (12.0-16.0) g/dL Hct 33.9 L (36.0-46.0) % MCV 83.1 (80.0-98.0) fL MCH 28.9 (27.0-32.0) pg MCHC 34.8 (31.0-37.0) g/dL RDW Std Deviation 39.6 (28.0-62.0) fl RDW Coeff of Eran 13 (11.0-15.0) % Plt Count 316 (150-400) K/uL MPV 8.30 (7.40-12.00) fL Neut % (Auto) 67.3 (48.0-80.0) % Lymph % (Auto) 23.2 (16.0-40.0) % Union % (Auto) 7.9 (0.0-15.0) % Eos % (Auto) 1.6 (0.0-7.0) % Baso % (Auto) 0.0 (0.0-1.5) % Neut # (Auto) 6.9 H (1.4-5.7) K/uL Lymph # (Auto) 2.4 (0.6-2.4) K/uL Union # (Auto) 0.8 (0.0-0.8) K/uL Eos # (Auto) 0.2 (0.0-0.7) K/uL Baso # (Auto) 0.0 (0.0-0.1) K/uL Nucleated RBC % 0.0 /100WBC Nucleated RBCs # 0 K/uL Sodium 129 L (136-145) mmol/L Potassium 3.9 (3.5-5.1) mmol/L Chloride 93 L (98-107) mmol/L Carbon Dioxide 30.4 (21.0-32.0) mmol/L BUN 7 (7.0-18.0) mg/dL Creatinine 0.8 (0.6-1.0) mg/dL Est Cr Clr Drug Dosing 53.23 mL/min Estimated GFR (MDRD) > 60.0 ml/min Glucose 119 H (74-106) mg/dL POC Glucose 108 H (70-99) mg/dL Calcium 8.0 L (8.5-10.1) mg/dL 11/13/20 Range/Units 12:21 WBC (4.0-11.0) K/uL RBC (4.30-5.90) M/uL Hgb (12.0-16.0) g/dL Hct (36.0-46.0) % MCV (80.0-98.0) fL MCH (27.0-32.0) pg MCHC (31.0-37.0) g/dL RDW Std Deviation (28.0-62.0) fl RDW Coeff of Eran (11.0-15.0) % Plt Count (150-400) K/uL MPV (7.40-12.00) fL Neut % (Auto) (48.0-80.0) % Lymph % (Auto) (16.0-40.0) % Union % (Auto) (0.0-15.0) % Eos % (Auto) (0.0-7.0) % Baso % (Auto) (0.0-1.5) % Neut # (Auto) (1.4-5.7) K/uL Lymph # (Auto) (0.6-2.4) K/uL Union # (Auto) (0.0-0.8) K/uL Eos # (Auto) (0.0-0.7) K/uL Baso # (Auto) (0.0-0.1) K/uL Nucleated RBC % /100WBC Nucleated RBCs # K/uL Sodium (136-145) mmol/L Potassium (3.5-5.1) mmol/L Chloride (98-107) mmol/L Carbon Dioxide (21.0-32.0) mmol/L BUN (7.0-18.0) mg/dL Creatinine (0.6-1.0) mg/dL Est Cr Clr Drug Dosing mL/min Estimated GFR (MDRD) ml/min Glucose (74-106) mg/dL POC Glucose 137 H (70-99) mg/dL Calcium (8.5-10.1) mg/dL Med Orders - Current: Current Medications Acetaminophen (Acetaminophen 325 Mg Tab) 650 mg PO Q4H PRN PRN Reason: Pain (Mild 1-3)/fever Last Admin: 11/13/20 08:46 Dose: 650 mg Documented by: Alprazolam (Alprazolam 0.5 Mg Tab) 1 mg PO TID PRN PRN Reason: Anxiety Last Admin: 11/13/20 05:30 Dose: 1 mg Documented by: Lidocaine HCl 5 ml/Diphenhydramine HCl 12.5 mg/Nystatin 5 ml 0 ml PO QID [facility] Last Admin: 11/13/20 11:26 Dose: 15 ml Documented by: Dextrose/Water (50% Dextrose In Water 50 Ml Syringe) 50 ml IVPUSH ASDIRECTED PRN PRN Reason: Hypoglycemia Diltiazem HCl (Diltiazem 120 Mg Cap.Cd) 120 mg PO DAILY [facility] Last Admin: 11/13/20 08:22 Dose: 120 mg Documented by: Docusate Sodium (Docusate Sodium 100 Mg Cap) 100 mg PO BID PRN PRN Reason: Constipation Glucagon (Glucagon,Human Recombinant 1 Mg Vial) 1 mg IM ASDIRECTED PRN PRN Reason: Hypoglycemia Heparin Sodium (Porcine) (Heparin Sodium 5,000 Units/Ml Vial) 5,000 units SUBCUT Q8H [facility] Last Admin: 11/13/20 08:23 Dose: 5,000 units Documented by: Meropenem/Sodium Chloride 1 gm (/ Premix) 50 mls @ 100 mls/hr IV Q8H [facility] Last Admin: 11/13/20 08:24 Dose: 100 mls/hr Documented by: Pantoprazole Sodium 40 mg/ (Sodium Chloride) 10 mls @ 300 mls/hr IV Q24H [facility] Last Admin: 11/13/20 08:23 Dose: 300 mls/hr Documented by: Sodium Chloride (Sodium Chloride 3%) 500 mls @ 30 mls/hr IV ASDIRECTED [facility] Last Infusion: 11/12/20 19:08 Dose: 30 mls/hr Documented by: Insulin Aspart (Insulin Aspart 100 Units/Ml 3 Ml Pen) 0 unit SUBCUT QIDACANDBED [facility]; Protocol Last Admin: 11/13/20 09:00 Dose: Not Given Documented by: Irbesartan (Irbesartan 150 Mg Tab) 150 mg PO DAILY [facility] Last Admin: 11/13/20 08:22 Dose: 150 mg Documented by: Levothyroxine Sodium (Levothyroxine 100 Mcg Tab) 100 mcg PO ACBREAKFAST [facility] Last Admin: 11/13/20 08:22 Dose: 100 mcg Documented by: Ondansetron HCl (Ondansetron 4 Mg/2 Ml Sdv) 4 mg IVPUSH Q4H PRN PRN Reason: Nausea Doxepin Hcl 100 Mg (Capsule) 1 each PO BEDTIME [facility] Rosuvastatin Calcium (Rosuvastatin 10 Mg Tab) 10 mg PO BEDTIME [facility] Last Admin: 11/12/20 20:06 Dose: 10 mg Documented by: Sodium Chloride (Sodium Chloride 0.9% 2.5 Ml Syringe) 2.5 ml FLUSH ASDIRECTED PRN PRN Reason: Keep Vein Open Discontinued Medications Alprazolam (Alprazolam 0.5 Mg Tab) 1 mg PO BID PRN PRN Reason: Anxiety Last Admin: 11/12/20 09:31 Dose: 1 mg Documented by: Diphenhydr/Magaldrate/Simeth/Lidoca (Al And Mag Hydroxide/Diphenhydramine/Lidocaine/Simethicone 237 Ml Bottle) 15 ml PO ONETIME STA Stop: 11/11/20 03:56 Last Admin: 11/11/20 04:16 Dose: 15 ml Documented by: Fluconazole (Fluconazole Susp 40 Mg/1 Ml 35 Ml Bottle) 150 mg PO NOW STA Stop: 11/11/20 10:19 Last Admin: 11/11/20 11:25 Dose: 4 ml Documented by: Sodium Chloride (Normal Saline) 1,000 mls @ 999 mls/hr IV .BOLUS ONE Stop: 11/11/20 06:08 Last Admin: 11/11/20 05:11 Dose: 999 mls/hr Documented by: Sodium Chloride (Normal Saline) 1,000 mls @ 100 mls/hr IV Q10H [facility] Last Infusion: 11/12/20 18:48 Dose: 0 mls/hr Documented by: Insulin Aspart (Insulin Aspart 100 Units/Ml 3 Ml Pen) 0 unit SUBCUT Q6H [facility]; Protocol Last Admin: 11/12/20 18:12 Dose: Not Given Documented by: Lidocaine HCl (Lidocaine 2% Viscous Solution 15 Ml Cup) 15 ml PO ONETIME ONE Stop: 11/11/20 07:42 Last Admin: 11/11/20 08:03 Dose: Not Given Documented by: Nystatin (Nystatin Susp 100,000 Unit/Ml 5 Ml Ud Cup) 5 ml PO ONETIME ONE Stop: 11/11/20 03:56 Last Admin: 11/11/20 04:16 Dose: 5 ml Documented by: Doxepin Hcl 150 Mg (Capsule) 1 each PO DAILY [facility] Last Admin: 11/12/20 14:47 Dose: Not Given Documented by: Doxepin Hcl 150 Mg (Capsule) 1 each PO BEDTIME [facility] Last Admin: 11/12/20 20:07 Dose: 1 each Documented by: - Exam Urinary Catheter Total Time: 1Days 21Hours General: Alert, Oriented Neck: Supple Lungs: Clear to Auscultation, Normal Respiratory Effort Cardiovascular: Regular Rate, Regular Rhythm GI/Abdominal Exam: Soft, Non-Tender, No Distention Extremities: Non-Tender, No Pedal Edema Skin: Warm, Dry, Intact Neurological: No New Focal Deficit - Patient Data Lab Results Last 24 hrs: Laboratory Results - last 24 hr 11/12/20 11/12/20 11/12/20 Range/Units 16:40 17:28 23:04 WBC (4.0-11.0) K/uL RBC (4.30-5.90) M/uL Hgb (12.0-16.0) g/dL Hct (36.0-46.0) % MCV (80.0-98.0) fL MCH (27.0-32.0) pg MCHC (31.0-37.0) g/dL RDW Std Deviation (28.0-62.0) fl RDW Coeff of Eran (11.0-15.0) % Plt Count (150-400) K/uL MPV (7.40-12.00) fL Neut % (Auto) (48.0-80.0) % Lymph % (Auto) (16.0-40.0) % Union % (Auto) (0.0-15.0) % Eos % (Auto) (0.0-7.0) % Baso % (Auto) (0.0-1.5) % Neut # (Auto) (1.4-5.7) K/uL Lymph # (Auto) (0.6-2.4) K/uL Union # (Auto) (0.0-0.8) K/uL Eos # (Auto) (0.0-0.7) K/uL Baso # (Auto) (0.0-0.1) K/uL Nucleated RBC % /100WBC Nucleated RBCs # K/uL Sodium 123 L 127 L (136-145) mmol/L Potassium 4.0 4.1 (3.5-5.1) mmol/L Chloride 91 L 93 L (98-107) mmol/L Carbon Dioxide 27.7 28.1 (21.0-32.0) mmol/L BUN 8 8 (7.0-18.0) mg/dL Creatinine 0.7 0.7 (0.6-1.0) mg/dL Est Cr Clr Drug Dosing 60.84 60.84 mL/min Estimated GFR (MDRD) > 60.0 > 60.0 ml/min Glucose 118 H 121 H (74-106) mg/dL POC Glucose 116 H (70-99) mg/dL Calcium 8.0 L 7.8 L (8.5-10.1) mg/dL 11/12/20 11/13/20 11/13/20 Range/Units 23:56 04:15 05:33 WBC (4.0-11.0) K/uL RBC (4.30-5.90) M/uL Hgb (12.0-16.0) g/dL Hct (36.0-46.0) % MCV (80.0-98.0) fL MCH (27.0-32.0) pg MCHC (31.0-37.0) g/dL RDW Std Deviation (28.0-62.0) fl RDW Coeff of Eran (11.0-15.0) % Plt Count (150-400) K/uL MPV (7.40-12.00) fL Neut % (Auto) (48.0-80.0) % Lymph % (Auto) (16.0-40.0) % Union % (Auto) (0.0-15.0) % Eos % (Auto) (0.0-7.0) % Baso % (Auto) (0.0-1.5) % Neut # (Auto) (1.4-5.7) K/uL Lymph # (Auto) (0.6-2.4) K/uL Union # (Auto) (0.0-0.8) K/uL Eos # (Auto) (0.0-0.7) K/uL Baso # (Auto) (0.0-0.1) K/uL Nucleated RBC % /100WBC Nucleated RBCs # K/uL Sodium 129 L (136-145) mmol/L Potassium 4.1 (3.5-5.1) mmol/L Chloride 94 L (98-107) mmol/L Carbon Dioxide 31.2 (21.0-32.0) mmol/L BUN 7 (7.0-18.0) mg/dL Creatinine 0.8 (0.6-1.0) mg/dL Est Cr Clr Drug Dosing 53.23 mL/min Estimated GFR (MDRD) > 60.0 ml/min Glucose 129 H (74-106) mg/dL POC Glucose 122 H 116 H (70-99) mg/dL Calcium 7.9 L (8.5-10.1) mg/dL 11/13/20 11/13/20 11/13/20 Range/Units 08:56 11:04 11:04 WBC 10.25 (4.0-11.0) K/uL RBC 4.08 L (4.30-5.90) M/uL Hgb 11.8 L (12.0-16.0) g/dL Hct 33.9 L (36.0-46.0) % MCV 83.1 (80.0-98.0) fL MCH 28.9 (27.0-32.0) pg MCHC 34.8 (31.0-37.0) g/dL RDW Std Deviation 39.6 (28.0-62.0) fl RDW Coeff of Eran 13 (11.0-15.0) % Plt Count 316 (150-400) K/uL MPV 8.30 (7.40-12.00) fL Neut % (Auto) 67.3 (48.0-80.0) % Lymph % (Auto) 23.2 (16.0-40.0) % Union % (Auto) 7.9 (0.0-15.0) % Eos % (Auto) 1.6 (0.0-7.0) % Baso % (Auto) 0.0 (0.0-1.5) % Neut # (Auto) 6.9 H (1.4-5.7) K/uL Lymph # (Auto) 2.4 (0.6-2.4) K/uL Union # (Auto) 0.8 (0.0-0.8) K/uL Eos # (Auto) 0.2 (0.0-0.7) K/uL Baso # (Auto) 0.0 (0.0-0.1) K/uL Nucleated RBC % 0.0 /100WBC Nucleated RBCs # 0 K/uL Sodium 129 L (136-145) mmol/L Potassium 3.9 (3.5-5.1) mmol/L Chloride 93 L (98-107) mmol/L Carbon Dioxide 30.4 (21.0-32.0) mmol/L BUN 7 (7.0-18.0) mg/dL Creatinine 0.8 (0.6-1.0) mg/dL Est Cr Clr Drug Dosing 53.23 mL/min Estimated GFR (MDRD) > 60.0 ml/min Glucose 119 H (74-106) mg/dL POC Glucose 108 H (70-99) mg/dL Calcium 8.0 L (8.5-10.1) mg/dL 11/13/20 Range/Units 12:21 WBC (4.0-11.0) K/uL RBC (4.30-5.90) M/uL Hgb (12.0-16.0) g/dL Hct (36.0-46.0) % MCV (80.0-98.0) fL MCH (27.0-32.0) pg MCHC (31.0-37.0) g/dL RDW Std Deviation (28.0-62.0) fl RDW Coeff of Eran (11.0-15.0) % Plt Count (150-400) K/uL MPV (7.40-12.00) fL Neut % (Auto) (48.0-80.0) % Lymph % (Auto) (16.0-40.0) % Union % (Auto) (0.0-15.0) % Eos % (Auto) (0.0-7.0) % Baso % (Auto) (0.0-1.5) % Neut # (Auto) (1.4-5.7) K/uL Lymph # (Auto) (0.6-2.4) K/uL Union # (Auto) (0.0-0.8) K/uL Eos # (Auto) (0.0-0.7) K/uL Baso # (Auto) (0.0-0.1) K/uL Nucleated RBC % /100WBC Nucleated RBCs # K/uL Sodium (136-145) mmol/L Potassium (3.5-5.1) mmol/L Chloride (98-107) mmol/L Carbon Dioxide (21.0-32.0) mmol/L BUN (7.0-18.0) mg/dL Creatinine (0.6-1.0) mg/dL Est Cr Clr Drug Dosing mL/min Estimated GFR (MDRD) ml/min Glucose (74-106) mg/dL POC Glucose 137 H (70-99) mg/dL Calcium (8.5-10.1) mg/dL Result Diagrams: 11/13/20 11:04 11/13/20 11:04 Sepsis Event Note - Evaluation Sepsis Screening Result: No Definite Risk - Focused Exam Vital Signs: Vital Signs Temp Pulse Resp BP BP Pulse Ox 11/13/20 11:00 11 L 135/77 94 L 11/13/20 10:00 13 164/87 H 94 L 07/04/21 09:00 17 144/93 H 93 L 11/13/20 08:22 74 150/84 H 11/13/20 08:00 36.1 C 12 150/84 H 94 L 11/13/20 07:00 11 L 132/81 92 L 11/13/20 06:00 16 157/90 H 94 L 11/13/20 05:00 12 130/66 93 L 11/13/20 04:00 36.0 C L 12 102/66 93 L 11/13/20 03:00 11 L 132/82 93 L 11/13/20 02:00 11 L 136/80 90 L 11/13/20 01:00 20 159/75 H 92 L - Problem List Review Problem List Initiated/Reviewed/Updated: Yes - My Orders Last 24 Hours: My Active Orders 11/12/20 14:00 ALPRAZolam [Xanax] 1 mg PO TID PRN 11/12/20 Dinner Fluid Restriction [DIET] 11/12/20 17:45 Sodium Chloride 3% 500 ml IV ASDIRECTED 11/13/20 17:00 BASIC METABOLIC PANEL,BMP [CHEM] Q5H 11/13/20 21:00 Patient's Own Medication [Ptom] 1 each PO BEDTIME 11/13/20 22:00 BASIC METABOLIC PANEL,BMP [CHEM] Q5H 11/14/20 05:11 BASIC METABOLIC PANEL,BMP [CHEM] AM CBC WITH AUTO DIFF [HEME] AM - Plan Plan:: This 70-year-old female admitted with hyponatremia and recent ESBL E. coli UTI 1. Hyponatremia likely due to polydipsia -sodium has improved to 129, will continue to monitor, fluid restrict 2. ESBL E. coli UTI -continue meropenum Urinary obstruction -possible due to increase dosage of doxapin, will continue with weeks for now, and may need to be weened of doxapin 3. Oral thrush -oral Diflucan given -Magic mouthwash with nystatin 4 times daily 4. Diabetes type 2 -Hold oral agents -Continue NovoLog sliding scale 4 times daily before meals and bed time -Start soft ADA diet 5. Hypertension -medications of diltiazem and Irbesartan 6. Hypothyroidism secondary to thyroidectomy -TSH 5.12 -Restart levothyroxine 7. severe depresion -consider telepsych consult when available. VTE prophylaxis Heparin GI prophylaxis: Protonix CODE STATUS: Full code Dispo: 2 to 3 days pending improvement.
[2020-11-13 17:37] LABS: BLOOD UREA NITROGEN,BUN 6 mg/dL (7.0-18.0); CARBON DIOXIDE,CO2 29.9 mmol/L (21.0-32.0); CHLORIDE,CL 93 mmol/L (98-107); GLUCOSE RANDOM 109 mg/dL (74-106); POTASSIUM,K 3.7 mmol/L (3.5-5.1); SODIUM,NA 129 mmol/L (136-145)
--- NOTE | 2020-11-13 18:18 | CR ---
Indication: Intermittent chest discomfort Technique: Chest 1 view Comparison: November 11, 2020 Findings/Impression: Stable cardiac size. Lung volumes are low. No focal infiltrate or effusion. No pneumothorax. No acute osseous abnormality. Air filled, dilated loop of small bowel in the left upper quadrant. Consider KUB for further evaluation if clinically indicated. Dictated by Jennifer Gao MD @ 11/13/2020 6:17:[address] Jennifer Gao @ Nov 13 2020 6:17PM
--- NOTE | 2020-11-13 20:43 | CR ---
INDICATION: Abdominal pain. COMPARISON: CT of the abdomen and pelvis 11/11/2020. Chest radiograph 11/13/2020. TECHNIQUE: Abdomen, 2 views. FINDINGS: Family prominent loops of small bowel in a lower abdomen. No definite obstruction. Large amount of stool in the ascending colon. The remainder of the colon is gas-filled which accounts for the finding on chest radiograph. No pneumatosis. The lung bases are clear. Left convex lumbar curve. IMPRESSION: 1. Few mildly prominent loops of small bowel in the lower abdomen. No definite obstruction. 2. Large amount of stool in the ascending colon. The remainder of the colon is gas-filled which accounts for the finding on chest radiograph. Dictated by Ramona Yan MD @ 11/13/2020 8:41:[address] Ramona Yan @ Nov 13 2020 8:41PM
[2020-11-13] MEDS: Rosuvastatin 10 MG Tab PO SCH (20:45)
[2020-11-13 22:27] LABS: BLOOD UREA NITROGEN,BUN 6 mg/dL (7.0-18.0); CHLORIDE,CL 95 mmol/L (98-107); GLUCOSE RANDOM 111 mg/dL (74-106); POTASSIUM,K 3.9 mmol/L (3.5-5.1); SODIUM,NA 130 mmol/L (136-145)
[2020-11-14] MEDS: Meropenem Premix 1 GM in Premix Bag 1 BAG IV SCH ×4 (00:14→23:31)
[2020-11-14] MEDS: Heparin Sodium 5,000 Units/ML Vial SUBCUT SCH ×4 (00:14→23:31)
[2020-11-14] MEDS: LIDOCAINE 2% PO SCH ×15 (00:15→23:27)
[2020-11-14] MEDS: DIPHENHYDRAMINE PO SCH ×15 (00:15→23:27)
[2020-11-14] MEDS: NYSTATIN PO SCH ×15 (00:15→23:27)
[2020-11-14 05:33] LABS: BLOOD UREA NITROGEN,BUN 5 mg/dL (7.0-18.0); CARBON DIOXIDE,CO2 31.3 mmol/L (21.0-32.0); CHLORIDE,CL 95 mmol/L (98-107); GLUCOSE RANDOM 112 mg/dL (74-106); POTASSIUM,K 3.9 mmol/L (3.5-5.1); SODIUM,NA 131 mmol/L (136-145)
[2020-11-14] MEDS: Acetaminophen 325 MG Tab PO PRN (06:03)
[2020-11-14] MEDS: ALPRAZolam 0.5 MG Tab PO PRN ×3 (06:04→20:38)
[2020-11-14] MEDS: Insulin Aspart 100 Units/ML 3 ML Pen SUBCUT SCH ×4 (07:32→22:09)
[2020-11-14] MEDS: Levothyroxine 100 MCG Tab PO SCH (07:33)
[2020-11-14] MEDS: Pantoprazole 40 MG in Sodium Chloride 0.9% 10 ML IV SCH (08:01)
[2020-11-14] MEDS: Diltiazem 120 MG Cap.CD PO SCH (08:02)
[2020-11-14] MEDS: Irbesartan 150 MG Tab PO SCH (08:02)
--- NOTE | 2020-11-14 11:52 | PCM.PN ---
- General Info Date of Service: 11/14/20 Admission Dx/Problem (Free Text): Admission Diagnosis/Problem Admission Diagnosis/Problem Hyponatremia Subjective Update: Patient seen at bedside, no acute distress, states that she wants to go home, denies any active or passive suicidal ideations. Per she has been struggling with her depression for last 5 years, patient does have a little flat affect but was answering my questions appropriately and engaging in a conversation.. Functional Status: Reports: Pain Controlled, Tolerating Diet, Urinating ( Gomez catheter) - Review of Systems General: Reports: Weakness. Denies: Fever, Fatigue, Malaise Pulmonary: Denies: Shortness of Breath, Pleuritic Chest Pain Cardiovascular: Denies: Chest Pain, Palpitations Gastrointestinal: Denies: Abdominal Pain, Constipation Genitourinary: Denies: Dysuria, Frequency, Burning, Pain Musculoskeletal: Denies: Neck Pain, Shoulder Pain Neurological: Denies: Confusion, Dizziness Psychiatric: Denies: Confusion, Depression, Mood Lability - Patient Data Vitals - Most Recent: Last Vital Signs Temp 36.1 C 11/14/20 08:00 Pulse 78 11/14/20 11:00 Resp 18 11/14/20 11:00 BP 138/70 11/14/20 10:00 Pulse Ox 97 11/14/20 11:00 Weight - Most Recent: 73.936 kg I&O - Last 24 Hours: Intake & Output 11/13/20 11/14/20 11/14/20 22:59 06:59 14:59 Intake Total 1140 410 60 Output Total 1720 1350 Balance -580 -940 60 Lab Results Last 24 Hours: Laboratory Results - last 24 hr 11/13/20 11/13/20 11/13/20 Range/Units 12:21 17:07 17:35 WBC (4.0-11.0) K/uL RBC (4.30-5.90) M/uL Hgb (12.0-16.0) g/dL Hct (36.0-46.0) % MCV (80.0-98.0) fL MCH (27.0-32.0) pg MCHC (31.0-37.0) g/dL RDW Std Deviation (28.0-62.0) fl RDW Coeff of Eran (11.0-15.0) % Plt Count (150-400) K/uL MPV (7.40-12.00) fL Neut % (Auto) (48.0-80.0) % Lymph % (Auto) (16.0-40.0) % [place] % (Auto) (0.0-15.0) % Eos % (Auto) (0.0-7.0) % Baso % (Auto) (0.0-1.5) % Neut # (Auto) (1.4-5.7) K/uL Lymph # (Auto) (0.6-2.4) K/uL [place] # (Auto) (0.0-0.8) K/uL Eos # (Auto) (0.0-0.7) K/uL Baso # (Auto) (0.0-0.1) K/uL Nucleated RBC % /100WBC Nucleated RBCs # K/uL Sodium 129 L (136-145) mmol/L Potassium 3.7 (3.5-5.1) mmol/L Chloride 93 L (98-107) mmol/L Carbon Dioxide 29.9 (21.0-32.0) mmol/L BUN 6 L (7.0-18.0) mg/dL Creatinine 0.6 (0.6-1.0) mg/dL Est Cr Clr Drug Dosing 70.98 mL/min Estimated GFR (MDRD) > 60.0 ml/min Glucose 109 H (74-106) mg/dL POC Glucose 137 H (70-99) mg/dL Calcium 8.2 L (8.5-10.1) mg/dL Troponin I <0.050 (0.000-0.056) ng/mL Urine Color YELLOW Urine Appearance CLEAR Urine pH 7.5 (5.0-8.0) Ur Specific [place] 1.010 (1.001-1.035) Urine Protein NEGATIVE (NEGATIVE) mg/dL Urine Glucose (UA) NEGATIVE (NEGATIVE) mg/dL Urine Ketones NEGATIVE (NEGATIVE) mg/dL Urine Occult Blood SMALL H (NEGATIVE) Urine Nitrite NEGATIVE (NEGATIVE) Urine Bilirubin NEGATIVE (NEGATIVE) Urine Urobilinogen 0.2 (<2.0) EU/dL Ur Leukocyte Esterase NEGATIVE (NEGATIVE) Urine RBC 1-4 (0-2/HPF) Urine WBC 0-1 (0-5/HPF) Ur Epithelial Cells RARE (NONE-FEW) Urine Bacteria RARE (NEGATIVE) 11/13/20 11/13/20 11/13/20 Range/Units 17:54 20:49 22:01 WBC (4.0-11.0) K/uL RBC (4.30-5.90) M/uL Hgb (12.0-16.0) g/dL Hct (36.0-46.0) % MCV (80.0-98.0) fL MCH (27.0-32.0) pg MCHC (31.0-37.0) g/dL RDW Std Deviation (28.0-62.0) fl RDW Coeff of Eran (11.0-15.0) % Plt Count (150-400) K/uL MPV (7.40-12.00) fL Neut % (Auto) (48.0-80.0) % Lymph % (Auto) (16.0-40.0) % [place] % (Auto) (0.0-15.0) % Eos % (Auto) (0.0-7.0) % Baso % (Auto) (0.0-1.5) % Neut # (Auto) (1.4-5.7) K/uL Lymph # (Auto) (0.6-2.4) K/uL [place] # (Auto) (0.0-0.8) K/uL Eos # (Auto) (0.0-0.7) K/uL Baso # (Auto) (0.0-0.1) K/uL Nucleated RBC % /100WBC Nucleated RBCs # K/uL Sodium 130 L (136-145) mmol/L Potassium 3.9 (3.5-5.1) mmol/L Chloride 95 L (98-107) mmol/L Carbon Dioxide 30.0 (21.0-32.0) mmol/L BUN 6 L (7.0-18.0) mg/dL Creatinine 0.7 (0.6-1.0) mg/dL Est Cr Clr Drug Dosing 60.84 mL/min Estimated GFR (MDRD) > 60.0 ml/min Glucose 111 H (74-106) mg/dL POC Glucose 116 H 140 H (70-99) mg/dL Calcium 8.0 L (8.5-10.1) mg/dL Troponin I (0.000-0.056) ng/mL Urine Color Urine Appearance Urine pH (5.0-8.0) Ur Specific [place] (1.001-1.035) Urine Protein (NEGATIVE) mg/dL Urine Glucose (UA) (NEGATIVE) mg/dL Urine Ketones (NEGATIVE) mg/dL Urine Occult Blood (NEGATIVE) Urine Nitrite (NEGATIVE) Urine Bilirubin (NEGATIVE) Urine Urobilinogen (<2.0) EU/dL Ur Leukocyte Esterase (NEGATIVE) Urine RBC (0-2/HPF) Urine WBC (0-5/HPF) Ur Epithelial Cells (NONE-FEW) Urine Bacteria (NEGATIVE) 11/14/20 11/14/20 11/14/20 Range/Units 04:53 04:53 06:01 WBC 12.57 H (4.0-11.0) K/uL RBC 4.16 L (4.30-5.90) M/uL Hgb 11.8 L (12.0-16.0) g/dL Hct 34.6 L (36.0-46.0) % MCV 83.2 (80.0-98.0) fL MCH 28.4 (27.0-32.0) pg MCHC 34.1 (31.0-37.0) g/dL RDW Std Deviation 38.8 (28.0-62.0) fl RDW Coeff of Eran 13 (11.0-15.0) % Plt Count 321 (150-400) K/uL MPV 8.40 (7.40-12.00) fL Neut % (Auto) 59.3 (48.0-80.0) % Lymph % (Auto) 30.4 (16.0-40.0) % [place] % (Auto) 8.2 (0.0-15.0) % Eos % (Auto) 2.0 (0.0-7.0) % Baso % (Auto) 0.1 (0.0-1.5) % Neut # (Auto) 7.5 H (1.4-5.7) K/uL Lymph # (Auto) 3.8 H (0.6-2.4) K/uL [place] # (Auto) 1.0 H (0.0-0.8) K/uL Eos # (Auto) 0.3 (0.0-0.7) K/uL Baso # (Auto) 0.0 (0.0-0.1) K/uL Nucleated RBC % 0.0 /100WBC Nucleated RBCs # 0 K/uL Sodium 131 L (136-145) mmol/L Potassium 3.9 (3.5-5.1) mmol/L Chloride 95 L (98-107) mmol/L Carbon Dioxide 31.3 (21.0-32.0) mmol/L BUN 5 L (7.0-18.0) mg/dL Creatinine 0.9 (0.6-1.0) mg/dL Est Cr Clr Drug Dosing 47.32 mL/min Estimated GFR (MDRD) > 60.0 ml/min Glucose 112 H (74-106) mg/dL POC Glucose 135 H (70-99) mg/dL Calcium 8.0 L (8.5-10.1) mg/dL Troponin I (0.000-0.056) ng/mL Urine Color Urine Appearance Urine pH (5.0-8.0) Ur Specific [place] (1.001-1.035) Urine Protein (NEGATIVE) mg/dL Urine Glucose (UA) (NEGATIVE) mg/dL Urine Ketones (NEGATIVE) mg/dL Urine Occult Blood (NEGATIVE) Urine Nitrite (NEGATIVE) Urine Bilirubin (NEGATIVE) Urine Urobilinogen (<2.0) EU/dL Ur Leukocyte Esterase (NEGATIVE) Urine RBC (0-2/HPF) Urine WBC (0-5/HPF) Ur Epithelial Cells (NONE-FEW) Urine Bacteria (NEGATIVE) 11/14/20 Range/Units 11:18 WBC (4.0-11.0) K/uL RBC (4.30-5.90) M/uL Hgb (12.0-16.0) g/dL Hct (36.0-46.0) % MCV (80.0-98.0) fL MCH (27.0-32.0) pg MCHC (31.0-37.0) g/dL RDW Std Deviation (28.0-62.0) fl RDW Coeff of Eran (11.0-15.0) % Plt Count (150-400) K/uL MPV (7.40-12.00) fL Neut % (Auto) (48.0-80.0) % Lymph % (Auto) (16.0-40.0) % [place] % (Auto) (0.0-15.0) % Eos % (Auto) (0.0-7.0) % Baso % (Auto) (0.0-1.5) % Neut # (Auto) (1.4-5.7) K/uL Lymph # (Auto) (0.6-2.4) K/uL [place] # (Auto) (0.0-0.8) K/uL Eos # (Auto) (0.0-0.7) K/uL Baso # (Auto) (0.0-0.1) K/uL Nucleated RBC % /100WBC Nucleated RBCs # K/uL Sodium (136-145) mmol/L Potassium (3.5-5.1) mmol/L Chloride (98-107) mmol/L Carbon Dioxide (21.0-32.0) mmol/L BUN (7.0-18.0) mg/dL Creatinine (0.6-1.0) mg/dL Est Cr Clr Drug Dosing mL/min Estimated GFR (MDRD) ml/min Glucose (74-106) mg/dL POC Glucose 139 H (70-99) mg/dL Calcium (8.5-10.1) mg/dL Troponin I (0.000-0.056) ng/mL Urine Color Urine Appearance Urine pH (5.0-8.0) Ur Specific [place] (1.001-1.035) Urine Protein (NEGATIVE) mg/dL Urine Glucose (UA) (NEGATIVE) mg/dL Urine Ketones (NEGATIVE) mg/dL Urine Occult Blood (NEGATIVE) Urine Nitrite (NEGATIVE) Urine Bilirubin (NEGATIVE) Urine Urobilinogen (<2.0) EU/dL Ur Leukocyte Esterase (NEGATIVE) Urine RBC (0-2/HPF) Urine WBC (0-5/HPF) Ur Epithelial Cells (NONE-FEW) Urine Bacteria (NEGATIVE) Med Orders - Current: Current Medications Acetaminophen (Acetaminophen 325 Mg Tab) 650 mg PO Q4H PRN PRN Reason: Pain (Mild 1-3)/fever Last Admin: 11/14/20 06:03 Dose: 650 mg Documented by: Alprazolam (Alprazolam 0.5 Mg Tab) 1 mg PO TID PRN PRN Reason: Anxiety Last Admin: 11/14/20 06:04 Dose: 1 mg Documented by: Lidocaine HCl 5 ml/Diphenhydramine HCl 12.5 mg/Nystatin 5 ml 0 ml PO QID [facility] Last Admin: 11/14/20 11:20 Dose: 15 ml Documented by: Dextrose/Water (50% Dextrose In Water 50 Ml Syringe) 50 ml IVPUSH ASDIRECTED PRN PRN Reason: Hypoglycemia Diltiazem HCl (Diltiazem 120 Mg Cap.Cd) 120 mg PO DAILY [facility] Last Admin: 11/14/20 08:02 Dose: 120 mg Documented by: Docusate Sodium (Docusate Sodium 100 Mg Cap) 100 mg PO BID PRN PRN Reason: Constipation Glucagon (Glucagon,Human Recombinant 1 Mg Vial) 1 mg IM ASDIRECTED PRN PRN Reason: Hypoglycemia Heparin Sodium (Porcine) (Heparin Sodium 5,000 Units/Ml Vial) 5,000 units SUBCUT Q8H [facility] Last Admin: 11/14/20 07:33 Dose: 5,000 units Documented by: Meropenem/Sodium Chloride 1 gm (/ Premix) 50 mls @ 100 mls/hr IV Q8H [facility] Last Admin: 11/14/20 07:33 Dose: 100 mls/hr Documented by: Pantoprazole Sodium 40 mg/ (Sodium Chloride) 10 mls @ 300 mls/hr IV Q24H [facility] Last Admin: 11/14/20 08:01 Dose: 300 mls/hr Documented by: Insulin Aspart (Insulin Aspart 100 Units/Ml 3 Ml Pen) 0 unit SUBCUT QIDACANDBED [facility]; Protocol Last Admin: 11/14/20 11:25 Dose: Not Given Documented by: Irbesartan (Irbesartan 150 Mg Tab) 150 mg PO DAILY [facility] Last Admin: 11/14/20 08:02 Dose: 150 mg Documented by: Levothyroxine Sodium (Levothyroxine 100 Mcg Tab) 100 mcg PO ACBREAKFAST [facility] Last Admin: 11/14/20 07:33 Dose: 100 mcg Documented by: Ondansetron HCl (Ondansetron 4 Mg/2 Ml Sdv) 4 mg IVPUSH Q4H PRN PRN Reason: Nausea Doxepin Hcl 100 Mg (Capsule) 1 each PO BEDTIME [facility] Last Admin: 11/13/20 20:46 Dose: 1 each Documented by: Rosuvastatin Calcium (Rosuvastatin 10 Mg Tab) 10 mg PO BEDTIME [facility] Last Admin: 11/13/20 20:45 Dose: 10 mg Documented by: Sodium Chloride (Sodium Chloride 0.9% 2.5 Ml Syringe) 2.5 ml FLUSH ASDIRECTED PRN PRN Reason: Keep Vein Open Discontinued Medications Alprazolam (Alprazolam 0.5 Mg Tab) 1 mg PO BID PRN PRN Reason: Anxiety Last Admin: 11/12/20 09:31 Dose: 1 mg Documented by: Diphenhydr/Magaldrate/Simeth/Lidoca (Al And Mag Hydroxide/Diphenhydramine/Lidocaine/Simethicone 237 Ml Bottle) 15 ml PO ONETIME STA Stop: 11/11/20 03:56 Last Admin: 11/11/20 04:16 Dose: 15 ml Documented by: Fluconazole (Fluconazole Susp 40 Mg/1 Ml 35 Ml Bottle) 150 mg PO NOW STA Stop: 11/11/20 10:19 Last Admin: 11/11/20 11:25 Dose: 4 ml Documented by: Sodium Chloride (Normal Saline) 1,000 mls @ 999 mls/hr IV .BOLUS ONE Stop: 11/11/20 06:08 Last Admin: 11/11/20 05:11 Dose: 999 mls/hr Documented by: Sodium Chloride (Normal Saline) 1,000 mls @ 100 mls/hr IV Q10H [facility] Last Infusion: 11/12/20 18:48 Dose: 0 mls/hr Documented by: Sodium Chloride (Sodium Chloride 3%) 500 mls @ 30 mls/hr IV ASDIRECTED [facility] Last Infusion: 11/12/20 19:08 Dose: 30 mls/hr Documented by: Insulin Aspart (Insulin Aspart 100 Units/Ml 3 Ml Pen) 0 unit SUBCUT Q6H [facility]; Protocol Last Admin: 11/12/20 18:12 Dose: Not Given Documented by: Lidocaine HCl (Lidocaine 2% Viscous Solution 15 Ml Cup) 15 ml PO ONETIME ONE Stop: 11/11/20 07:42 Last Admin: 11/11/20 08:03 Dose: Not Given Documented by: Nystatin (Nystatin Susp 100,000 Unit/Ml 5 Ml Ud Cup) 5 ml PO ONETIME ONE Stop: 11/11/20 03:56 Last Admin: 11/11/20 04:16 Dose: 5 ml Documented by: Doxepin Hcl 150 Mg (Capsule) 1 each PO DAILY [facility] Last Admin: 11/12/20 14:47 Dose: Not Given Documented by: Doxepin Hcl 150 Mg (Capsule) 1 each PO BEDTIME [facility] Last Admin: 11/12/20 20:07 Dose: 1 each Documented by: - Exam Urinary Catheter Total Time: 2Days 22Hours General: Alert, Oriented, Cooperative, No Acute Distress Neck: Supple, Trachea Midline Lungs: Clear to Auscultation, Normal Respiratory Effort Cardiovascular: Regular Rate, Regular Rhythm GI/Abdominal Exam: Normal Bowel Sounds, Soft, Non-Tender Extremities: Normal Inspection, Normal Range of Motion - Patient Data Lab Results Last 24 hrs: Laboratory Results - last 24 hr 11/13/20 11/13/20 11/13/20 Range/Units 12:21 17:07 17:35 WBC (4.0-11.0) K/uL RBC (4.30-5.90) M/uL Hgb (12.0-16.0) g/dL Hct (36.0-46.0) % MCV (80.0-98.0) fL MCH (27.0-32.0) pg MCHC (31.0-37.0) g/dL RDW Std Deviation (28.0-62.0) fl RDW Coeff of Eran (11.0-15.0) % Plt Count (150-400) K/uL MPV (7.40-12.00) fL Neut % (Auto) (48.0-80.0) % Lymph % (Auto) (16.0-40.0) % [place] % (Auto) (0.0-15.0) % Eos % (Auto) (0.0-7.0) % Baso % (Auto) (0.0-1.5) % Neut # (Auto) (1.4-5.7) K/uL Lymph # (Auto) (0.6-2.4) K/uL [place] # (Auto) (0.0-0.8) K/uL Eos # (Auto) (0.0-0.7) K/uL Baso # (Auto) (0.0-0.1) K/uL Nucleated RBC % /100WBC Nucleated RBCs # K/uL Sodium 129 L (136-145) mmol/L Potassium 3.7 (3.5-5.1) mmol/L Chloride 93 L (98-107) mmol/L Carbon Dioxide 29.9 (21.0-32.0) mmol/L BUN 6 L (7.0-18.0) mg/dL Creatinine 0.6 (0.6-1.0) mg/dL Est Cr Clr Drug Dosing 70.98 mL/min Estimated GFR (MDRD) > 60.0 ml/min Glucose 109 H (74-106) mg/dL POC Glucose 137 H (70-99) mg/dL Calcium 8.2 L (8.5-10.1) mg/dL Troponin I <0.050 (0.000-0.056) ng/mL Urine Color YELLOW Urine Appearance CLEAR Urine pH 7.5 (5.0-8.0) Ur Specific [place] 1.010 (1.001-1.035) Urine Protein NEGATIVE (NEGATIVE) mg/dL Urine Glucose (UA) NEGATIVE (NEGATIVE) mg/dL Urine Ketones NEGATIVE (NEGATIVE) mg/dL Urine Occult Blood SMALL H (NEGATIVE) Urine Nitrite NEGATIVE (NEGATIVE) Urine Bilirubin NEGATIVE (NEGATIVE) Urine Urobilinogen 0.2 (<2.0) EU/dL Ur Leukocyte Esterase NEGATIVE (NEGATIVE) Urine RBC 1-4 (0-2/HPF) Urine WBC 0-1 (0-5/HPF) Ur Epithelial Cells RARE (NONE-FEW) Urine Bacteria RARE (NEGATIVE) 11/13/20 11/13/20 11/13/20 Range/Units 17:54 20:49 22:01 WBC (4.0-11.0) K/uL RBC (4.30-5.90) M/uL Hgb (12.0-16.0) g/dL Hct (36.0-46.0) % MCV (80.0-98.0) fL MCH (27.0-32.0) pg MCHC (31.0-37.0) g/dL RDW Std Deviation (28.0-62.0) fl RDW Coeff of Eran (11.0-15.0) % Plt Count (150-400) K/uL MPV (7.40-12.00) fL Neut % (Auto) (48.0-80.0) % Lymph % (Auto) (16.0-40.0) % [place] % (Auto) (0.0-15.0) % Eos % (Auto) (0.0-7.0) % Baso % (Auto) (0.0-1.5) % Neut # (Auto) (1.4-5.7) K/uL Lymph # (Auto) (0.6-2.4) K/uL [place] # (Auto) (0.0-0.8) K/uL Eos # (Auto) (0.0-0.7) K/uL Baso # (Auto) (0.0-0.1) K/uL Nucleated RBC % /100WBC Nucleated RBCs # K/uL Sodium 130 L (136-145) mmol/L Potassium 3.9 (3.5-5.1) mmol/L Chloride 95 L (98-107) mmol/L Carbon Dioxide 30.0 (21.0-32.0) mmol/L BUN 6 L (7.0-18.0) mg/dL Creatinine 0.7 (0.6-1.0) mg/dL Est Cr Clr Drug Dosing 60.84 mL/min Estimated GFR (MDRD) > 60.0 ml/min Glucose 111 H (74-106) mg/dL POC Glucose 116 H 140 H (70-99) mg/dL Calcium 8.0 L (8.5-10.1) mg/dL Troponin I (0.000-0.056) ng/mL Urine Color Urine Appearance Urine pH (5.0-8.0) Ur Specific [place] (1.001-1.035) Urine Protein (NEGATIVE) mg/dL Urine Glucose (UA) (NEGATIVE) mg/dL Urine Ketones (NEGATIVE) mg/dL Urine Occult Blood (NEGATIVE) Urine Nitrite (NEGATIVE) Urine Bilirubin (NEGATIVE) Urine Urobilinogen (<2.0) EU/dL Ur Leukocyte Esterase (NEGATIVE) Urine RBC (0-2/HPF) Urine WBC (0-5/HPF) Ur Epithelial Cells (NONE-FEW) Urine Bacteria (NEGATIVE) 11/14/20 11/14/20 11/14/20 Range/Units 04:53 04:53 06:01 WBC 12.57 H (4.0-11.0) K/uL RBC 4.16 L (4.30-5.90) M/uL Hgb 11.8 L (12.0-16.0) g/dL Hct 34.6 L (36.0-46.0) % MCV 83.2 (80.0-98.0) fL MCH 28.4 (27.0-32.0) pg MCHC 34.1 (31.0-37.0) g/dL RDW Std Deviation 38.8 (28.0-62.0) fl RDW Coeff of Eran 13 (11.0-15.0) % Plt Count 321 (150-400) K/uL MPV 8.40 (7.40-12.00) fL Neut % (Auto) 59.3 (48.0-80.0) % Lymph % (Auto) 30.4 (16.0-40.0) % [place] % (Auto) 8.2 (0.0-15.0) % Eos % (Auto) 2.0 (0.0-7.0) % Baso % (Auto) 0.1 (0.0-1.5) % Neut # (Auto) 7.5 H (1.4-5.7) K/uL Lymph # (Auto) 3.8 H (0.6-2.4) K/uL [place] # (Auto) 1.0 H (0.0-0.8) K/uL Eos # (Auto) 0.3 (0.0-0.7) K/uL Baso # (Auto) 0.0 (0.0-0.1) K/uL Nucleated RBC % 0.0 /100WBC Nucleated RBCs # 0 K/uL Sodium 131 L (136-145) mmol/L Potassium 3.9 (3.5-5.1) mmol/L Chloride 95 L (98-107) mmol/L Carbon Dioxide 31.3 (21.0-32.0) mmol/L BUN 5 L (7.0-18.0) mg/dL Creatinine 0.9 (0.6-1.0) mg/dL Est Cr Clr Drug Dosing 47.32 mL/min Estimated GFR (MDRD) > 60.0 ml/min Glucose 112 H (74-106) mg/dL POC Glucose 135 H (70-99) mg/dL Calcium 8.0 L (8.5-10.1) mg/dL Troponin I (0.000-0.056) ng/mL Urine Color Urine Appearance Urine pH (5.0-8.0) Ur Specific [place] (1.001-1.035) Urine Protein (NEGATIVE) mg/dL Urine Glucose (UA) (NEGATIVE) mg/dL Urine Ketones (NEGATIVE) mg/dL Urine Occult Blood (NEGATIVE) Urine Nitrite (NEGATIVE) Urine Bilirubin (NEGATIVE) Urine Urobilinogen (<2.0) EU/dL Ur Leukocyte Esterase (NEGATIVE) Urine RBC (0-2/HPF) Urine WBC (0-5/HPF) Ur Epithelial Cells (NONE-FEW) Urine Bacteria (NEGATIVE) 11/14/20 Range/Units 11:18 WBC (4.0-11.0) K/uL RBC (4.30-5.90) M/uL Hgb (12.0-16.0) g/dL Hct (36.0-46.0) % MCV (80.0-98.0) fL MCH (27.0-32.0) pg MCHC (31.0-37.0) g/dL RDW Std Deviation (28.0-62.0) fl RDW Coeff of Eran (11.0-15.0) % Plt Count (150-400) K/uL MPV (7.40-12.00) fL Neut % (Auto) (48.0-80.0) % Lymph % (Auto) (16.0-40.0) % [place] % (Auto) (0.0-15.0) % Eos % (Auto) (0.0-7.0) % Baso % (Auto) (0.0-1.5) % Neut # (Auto) (1.4-5.7) K/uL Lymph # (Auto) (0.6-2.4) K/uL [place] # (Auto) (0.0-0.8) K/uL Eos # (Auto) (0.0-0.7) K/uL Baso # (Auto) (0.0-0.1) K/uL Nucleated RBC % /100WBC Nucleated RBCs # K/uL Sodium (136-145) mmol/L Potassium (3.5-5.1) mmol/L Chloride (98-107) mmol/L Carbon Dioxide (21.0-32.0) mmol/L BUN (7.0-18.0) mg/dL Creatinine (0.6-1.0) mg/dL Est Cr Clr Drug Dosing mL/min Estimated GFR (MDRD) ml/min Glucose (74-106) mg/dL POC Glucose 139 H (70-99) mg/dL Calcium (8.5-10.1) mg/dL Troponin I (0.000-0.056) ng/mL Urine Color Urine Appearance Urine pH (5.0-8.0) Ur Specific [place] (1.001-1.035) Urine Protein (NEGATIVE) mg/dL Urine Glucose (UA) (NEGATIVE) mg/dL Urine Ketones (NEGATIVE) mg/dL Urine Occult Blood (NEGATIVE) Urine Nitrite (NEGATIVE) Urine Bilirubin (NEGATIVE) Urine Urobilinogen (<2.0) EU/dL Ur Leukocyte Esterase (NEGATIVE) Urine RBC (0-2/HPF) Urine WBC (0-5/HPF) Ur Epithelial Cells (NONE-FEW) Urine Bacteria (NEGATIVE) Result Diagrams: 11/14/20 04:53 11/14/20 04:53 Sepsis Event Note - Evaluation Sepsis Screening Result: No Definite Risk - Focused Exam Vital Signs: Vital Signs Temp Pulse Pulse Resp BP BP Pulse Ox 11/14/20 11:00 78 18 97 11/14/20 10:00 19 138/70 92 L 11/14/20 09:00 74 13 138/70 94 L 11/14/20 08:02 76 152/72 H 11/14/20 08:00 36.1 C 76 17 152/72 H 94 L 11/14/20 07:00 60 15 105/59 L 92 L 11/14/20 06:00 10 L 148/70 H 92 L 11/14/20 05:00 15 151/78 H 92 L 11/14/20 04:00 36.0 C L 11 L 104/65 92 L 11/14/20 03:00 9 L 113/68 95 11/14/20 02:00 15 128/58 L 92 L 11/14/20 01:00 13 114/48 L 95 11/14/20 00:00 36.0 C L 12 96/49 L 94 L - Problem List & Annotations (1) Hyponatremia SNOMED Code(s): 35971291 Code(s): E87.1 - HYPO-OSMOLALITY AND HYPONATREMIA Status: Acute Current Visit: Yes (2) Oral thrush SNOMED Code(s): 07118763 Code(s): B37.0 - CANDIDAL STOMATITIS Status: Acute Current Visit: Yes (3) Urinary retention SNOMED Code(s): 056901016 Code(s): R33.9 - RETENTION OF URINE, UNSPECIFIED Status: Acute Current Visit: Yes (4) Depression with anxiety SNOMED Code(s): 143449849 Code(s): F41.8 - OTHER SPECIFIED ANXIETY DISORDERS Status: Chronic Current Visit: Yes (5) H/O thyroidectomy SNOMED Code(s): 431285483, 233044109 Code(s): 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 Current Visit: Yes (6) HLD (hyperlipidemia) SNOMED Code(s): 92362103 Code(s): E78.5 - HYPERLIPIDEMIA, UNSPECIFIED Status: Chronic Current Visit: Yes (7) HTN (hypertension) SNOMED Code(s): 76116612 Code(s): I10 - ESSENTIAL (PRIMARY) HYPERTENSION Status: Chronic Current Visit: Yes (8) Type 2 diabetes mellitus SNOMED Code(s): 78213606 Code(s): E11.9 - TYPE 2 DIABETES MELLITUS WITHOUT COMPLICATIONS Status: Chronic Current Visit: Yes Qualifiers: Diabetes mellitus regional [employer] insulin use: without fpc use (9) Leukocytosis SNOMED Code(s): 841746012, 276724705 Code(s): D72.829 - ELEVATED WHITE BLOOD CELL COUNT, UNSPECIFIED Status: Acute Current Visit: No - Problem List Review Problem List Initiated/Reviewed/Updated: Yes - My Orders Last 24 Hours: My Active Orders 11/14/20 11:50 Remove Gomez Catheter [Urinary Catheter Removal] [RC] PER UNIT ROUTINE 11/14/20 18:00 BASIC METABOLIC PANEL,BMP [CHEM] Routine - Plan Plan:: This 70-year-old female admitted with hyponatremia and recent ESBL E. coli UTI 1. Hyponatremia likely due to polydipsia -sodium has improved to 131, will continue to monitor, fluid restrict 2. ESBL E. coli UTI -Although the UA is not significant for UTI but IV antibiotics were continued due to concern of leukocytosis, no cultures available, today there is a mild increase in WBC count, no source of infection is evident, will continue meropenum to complete the course, Urinary obstruction -possible due to increase dosage of doxapin, will do a voiding trial today and see if patient can be taken off the Gomez 3. Oral thrush -oral Diflucan given -Magic mouthwash with nystatin 4 times daily 4. Diabetes type 2 -Hold oral agents -Continue NovoLog sliding scale 4 times daily before meals and bed time -Start soft ADA diet 5. Hypertension -medications of diltiazem and Irbesartan 6. Hypothyroidism secondary to thyroidectomy -TSH 5.12 -Restart levothyroxine 7. severe depresion -No active or passive suicidal ideation today, patient states she is at her baseline in terms of her depression -will consider telepsych consult when available. VTE prophylaxis Heparin GI prophylaxis: Protonix CODE STATUS: Full code Dispo: 2 to 3 days pending improvement.
[2020-11-14 18:35] LABS: BLOOD UREA NITROGEN,BUN 8 mg/dL (7.0-18.0); CARBON DIOXIDE,CO2 31.5 mmol/L (21.0-32.0); CHLORIDE,CL 94 mmol/L (98-107); GLUCOSE RANDOM 123 mg/dL (74-106); SODIUM,NA 129 mmol/L (136-145)
[2020-11-14] MEDS: Rosuvastatin 10 MG Tab PO SCH (20:35)
[2020-11-15] MEDS: Acetaminophen 325 MG Tab PO PRN ×2 (00:56→09:44)
[2020-11-15] MEDS: DIPHENHYDRAMINE PO SCH ×6 (06:12→12:35)
[2020-11-15] MEDS: NYSTATIN PO SCH ×6 (06:12→12:35)
[2020-11-15] MEDS: LIDOCAINE 2% PO SCH ×6 (06:12→12:35)
[2020-11-15 06:31] LABS: BLOOD UREA NITROGEN,BUN 8 mg/dL (7.0-18.0); CARBON DIOXIDE,CO2 31.3 mmol/L (21.0-32.0); CHLORIDE,CL 95 mmol/L (98-107); GLUCOSE RANDOM 124 mg/dL (74-106); POTASSIUM,K 3.8 mmol/L (3.5-5.1); SODIUM,NA 129 mmol/L (136-145)
[2020-11-15] MEDS: Levothyroxine 100 MCG Tab PO SCH (07:37)
[2020-11-15] MEDS: Insulin Aspart 100 Units/ML 3 ML Pen SUBCUT SCH ×2 (07:38→12:35)
[2020-11-15] MEDS: Pantoprazole 40 MG in Sodium Chloride 0.9% 10 ML IV SCH (09:43)
[2020-11-15] MEDS: Meropenem Premix 1 GM in Premix Bag 1 BAG IV SCH (09:43)
[2020-11-15] MEDS: Diltiazem 120 MG Cap.CD PO SCH (09:45)
[2020-11-15] MEDS: Irbesartan 150 MG Tab PO SCH (09:45)
[2020-11-15] MEDS: Heparin Sodium 5,000 Units/ML Vial SUBCUT SCH (09:46)
[2020-11-15 12:41] VITALS: BP 139/75; PULSE 71
--- NOTE | 2020-11-15 12:54 | PCM.DCSUM1 ---
Discharge Summary - Discharge Data Discharge Date: 11/15/20 Discharge Disposition: Home, W Home Health Agency 06 Condition: Stable - Referral to Home Health Date of Face to Face Encounter: 11/15/20 Reason for Homebound Status: deconditioning from recent hospitalization, patient has a weeks, Primary Care Physician: Calin Nieto MD Skilled Need: fdc for weeks care. - Discharge Diagnosis/Problem(s) (1) Hyponatremia SNOMED Code(s): 35360410 ICD Code: E87.1 - HYPO-OSMOLALITY AND HYPONATREMIA Status: Acute Current Visit: Yes (2) Oral thrush SNOMED Code(s): 23495672 ICD Code: B37.0 - CANDIDAL STOMATITIS Status: Acute Current Visit: Yes (3) Urinary retention SNOMED Code(s): 970358700 ICD Code: R33.9 - RETENTION OF URINE, UNSPECIFIED Status: Acute Current Visit: Yes (4) Depression with anxiety SNOMED Code(s): 509314896 ICD Code: F41.8 - OTHER SPECIFIED ANXIETY DISORDERS Status: Chronic Current Visit: Yes (5) H/O thyroidectomy SNOMED Code(s): 335741120, 823870322 ICD Code: 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 Current Visit: Yes (6) HLD (hyperlipidemia) SNOMED Code(s): 47866155 ICD Code: E78.5 - HYPERLIPIDEMIA, UNSPECIFIED Status: Chronic Current Visit: Yes (7) HTN (hypertension) SNOMED Code(s): 04226242 ICD Code: I10 - ESSENTIAL (PRIMARY) HYPERTENSION Status: Chronic Current Visit: Yes (8) Type 2 diabetes mellitus SNOMED Code(s): 26555922 ICD Code: E11.9 - TYPE 2 DIABETES MELLITUS WITHOUT COMPLICATIONS Status: Chronic Current Visit: Yes Qualifiers: Diabetes mellitus hardware manager insulin use: without [facility] use (9) Leukocytosis SNOMED Code(s): 586836771, 860109993 ICD Code: D72.829 - ELEVATED WHITE BLOOD CELL COUNT, UNSPECIFIED Status: Acute Current Visit: No - Patient Summary/Data Consults: Consultations 11/14/20 12:34 Consult to Home Health [CONS] Routine - Patient Instructions Diet: Usual Diet as Tolerated Activity: As Tolerated Driving: Do Not Drive Showering/Bathing: May Shower Notify Provider of: Fever, Increased Pain, Swelling and Redness, Drainage, Nausea and/or Vomiting - Discharge Plan *PRESCRIPTION DRUG MONITORING PROGRAM REVIEWED*: No *COPY OF PRESCRIPTION DRUG MONITORING REPORT IN PATIENT KAREY: No Prescriptions/Med Rec: Doxepin HCl [Doxepin] 100 mg PO DAILY #30 capsule Home Medications: Home Meds Glimepiride 1 mg PO QAM 01/26/19 [History] Citalopram [Citalopram HBr] 20 mg PO BEDTIME 02/21/19 [History] Rosuvastatin [Crestor] 10 mg PO BEDTIME 07/28/19 [History] Irbesartan [Avapro] 150 mg PO DAILY 09/14/20 [History] Levothyroxine Sodium [Synthroid] 100 mcg PO QAM 09/14/20 [History] ALPRAZolam [Alprazolam ER] 1 mg PO TID MDD Two to three times per day 11/11/20 [History] Acetaminophen [Tylenol Extra Strength] 1,000 mg PO Q4H PRN 11/11/20 [History] Cholecalciferol (Vitamin D3) [Vitamin D3] 6,000 unit PO DAILY 11/11/20 [History] Diltiazem [Cardizem CD] 120 mg PO DAILY 11/11/20 [History] Esomeprazole [NexIUM] 40 mg PO DAILY 11/11/20 [History] nitrofurantoin macrocrystaL [Nitrofurantoin] 100 mg PO BID 11/11/20 [History] Doxepin HCl [Doxepin] 100 mg PO DAILY #30 capsule 11/15/20 [Rx] Oxygen Therapy Mode: Room Air Patient Handouts: Indwelling Urinary Catheter Care, Adult, ESBL Infection Information, Hyponatremia, Acute Urinary Retention, Female, [id number] Referrals: Roma Braga DO [Ordering Only Provider] - 12/19/20 3:45 pm Calin Nieto MD [Primary Care Provider] - 11/23/20 9:00 am - Patient Data Vitals - Most Recent: Last Vital Signs Temp 36.1 C 11/15/20 12:40 Pulse 71 11/15/20 12:40 Resp 16 11/15/20 12:40 BP 139/75 11/15/20 12:40 Pulse Ox 96 11/15/20 12:40 Weight - Most Recent: 73.8 kg I&O - Last 24 hours: Intake & Output 11/14/20 11/15/20 11/15/20 22:59 06:59 14:59 Intake Total 50 750 Output Total 800 1400 Balance -750 -650 Lab Results - Last 24 hrs: Laboratory Results - last 24 hr 11/14/20 11/14/20 11/14/20 Range/Units 15:46 18:02 20:32 WBC (4.0-11.0) K/uL RBC (4.30-5.90) M/uL Hgb (12.0-16.0) g/dL Hct (36.0-46.0) % MCV (80.0-98.0) fL MCH (27.0-32.0) pg MCHC (31.0-37.0) g/dL RDW Std Deviation (28.0-62.0) fl RDW Coeff of Eran (11.0-15.0) % Plt Count (150-400) K/uL MPV (7.40-12.00) fL Neut % (Auto) (48.0-80.0) % Lymph % (Auto) (16.0-40.0) % [place] % (Auto) (0.0-15.0) % Eos % (Auto) (0.0-7.0) % Baso % (Auto) (0.0-1.5) % Neut # (Auto) (1.4-5.7) K/uL Lymph # (Auto) (0.6-2.4) K/uL [place] # (Auto) (0.0-0.8) K/uL Eos # (Auto) (0.0-0.7) K/uL Baso # (Auto) (0.0-0.1) K/uL Nucleated RBC % /100WBC Nucleated RBCs # K/uL Sodium 129 L (136-145) mmol/L Potassium 4.0 (3.5-5.1) mmol/L Chloride 94 L (98-107) mmol/L Carbon Dioxide 31.5 (21.0-32.0) mmol/L BUN 8 (7.0-18.0) mg/dL Creatinine 0.8 (0.6-1.0) mg/dL Est Cr Clr Drug Dosing 53.23 mL/min Estimated GFR (MDRD) > 60.0 ml/min Glucose 123 H (74-106) mg/dL POC Glucose 137 H 150 H (70-99) mg/dL Calcium 8.2 L (8.5-10.1) mg/dL Phosphorus (2.6-4.7) mg/dL Magnesium (1.8-2.4) mg/dL 11/15/20 11/15/20 11/15/20 Range/Units 05:30 05:30 07:36 WBC 11.24 H (4.0-11.0) K/uL RBC 4.03 L (4.30-5.90) M/uL Hgb 11.6 L (12.0-16.0) g/dL Hct 33.5 L (36.0-46.0) % MCV 83.1 (80.0-98.0) fL MCH 28.8 (27.0-32.0) pg MCHC 34.6 (31.0-37.0) g/dL RDW Std Deviation 39.2 (28.0-62.0) fl RDW Coeff of Eran 13 (11.0-15.0) % Plt Count 310 (150-400) K/uL MPV 8.50 (7.40-12.00) fL Neut % (Auto) 54.7 (48.0-80.0) % Lymph % (Auto) 35.4 (16.0-40.0) % [place] % (Auto) 7.5 (0.0-15.0) % Eos % (Auto) 2.2 (0.0-7.0) % Baso % (Auto) 0.2 (0.0-1.5) % Neut # (Auto) 6.2 H (1.4-5.7) K/uL Lymph # (Auto) 4.0 H (0.6-2.4) K/uL [place] # (Auto) 0.8 (0.0-0.8) K/uL Eos # (Auto) 0.3 (0.0-0.7) K/uL Baso # (Auto) 0.0 (0.0-0.1) K/uL Nucleated RBC % 0.0 /100WBC Nucleated RBCs # 0 K/uL Sodium 129 L (136-145) mmol/L Potassium 3.8 (3.5-5.1) mmol/L Chloride 95 L (98-107) mmol/L Carbon Dioxide 31.3 (21.0-32.0) mmol/L BUN 8 (7.0-18.0) mg/dL Creatinine 0.7 (0.6-1.0) mg/dL Est Cr Clr Drug Dosing 60.84 mL/min Estimated GFR (MDRD) > 60.0 ml/min Glucose 124 H (74-106) mg/dL POC Glucose 122 H (70-99) mg/dL Calcium 8.3 L (8.5-10.1) mg/dL Phosphorus 2.4 L (2.6-4.7) mg/dL Magnesium 2.1 (1.8-2.4) mg/dL 11/15/20 Range/Units 12:33 WBC (4.0-11.0) K/uL RBC (4.30-5.90) M/uL Hgb (12.0-16.0) g/dL Hct (36.0-46.0) % MCV (80.0-98.0) fL MCH (27.0-32.0) pg MCHC (31.0-37.0) g/dL RDW Std Deviation (28.0-62.0) fl RDW Coeff of Eran (11.0-15.0) % Plt Count (150-400) K/uL MPV (7.40-12.00) fL Neut % (Auto) (48.0-80.0) % Lymph % (Auto) (16.0-40.0) % [place] % (Auto) (0.0-15.0) % Eos % (Auto) (0.0-7.0) % Baso % (Auto) (0.0-1.5) % Neut # (Auto) (1.4-5.7) K/uL Lymph # (Auto) (0.6-2.4) K/uL [place] # (Auto) (0.0-0.8) K/uL Eos # (Auto) (0.0-0.7) K/uL Baso # (Auto) (0.0-0.1) K/uL Nucleated RBC % /100WBC Nucleated RBCs # K/uL Sodium (136-145) mmol/L Potassium (3.5-5.1) mmol/L Chloride (98-107) mmol/L Carbon Dioxide (21.0-32.0) mmol/L BUN (7.0-18.0) mg/dL Creatinine (0.6-1.0) mg/dL Est Cr Clr Drug Dosing mL/min Estimated GFR (MDRD) ml/min Glucose (74-106) mg/dL POC Glucose 103 H (70-99) mg/dL Calcium (8.5-10.1) mg/dL Phosphorus (2.6-4.7) mg/dL Magnesium (1.8-2.4) mg/dL Med Orders - Current: Current Medications Acetaminophen (Acetaminophen 325 Mg Tab) 650 mg PO Q4H PRN PRN Reason: Pain (Mild 1-3)/fever Last Admin: 11/15/20 09:44 Dose: 650 mg Documented by: Alprazolam (Alprazolam 0.5 Mg Tab) 1 mg PO TID PRN PRN Reason: Anxiety Last Admin: 11/14/20 20:38 Dose: 1 mg Documented by: Lidocaine HCl 5 ml/Diphenhydramine HCl 12.5 mg/Nystatin 5 ml 0 ml PO QID [facility] Last Admin: 11/15/20 12:35 Dose: 15 ml Documented by: Dextrose/Water (50% Dextrose In Water 50 Ml Syringe) 50 ml IVPUSH ASDIRECTED PRN PRN Reason: Hypoglycemia Diltiazem HCl (Diltiazem 120 Mg Cap.Cd) 120 mg PO DAILY [facility] Last Admin: 11/15/20 09:45 Dose: 120 mg Documented by: Docusate Sodium (Docusate Sodium 100 Mg Cap) 100 mg PO BID PRN PRN Reason: Constipation Last Admin: 11/15/20 07:37 Dose: 100 mg Documented by: Glucagon (Glucagon,Human Recombinant 1 Mg Vial) 1 mg IM ASDIRECTED PRN PRN Reason: Hypoglycemia Heparin Sodium (Porcine) (Heparin Sodium 5,000 Units/Ml Vial) 5,000 units SUBCUT Q8H [facility] Last Admin: 11/15/20 09:46 Dose: 5,000 units Documented by: Meropenem/Sodium Chloride 1 gm (/ Premix) 50 mls @ 100 mls/hr IV Q8H [facility] Last Admin: 11/15/20 09:43 Dose: 100 mls/hr Documented by: Pantoprazole Sodium 40 mg/ (Sodium Chloride) 10 mls @ 300 mls/hr IV Q24H [facility] Last Admin: 11/15/20 09:43 Dose: 300 mls/hr Documented by: Insulin Aspart (Insulin Aspart 100 Units/Ml 3 Ml Pen) 0 unit SUBCUT QIDACANDBED [facility]; Protocol Last Admin: 11/15/20 12:35 Dose: Not Given Documented by: Irbesartan (Irbesartan 150 Mg Tab) 150 mg PO DAILY [facility] Last Admin: 11/15/20 09:45 Dose: 150 mg Documented by: Levothyroxine Sodium (Levothyroxine 100 Mcg Tab) 100 mcg PO ACBREAKFAST [facility] Last Admin: 11/15/20 07:37 Dose: 100 mcg Documented by: Ondansetron HCl (Ondansetron 4 Mg/2 Ml Sdv) 4 mg IVPUSH Q4H PRN PRN Reason: Nausea Doxepin Hcl 100 Mg (Capsule) 1 each PO BEDTIME [facility] Last Admin: 11/14/20 20:35 Dose: 1 each Documented by: Rosuvastatin Calcium (Rosuvastatin 10 Mg Tab) 10 mg PO BEDTIME [facility] Last Admin: 11/14/20 20:35 Dose: 10 mg Documented by: Sodium Chloride (Sodium Chloride 0.9% 2.5 Ml Syringe) 2.5 ml FLUSH ASDIRECTED P RN PRN Reason: Keep Vein Open Discontinued Medications Alprazolam (Alprazolam 0.5 Mg Tab) 1 mg PO BID PRN PRN Reason: Anxiety Last Admin: 11/12/20 09:31 Dose: 1 mg Documented by: Diphenhydr/Magaldrate/Simeth/Lidoca (Al And Mag Hydroxide/Diphenhydramine/Lidocaine/Simethicone 237 Ml Bottle) 15 ml PO ONETIME STA Stop: 11/11/20 03:56 Last Admin: 11/11/20 04:16 Dose: 15 ml Documented by: Fluconazole (Fluconazole Susp 40 Mg/1 Ml 35 Ml Bottle) 150 mg PO NOW STA Stop: 11/11/20 10:19 Last Admin: 11/11/20 11:25 Dose: 4 ml Documented by: Sodium Chloride (Normal Saline) 1,000 mls @ 999 mls/hr IV .BOLUS ONE Stop: 11/11/20 06:08 Last Admin: 11/11/20 05:11 Dose: 999 mls/hr Documented by: Sodium Chloride (Normal Saline) 1,000 mls @ 100 mls/hr IV Q10H [facility] Last Infusion: 11/12/20 18:48 Dose: 0 mls/hr Documented by: Sodium Chloride (Sodium Chloride 3%) 500 mls @ 30 mls/hr IV ASDIRECTED [facility] Last Infusion: 11/12/20 19:08 Dose: 30 mls/hr Documented by: Insulin Aspart (Insulin Aspart 100 Units/Ml 3 Ml Pen) 0 unit SUBCUT Q6H [facility]; Protocol Last Admin: 11/12/20 18:12 Dose: Not Given Documented by: Lidocaine HCl (Lidocaine 2% Viscous Solution 15 Ml Cup) 15 ml PO ONETIME ONE Stop: 11/11/20 07:42 Last Admin: 11/11/20 08:03 Dose: Not Given Documented by: Nystatin (Nystatin Susp 100,000 Unit/Ml 5 Ml Ud Cup) 5 ml PO ONETIME ONE Stop: 11/11/20 03:56 Last Admin: 11/11/20 04:16 Dose: 5 ml Documented by: Doxepin Hcl 150 Mg (Capsule) 1 each PO DAILY [facility] Last Admin: 11/12/20 14:47 Dose: Not Given Documented by: Doxepin Hcl 150 Mg (Capsule) 1 each PO BEDTIME [facility] Last Admin: 11/12/20 20:07 Dose: 1 each Documented by:
[2020-11-15] MEDS: ALPRAZolam 0.5 MG Tab PO PRN (13:15)
== END 2020-11-15 14:40 | disposition home health service (06) | DRG 641 ==
LOC: MW.ED 02:41 → MW.ICU 06:15 → MW.MS 11-14 17:44
PROVIDERS: ADMIT Internal Medicine; ATTEND Internal Medicine
DX: E87.1 Hypo-osmolality and hyponatremia (principal); R45.851 Suicidal ideations; B37.0 Candidal stomatitis; N39.0 Urinary tract infection, site not specified; F41.8 Other specified anxiety disorders; E78.5 Hyperlipidemia, unspecified; I10 Essential (primary) hypertension; E66.9 Obesity, unspecified; E89.0 Postprocedural hypothyroidism; K21.9 Gastro-esophageal reflux disease without esophagitis; Z79.899 Other long term (current) drug therapy; E11.9 Type 2 diabetes mellitus without complications; B96.20 Unspecified Escherichia coli [E. coli] as the cause of diseases classified elsewhere; Z90.89 Acquired absence of other organs; Z97.3 Presence of spectacles and contact lenses; Z79.4 Long term (current) use of insulin; Z20.822 Contact with and (suspected) exposure to COVID-19
CPT/HCPCS: 36415; 71045; 80053; 80305; 81001; 83735; 83935; 84300; 84439; 84484; 85025; A9270 ×2; J7030; U0002; 51702; 74018; 74018-26; 74176; 74176-26; 80048; 82947; 84100; 84443; 93005; 93010; 99284; C9113; J1644; J1815-GY; J2185; J7131

== ENCOUNTER 2020-11-30 22:38 | Inpatient (IN) | payer MEDICARE, BC ==
[2020-11-30] MEDS ORDERED: Sodium Chloride 0.9% 1,000 ML IV ONE (23:50)
[2020-11-30] MEDS ORDERED: Sodium Chloride 0.9% 10 ML Syringe FLUSH PRN (23:50)
[2020-11-30] MEDS ORDERED: Ondansetron 4 MG/2 ML SDV IVPUSH ONE (23:50)
[2020-11-30] MEDS ORDERED: Ketorolac 15 MG/ML SDV IVPUSH ONE (23:50)
[2020-11-30] MEDS ORDERED: Sodium Chloride 0.9% 2.5 ML Syringe FLUSH PRN (23:50)
[2020-12-01 00:10] LABS: CARBON DIOXIDE,CO2 24.3 mmol/L (21.0-32.0); POTASSIUM,K 4.1 mmol/L (3.5-5.1)
--- NOTE | 2020-12-01 00:53 | CT ---
INDICATION: Abdominal pain. COMPARISON: Noncontrast CT of the abdomen and pelvis from 11/11/2020 TECHNIQUE: CT examination of the abdomen and pelvis was performed without contrast enhancement using 2.5 mm thick axial sections from the lung bases through the pubic symphysis. Oral contrast was not administered. Please note that all CT scans at this facility use dose modulation, iterative reconstruction, and/or weight-based dosing when appropriate to reduce radiation dose to as low as reasonably achievable. FINDINGS: In the abdomen, the unenhanced liver, spleen, pancreas, and adrenals are normal in appearance. The unenhanced kidneys are normal in appearance. There is stable minimal cholelithiasis, with a tiny amount of small dependent calculi in the gallbladder. There is no sign of gallbladder wall thickening or pericholecystic fluid. The abdominal aorta is normal in caliber with no sign of dilatation. There is no sign of retroperitoneal mass or adenopathy. The stomach, loops of small bowel, and colon in the abdomen are normal in appearance. Again seen is a tiny fat containing periumbilical hernia. In the pelvis, the appendix is normal in appearance with no sign of inflammatory process. The loops of small bowel and colon in the pelvis are normal in appearance. The uterus and adnexal regions are normal in appearance. The urinary bladder now contains a Gomez catheter and is now empty. There is no sign of pelvic or inguinal mass or adenopathy. Again seen are small fat containing bilateral umbilical hernias, right greater than left. There is no sign of free air or free fluid in the abdomen or pelvis. Again seen is mild atelectasis of the posterior left lower lobe along the left hemidiaphragm. The lung bases are otherwise clear. There is stable grade 1 anterior subluxation of L4 on L5 with moderate L4-5 disc degenerative disease, associated with moderate bilateral facet arthropathy. Again seen is mild anterior wedging of the T12 vertebral body, an old mild compression fracture. Again seen is moderate scoliosis of the lumbar spine convex towards the left. IMPRESSION: Nothing seen to explain the patient`s abdominal pain. No sign of bowel distension. No sign of urinary system abnormality. No sign of pancreatitis. CT of the abdomen shows no change in minimal cholelithiasis without evidence of acute cholecystitis. CT of the pelvis show satisfactory positioning of a Gomez catheter. Please note that all CT scans at this facility use dose modulation, iterative reconstruction, and/or weight-based dosing when appropriate to reduce radiation dose to as low as reasonably achievable. Dictated by Karl Fried MD @ 12/01/2020 12:52:[address] Karl Fried @ Dec 01 2020 12:52AM
[2020-12-01] MEDS ORDERED: Lactated Ringers 1,000 ML IV SCH ×2 (01:15→01:45)
--- NOTE | 2020-12-01 01:20 | EDM.PDOC ---
ED HPI GENERAL MEDICAL PROBLEM - General Chief Complaint: General Time Seen by Provider: 11/30/20 23:47 - History of Present Illness INITIAL COMMENTS - FREE TEXT/NARRATIVE: HISTORY AND PHYSICAL: History of present illness: This is a 70-year-old female with a history significant for type 2 diabetes, hypothyroidism, hyponatremia (patient's sodium prior to her last discharge was 132), hyperlipidemia, urinary retention, recent bladder infection with ESBL E. coli who has been recently treated with meropenem, he was discharged from the hospital with a Gomez catheter secondary to her history of urinary retention resulting in urinary tract infections, who presents ER today secondary to fever of 103.3 at home with generalized malaise and diffuse body aches and weakness. Patient reports that she is nauseous with no vomiting. Patient reports that she is got diffuse abdominal discomfort in her lower abdomen. Patient reports no change in her urinary output. Patient describes episode of rigors at home. Patient denies any diarrhea and reports that she has a problem with moving her bowels. Patient denies any recent URI symptoms such as cough cold or runny nose. Patient reports that while she was in the hospital that she was told that she had oral thrush but that appears to been treated. Review of systems: As per history of present illness and below otherwise all systems reviewed and negative. Past medical history: As per history of present illness and as reviewed below otherwise noncontributory. Surgical history: As per history of present illness and as reviewed below otherwise noncontributory. Social history: No reported history of drug abuse. Family history: As per history of present illness and as reviewed below otherwise noncontributory. Physical exam: This patient was seen and evaluated during the 2019 SARS-CoV-2 novel coronavirus pandemic period. Community viral transmission is ongoing at time of this encounter and the emergency department is operating under pandemic response procedures. Constitutional: Patient is oriented to person, place, and time. Appears well- developed and well-nourished. No distress. HEENT: Moist mucous membranes Head: Normocephalic and atraumatic Eyes: Right eye exhibits no discharge. Left eye exhibits no discharge. No scleral icterus Neck: Normal range of motion. No tracheal deviation present. Cardiovascular: Normal rate and regular rhythm. Pulmonary: Effort normal, no respiratory distress. Abd: Soft, nondistended, no rebound/guarding, no psoas or obturator signs, no tenderness at Mcberney's point, no Story's sign. Pt does not present with an exam that would be consistent with an acute surgical abdomen at this time, mild tenderness to palpation to her lower abdomen Musculoskeletal: Normal range of motion Neurologic: Alert and oriented to person, place and time. Skin: [place], warm and dry. Psychiatric: Normal mood and affect. Behavior is normal. Judgment and thought content normal. Nursing note and vital signs have been reviewed Diagnostics: Chest Xray: Normal cardiac silhouette No infiltrates or effusions identified. No PTX No evidence of acute bony fracture. As interpreted by ER MD: Jonel EKG: As interpreted by ER physician: Jonel: Nonspecific ST-T wave abnormalities Normal axis No evidence of ST elevation [place] Normal sinus rhythm heart rate of 90 CT abdomen pelvis without any acute pathology identified UA reveals a significant amount of [id number]-and a small amount of WBCs (2-6), and 2+ bacteria with moderate leukocyte Estrace. Covid test pending Therapeutics: [] Assessment and plan: This is a 70-year-old female with a history significant for multiple urinary tract infections presumed to be secondary to urinary retention who presents ER today with a Gomez catheter in place and fever of 103.3 at home that started earlier today with some rigors. Patient reports that she had nausea but no episodes of vomiting. Patient does complain of some abdominal discomfort in her lower abdomen. Patient's labs here in the ED are significant for hyponatremia with a sodium of 125. Patient's BUN and creatinine were 16 and 1.0. Patient's white count was noted to be elevated at 14,000 without a significant left shift. Given patient's hyponatremia, her fever at home with rigors, her elevated white count patient will be admitted to the hospital for hydration as well as monitoring her hyponatremia and possible UTI as source of her fever. Discussed with Dr. Martínez who agrees with ops telemetry level of care. Patient had a chest x-ray that was unremarkable Definitive disposition and diagnosis as appropriate pending reevaluation and review of above. 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: Reports: Acetaminophen flank area Pain Score (Numeric/FACES): 7 - Related Data Allergies Allergy/AdvReac Type Severity Reaction Status Date / Time amoxicillin Allergy Swelling Verified 11/30/20 23:16 levofloxacin Allergy Swelling Verified 11/30/20 23:16 Home Meds: Home Meds Glimepiride 1 mg PO QAM 01/26/19 [History] Citalopram [Citalopram HBr] 20 mg PO BEDTIME 02/21/19 [History] Rosuvastatin [Crestor] 10 mg PO BEDTIME 07/28/19 [History] Irbesartan [Avapro] 150 mg PO DAILY 09/14/20 [History] Levothyroxine Sodium [Synthroid] 100 mcg PO QAM 09/14/20 [History] ALPRAZolam [Alprazolam ER] 1 mg PO TID MDD Two to three times per day 11/11/20 [History] Acetaminophen [Tylenol Extra Strength] 1,000 mg PO Q4H PRN 11/11/20 [History] Cholecalciferol (Vitamin D3) [Vitamin D3] 6,000 unit PO DAILY 11/11/20 [History] Diltiazem [Cardizem CD] 120 mg PO DAILY 11/11/20 [History] Esomeprazole [NexIUM] 40 mg PO DAILY 11/11/20 [History] Doxepin HCl [Doxepin] 100 mg PO DAILY #30 capsule 11/15/20 [Rx] Nystatin [Mycostatin] 5 ml PO QID #1 bottle 11/15/20 [Rx] Esomeprazole [NexIUM] 40 mg PO DAILY 11/30/20 [History] Past Medical History HEENT History: Reports: Allergic Rhinitis, Other (See Below) Other HEENT History: wears glasses. 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: Reports: None Musculoskeletal History: Reports: Arthritis, Back Pain, Chronic, Fracture, Neck Pain, Chronic Other Musculoskeletal History: hx fx wrist as a child, hx of spinal stenosis Neurological History: Reports: Other (See Below) Other Neuro History: degenerative disc disease Psychiatric History: Reports: Anxiety, Depression, Suicidal Ideation Endocrine/Metabolic History: Reports: Diabetes, Type II, Hypothyroidism, Obesity/BMI 30+ Insulin Pump Model and Gift Basket Packer: None Hematologic History: Reports: None Immunologic History: Reports: None Oncologic (Cancer) History: Reports: None Dermatologic History: Reports: None - Infectious Disease History Infectious Disease History: Reports: Chicken Pox, Measles, Mononucleosis - Past Surgical History Head Surgeries/Procedures: Reports: None HEENT Surgical History: Reports: Oral Surgery, Tonsillectomy Cardiovascular Surgical History: Reports: None Respiratory Surgical History: Reports: None GI Surgical History: Reports: None, Colonoscopy Female Surgical History: Reports: None Endocrine Surgical History: Reports: Thyroidectomy Neurological Surgical History: Reports: None Musculoskeletal Surgical History: Reports: None Oncologic Surgical History: Reports: None Dermatological Surgical History: Reports: None Social & Family History - Family History Family Medical History: No Pertinent Family History - Caffeine Use Caffeine Use: Reports: Tea - Recreational Drug Use Recreational Drug Use: No - Living Situation & Occupation Living situation: Reports: Occupation: Retired ED ROS GENERAL - Review of Systems Review Of Systems: See Below ED EXAM, GENERAL - Physical Exam Exam: See Below #1 Interpretation EKG Interpretation Comments: EKG: As interpreted by ER physician: Jonel: Nonspecific ST-T wave abnormalities Normal axis No evidence of ST elevation [place] Normal sinus rhythm heart rate of 90 Course - Vital Signs Last Recorded V/S: Last Vital Signs Temp 99.2 F 12/01/20 02:39 Pulse 79 12/01/20 02:39 Resp 18 12/01/20 02:39 BP 102/55 L 12/01/20 02:39 Pulse Ox 95 12/01/20 02:39 - Orders/Labs/Meds Orders: Active Orders 24 hr Category Date Time Status Patient Status [ADT] Routine ADT 12/01/20 02:43 Active EKG Documentation Completion [RC] AM Care 11/30/20 23:50 Active CULTURE BLOOD [BC] Stat Lab 11/30/20 23:51 Received CULTURE BLOOD [BC] Stat Lab 11/30/20 23:51 Received Lactated Ringers [Ringers, Lactated] 1,000 ml Med 12/01/20 01:15 Active IV .BOLUS Lactated Ringers [Ringers, Lactated] 1,000 ml Med 12/01/20 01:45 Active IV .BOLUS Sodium Chloride 0.9% [Saline Flush] Med 11/30/20 23:50 Active 10 ml FLUSH ASDIRECTED PRN Sodium Chloride 0.9% [Saline Flush] Med 11/30/20 23:50 Active 2.5 ml FLUSH ASDIRECTED PRN Blood Culture x2 Reflex Set [OM.PC] Stat Oth 11/30/20 23:51 Ordered Saline Lock Insert [OM.PC] Stat Ot 11/30/20 23:50 Ordered Medication Orders Lactated Ringer's (Ringers, Lactated) 1,000 mls @ 999 mls/hr IV .BOLUS JORGE Last Admin: 12/01/20 01:29 Dose: 999 mls/hr Documented by: CHEYANNE Lactated Ringer's (Ringers, Lactated) 1,000 mls @ 999 mls/hr IV .BOLUS JORGE Last Admin: 12/01/20 01:43 Dose: 999 mls/hr Documented by: CHEYANNE Sodium Chloride (Sodium Chloride 0.9% 10 Ml Syringe) 10 ml FLUSH ASDIRECTED PRN PRN Reason: Keep Vein Open Sodium Chloride (Sodium Chloride 0.9% 2.5 Ml Syringe) 2.5 ml FLUSH ASDIRECTED PRN PRN Reason: Keep Vein Open Labs: Laboratory Tests 11/30/20 11/30/20 11/30/20 Range/Units 23:20 23:20 23:20 WBC 13.98 H (4.0-11.0) K/uL RBC 3.98 L (4.30-5.90) M/uL Hgb 11.4 L (12.0-16.0) g/dL Hct 32.7 L (36.0-46.0) % MCV 82.2 (80.0-98.0) fL MCH 28.6 (27.0-32.0) pg MCHC 34.9 (31.0-37.0) g/dL RDW Std Deviation 39.8 (28.0-62.0) fl RDW Coeff of Eran 13 (11.0-15.0) % Plt Count 340 (150-400) K/uL MPV 8.50 (7.40-12.00) fL Neut % (Auto) 78.3 (48.0-80.0) % Lymph % (Auto) 10.4 L (16.0-40.0) % [place] % (Auto) 11.0 (0.0-15.0) % Eos % (Auto) 0.1 (0.0-7.0) % Baso % (Auto) 0.2 (0.0-1.5) % Neut # (Auto) 10.9 H (1.4-5.7) K/uL Lymph # (Auto) 1.5 (0.6-2.4) K/uL [place] # (Auto) 1.5 H (0.0-0.8) K/uL Eos # (Auto) 0.0 (0.0-0.7) K/uL Baso # (Auto) 0.0 (0.0-0.1) K/uL Nucleated RBC % 0.0 /100WBC Nucleated RBCs # 0 K/uL Sodium 125 L (136-145) mmol/L Potassium 4.1 (3.5-5.1) mmol/L Chloride 89 L (98-107) mmol/L Carbon Dioxide 24.3 (21.0-32.0) mmol/L BUN 16 (7.0-18.0) mg/dL Creatinine 1.0 (0.6-1.0) mg/dL Est Cr Clr Drug Dosing 42.59 mL/min Estimated GFR (MDRD) 55.1 ml/min Glucose 210 H (74-106) mg/dL Lactic Acid (0.4-2.0) mmol/L Calcium 8.7 (8.5-10.1) mg/dL Total Bilirubin 0.3 (0.2-1.0) mg/dL AST 13 L (15-37) IU/L ALT 32 (14-63) IU/L Alkaline Phosphatase 116 (46-116) U/L Total Protein 7.1 (6.4-8.2) g/dL Albumin 3.4 (3.4-5.0) g/dL Globulin 3.7 (2.6-4.0) g/dL Albumin/Globulin Ratio 0.9 (0.9-1.6) Lipase 160 (73-393) U/L Urine Color YELLOW Urine Appearance SLT CLOUDY Urine pH 6.0 (5.0-8.0) Ur Specific [place] 1.015 (1.001-1.035) Urine Protein 30 H (NEGATIVE) mg/dL Urine Glucose (UA) 250 H (NEGATIVE) mg/dL Urine Ketones NEGATIVE (NEGATIVE) mg/dL Urine Occult Blood MODERATE H (NEGATIVE) Urine Nitrite NEGATIVE (NEGATIVE) Urine Bilirubin NEGATIVE (NEGATIVE) Urine Urobilinogen 0.2 (<2.0) EU/dL Ur Leukocyte Esterase MODERATE H (NEGATIVE) Urine RBC 30-40 (0-2/HPF) Urine WBC 2-6 (0-5/HPF) Ur Epithelial Cells FEW (NONE-FEW) Urine Bacteria 2+ H (NEGATIVE) Urinalysis Comment SARS-CoV-2 RNA (BRIDGET) (NEGATIVE) 11/30/20 12/01/20 Range/Units 23:20 01:00 WBC (4.0-11.0) K/uL RBC (4.30-5.90) M/uL Hgb (12.0-16.0) g/dL Hct (36.0-46.0) % MCV (80.0-98.0) fL MCH (27.0-32.0) pg MCHC (31.0-37.0) g/dL RDW Std Deviation (28.0-62.0) fl RDW Coeff of Eran (11.0-15.0) % Plt Count (150-400) K/uL MPV (7.40-12.00) fL Neut % (Auto) (48.0-80.0) % Lymph % (Auto) (16.0-40.0) % [place] % (Auto) (0.0-15.0) % Eos % (Auto) (0.0-7.0) % Baso % (Auto) (0.0-1.5) % Neut # (Auto) (1.4-5.7) K/uL Lymph # (Auto) (0.6-2.4) K/uL [place] # (Auto) (0.0-0.8) K/uL Eos # (Auto) (0.0-0.7) K/uL Baso # (Auto) (0.0-0.1) K/uL Nucleated RBC % /100WBC Nucleated RBCs # K/uL Sodium (136-145) mmol/L Potassium (3.5-5.1) mmol/L Chloride (98-107) mmol/L Carbon Dioxide (21.0-32.0) mmol/L BUN (7.0-18.0) mg/dL Creatinine (0.6-1.0) mg/dL Est Cr Clr Drug Dosing mL/min Estimated GFR (MDRD) ml/min Glucose (74-106) mg/dL Lactic Acid 1.9 (0.4-2.0) mmol/L Calcium (8.5-10.1) mg/dL Total Bilirubin (0.2-1.0) mg/dL AST (15-37) IU/L ALT (14-63) IU/L Alkaline Phosphatase (46-116) U/L Total Protein (6.4-8.2) g/dL Albumin (3.4-5.0) g/dL Globulin (2.6-4.0) g/dL Albumin/Globulin Ratio (0.9-1.6) Lipase (73-393) U/L Urine Color Urine Appearance Urine pH (5.0-8.0) Ur Specific [place] (1.001-1.035) Urine Protein (NEGATIVE) mg/dL Urine Glucose (UA) (NEGATIVE) mg/dL Urine Ketones (NEGATIVE) mg/dL Urine Occult Blood (NEGATIVE) Urine Nitrite (NEGATIVE) Urine Bilirubin (NEGATIVE) Urine Urobilinogen (<2.0) EU/dL Ur Leukocyte Esterase (NEGATIVE) Urine RBC (0-2/HPF) Urine WBC (0-5/HPF) Ur Epithelial Cells (NONE-FEW) Urine Bacteria (NEGATIVE) Urinalysis Comment SARS-CoV-2 RNA (BRIDGET) NEGATIVE (NEGATIVE) Meds: Medications Generic Name Dose Route Start Last Admin Trade Name Freq PRN Reason Stop Dose Admin Lactated Ringer's 1,000 mls @ 999 mls/hr 12/01/20 01:15 12/01/20 01:29 Ringers, Lactated IV 999 mls/hr .BOLUS JORGE Administration Lactated Ringer's 1,000 mls @ 999 mls/hr 12/01/20 01:45 12/01/20 01:43 Ringers, Lactated IV 999 mls/hr .BOLUS JORGE Administration Sodium Chloride 10 ml 11/30/20 23:50 Sodium Chloride 0.9% 10 Ml Syringe FLUSH ASDIRECTED PRN Keep Vein Open Sodium Chloride 2.5 ml 11/30/20 23:50 Sodium Chloride 0.9% 2.5 Ml Syringe FLUSH ASDIRECTED PRN Keep Vein Open Discontinued Medications Generic Name Dose Route Start Last Admin Trade Name Freq PRN Reason Stop Dose Admin Sodium Chloride 1,000 mls @ 999 mls/hr 11/30/20 23:50 12/01/20 00:14 Normal Saline IV 12/01/20 00:50 999 mls/hr .Bolus ONE Administration Meropenem/Sodium Chloride 50 mls @ 100 mls/hr 12/01/20 01:27 12/01/20 01:42 Meropenem In Ns 1 Gm/50 Ml IV 12/01/20 01:56 100 mls/hr ONETIME ONE Administration Ketorolac Tromethamine 15 mg 11/30/20 23:50 12/01/20 00:14 Ketorolac 15 Mg/Ml Sdv IVPUSH 11/30/20 23:51 15 mg ONETIME ONE Administration Ondansetron HCl 4 mg 11/30/20 23:50 12/01/20 00:14 Ondansetron 4 Mg/2 Ml Sdv IVPUSH 11/30/20 23:51 4 mg ONETIME ONE Administration Departure - Departure Time of Disposition: 02:45 Disposition: Refer to Observation Condition: Good Clinical Impression: Hyponatremia, Dehydration, Urinary tract infection, Abdominal pain - Discharge Information Referrals: Calin Nieto MD [Primary Care Provider] - Forms: ED Department Discharge Sepsis Event Note (ED) - Evaluation Sepsis Screening Result: No Definite Risk - Focused Exam Vital Signs: Vital Signs Temp Temp Pulse Resp BP Pulse Ox 12/01/20 02:39 99.2 F 79 18 102/55 L 95 12/01/20 02:10 78 18 95/47 L 93 L 12/01/20 00:55 100 F 85 20 84/43 L 92 L 11/30/20 23:45 95 20 99/45 L 93 L 11/30/20 23:05 100 F 84 20 148/76 H 94 L - My Orders Last 24 Hours: My Active Orders 11/30/20 23:50 EKG Documentation Completion [RC] AM Sodium Chloride 0.9% [Saline Flush] 10 ml FLUSH ASDIRECTED PRN Sodium Chloride 0.9% [Saline Flush] 2.5 ml FLUSH ASDIRECTED PRN Saline Lock Insert [OM.PC] Stat 11/30/20 23:51 CULTURE BLOOD [BC] Stat CULTURE BLOOD [BC] Stat Blood Culture x2 Reflex Set [OM.PC] Stat 12/01/20 01:15 Lactated Ringers [Ringers, Lactated] 1,000 ml IV .BOLUS 12/01/20 01:45 Lactated Ringers [Ringers, Lactated] 1,000 ml IV .BOLUS 12/01/20 02:43 Patient Status [ADT] Routine - Assessment/Plan Last 24 Hours: My Active Orders 11/30/20 23:50 EKG Documentation Completion [RC] AM Sodium Chloride 0.9% [Saline Flush] 10 ml FLUSH ASDIRECTED PRN Sodium Chloride 0.9% [Saline Flush] 2.5 ml FLUSH ASDIRECTED PRN Saline Lock Insert [OM.PC] Stat 11/30/20 23:51 CULTURE BLOOD [BC] Stat CULTURE BLOOD [BC] Stat Blood Culture x2 Reflex Set [OM.PC] Stat 12/01/20 01:15 Lactated Ringers [Ringers, Lactated] 1,000 ml IV .BOLUS 12/01/20 01:45 Lactated Ringers [Ringers, Lactated] 1,000 ml IV .BOLUS 12/01/20 02:43 Patient Status [ADT] Routine
[2020-12-01] MEDS ORDERED: Meropenem Premix 50 ML IV ONE (01:27)
[2020-12-01] MEDS ORDERED: Ondansetron 4 MG/2 ML SDV IVPUSH PRN (05:19)
[2020-12-01] MEDS ORDERED: Albuterol/Ipratropium 3.0-0.5 MG/3 ML Neb Soln NEB PRN (05:20)
[2020-12-01] MEDS ORDERED: Glucagon,Human Recombinant 1 MG Vial IM PRN (05:22)
[2020-12-01] MEDS ORDERED: 50% Dextrose in Water 50 ML Syringe IVPUSH PRN (05:22)
[2020-12-01] MEDS ORDERED: ALPRAZolam 0.5 MG Tab PO SCH (06:00)
[2020-12-01] MEDS: Lactated Ringers 1,000 ML IV SCH ×2 (06:31→15:03)
[2020-12-01 06:44] LABS: BLOOD UREA NITROGEN,BUN 11 mg/dL (7.0-18.0); CARBON DIOXIDE,CO2 26.5 mmol/L (21.0-32.0); CHLORIDE,CL 95 mmol/L (98-107); GLUCOSE RANDOM 133 mg/dL (74-106); POTASSIUM,K 4.2 mmol/L (3.5-5.1); SODIUM,NA 130 mmol/L (136-145)
[2020-12-01] MEDS: Acetaminophen 325 MG Tab PO PRN ×3 (06:50→19:36)
[2020-12-01] MEDS ORDERED: Levothyroxine 100 MCG Tab PO SCH (07:30)
[2020-12-01] MEDS: Insulin Aspart 100 Units/ML 3 ML Pen SUBCUT SCH ×3 (07:42→16:50)
--- NOTE | 2020-12-01 08:18 | PCM.HP.2 ---
H&P History of Present Illness - General Date of Service: 12/01/20 Admit Problem/Dx: Admission Diagnosis/Problem Admission Diagnosis/Problem Hyponatremia Source of Information: Patient History Limitations: Reports: No Limitations - History of Present Illness Initial Comments - Free Text/Narative: This 70-year-old female with past medical history of HLD, hypothyroidism post thyroidectomy, type 2 diabetes, history of depression anxiety with inpatient admissions and recent bladder infection secondary to urinary retention with ESBL E. coli presented to the ER with concerns of fevers and chills at home. She was recently admitted for hyponatremia as well as urinary retention with a Gomez catheter placed. She was treated with meropenem and discharged home on Macrobid. Patient reports that she had a fever yesterday that started with generalized malaise, diffuse body aches and weakness. Reports that she has had mild nausea but no vomiting. Reports diffuse abdominal discomfort and lower abdomen. She denies any diarrhea or constipation and no black or bloody bowel movements. No chest pain shortness of breath palpitation sore throat sinus congestion or neck pain. In ER leukocytosis noted at 13,000 hemoglobin 11.4 sodium 125 chloride 89. BUN 16 creatinine 1.0 glucose 210. Lactic acid 1.9. AST 13 ALT 32. Lipase 160 UA reveals moderate occult blood negative nitrite moderate leukocyte esterase 2-6 WBCs bacteria 2+. Covid swab negative. CT of her abdomen pelvis completed due to abdominal pain. Cholelithiasis noted without any sign of gallbladder wall t hickening or pericholecystic fluid. No bowel distention no signs of pancreatitis. In the ER she was treated with IV fluid bolus x3 L along with Zofran and meropenem. Patient will be admitted for hyponatremia and UTI with indwelling catheter. Patient has had readmission secondary to urinary retention and UTIs. Patient reports that this urinary retention started after increased dose of doxepin a couple months ago. Doxepin was decreased down to 100 mg last admission so she has been off high dose for approximately 2 weeks. Patient very unmotivated with self-cares and reports she needs significant help with ADLs from her . Back Pain Score (Numeric/FACES): 7 flank area Pain Score (Numeric/FACES): 7 - Related Data Allergies/Adverse Reactions: Allergies Allergy/AdvReac Type Severity Reaction Status Date / Time amoxicillin Allergy Swelling Verified 12/01/20 03:40 levofloxacin Allergy Swelling Verified 12/01/20 03:40 Home Medications: Home Meds Glimepiride 1 mg PO QAM 01/26/19 [History] Citalopram [Citalopram HBr] 20 mg PO BEDTIME 02/21/19 [History] Rosuvastatin [Crestor] 10 mg PO BEDTIME 07/28/19 [History] Irbesartan [Avapro] 150 mg PO BEDTIME 09/14/20 [History] Levothyroxine Sodium [Synthroid] 100 mcg PO QAM 09/14/20 [History] ALPRAZolam [Alprazolam ER] 1 mg PO TID MDD Two to three times per day 11/11/20 [History] Acetaminophen [Tylenol Extra Strength] 1,000 mg PO Q4H PRN 11/11/20 [History] Cholecalciferol (Vitamin D3) [Vitamin D3] 5,000 intnl unit PO DAILY 11/11/20 [History] Diltiazem [Cardizem CD] 120 mg PO DAILY 11/11/20 [History] Esomeprazole [NexIUM] 40 mg PO DAILY 11/11/20 [History] Esomeprazole [NexIUM] 40 mg PO DAILY 11/30/20 [History] ALPRAZolam [Xanax] 1 mg PO QID 12/01/20 [History] Doxepin HCl [Doxepin] 100 mg PO BEDTIME 12/01/20 [History] Past Medical History HEENT History: Reports: Allergic Rhinitis, Other (See Below) Other HEENT History: wears glasses. 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: Reports: Musculoskeletal History: Reports: Arthritis, Back Pain, Chronic, Fracture, Neck Pain, Chronic Other Musculoskeletal History: hx fx wrist as a child, hx of spinal stenosis Neurological History: Reports: Other (See Below) Other Neuro History: Degenerative Disc Disease Psychiatric History: Reports: Anxiety, Depression, Suicidal Ideation Endocrine/Metabolic History: Reports: Diabetes, Type II, Hypothyroidism, Obesity/BMI 30+ Insulin Pump Model and Java Systems Analyst: None Hematologic History: Reports: None Immunologic History: Reports: None Oncologic (Cancer) History: Reports: None Dermatologic History: Reports: None - Infectious Disease History Infectious Disease History: Reports: Chicken Pox, Measles, Mononucleosis - Past Surgical History Head Surgeries/Procedures: Reports: None HEENT Surgical History: Reports: Oral Surgery, Tonsillectomy Other HEENT Surgeries/Procedures: total dental implants October 2020, 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 (damaged during thyroidect arthur) Cardiovascular Surgical History: Reports: None Respiratory Surgical History: Reports: None GI Surgical History: Reports: None, Colonoscopy Female Surgical History: Reports: None Endocrine Surgical History: Reports: Thyroidectomy Neurological Surgical History: Reports: None Musculoskeletal Surgical History: Reports: None Oncologic Surgical History: Reports: None Dermatological Surgical History: Reports: None Social & Family History - Family History Family Medical History: No Pertinent Family History - Tobacco Use Tobacco Use Status *Q: Never Tobacco User Second Hand Smoke Exposure: No - Caffeine Use Caffeine Use: Reports: Tea - Recreational Drug Use Recreational Drug Use: No - Living Situation & Occupation Living situation: Reports: Occupation: Retired H&P Review of Systems - Review of Systems: Review Of Systems: See Below General: Reports: Malaise, Fatigue HEENT: Reports: Headaches. Denies: Sinus Congestion, Vertigo Pulmonary: Reports: No Symptoms. Denies: Shortness of Breath Cardiovascular: Reports: No Symptoms. Denies: Chest Pain, Orthopnea, Edema Gastrointestinal: Reports: Abdominal Pain (lower). Denies: Black Stool, Bloody Stool Genitourinary: Reports: Other (lower abdominal pain) Musculoskeletal: Reports: No Symptoms Skin: Reports: No Symptoms Psychiatric: Reports: Depression Neurological: Reports: No Symptoms Hematologic/Lymphatic: Reports: No Symptoms Immunologic: Reports: No Symptoms Exam - Exam Exam: See Below - Vital Signs Vital Signs: Last Vital Signs Temp 100.7 F H 12/01/20 06:56 Pulse 102 H 12/01/20 03:29 Resp 16 12/01/20 03:29 BP 106/77 12/01/20 03:29 Pulse Ox 94 L 12/01/20 03:29 Weight: 78.698 kg - Exam Quality Assessment: DVT Prophylaxis. No: Supplemental Oxygen General: Alert, Oriented, Cooperative HEENT: Conjunctiva Clear. No: Mucosa Moist & Experiment (erythema to psoterior pharynx with white lacy appearance) Lungs: Clear to Auscultation, Normal Respiratory Effort Cardiovascular: Regular Rate, Regular Rhythm GI/Abdominal Exam: Normal Bowel Sounds, Tender (lower abdomen, scant) Extremities: Normal Inspection, Normal Range of Motion, Non-Tender, No Pedal Edema Skin: Warm, Dry, Intact Neuro Extensive - Mental Status: Alert, Oriented x3 Neuro Extensive - Motor, Sensory, Reflexes: CN II-XII Intact, Normal Gait Psychiatric: Alert, Depressed - Patient Data Lab Results Last 24 hrs: Laboratory Results - last 24 hr 11/30/20 11/30/20 11/30/20 Range/Units 23:20 23:20 23:20 WBC 13.98 H (4.0-11.0) K/uL RBC 3.98 L (4.30-5.90) M/uL Hgb 11.4 L (12.0-16.0) g/dL Hct 32.7 L (36.0-46.0) % MCV 82.2 (80.0-98.0) fL MCH 28.6 (27.0-32.0) pg MCHC 34.9 (31.0-37.0) g/dL RDW Std Deviation 39.8 (28.0-62.0) fl RDW Coeff of Eran 13 (11.0-15.0) % Plt Count 340 (150-400) K/uL MPV 8.50 (7.40-12.00) fL Neut % (Auto) 78.3 (48.0-80.0) % Lymph % (Auto) 10.4 L (16.0-40.0) % [place] % (Auto) 11.0 (0.0-15.0) % Eos % (Auto) 0.1 (0.0-7.0) % Baso % (Auto) 0.2 (0.0-1.5) % Neut # (Auto) 10.9 H (1.4-5.7) K/uL Lymph # (Auto) 1.5 (0.6-2.4) K/uL [place] # (Auto) 1.5 H (0.0-0.8) K/uL Eos # (Auto) 0.0 (0.0-0.7) K/uL Baso # (Auto) 0.0 (0.0-0.1) K/uL Nucleated RBC % 0.0 /100WBC Nucleated RBCs # 0 K/uL Sodium 125 L (136-145) mmol/L Potassium 4.1 (3.5-5.1) mmol/L Chloride 89 L (98-107) mmol/L Carbon Dioxide 24.3 (21.0-32.0) mmol/L BUN 16 (7.0-18.0) mg/dL Creatinine 1.0 (0.6-1.0) mg/dL Est Cr Clr Drug Dosing 42.59 mL/min Estimated GFR (MDRD) 55.1 ml/min Glucose 210 H (74-106) mg/dL POC Glucose (70-99) mg/dL Lactic Acid (0.4-2.0) mmol/L Calcium 8.7 (8.5-10.1) mg/dL Total Bilirubin 0.3 (0.2-1.0) mg/dL AST 13 L (15-37) IU/L ALT 32 (14-63) IU/L Alkaline Phosphatase 116 (46-116) U/L Total Protein 7.1 (6.4-8.2) g/dL Albumin 3.4 (3.4-5.0) g/dL Globulin 3.7 (2.6-4.0) g/dL Albumin/Globulin Ratio 0.9 (0.9-1.6) Lipase 160 (73-393) U/L Urine Color YELLOW Urine Appearance SLT CLOUDY Urine pH 6.0 (5.0-8.0) Ur Specific [place] 1.015 (1.001-1.035) Urine Protein 30 H (NEGATIVE) mg/dL Urine Glucose (UA) 250 H (NEGATIVE) mg/dL Urine Ketones NEGATIVE (NEGATIVE) mg/dL Urine Occult Blood MODERATE H (NEGATIVE) Urine Nitrite NEGATIVE (NEGATIVE) Urine Bilirubin NEGATIVE (NEGATIVE) Urine Urobilinogen 0.2 (<2.0) EU/dL Ur Leukocyte Esterase MODERATE H (NEGATIVE) Urine RBC 30-40 (0-2/HPF) Urine WBC 2-6 (0-5/HPF) Ur Epithelial Cells FEW (NONE-FEW) Urine Bacteria 2+ H (NEGATIVE) Urinalysis Comment SARS-CoV-2 RNA (BRIDGET) (NEGATIVE) 11/30/20 12/01/20 12/01/20 Range/Units 23:20 01:00 05:46 WBC 14.34 H (4.0-11.0) K/uL RBC 3.61 L (4.30-5.90) M/uL Hgb 10.4 L (12.0-16.0) g/dL Hct 29.8 L (36.0-46.0) % MCV 82.5 (80.0-98.0) fL MCH 28.8 (27.0-32.0) pg MCHC 34.9 (31.0-37.0) g/dL RDW Std Deviation 39.9 (28.0-62.0) fl RDW Coeff of Eran 13 (11.0-15.0) % Plt Count 294 (150-400) K/uL MPV 8.20 (7.40-12.00) fL Neut % (Auto) 78.7 (48.0-80.0) % Lymph % (Auto) 9.6 L (16.0-40.0) % [place] % (Auto) 11.5 (0.0-15.0) % Eos % (Auto) 0.1 (0.0-7.0) % Baso % (Auto) 0.1 (0.0-1.5) % Neut # (Auto) 11.3 H (1.4-5.7) K/uL Lymph # (Auto) 1.4 (0.6-2.4) K/uL [place] # (Auto) 1.7 H (0.0-0.8) K/uL Eos # (Auto) 0.0 (0.0-0.7) K/uL Baso # (Auto) 0.0 (0.0-0.1) K/uL Nucleated RBC % 0.0 /100WBC Nucleated RBCs # 0 K/uL Sodium (136-145) mmol/L Potassium (3.5-5.1) mmol/L Chloride (98-107) mmol/L Carbon Dioxide (21.0-32.0) mmol/L BUN (7.0-18.0) mg/dL Creatinine (0.6-1.0) mg/dL Est Cr Clr Drug Dosing mL/min Estimated GFR (MDRD) ml/min Glucose (74-106) mg/dL POC Glucose (70-99) mg/dL Lactic Acid 1.9 (0.4-2.0) mmol/L Calcium (8.5-10.1) mg/dL Total Bilirubin (0.2-1.0) mg/dL AST (15-37) IU/L ALT (14-63) IU/L Alkaline Phosphatase (46-116) U/L Total Protein (6.4-8.2) g/dL Albumin (3.4-5.0) g/dL Globulin (2.6-4.0) g/dL Albumin/Globulin Ratio (0.9-1.6) Lipase (73-393) U/L Urine Color Urine Appearance Urine pH (5.0-8.0) Ur Specific [place] (1.001-1.035) Urine Protein (NEGATIVE) mg/dL Urine Glucose (UA) (NEGATIVE) mg/dL Urine Ketones (NEGATIVE) mg/dL Urine Occult Blood (NEGATIVE) Urine Nitrite (NEGATIVE) Urine Bilirubin (NEGATIVE) Urine Urobilinogen (<2.0) EU/dL Ur Leukocyte Esterase (NEGATIVE) Urine RBC (0-2/HPF) Urine WBC (0-5/HPF) Ur Epithelial Cells (NONE-FEW) Urine Bacteria (NEGATIVE) Urinalysis Comment SARS-CoV-2 RNA (BRIDGET) NEGATIVE (NEGATIVE) 12/01/20 12/01/20 Range/Units 05:46 06:39 WBC (4.0-11.0) K/uL RBC (4.30-5.90) M/uL Hgb (12.0-16.0) g/dL Hct (36.0-46.0) % MCV (80.0-98.0) fL MCH (27.0-32.0) pg MCHC (31.0-37.0) g/dL RDW Std Deviation (28.0-62.0) fl RDW Coeff of Eran (11.0-15.0) % Plt Count (150-400) K/uL MPV (7.40-12.00) fL Neut % (Auto) (48.0-80.0) % Lymph % (Auto) (16.0-40.0) % [place] % (Auto) (0.0-15.0) % Eos % (Auto) (0.0-7.0) % Baso % (Auto) (0.0-1.5) % Neut # (Auto) (1.4-5.7) K/uL Lymph # (Auto) (0.6-2.4) K/uL [place] # (Auto) (0.0-0.8) K/uL Eos # (Auto) (0.0-0.7) K/uL Baso # (Auto) (0.0-0.1) K/uL Nucleated RBC % /100WBC Nucleated RBCs # K/uL Sodium 130 L (136-145) mmol/L Potassium 4.2 (3.5-5.1) mmol/L Chloride 95 L (98-107) mmol/L Carbon Dioxide 26.5 (21.0-32.0) mmol/L BUN 11 (7.0-18.0) mg/dL Creatinine 0.9 (0.6-1.0) mg/dL Est Cr Clr Drug Dosing 47.32 mL/min Estimated GFR (MDRD) > 60.0 ml/min Glucose 133 H (74-106) mg/dL POC Glucose 148 H (70-99) mg/dL Lactic Acid (0.4-2.0) mmol/L Calcium 8.3 L (8.5-10.1) mg/dL Total Bilirubin 0.4 (0.2-1.0) mg/dL AST 13 L (15-37) IU/L ALT 30 (14-63) IU/L Alkaline Phosphatase 106 (46-116) U/L Total Protein 6.3 L (6.4-8.2) g/dL Albumin 3.1 L (3.4-5.0) g/dL Globulin 3.2 (2.6-4.0) g/dL Albumin/Globulin Ratio 1.0 (0.9-1.6) Lipase (73-393) U/L Urine Color Urine Appearance Urine pH (5.0-8.0) Ur Specific [place] (1.001-1.035) Urine Protein (NEGATIVE) mg/dL Urine Glucose (UA) (NEGATIVE) mg/dL Urine Ketones (NEGATIVE) mg/dL Urine Occult Blood (NEGATIVE) Urine Nitrite (NEGATIVE) Urine Bilirubin (NEGATIVE) Urine Urobilinogen (<2.0) EU/dL Ur Leukocyte Esterase (NEGATIVE) Urine RBC (0-2/HPF) Urine WBC (0-5/HPF) Ur Epithelial Cells (NONE-FEW) Urine Bacteria (NEGATIVE) Urinalysis Comment SARS-CoV-2 RNA (BRIDGET) (NEGATIVE) Result Diagrams: 12/01/20 05:46 12/01/20 05:46 Sepsis Event Note - Evaluation Sepsis Screening Result: Sepsis Risk - Focused Exam Vital Signs: Vital Signs Temp Temp Pulse Resp BP Pulse Ox 12/01/20 06:56 100.7 F H 12/01/20 03:29 98.1 F 102 H 16 106/77 94 L 12/01/20 02:39 99.2 F 79 18 102/55 L 95 12/01/20 02:10 78 18 95/47 L 93 L 12/01/20 00:55 100 F 85 20 84/43 L 92 L 11/30/20 23:45 95 20 99/45 L 93 L 11/30/20 23:05 100 F 84 20 148/76 H 94 L - Problem List (1) Abdominal pain SNOMED Code(s): 33805849 ICD Code: R10.9 - UNSPECIFIED ABDOMINAL PAIN Status: Acute Current Visit: Yes (2) Gomez catheter in place on admission SNOMED Code(s): 206491893 ICD Code: Z97.8 - PRESENCE OF OTHER SPECIFIED DEVICES Status: Acute Cu rrent Visit: Yes (3) Dehydration SNOMED Code(s): 12193094 ICD Code: E86.0 - DEHYDRATION Status: Acute Current Visit: Yes (4) Hyponatremia SNOMED Code(s): 71827189 ICD Code: E87.1 - HYPO-OSMOLALITY AND HYPONATREMIA Status: Acute Current Visit: Yes (5) Urinary tract infection SNOMED Code(s): 24040071 ICD Code: N39.0 - URINARY TRACT INFECTION, SITE NOT SPECIFIED Status: Acute Current Visit: Yes (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 SNOMED Code(s): 543085198 ICD Code: Z22.39 - CARRIER OF OTHER SPECIFIED BACTERIAL DISEASES Status: Chronic Current Visit: No (7) Urinary retention SNOMED Code(s): 292840138 ICD Code: R33.9 - RETENTION OF URINE, UNSPECIFIED Status: Chronic Current Visit: No (8) Depression with anxiety SNOMED Code(s): 986650274 ICD Code: F41.8 - OTHER SPECIFIED ANXIETY DISORDERS Status: Chronic Current Visit: No (9) H/O thyroidectomy SNOMED Code(s): 588802976, 769428725 ICD Code: 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 Current Visit: No (10) HLD (hyperlipidemia) SNOMED Code(s): 98664301 ICD Code: E78.5 - HYPERLIPIDEMIA, UNSPECIFIED Status: Chronic Current Visit: No (11) HTN (hypertension) SNOMED Code(s): 77368529 ICD Code: I10 - ESSENTIAL (PRIMARY) HYPERTENSION Status: Chronic Current Visit: No (12) Hypothyroidism associated with surgical procedure SNOMED Code(s): 12007293 ICD Code: 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 Current Visit: No (13) Type 2 diabetes mellitus SNOMED Code(s): 63473406 ICD Code: E11.9 - TYPE 2 DIABETES MELLITUS WITHOUT COMPLICATIONS Status: Chronic Current Visit: No Qualifiers: 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 mellitus 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 insulin use: without nursing home use (14) Oral thrush SNOMED Code(s): 07847338 ICD Code: B37.0 - CANDIDAL STOMATITIS Status: Acute Current Visit: No Problem List Initiated/Reviewed/Updated: Yes Orders Last 24hrs: Active Orders 24 hr Category Date Time Status Patient Status [ADT] Routine ADT 12/01/20 02:43 Active Accu Check [Blood Glucose Check, Bedside] [RC] TIDAC Care 12/01/20 07:30 Active Ambulate [RC] ASDIRECTED Care 12/01/20 05:02 Active Antiembolic Devices [RC] PER UNIT ROUTINE Care 12/01/20 05:01 Active EKG Documentation Completion [RC] AM Care 11/30/20 23:50 Active Oxygen Therapy [RC] ASDIRECTED Care 12/01/20 05:04 Active RT Aerosol Therapy [RC] ASDIRECTED Care 12/01/20 05:21 Active Telemetry Monitoring [Cardiac Monitoring] [RC] . Care 12/01/20 03:08 Active DIRECTED Vital Signs [RC] Q4H Care 12/01/20 08:00 Active ADA Diabetic [[employer] Diet] [DIET Diet 12/01/20 Breakfast Active ] CULTURE BLOOD [BC] Stat Lab 11/30/20 23:51 Received CULTURE BLOOD [BC] Stat Lab 11/30/20 23:51 Received ALPRAZolam [Xanax] Med 12/01/20 06:00 Active 1 mg PO QID Acetaminophen [TylenoL] Med 12/01/20 05:17 Active 650 mg PO Q4H PRN Albuterol/Ipratropium [DuoNeb 3.0-0.5 MG/3 ML] Med 12/01/20 05:20 Active 3 ml NEB Q4HRRT PRN Dextrose 50% in Water Med 12/01/20 05:22 Active 50 ml IVPUSH ASDIRECTED PRN Doxepin [SINEquan] Med 12/01/20 21:00 Active 100 mg PO BEDTIME Glucagon,Human Recombinant [GlucaGen] Med 12/01/20 05:22 Active 1 mg IM ASDIRECTED PRN Insulin Aspart [NovoLOG] Med 12/01/20 07:30 Active See Protocol SUBCUT TIDAC Lactated Ringers [Ringers, Lactated] 1,000 ml Med 12/01/20 05:15 Active IV ASDIRECTED Levothyroxine [Synthroid] Med 12/01/20 07:30 Active 100 mcg PO ACBREAKFAST Meropenem Premix [Meropenem in NS 1 GM/50 ML] 50 ml Med 12/01/20 10:00 Active IV Q8H Nystatin [Mycostatin] Med 12/01/20 09:00 Active 5 ml PO BID Ondansetron [Zofran] Med 12/01/20 05:19 Active 4 mg IVPUSH Q4H PRN Pantoprazole [ProTONIX IV] 40 mg Med 12/01/20 09:00 Active Sodium Chloride 0.9% [Normal Saline] 10 ml IV DAILY Sodium Chloride 0.9% [Saline Flush] Med 11/30/20 23:50 Active 10 ml FLUSH ASDIRECTED PRN Sodium Chloride 0.9% [Saline Flush] Med 11/30/20 23:50 Active 2.5 ml FLUSH ASDIRECTED PRN Blood Culture x2 Reflex Set [OM.PC] Stat Oth 11/30/20 23:51 Ordered Saline Lock Insert [OM.PC] Stat Oth 11/30/20 23:50 Ordered Sequential Compression Device [OM.PC] Routine Oth 07/22/21 05:01 Ordered Medication Orders Acetaminophen (Acetaminophen 325 Mg Tab) 650 mg PO Q4H PRN PRN Reason: Pain/Fever Last Admin: 12/01/20 06:50 Dose: 650 mg Documented by: MADDIE Albuterol/Ipratropium (Albuterol/Ipratropium 3.0-0.5 Mg/3 Ml Neb Soln) 3 ml NEB Q4HRRT PRN PRN Reason: Shortness of Breath Alprazolam (Alprazolam 0.5 Mg Tab) 1 mg PO QID JORGE Last Admin: 12/01/20 06:31 Dose: 1 mg Documented by: MADDIE Dextrose/Water (50% Dextrose In Water 50 Ml Syringe) 50 ml IVPUSH ASDIRECTED PRN PRN Reason: Hypoglycemia Doxepin HCl (Doxepin 25 Mg Cap) 100 mg PO BEDTIME JORGE Glucagon (Glucagon,Human Recombinant 1 Mg Vial) 1 mg IM ASDIRECTED PRN PRN Reason: Hypoglycemia Lactated Ringer's (Ringers, Lactated) 1,000 mls @ 125 mls/hr IV ASDIRECTED JORGE Last Admin: 12/01/20 06:31 Dose: 125 mls/hr Documented by: MADDIE Meropenem/Sodium Chloride (Meropenem In Ns 1 Gm/50 Ml) 50 mls @ 100 mls/hr IV Q8H JORGE Pantoprazole Sodium 40 mg/ (Sodium Chloride) 10 mls @ 300 mls/hr IV DAILY [facility] Insulin Aspart (Insulin Aspart 100 Units/Ml 3 Ml Pen) 0 unit SUBCUT TIDAC [facility]; Protocol Last Admin: 12/01/20 07:42 Dose: Not Given Documented by: MADDIE Levothyroxine Sodium (Levothyroxine 100 Mcg Tab) 100 mcg PO ACBREAKFAST [facility] Nystatin (Nystatin Susp 100,000 Unit/Ml 5 Ml Ud Cup) 5 ml PO BID JORGE Ondansetron HCl (Ondansetron 4 Mg/2 Ml Sdv) 4 mg IVPUSH Q4H PRN PRN Reason: Nausea/Vomiting Sodium Chloride (Sodium Chloride 0.9% 10 Ml Syringe) 10 ml FLUSH ASDIRECTED PRN PRN Reason: Keep Vein Open Sodium Chloride (Sodium Chloride 0.9% 2.5 Ml Syringe) 2.5 ml FLUSH ASDIRECTED PRN PRN Reason: Keep Vein Open Assessment/Plan Comment:: This 70-year-old female admitted with hyponatremia and UTI with indwelling catheter 1. UTI with indwelling catheter, ESBL E. coli in previous cultures -Continue meropenem -Gomez catheter replaced in the ER -Continue IV fluid resuscitation -From previous admission she has follow-up with urology in December -Spoke with urologist, Dr. Braga from [facility]. I appreciate her recommendations. She is the urologist that patient has follow-up coming up in December with. She recommends removing Gomez catheter and teaching patient to self cath to help limit urinary tract infections. She also recommended estrogen if not indicated nightly to vaginal no tissues. Along with vaginal restore cleansing. I spoke with patient after my discussion with Dr. Braga patient extremely reluctant to learn how to self cath and becomes quite anxious and annoyed with our discussion. She feels as though she is unable to do this per herself and feels that her would be unable to do it due to health concerns. We discussed at length that this will likely be a recommendation from urologist when she sees her as an outpatient. We also discussed evidence-based practice regarding decrease infections with self cathing versus leaving indwelling Gomez catheter. Patient continues to decline wanting to learn. She was counseled on risks of reviewed keeping Gomez catheter in place such as sepsis continue to UTIs and hospitalizations. She verbalized understanding and does not want to try self cathing. We did recently decrease doxepin 14 days ago will attempt voiding trial this afternoon to see if she is able to void without Gomez catheter. If she continues to retain we will need to replace catheter and have her follow-up with Dr. Braga in person. 2. Hyponatremia -On previous admission patient initially thought to be hypovolemic hyponatremic but urine sodium 21 and urine abnormality low suggesting polydipsia. Patient was initially treated with IV fluids but then fluid restricted sodium then improved. -Patient noted to be dehydrated on assessment patient treated with IV fluids overnight and sodium did improve to 130. -Continue to monitor. 3. Oral thrush -Continues to have concerns and oropharyngeal tenderness and pain especially with swallowing -Will increase nystatin to 4 times daily -We will also add Diflucan 150 today followed by another dose tomorrow. 4. Diabetes type 2 -Hold oral agents -NovoLog sliding scale 3 times a day with meals -ADA diet 5. Hypertension -Due to hypotension currently will hold off on oral antihypertensives 6. Hypothyroidism secondary to thyroidectomy -Continue levothyroxine 7. Depression/anxiety -Continue home medications VTE prophylaxis: Heparin GI prophylaxis: Protonix CODE STATUS: Full code Dispo: We will make inpatient as she will likely need to have full course of IV therapy for ESBL E. coli in urine with Carbapenem.
[2020-12-01] MEDS ORDERED: Sodium Chloride 0.9% 2.5 ML Syringe FLUSH PRN (08:19)
[2020-12-01] MEDS: SYNTHROID 100 MCG PO SCH (08:45)
[2020-12-01] MEDS ORDERED: Nystatin Susp 100,000 Unit/ML 5 ML UD Cup PO SCH (09:00)
[2020-12-01] MEDS: Pantoprazole 40 MG in Sodium Chloride 0.9% 10 ML IV SCH (09:10)
[2020-12-01] MEDS: Meropenem Premix 50 ML IV SCH ×2 (10:03→17:00)
[2020-12-01] MEDS ORDERED: Phenol 1.4% Oral Spray 177 ML Bottle MUCMEM PRN (11:28)
[2020-12-01] MEDS: Fluconazole 100 MG Tab PO SCH (12:54)
[2020-12-01] MEDS: Nystatin Susp 100,000 Unit/ML 5 ML UD Cup PO SCH ×2 (12:56→17:00)
[2020-12-01] MEDS ORDERED: Doxepin 25 MG Cap PO SCH (21:00)
[2020-12-02] MEDS: Nystatin Susp 100,000 Unit/ML 5 ML UD Cup PO SCH ×5 (00:41→23:55)
[2020-12-02] MEDS: Lactated Ringers 1,000 ML IV SCH (00:42)
[2020-12-02] MEDS: Meropenem Premix 50 ML IV SCH ×3 (02:33→17:52)
[2020-12-02] MEDS ORDERED: ALPRAZOLAM 1 MG PO SCH (06:00)
[2020-12-02] MEDS: SYNTHROID 100 MCG PO SCH (06:55)
[2020-12-02] MEDS: Omeprazole 20 MG Cap.CR PO SCH (06:58)
[2020-12-02 07:18] LABS: BLOOD UREA NITROGEN,BUN 7 mg/dL (7.0-18.0); CARBON DIOXIDE,CO2 28.1 mmol/L (21.0-32.0); CHLORIDE,CL 90 mmol/L (98-107); GLUCOSE RANDOM 112 mg/dL (74-106); POTASSIUM,K 3.9 mmol/L (3.5-5.1); SODIUM,NA 126 mmol/L (136-145)
[2020-12-02] MEDS: Insulin Aspart 100 Units/ML 3 ML Pen SUBCUT SCH ×3 (07:39→18:50)
--- NOTE | 2020-12-02 08:07 | PCM.PN ---
- General Info Date of Service: 12/02/20 Admission Dx/Problem (Free Text): Admission Diagnosis/Problem Admission Diagnosis/Problem Hyponatremia Subjective Update: Very depressed affect today, feeling ill and not well. Complains she is having constipation. She is voiding. Denies chest pain or SOB. Denies suicidal ideation. Functional Status: Reports: Pain Controlled, Tolerating Diet, Ambulating, Urinating - Review of Systems General: Reports: Fatigue, Malaise HEENT: Reports: No Symptoms. Denies: Headaches, Sore Throat, Visual Changes Pulmonary: Reports: No Symptoms. Denies: Shortness of Breath Cardiovascular: Reports: No Symptoms. Denies: Chest Pain Gastrointestinal: Reports: Abdominal Pain, Constipation. Denies: Nausea, Vomiting Genitourinary: Reports: No Symptoms. Denies: Dysuria Musculoskeletal: Reports: No Symptoms Skin: Reports: No Symptoms Neurological: Reports: No Symptoms Psychiatric: Reports: No Symptoms - Patient Data Vitals - Most Recent: Last Vital Signs Temp 97.6 F 12/02/20 04:05 Pulse 86 12/02/20 04:05 Resp 19 12/02/20 04:05 BP 123/67 12/02/20 04:05 Pulse Ox 91 L 12/02/20 04:05 Weight - Most Recent: 78.698 kg I&O - Last 24 Hours: Intake & Output 12/01/20 12/02/20 12/02/20 22:59 06:59 14:59 Intake Total 200 2365 Output Total 1250 Balance 200 1115 Lab Results Last 24 Hours: Laboratory Results - last 24 hr 12/01/20 12/01/20 12/02/20 Range/Units 12:43 16:48 05:43 WBC 14.66 H (4.0-11.0) K/uL RBC 3.48 L (4.30-5.90) M/uL Hgb 9.9 L (12.0-16.0) g/dL Hct 29.1 L (36.0-46.0) % MCV 83.6 (80.0-98.0) fL MCH 28.4 (27.0-32.0) pg MCHC 34.0 (31.0-37.0) g/dL RDW Std Deviation 41.1 (28.0-62.0) fl RDW Coeff of Eran 14 (11.0-15.0) % Plt Count 309 (150-400) K/uL MPV 9.00 (7.40-12.00) fL Neut % (Auto) 77.2 (48.0-80.0) % Lymph % (Auto) 11.9 L (16.0-40.0) % Kane % (Auto) 9.7 (0.0-15.0) % Eos % (Auto) 1.1 (0.0-7.0) % Baso % (Auto) 0.1 (0.0-1.5) % Neut # (Auto) 11.3 H (1.4-5.7) K/uL Lymph # (Auto) 1.8 (0.6-2.4) K/uL Kane # (Auto) 1.4 H (0.0-0.8) K/uL Eos # (Auto) 0.2 (0.0-0.7) K/uL Baso # (Auto) 0.0 (0.0-0.1) K/uL Nucleated RBC % 0.0 /100WBC Nucleated RBCs # 0 K/uL Sodium (136-145) mmol/L Potassium (3.5-5.1) mmol/L Chloride (98-107) mmol/L Carbon Dioxide (21.0-32.0) mmol/L BUN (7.0-18.0) mg/dL Creatinine (0.6-1.0) mg/dL Est Cr Clr Drug Dosing mL/min Estimated GFR (MDRD) ml/min Glucose (74-106) mg/dL POC Glucose 149 H 122 H (70-99) mg/dL Calcium (8.5-10.1) mg/dL Phosphorus (2.6-4.7) mg/dL Magnesium (1.8-2.4) mg/dL 12/02/20 12/02/20 Range/Units 05:43 07:21 WBC (4.0-11.0) K/uL RBC (4.30-5.90) M/uL Hgb (12.0-16.0) g/dL Hct (36.0-46.0) % MCV (80.0-98.0) fL MCH (27.0-32.0) pg MCHC (31.0-37.0) g/dL RDW Std Deviation (28.0-62.0) fl RDW Coeff of Eran (11.0-15.0) % Plt Count (150-400) K/uL MPV (7.40-12.00) fL Neut % (Auto) (48.0-80.0) % Lymph % (Auto) (16.0-40.0) % Kane % (Auto) (0.0-15.0) % Eos % (Auto) (0.0-7.0) % Baso % (Auto) (0.0-1.5) % Neut # (Auto) (1.4-5.7) K/uL Lymph # (Auto) (0.6-2.4) K/uL Kane # (Auto) (0.0-0.8) K/uL Eos # (Auto) (0.0-0.7) K/uL Baso # (Auto) (0.0-0.1) K/uL Nucleated RBC % /100WBC Nucleated RBCs # K/uL Sodium 126 L (136-145) mmol/L Potassium 3.9 (3.5-5.1) mmol/L Chloride 90 L (98-107) mmol/L Carbon Dioxide 28.1 (21.0-32.0) mmol/L BUN 7 (7.0-18.0) mg/dL Creatinine 0.8 (0.6-1.0) mg/dL Est Cr Clr Drug Dosing 53.23 mL/min Estimated GFR (MDRD) > 60.0 ml/min Glucose 112 H (74-106) mg/dL POC Glucose 137 H (70-99) mg/dL Calcium 8.2 L (8.5-10.1) mg/dL Phosphorus 3.4 (2.6-4.7) mg/dL Magnesium 1.4 L (1.8-2.4) mg/dL Lazaro Results Last 24 Hours: Microbiology 12/01/20 00:47 Aerobic Blood Culture - Preliminary Blood - Venous - Lab Draw NO GROWTH AFTER 1 DAY Anaerobic Blood Culture - Preliminary NO GROWTH AFTER 1 DAY 12/01/20 00:25 Aerobic Blood Culture - Preliminary Blood - Venous Anaerobic Blood Culture - Preliminary NO GROWTH AFTER 1 DAY Med Orders - Current: Current Medications Acetaminophen (Acetaminophen 325 Mg Tab) 650 mg PO Q4H PRN PRN Reason: Pain/Fever Last Admin: 12/01/20 19:36 Dose: 650 mg Documented by: Albuterol/Ipratropium (Albuterol/Ipratropium 3.0-0.5 Mg/3 Ml Neb Soln) 3 ml NEB Q4HRRT PRN PRN Reason: Shortness of Breath Cholecalciferol (Cholecalciferol (Vitamin D3) 25 Mcg Tab) 125 mcg PO DAILY [facility] [place] Dextrose/Water (50% Dextrose In Water 50 Ml Syringe) 50 ml IVPUSH ASDIRECTED PRN PRN Reason: Hypoglycemia Diltiazem HCl (Diltiazem 120 Mg Cap.Cd) 120 mg PO DAILY JORGE Fluconazole (Fluconazole 100 Mg Tab) 150 mg PO DAILY [facility] [place] Stop: 12/02/20 09:01 Last Admin: 12/01/20 12:54 Dose: 150 mg Documented by: Glucagon (Glucagon,Human Recombinant 1 Mg Vial) 1 mg IM ASDIRECTED PRN PRN Reason: Hypoglycemia Meropenem/Sodium Chloride (Meropenem In Ns 1 Gm/50 Ml) 50 mls @ 100 mls/hr IV Q8H [facility] [place] Last Admin: 12/02/20 02:33 Dose: 100 mls/hr Documented by: Pantoprazole Sodium 40 mg/ (Sodium Chloride) 10 mls @ 300 mls/hr IV DAILY [facility] [place] Last Admin: 12/01/20 09:10 Dose: 300 mls/hr Documented by: Insulin Aspart (Insulin Aspart 100 Units/Ml 3 Ml Pen) 0 unit SUBCUT TIDAC [facility] [place]; Protocol Last Admin: 12/02/20 07:39 Dose: Not Given Documented by: Irbesartan (Irbesartan 150 Mg Tab) 150 mg PO BEDTIME [facility] [place] Nystatin (Nystatin Susp 100,000 Unit/Ml 5 Ml Ud Cup) 5 ml PO QID [facility] [place] Last Admin: 12/02/20 06:54 Dose: 5 ml Documented by: Omeprazole (Omeprazole 20 Mg Cap.Cr) 40 mg PO ACBREAKFAST [facility] [place] Last Admin: 12/02/20 06:58 Dose: 40 mg Documented by: Ondansetron HCl (Ondansetron 4 Mg/2 Ml Sdv) 4 mg IVPUSH Q4H PRN PRN Reason: Nausea/Vomiting Alprazolam 1 Mg (Tablet) 1 each PO 0400,1000,1600,2200 [facility] [place] Last Admin: 12/02/20 04:12 Dose: 1 each Documented by: Doxepin 100 Mg (Capsule) 1 each PO BEDTIME JORGE Last Admin: 12/01/20 21:13 Dose: 1 each Documented by: Synthroid 100 Mcg (Tablet) 1 each PO ACBREAKFAST JORGE Last Admin: 12/02/20 06:55 Dose: 1 each Documented by: Phenol/Menthol (Phenol 1.4% Oral Perkins 177 Ml Bottle) 0 ml MUCMEM Q2H PRN PRN Reason: Sore Throat Rosuvastatin Calcium (Rosuvastatin 10 Mg Tab) 10 mg PO BEDTIME JORGE Sodium Chloride (Sodium Chloride 0.9% 2.5 Ml Syringe) 2.5 ml FLUSH ASDIRECTED PRN PRN Reason: Keep Vein Open Discontinued Medications Alprazolam (Alprazolam 0.5 Mg Tab) 1 mg PO QID JORGE Last Admin: 12/01/20 06:31 Dose: 1 mg Documented by: Sodium Chloride (Normal Saline) 1,000 mls @ 999 mls/hr IV .Bolus ONE Stop: 12/01/20 00:50 Last Admin: 12/01/20 00:14 Dose: 999 mls/hr Documented by: Lactated Ringer's (Ringers, Lactated) 1,000 mls @ 999 mls/hr IV .BOLUS JORGE Last Admin: 12/01/20 01:29 Dose: 999 mls/hr Documented by: Meropenem/Sodium Chloride (Meropenem In Ns 1 Gm/50 Ml) 50 mls @ 100 mls/hr IV ONETIME ONE Stop: 12/01/20 01:56 Last Admin: 12/01/20 01:42 Dose: 100 mls/hr Documented by: Lactated Ringer's (Ringers, Lactated) 1,000 mls @ 999 mls/hr IV .BOLUS JORGE Last Admin: 12/01/20 01:43 Dose: 999 mls/hr Documented by: Lactated Ringer's (Ringers, Lactated) 1,000 mls @ 125 mls/hr IV ASDIRECTED JORGE Last Admin: 12/02/20 00:42 Dose: 125 mls/hr Documented by: Ketorolac Tromethamine (Ketorolac 15 Mg/Ml Sdv) 15 mg IVPUSH ONETIME ONE Stop: 11/30/20 23:51 Last Admin: 12/01/20 00:14 Dose: 15 mg Documented by: Non-Formulary Medication (Alprazolam [Alprazolam Er]) 1 mg PO TID JORGE Nystatin (Nystatin Susp 100,000 Unit/Ml 5 Ml Ud Cup) 5 ml PO BID JORGE Last Admin: 12/01/20 09:11 Dose: 5 ml Documented by: Ondansetron HCl (Ondansetron 4 Mg/2 Ml Sdv) 4 mg IVPUSH ONETIME ONE Stop: 11/30/20 23:51 Last Admin: 12/01/20 00:14 Dose: 4 mg Documented by: Sodium Chloride (Sodium Chloride 0.9% 10 Ml Syringe) 10 ml FLUSH ASDIRECTED PRN PRN Reason: Keep Vein Open Sodium Chloride (Sodium Chloride 0.9% 2.5 Ml Syringe) 2.5 ml FLUSH ASDIRECTED PRN PRN Reason: Keep Vein Open - Exam Quality Assessment: DVT Prophylaxis. No: Urine Catheter Urinary Catheter Total Time: 0Days 15Hours General: Alert, Oriented, Cooperative Lungs: Clear to Auscultation, Normal Respiratory Effort Cardiovascular: Regular Rate, Regular Rhythm GI/Abdominal Exam: Normal Bowel Sounds, Soft, Non-Tender Extremities: Normal Inspection, Normal Range of Motion, Non-Tender, No Pedal Edema Neurological: No New Focal Deficit Psy/Mental Status: Depressed - Patient Data Lab Results Last 24 hrs: Laboratory Results - last 24 hr 12/01/20 12/01/20 12/02/20 Range/Units 12:43 16:48 05:43 WBC 14.66 H (4.0-11.0) K/uL RBC 3.48 L (4.30-5.90) M/uL Hgb 9.9 L (12.0-16.0) g/dL Hct 29.1 L (36.0-46.0) % MCV 83.6 (80.0-98.0) fL MCH 28.4 (27.0-32.0) pg MCHC 34.0 (31.0-37.0) g/dL RDW Std Deviation 41.1 (28.0-62.0) fl RDW Coeff of Eran 14 (11.0-15.0) % Plt Count 309 (150-400) K/uL MPV 9.00 (7.40-12.00) fL Neut % (Auto) 77.2 (48.0-80.0) % Lymph % (Auto) 11.9 L (16.0-40.0) % Kane % (Auto) 9.7 (0.0-15.0) % Eos % (Auto) 1.1 (0.0-7.0) % Baso % (Auto) 0.1 (0.0-1.5) % Neut # (Auto) 11.3 H (1.4-5.7) K/uL Lymph # (Auto) 1.8 (0.6-2.4) K/uL Kane # (Auto) 1.4 H (0.0-0.8) K/uL Eos # (Auto) 0.2 (0.0-0.7) K/uL Baso # (Auto) 0.0 (0.0-0.1) K/uL Nucleated RBC % 0.0 /100WBC Nucleated RBCs # 0 K/uL Sodium (136-145) mmol/L Potassium (3.5-5.1) mmol/L Chloride (98-107) mmol/L Carbon Dioxide (21.0-32.0) mmol/L BUN (7.0-18.0) mg/dL Creatinine (0.6-1.0) mg/dL Est Cr Clr Drug Dosing mL/min Estimated GFR (MDRD) ml/min Glucose (74-106) mg/dL POC Glucose 149 H 122 H (70-99) mg/dL Calcium (8.5-10.1) mg/dL Phosphorus (2.6-4.7) mg/dL Magnesium (1.8-2.4) mg/dL 12/02/20 12/02/20 Range/Units 05:43 07:21 WBC (4.0-11.0) K/uL RBC (4.30-5.90) M/uL Hgb (12.0-16.0) g/dL Hct (36.0-46.0) % MCV (80.0-98.0) fL MCH (27.0-32.0) pg MCHC (31.0-37.0) g/dL RDW Std Deviation (28.0-62.0) fl RDW Coeff of Eran (11.0-15.0) % Plt Count (150-400) K/uL MPV (7.40-12.00) fL Neut % (Auto) (48.0-80.0) % Lymph % (Auto) (16.0-40.0) % Kane % (Auto) (0.0-15.0) % Eos % (Auto) (0.0-7.0) % Baso % (Auto) (0.0-1.5) % Neut # (Auto) (1.4-5.7) K/uL Lymph # (Auto) (0.6-2.4) K/uL Kane # (Auto) (0.0-0.8) K/uL Eos # (Auto) (0.0-0.7) K/uL Baso # (Auto) (0.0-0.1) K/uL Nucleated RBC % /100WBC Nucleated RBCs # K/uL Sodium 126 L (136-145) mmol/L Potassium 3.9 (3.5-5.1) mmol/L Chloride 90 L (98-107) mmol/L Carbon Dioxide 28.1 (21.0-32.0) mmol/L BUN 7 (7.0-18.0) mg/dL Creatinine 0.8 (0.6-1.0) mg/dL Est Cr Clr Drug Dosing 53.23 mL/min Estimated GFR (MDRD) > 60.0 ml/min Glucose 112 H (74-106) mg/dL POC Glucose 137 H (70-99) mg/dL Calcium 8.2 L (8.5-10.1) mg/dL Phosphorus 3.4 (2.6-4.7) mg/dL Magnesium 1.4 L (1.8-2.4) mg/dL Result Diagrams: 12/02/20 05:43 12/02/20 05:43 Lazaro Results Last 24 hrs: Microbiology 12/01/20 00:47 Aerobic Blood Culture - Preliminary Blood - Venous - Lab Draw NO GROWTH AFTER 1 DAY Anaerobic Blood Culture - Preliminary NO GROWTH AFTER 1 DAY 12/01/20 00:25 Aerobic Blood Culture - Preliminary Blood - Venous Anaerobic Blood Culture - Preliminary NO GROWTH AFTER 1 DAY Sepsis Event Note - Evaluation Sepsis Screening Result: No Definite Risk - Focused Exam Vital Signs: Vital Signs Temp Pulse Resp BP Pulse Ox 12/02/20 04:05 97.6 F 86 19 123/67 91 L 12/02/20 00:39 97.8 F 84 19 114/57 L 94 L 12/01/20 20:55 98.5 F - Problem List & Annotations (1) Abdominal pain SNOMED Code(s): 35350923 Code(s): R10.9 - UNSPECIFIED ABDOMINAL PAIN Status: Acute Current Visit: Yes (2) Gomez catheter in place on admission SNOMED Code(s): 356834490 Code(s): Z97.8 - PRESENCE OF OTHER SPECIFIED DEVICES Status: Acute Current Visit: Yes (3) Dehydration SNOMED Code(s): 80665724 Code(s): E86.0 - DEHYDRATION Status: Acute Current Visit: Yes (4) Hyponatremia SNOMED Code(s): 99398416 Code(s): E87.1 - HYPO-OSMOLALITY AND HYPONATREMIA Status: Acute Current Visit: Yes (5) Urinary tract infection SNOMED Code(s): 86553236 Code(s): N39.0 - URINARY TRACT INFECTION, SITE NOT SPECIFIED Status: Acute Current Visit: Yes (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 SNOMED Code(s): 439852008 Code(s): Z22.39 - CARRIER OF OTHER SPECIFIED BACTERIAL DISEASES Status: Chronic Current Visit: No (7) Urinary retention SNOMED Code(s): 941088832 Code(s): R33.9 - RETENTION OF URINE, UNSPECIFIED Status: Chronic Current Visit: No (8) Depression with anxiety SNOMED Code(s): 686294010 Code(s): F41.8 - OTHER SPECIFIED ANXIETY DISORDERS Status: Chronic Current Visit: No (9) H/O thyroidectomy SNOMED Code(s): 433965707, 092000612 Code(s): 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 Current Visit: No (10) HLD (hyperlipidemia) SNOMED Code(s): 17587927 Code(s): E78.5 - HYPERLIPIDEMIA, UNSPECIFIED Status: Chronic Current Visit: No (11) HTN (hypertension) SNOMED Code(s): 84846248 Code(s): I10 - ESSENTIAL (PRIMARY) HYPERTENSION Status: Chronic Current Visit: No (12) Hypothyroidism associated with surgical procedure SNOMED Code(s): 55675046 Code(s): 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 Current Visit: No (13) Type 2 diabetes mellitus SNOMED Code(s): 71002334 Code(s): E11.9 - TYPE 2 DIABETES MELLITUS WITHOUT COMPLICATIONS Status: Chronic Current Visit: No Qualifiers: Diabetes mellitus senior care insulin use: without senior care use (14) Oral thrush SNOMED Code(s): 20845452 Code(s): B37.0 - CANDIDAL STOMATITIS Status: Acute Current Visit: No (15) Bacteremia SNOMED Code(s): 7708082 Code(s): R78.81 - BACTEREMIA Status: Acute Current Visit: Yes - Problem List Review Problem List Initiated/Reviewed/Updated: Yes - My Orders Last 24 Hours: My Active Orders 12/01/20 08:18 Intake and Output [RC] QSHIFT VTE/DVT Education [RC] PER UNIT ROUTINE Resuscitation Status Routine 12/01/20 08:19 Sodium Chloride 0.9% [Saline Flush] 2.5 ml FLUSH ASDIRECTED PRN Saline Lock Insert [OM.PC] Routine 12/01/20 11:24 Patient Status [ADT] Stat 12/01/20 11:28 phenoL [Chloraseptic Throat Perkins] See Dose Instructions MUCMEM Q2H PRN 12/01/20 11:30 Fluconazole [Diflucan] 150 mg PO DAILY 12/01/20 12:00 Nystatin [Mycostatin] 5 ml PO QID 12/01/20 13:43 Communication Order [RC] ROUTINE Urinary Catheter Removal [RC] PER UNIT ROUTINE 12/03/20 05:11 BMP [BASIC METABOLIC PANEL,BMP] [CHEM] AM CBC WITH AUTO DIFF [HEME] AM - Plan Plan:: This 70-year-old female admitted with hyponatremia and UTI with indwelling catheter 1. UTI with indwelling catheter, ESBL E. coli in previous cultures/gram negative bacteremia -Continue meropenem -Gomez catheter removed yesterday and is voiding well per self. Check post void residuals -Continue IV fluid resuscitation -From previous admission she has follow-up with urology in December - Repeat BC completed today - Await LAZARO of first set BC 2. Hyponatremia -Stop LR today - Na 126 -Continue to monitor. 3. Oral thrush -Continues to have concerns and oropharyngeal tenderness and pain especially with swallowing -Continue nystatin to 4 times daily -One more dose Diflucan 150 today 4. Diabetes type 2 -Hold oral agents -NovoLog sliding scale 3 times a day with meals -ADA diet 5. Hypertension -Due to hypotension currently will hold off on oral antihypertensives 6. Hypothyroidism secondary to thyroidectomy -Continue levothyroxine 7. Depression/anxiety -Continue home medications VTE prophylaxis: Heparin GI prophylaxis: Protonix CODE STATUS: Full code Dispo: 2-4 days
[2020-12-02] MEDS: Diltiazem 120 MG Cap.CD PO SCH (09:01)
[2020-12-02] MEDS: Cholecalciferol (Vitamin D3) 25 MCG Tab PO SCH (09:01)
[2020-12-02] MEDS: Pantoprazole 40 MG in Sodium Chloride 0.9% 10 ML IV SCH (09:04)
[2020-12-02] MEDS ORDERED: Bisacodyl 10 MG Supp RECTAL PRN (09:27)
[2020-12-02] MEDS ORDERED: Bisacodyl 10 MG Supp RECTAL ONE (09:27)
[2020-12-02] MEDS: Fluconazole 100 MG Tab PO SCH (10:27)
[2020-12-02] MEDS: Docusate Sodium 100 MG Cap PO SCH ×2 (10:28→21:13)
[2020-12-02] MEDS ORDERED: Magnesium Sulfate/Water 4 GM in Premix Bag 1 BAG IV ONE (11:34)
[2020-12-02] MEDS: Acetaminophen 325 MG Tab PO PRN (16:25)
[2020-12-02] MEDS: Heparin Sodium 5,000 Units/ML Vial SUBCUT SCH (19:55)
[2020-12-02] MEDS: Irbesartan 150 MG Tab PO SCH (21:12)
[2020-12-02] MEDS: Rosuvastatin 10 MG Tab PO SCH (21:13)
[2020-12-03] MEDS: Meropenem Premix 50 ML IV SCH ×3 (01:13→17:26)
[2020-12-03] MEDS: Omeprazole 20 MG Cap.CR PO SCH (06:38)
[2020-12-03] MEDS: Nystatin Susp 100,000 Unit/ML 5 ML UD Cup PO SCH ×3 (06:38→17:18)
[2020-12-03] MEDS: SYNTHROID 100 MCG PO SCH (06:39)
[2020-12-03] MEDS: Insulin Aspart 100 Units/ML 3 ML Pen SUBCUT SCH ×3 (06:45→17:30)
[2020-12-03 07:14] LABS: BLOOD UREA NITROGEN,BUN 6 mg/dL (7.0-18.0); CARBON DIOXIDE,CO2 32.3 mmol/L (21.0-32.0); CHLORIDE,CL 96 mmol/L (98-107); GLUCOSE RANDOM 126 mg/dL (74-106); POTASSIUM,K 4.5 mmol/L (3.5-5.1); SODIUM,NA 131 mmol/L (136-145)
[2020-12-03] MEDS: Pantoprazole 40 MG in Sodium Chloride 0.9% 10 ML IV SCH (08:59)
[2020-12-03] MEDS: Cholecalciferol (Vitamin D3) 25 MCG Tab PO SCH (08:59)
[2020-12-03] MEDS: Docusate Sodium 100 MG Cap PO SCH ×2 (09:00→21:08)
[2020-12-03] MEDS: Heparin Sodium 5,000 Units/ML Vial SUBCUT SCH ×2 (09:00→20:01)
[2020-12-03] MEDS: Diltiazem 120 MG Cap.CD PO SCH (09:00)
[2020-12-03] MEDS: ALPRAZolam 0.5 MG Tab PO SCH ×3 (09:10→21:24)
[2020-12-03] MEDS ORDERED: Levothyroxine 50 MCG Tab PO ONE (12:00)
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
[2020-12-03] MEDS: Irbesartan 150 MG Tab PO SCH (21:07)
[2020-12-03] MEDS: Rosuvastatin 10 MG Tab PO SCH (21:08)
[2020-12-03] MEDS: Acetaminophen 325 MG Tab PO PRN (21:18)
[2020-12-04] MEDS: Nystatin Susp 100,000 Unit/ML 5 ML UD Cup PO SCH ×4 (00:21→17:01)
[2020-12-04] MEDS: Meropenem Premix 50 ML IV SCH ×2 (02:53→11:01)
[2020-12-04] MEDS: ALPRAZolam 0.5 MG Tab PO SCH ×4 (04:15→21:40)
[2020-12-04] MEDS: Omeprazole 20 MG Cap.CR PO SCH (06:39)
[2020-12-04] MEDS: SYNTHROID 100 MCG PO SCH (06:40)
[2020-12-04 07:04] LABS: BLOOD UREA NITROGEN,BUN 6 mg/dL (7.0-18.0); CARBON DIOXIDE,CO2 32.7 mmol/L (21.0-32.0); CHLORIDE,CL 96 mmol/L (98-107); GLUCOSE RANDOM 133 mg/dL (74-106); POTASSIUM,K 4.2 mmol/L (3.5-5.1); SODIUM,NA 133 mmol/L (136-145)
[2020-12-04] MEDS: Insulin Aspart 100 Units/ML 3 ML Pen SUBCUT SCH ×3 (07:43→16:57)
[2020-12-04] MEDS: Heparin Sodium 5,000 Units/ML Vial SUBCUT SCH ×2 (08:21→20:01)
[2020-12-04] MEDS: Docusate Sodium 100 MG Cap PO SCH ×2 (08:25→21:40)
[2020-12-04] MEDS: Diltiazem 120 MG Cap.CD PO SCH (08:25)
[2020-12-04] MEDS: Pantoprazole 40 MG in Sodium Chloride 0.9% 10 ML IV SCH (08:25)
[2020-12-04] MEDS: Cholecalciferol (Vitamin D3) 25 MCG Tab PO SCH (08:27)
[2020-12-04] MEDS: Acetaminophen 325 MG Tab PO PRN (09:22)
[2020-12-04] MEDS ORDERED: Ertapenem 1 GM in Sodium Chloride 0.9% 50 ML IV SCH (13:30)
--- NOTE | 2020-12-04 13:31 | PCM.PN ---
- General Info Date of Service: 12/04/20 Admission Dx/Problem (Free Text): Admission Diagnosis/Problem Admission Diagnosis/Problem Hyponatremia Subjective Update: Patient seen at bedside, continues to be worried about generalized things including her health as well as other general things at home. Patient is worried about her cats and managing them at home has been difficult due to her recent deterioration in health but she is not ready to give up her pets. Shannon kim also seems to be worried about generalized circumstances such as increased traffic on the highway [place] the [place], general activities of daily living at home her recent decline in her ambulatory status and seems to be thinking that she will be able to make it out of here, " her body is breaking down" patient concerned that she has been getting different kind of medications in the hospital than at home, I assured patients that the medications are the same is just the generic name and the brand name of the drug. Patient is also very concerned that she will end up having urinary retention again and need to have the catheter back in. So far patient has been voiding on her own, patient is likely having underlying generalized anxiety disorder and seems to be worrying about a lot of stuff at the same time which is getting overwhelming for her. Otherwise patient denies any chest pain, shortness of breath, nausea, vomiting, abdominal pain, diarrhea, presyncope, syncope - Review of Systems General: Reports: Weakness, Fatigue. Denies: Fever, Malaise, Chills Pulmonary: Denies: Shortness of Breath, Pleuritic Chest Pain Cardiovascular: Denies: Chest Pain, Palpitations Gastrointestinal: Denies: Abdominal Pain, Constipation Genitourinary: Reports: Urgency, Retention. Denies: Dysuria, Frequency, Burning Musculoskeletal: Denies: Neck Pain, Shoulder Pain, Arm Pain, Hand Pain, Back Pain Skin: Denies: Cyanosis, Jaundice, Mottled - Patient Data Vitals - Most Recent: Last Vital Signs Temp 36.3 C 12/04/20 11:49 Pulse 87 12/04/20 11:49 Resp 16 12/04/20 11:49 BP 118/59 L 12/04/20 11:49 Pulse Ox 93 L 12/04/20 11:49 Weight - Most Recent: 78.698 kg I&O - Last 24 Hours: Intake & Output 12/03/20 12/04/20 12/04/20 22:59 06:59 14:59 Intake Total 910 850 Output Total 2200 1500 Balance -1290 -650 Lab Results Last 24 Hours: Laboratory Results - last 24 hr 12/03/20 12/04/20 12/04/20 Range/Units 17:16 06:25 06:25 WBC 7.32 (4.0-11.0) K/uL RBC 3.71 L (4.30-5.90) M/uL Hgb 10.5 L (12.0-16.0) g/dL Hct 31.6 L (36.0-46.0) % MCV 85.2 (80.0-98.0) fL MCH 28.3 (27.0-32.0) pg MCHC 33.2 (31.0-37.0) g/dL RDW Std Deviation 41.7 (28.0-62.0) fl RDW Coeff of Eran 14 (11.0-15.0) % Plt Count 321 (150-400) K/uL MPV 8.20 (7.40-12.00) fL Neut % (Auto) 61.4 (48.0-80.0) % Lymph % (Auto) 24.6 (16.0-40.0) % Sumner % (Auto) 9.6 (0.0-15.0) % Eos % (Auto) 4.1 (0.0-7.0) % Baso % (Auto) 0.3 (0.0-1.5) % Neut # (Auto) 4.5 (1.4-5.7) K/uL Lymph # (Auto) 1.8 (0.6-2.4) K/uL Sumner # (Auto) 0.7 (0.0-0.8) K/uL Eos # (Auto) 0.3 (0.0-0.7) K/uL Baso # (Auto) 0.0 (0.0-0.1) K/uL Nucleated RBC % 0.0 /100WBC Nucleated RBCs # 0 K/uL Sodium 133 L (136-145) mmol/L Potassium 4.2 (3.5-5.1) mmol/L Chloride 96 L (98-107) mmol/L Carbon Dioxide 32.7 H (21.0-32.0) mmol/L BUN 6 L (7.0-18.0) mg/dL Creatinine 0.7 (0.6-1.0) mg/dL Est Cr Clr Drug Dosing 60.84 mL/min Estimated GFR (MDRD) > 60.0 ml/min Glucose 133 H (74-106) mg/dL POC Glucose 132 H (70-99) mg/dL Calcium 8.7 (8.5-10.1) mg/dL Phosphorus 2.9 (2.6-4.7) mg/dL Magnesium 2.1 (1.8-2.4) mg/dL 12/04/20 12/04/20 Range/Units 06:37 11:19 WBC (4.0-11.0) K/uL RBC (4.30-5.90) M/uL Hgb (12.0-16.0) g/dL Hct (36.0-46.0) % MCV (80.0-98.0) fL MCH (27.0-32.0) pg MCHC (31.0-37.0) g/dL RDW Std Deviation (28.0-62.0) fl RDW Coeff of Eran (11.0-15.0) % Plt Count (150-400) K/uL MPV (7.40-12.00) fL Neut % (Auto) (48.0-80.0) % Lymph % (Auto) (16.0-40.0) % Sumner % (Auto) (0.0-15.0) % Eos % (Auto) (0.0-7.0) % Baso % (Auto) (0.0-1.5) % Neut # (Auto) (1.4-5.7) K/uL Lymph # (Auto) (0.6-2.4) K/uL Sumner # (Auto) (0.0-0.8) K/uL Eos # (Auto) (0.0-0.7) K/uL Baso # (Auto) (0.0-0.1) K/uL Nucleated RBC % /100WBC Nucleated RBCs # K/uL Sodium (136-145) mmol/L Potassium (3.5-5.1) mmol/L Chloride (98-107) mmol/L Carbon Dioxide (21.0-32.0) mmol/L BUN (7.0-18.0) mg/dL Creatinine (0.6-1.0) mg/dL Est Cr Clr Drug Dosing mL/min Estimated GFR (MDRD) ml/min Glucose (74-106) mg/dL POC Glucose 142 H 191 H (70-99) mg/dL Calcium (8.5-10.1) mg/dL Phosphorus (2.6-4.7) mg/dL Magnesium (1.8-2.4) mg/dL Lazaro Results Last 24 Hours: Microbiology 11/30/20 00:25 Blood Culture Identification Panel - Final Blood Escherichia Coli 12/02/20 07:22 Aerobic Blood Culture - Preliminary Blood NO GROWTH AFTER 2 DAYS Anaerobic Blood Culture - Preliminary NO GROWTH AFTER 2 DAYS 12/02/20 05:43 Aerobic Blood Culture - Preliminary Blood NO GROWTH AFTER 2 DAYS Anaerobic Blood Culture - Preliminary NO GROWTH AFTER 2 DAYS 12/01/20 00:47 Aerobic Blood Culture - Preliminary Blood - Venous - Lab Draw NO GROWTH AFTER 3 DAYS Anaerobic Blood Culture - Preliminary NO GROWTH AFTER 3 DAYS 12/01/20 00:25 Aerobic Blood Culture - Preliminary Blood - Venous Anaerobic Blood Culture - Preliminary NO GROWTH AFTER 3 DAYS 12/01/20 09:20 Urine Culture - Final Urine Med Orders - Current: Current Medications Acetaminophen (Acetaminophen 325 Mg Tab) 650 mg PO Q4H PRN PRN Reason: Pain/Fever Last Admin: 12/04/20 09:22 Dose: 650 mg Documented by: Albuterol/Ipratropium (Albuterol/Ipratropium 3.0-0.5 Mg/3 Ml Neb Soln) 3 ml NEB Q4HRRT PRN PRN Reason: Shortness of Breath Alprazolam (Alprazolam 0.5 Mg Tab) 1 mg PO Q6H [facility] Last Admin: 12/04/20 11:01 Dose: 1 mg Documented by: Bisacodyl (Bisacodyl 10 Mg Supp) 10 mg RECTAL DAILY PRN PRN Reason: Constipation Cholecalciferol (Cholecalciferol (Vitamin D3) 25 Mcg Tab) 125 mcg PO DAILY [facility] Last Admin: 12/04/20 08:27 Dose: Not Given Documented by: Dextrose/Water (50% Dextrose In Water 50 Ml Syringe) 50 ml IVPUSH ASDIRECTED PRN PRN Reason: Hypoglycemia Diltiazem HCl (Diltiazem 120 Mg Cap.Cd) 120 mg PO DAILY [facility] Last Admin: 12/04/20 08:25 Dose: 120 mg Documented by: Docusate Sodium (Docusate Sodium 100 Mg Cap) 100 mg PO BID [facility] Last Admin: 12/04/20 08:25 Dose: 100 mg Documented by: Glucagon (Glucagon,Human Recombinant 1 Mg Vial) 1 mg IM ASDIRECTED PRN PRN Reason: Hypoglycemia Heparin Sodium (Porcine) (Heparin Sodium 5,000 Units/Ml Vial) 5,000 units SUBCUT Q12H [facility] Last Admin: 12/04/20 08:21 Dose: 5,000 units Documented by: Meropenem/Sodium Chloride (Meropenem In Ns 1 Gm/50 Ml) 50 mls @ 100 mls/hr IV Q8H [facility] Last Admin: 12/04/20 11:01 Dose: 100 mls/hr Documented by: Pantoprazole Sodium 40 mg/ (Sodium Chloride) 10 mls @ 300 mls/hr IV DAILY [facility] Last Admin: 12/04/20 08:25 Dose: 300 mls/hr Documented by: Insulin Aspart (Insulin Aspart 100 Units/Ml 3 Ml Pen) 0 unit SUBCUT TIDAC [facility]; Protocol Last Admin: 12/04/20 11:24 Dose: 1 units Documented by: Irbesartan (Irbesartan 150 Mg Tab) 150 mg PO BEDTIME [facility] Last Admin: 12/03/20 21:07 Dose: 150 mg Documented by: Nystatin (Nystatin Susp 100,000 Unit/Ml 5 Ml Ud Cup) 5 ml PO QID [facility] Last Admin: 12/04/20 11:01 Dose: 5 ml Documented by: Omeprazole (Omeprazole 20 Mg Cap.Cr) 40 mg PO ACBREAKFAST [facility] Last Admin: 12/04/20 06:39 Dose: 40 mg Documented by: Ondansetron HCl (Ondansetron 4 Mg/2 Ml Sdv) 4 mg IVPUSH Q4H PRN PRN Reason: Nausea/Vomiting Doxepin 100 Mg (Capsule) 1 each PO BEDTIME [facility] Last Admin: 12/03/20 21:08 Dose: 1 each Documented by: Synthroid 100 Mcg (Tablet) 1 each PO ACBREAKFAST [facility] Last Admin: 12/04/20 06:40 Dose: 1 each Documented by: Phenol/Menthol (Phenol 1.4% Oral [place] 177 Ml Bottle) 0 ml MUCMEM Q2H PRN PRN Reason: Sore Throat Rosuvastatin Calcium (Rosuvastatin 10 Mg Tab) 10 mg PO BEDTIME [facility] Last Admin: 12/03/20 21:08 Dose: 10 mg Documented by: Sodium Chloride (Sodium Chloride 0.9% 2.5 Ml Syringe) 2.5 ml FLUSH ASDIRECTED PRN PRN Reason: Keep Vein Open Discontinued Medications Alprazolam (Alprazolam 0.5 Mg Tab) 1 mg PO QID [facility] Last Admin: 12/01/20 06:31 Dose: 1 mg Documented by: Bisacodyl (Bisacodyl 10 Mg Supp) 10 mg RECTAL ONETIME ONE Stop: 12/02/20 09:28 Last Admin: 12/02/20 10:28 Dose: 10 mg Documented by: Fluconazole (Fluconazole 100 Mg Tab) 150 mg PO DAILY JORGE Stop: 12/02/20 09:01 Last Admin: 12/02/20 10:27 Dose: 150 mg Documented by: Sodium Chloride (Normal Saline) 1,000 mls @ 999 mls/hr IV .Bolus ONE Stop: 12/01/20 00:50 Last Admin: 12/01/20 00:14 Dose: 999 mls/hr Documented by: Lactated Ringer's (Ringers, Lactated) 1,000 mls @ 999 mls/hr IV .BOLUS [facility] Last Admin: 12/01/20 01:29 Dose: 999 mls/hr Documented by: Meropenem/Sodium Chloride (Meropenem In Ns 1 Gm/50 Ml) 50 mls @ 100 mls/hr IV ONETIME ONE Stop: 12/01/20 01:56 Last Admin: 12/01/20 01:42 Dose: 100 mls/hr Documented by: Lactated Ringer's (Ringers, Lactated) 1,000 mls @ 999 mls/hr IV .BOLUS [facility] Last Admin: 12/01/20 01:43 Dose: 999 mls/hr Documented by: Lactated Ringer's (Ringers, Lactated) 1,000 mls @ 125 mls/hr IV ASDIRECTED [facility] Last Admin: 12/02/20 00:42 Dose: 125 mls/hr Documented by: Magnesium Sulfate 4 gm/ Premix 100 mls @ 33.333 mls/hr IV ONETIME ONE Stop: 12/02/20 14:33 Last Admin: 12/02/20 12:03 Dose: 33.333 mls/hr Documented by: Ketorolac Tromethamine (Ketorolac 15 Mg/Ml Sdv) 15 mg IVPUSH ONETIME ONE Stop: 11/30/20 23:51 Last Admin: 12/01/20 00:14 Dose: 15 mg Documented by: Levothyroxine Sodium (Levothyroxine 50 Mcg Tab) 50 mcg PO ONETIME ONE Stop: 12/03/20 12:01 Last Admin: 12/03/20 12:26 Dose: 50 mcg Documented by: Non-Formulary Medication (Alprazolam [Alprazolam Er]) 1 mg PO TID [facility] Nystatin (Nystatin Susp 100,000 Unit/Ml 5 Ml Ud Cup) 5 ml PO BID [facility] Last Admin: 12/01/20 09:11 Dose: 5 ml Documented by: Ondansetron HCl (Ondansetron 4 Mg/2 Ml Sdv) 4 mg IVPUSH ONETIME ONE Stop: 11/30/20 23:51 Last Admin: 12/01/20 00:14 Dose: 4 mg Documented by: Alprazolam 1 Mg (Tablet) 1 each PO 0400,1000,1600,2200 [facility] Last Admin: 12/03/20 04:24 Dose: 1 each Documented by: Sodium Chloride (Sodium Chloride 0.9% 10 Ml Syringe) 10 ml FLUSH ASDIRECTED PRN PRN Reason: Keep Vein Open Sodium Chloride (Sodium Chloride 0.9% 2.5 Ml Syringe) 2.5 ml FLUSH ASDIRECTED PRN PRN Reason: Keep Vein Open - Exam Urinary Catheter Total Time: 0Days 15Hours General: Alert, Oriented, No Acute Distress Lungs: Clear to Auscultation, Normal Respiratory Effort Cardiovascular: Regular Rate, Regular Rhythm GI/Abdominal Exam: Normal Bowel Sounds, Soft, Non-Tender Back Exam: Normal Inspection, Full Range of Motion Extremities: Normal Inspection, Normal Range of Motion - Patient Data Lab Results Last 24 hrs: Laboratory Results - last 24 hr 12/03/20 12/04/20 12/04/20 Range/Units 17:16 06:25 06:25 WBC 7.32 (4.0-11.0) K/uL RBC 3.71 L (4.30-5.90) M/uL Hgb 10.5 L (12.0-16.0) g/dL Hct 31.6 L (36.0-46.0) % MCV 85.2 (80.0-98.0) fL MCH 28.3 (27.0-32.0) pg MCHC 33.2 (31.0-37.0) g/dL RDW Std Deviation 41.7 (28.0-62.0) fl RDW Coeff of Eran 14 (11.0-15.0) % Plt Count 321 (150-400) K/uL MPV 8.20 (7.40-12.00) fL Neut % (Auto) 61.4 (48.0-80.0) % Lymph % (Auto) 24.6 (16.0-40.0) % Sumner % (Auto) 9.6 (0.0-15.0) % Eos % (Auto) 4.1 (0.0-7.0) % Baso % (Auto) 0.3 (0.0-1.5) % Neut # (Auto) 4.5 (1.4-5.7) K/uL Lymph # (Auto) 1.8 (0.6-2.4) K/uL Sumner # (Auto) 0.7 (0.0-0.8) K/uL Eos # (Auto) 0.3 (0.0-0.7) K/uL Baso # (Auto) 0.0 (0.0-0.1) K/uL Nucleated RBC % 0.0 /100WBC Nucleated RBCs # 0 K/uL Sodium 133 L (136-145) mmol/L Potassium 4.2 (3.5-5.1) mmol/L Chloride 96 L (98-107) mmol/L Carbon Dioxide 32.7 H (21.0-32.0) mmol/L BUN 6 L (7.0-18.0) mg/dL Creatinine 0.7 (0.6-1.0) mg/dL Est Cr Clr Drug Dosing 60.84 mL/min Estimated GFR (MDRD) > 60.0 ml/min Glucose 133 H (74-106) mg/dL POC Glucose 132 H (70-99) mg/dL Calcium 8.7 (8.5-10.1) mg/dL Phosphorus 2.9 (2.6-4.7) mg/dL Magnesium 2.1 (1.8-2.4) mg/dL 12/04/20 12/04/20 Range/Units 06:37 11:19 WBC (4.0-11.0) K/uL RBC (4.30-5.90) M/uL Hgb (12.0-16.0) g/dL Hct (36.0-46.0) % MCV (80.0-98.0) fL MCH (27.0-32.0) pg MCHC (31.0-37.0) g/dL RDW Std Deviation (28.0-62.0) fl RDW Coeff of Eran (11.0-15.0) % Plt Count (150-400) K/uL MPV (7.40-12.00) fL Neut % (Auto) (48.0-80.0) % Lymph % (Auto) (16.0-40.0) % Sumner % (Auto) (0.0-15.0) % Eos % (Auto) (0.0-7.0) % Baso % (Auto) (0.0-1.5) % Neut # (Auto) (1.4-5.7) K/uL Lymph # (Auto) (0.6-2.4) K/uL Sumner # (Auto) (0.0-0.8) K/uL Eos # (Auto) (0.0-0.7) K/uL Baso # (Auto) (0.0-0.1) K/uL Nucleated RBC % /100WBC Nucleated RBCs # K/uL Sodium (136-145) mmol/L Potassium (3.5-5.1) mmol/L Chloride (98-107) mmol/L Carbon Dioxide (21.0-32.0) mmol/L BUN (7.0-18.0) mg/dL Creatinine (0.6-1.0) mg/dL Est Cr Clr Drug Dosing mL/min Estimated GFR (MDRD) ml/min Glucose (74-106) mg/dL POC Glucose 142 H 191 H (70-99) mg/dL Calcium (8.5-10.1) mg/dL Phosphorus (2.6-4.7) mg/dL Magnesium (1.8-2.4) mg/dL Result Diagrams: 12/04/20 06:25 12/04/20 06:25 Lazaro Results Last 24 hrs: Microbiology 11/30/20 00:25 Blood Culture Identification Panel - Final Blood Escherichia Coli 12/02/20 07:22 Aerobic Blood Culture - Preliminary Blood NO GROWTH AFTER 2 DAYS Anaerobic Blood Culture - Preliminary NO GROWTH AFTER 2 DAYS 12/02/20 05:43 Aerobic Blood Culture - Preliminary Blood NO GROWTH AFTER 2 DAYS Anaerobic Blood Culture - Preliminary NO GROWTH AFTER 2 DAYS 12/01/20 00:47 Aerobic Blood Culture - Preliminary Blood - Venous - Lab Draw NO GROWTH AFTER 3 DAYS Anaerobic Blood Culture - Preliminary NO GROWTH AFTER 3 DAYS 12/01/20 00:25 Aerobic Blood Culture - Preliminary Blood - Venous Anaerobic Blood Culture - Preliminary NO GROWTH AFTER 3 DAYS 12/01/20 09:20 Urine Culture - Final Urine Sepsis Event Note - Evaluation Sepsis Screening Result: No Definite Risk - Focused Exam Vital Signs: Vital Signs Temp Pulse Pulse Resp BP BP Pulse Ox 12/04/20 11:49 36.3 C 87 16 118/59 L 93 L 12/04/20 08:25 77 140/66 12/04/20 08:13 36.1 C 77 16 140/66 93 L 12/04/20 04:16 35.9 C L 72 17 147/70 H 93 L - Problem List & Annotations (1) Bacteremia SNOMED Code(s): 4376366 Code(s): R78.81 - BACTEREMIA Status: Acute Current Visit: Yes (2) Hyponatremia SNOMED Code(s): 36083617 Code(s): E87.1 - HYPO-OSMOLALITY AND HYPONATREMIA Status: Acute Current Visit: Yes (3) Urinary tract infection SNOMED Code(s): 16491611 Code(s): N39.0 - URINARY TRACT INFECTION, SITE NOT SPECIFIED Status: Acute Current Visit: Yes (4) Oral thrush SNOMED Code(s): 52323804 Code(s): B37.0 - CANDIDAL STOMATITIS Status: Acute Current Visit: No (5) Depression with anxiety SNOMED Code(s): 643282298 Code(s): F41.8 - OTHER SPECIFIED ANXIETY DISORDERS Status: Chronic Cur rent Visit: No (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 SNOMED Code(s): 593139030 Code(s): Z22.39 - CARRIER OF OTHER SPECIFIED BACTERIAL DISEASES Status: Chronic Current Visit: No (7) H/O thyroidectomy SNOMED Code(s): 425946410, 750413363 Code(s): 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 Current Visit: No (8) HLD (hyperlipidemia) SNOMED Code(s): 07661940 Code(s): E78.5 - HYPERLIPIDEMIA, UNSPECIFIED Status: Chronic Current Visit: No (9) HTN (hypertension) SNOMED Code(s): 56777006 Code(s): I10 - ESSENTIAL (PRIMARY) HYPERTENSION Status: Chronic Current Visit: No (10) Hypothyroidism associated with surgical procedure SNOMED Code(s): 91037209 Code(s): 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 Current Visit: No (11) Type 2 diabetes mellitus SNOMED Code(s): 68655770 Code(s): E11.9 - TYPE 2 DIABETES MELLITUS WITHOUT COMPLICATIONS Status: Chronic Current Visit: No Qualifiers: Diabetes mellitus detention insulin use: without terminal gauger supervisor use (12) Urinary retention SNOMED Code(s): 181927334 Code(s): R33.9 - RETENTION OF URINE, UNSPECIFIED Status: Chronic Current Visit: No - Problem List Review Problem List Initiated/Reviewed/Updated: Yes - My Orders Last 24 Hours: My Active Orders 12/03/20 Dinner Fluid Restriction [DIET] 12/04/20 13:30 Ertapenem [INVanz] 1 gm Sodium Chloride 0.9% [Normal Saline] 50 ml IV Q24H - Plan Plan:: This 70-year-old female admitted with hyponatremia and UTI with indwelling catheter 1. UTI with indwelling catheter, ESBL E. coli in previous cultures/gram negative bacteremia -Urine culture noted, first set of blood cultures came back positive for ESBL E. coli, repeat cultures have been negative -will start ertapenem based on the culture and sensitivity -Continue isolation precautions in view of drug-resistant bacteria -Gomez catheter removed, is voiding well per self. Check post void residuals -Continue IV fluid resuscitation -From previous admission she has follow-up with urology in December 2. Hyponatremia -Improving today 3. Oral thrush -Continue nystatin to 4 times daily -One more dose Diflucan 150 today 4. Diabetes type 2 -Hold oral agents -NovoLog sliding scale 3 times a day with meals -ADA diet 5. Hypertension -Continue home meds 6. Hypothyroidism secondary to thyroidectomy -Continue levothyroxine, 7. Depression/anxiety -Continue home medications -May increase dose of Xanax to see if that helps with her generalized anxiety, no suicidal ideation VTE prophylaxis: Heparin GI prophylaxis: Protonix CODE STATUS: Full code Dispo: 2-4 days
[2020-12-04] MEDS ORDERED: ALPRAZolam 0.5 MG Tab PO SCH (13:39)
[2020-12-04] MEDS: Ertapenem 1 GM in Sodium Chloride 0.9% 50 ML IV SCH (16:59)
[2020-12-04] MEDS: Irbesartan 150 MG Tab PO SCH (21:39)
[2020-12-04] MEDS: Rosuvastatin 10 MG Tab PO SCH (21:40)
[2020-12-05] MEDS: Nystatin Susp 100,000 Unit/ML 5 ML UD Cup PO SCH ×4 (00:19→17:01)
[2020-12-05] MEDS: ALPRAZolam 0.5 MG Tab PO SCH ×4 (04:27→21:04)
[2020-12-05 06:15] LABS: BLOOD UREA NITROGEN,BUN 7 mg/dL (7.0-18.0); CARBON DIOXIDE,CO2 29.5 mmol/L (21.0-32.0); CHLORIDE,CL 96 mmol/L (98-107); GLUCOSE RANDOM 129 mg/dL (74-106); POTASSIUM,K 4.1 mmol/L (3.5-5.1); SODIUM,NA 132 mmol/L (136-145)
[2020-12-05] MEDS: Omeprazole 20 MG Cap.CR PO SCH (06:33)
[2020-12-05] MEDS: SYNTHROID 100 MCG PO SCH (06:34)
[2020-12-05] MEDS: Insulin Aspart 100 Units/ML 3 ML Pen SUBCUT SCH ×3 (07:36→17:22)
[2020-12-05] MEDS: Heparin Sodium 5,000 Units/ML Vial SUBCUT SCH ×2 (08:58→20:54)
[2020-12-05] MEDS: Pantoprazole 40 MG in Sodium Chloride 0.9% 10 ML IV SCH (09:05)
[2020-12-05] MEDS: Diltiazem 120 MG Cap.CD PO SCH (09:06)
[2020-12-05] MEDS: Docusate Sodium 100 MG Cap PO SCH ×2 (09:06→20:52)
[2020-12-05] MEDS: CHOLECALCIFEROL 125 MCG PO SCH (09:08)
[2020-12-05] MEDS: Cholecalciferol (Vitamin D3) 25 MCG Tab PO SCH (09:11)
--- NOTE | 2020-12-05 09:19 | PCM.PN ---
- General Info Date of Service: 12/05/20 Admission Dx/Problem (Free Text): Admission Diagnosis/Problem Admission Diagnosis/Problem Hyponatremia Subjective Update: Continues to feel depressed and have general anxiety disorder. Patient counseled heavily on plan for possible discharge in the next coming days to help prepare her. Patient will need extended course of IV antibiotics due to resistant bacteria growing in blood. Denies any chest pain or shortness of br eath. Reports that she has trouble sleeping did sleep better. Reports she cannot quite get comfortable at night. Functional Status: Reports: Pain Controlled, Tolerating Diet, Ambulating, Urinating - Review of Systems General: Reports: Fatigue, Malaise HEENT: Reports: Headaches (Intermittent headaches), Sore Throat Pulmonary: Reports: No Symptoms. Denies: Shortness of Breath Cardiovascular: Reports: No Symptoms. Denies: Chest Pain Gastrointestinal: Reports: No Symptoms. Denies: Abdominal Pain, Nausea, Vomiting Genitourinary: Reports: No Symptoms Musculoskeletal: Reports: No Symptoms Skin: Reports: No Symptoms Neurological: Reports: No Symptoms Psychiatric: Reports: No Symptoms - Patient Data Vitals - Most Recent: Last Vital Signs Temp 97.4 F 12/05/20 09:01 Pulse 81 12/05/20 09:06 Resp 16 12/05/20 09:01 BP 136/61 12/05/20 09:06 Pulse Ox 93 L 12/05/20 09:01 Weight - Most Recent: 78.698 kg I&O - Last 24 Hours: Intake & Output 12/04/20 12/05/20 12/05/20 22:59 06:59 14:59 Intake Total 997 863 Output Total 2685 1200 Balance -1688 -490 Lab Results Last 24 Hours: Laboratory Results - last 24 hr 12/04/20 12/04/20 12/05/20 Range/Units 11:19 16:56 05:20 WBC 8.23 (4.0-11.0) K/uL RBC 3.46 L (4.30-5.90) M/uL Hgb 9.9 L (12.0-16.0) g/dL Hct 29.7 L (36.0-46.0) % MCV 85.8 (80.0-98.0) fL MCH 28.6 (27.0-32.0) pg MCHC 33.3 (31.0-37.0) g/dL RDW Std Deviation 43.8 (28.0-62.0) fl RDW Coeff of Eran 14 (11.0-15.0) % Plt Count 362 (150-400) K/uL MPV 8.50 (7.40-12.00) fL Neut % (Auto) 61.0 (48.0-80.0) % Lymph % (Auto) 26.0 (16.0-40.0) % [place] % (Auto) 9.7 (0.0-15.0) % Eos % (Auto) 2.9 (0.0-7.0) % Baso % (Auto) 0.4 (0.0-1.5) % Neut # (Auto) 5.0 (1.4-5.7) K/uL Lymph # (Auto) 2.1 (0.6-2.4) K/uL [place] # (Auto) 0.8 (0.0-0.8) K/uL Eos # (Auto) 0.2 (0.0-0.7) K/uL Baso # (Auto) 0.0 (0.0-0.1) K/uL Nucleated RBC % 0.0 /100WBC Nucleated RBCs # 0 K/uL Sodium (136-145) mmol/L Potassium (3.5-5.1) mmol/L Chloride (98-107) mmol/L Carbon Dioxide (21.0-32.0) mmol/L BUN (7.0-18.0) mg/dL Creatinine (0.6-1.0) mg/dL Est Cr Clr Drug Dosing mL/min Estimated GFR (MDRD) ml/min Glucose (74-106) mg/dL POC Glucose 191 H 120 H (70-99) mg/dL Calcium (8.5-10.1) mg/dL 12/05/20 12/05/20 Range/Units 05:20 06:42 WBC (4.0-11.0) K/uL RBC (4.30-5.90) M/uL Hgb (12.0-16.0) g/dL Hct (36.0-46.0) % MCV (80.0-98.0) fL MCH (27.0-32.0) pg MCHC (31.0-37.0) g/dL RDW Std Deviation (28.0-62.0) fl RDW Coeff of Eran (11.0-15.0) % Plt Count (150-400) K/uL MPV (7.40-12.00) fL Neut % (Auto) (48.0-80.0) % Lymph % (Auto) (16.0-40.0) % [place] % (Auto) (0.0-15.0) % Eos % (Auto) (0.0-7.0) % Baso % (Auto) (0.0-1.5) % Neut # (Auto) (1.4-5.7) K/uL Lymph # (Auto) (0.6-2.4) K/uL [place] # (Auto) (0.0-0.8) K/uL Eos # (Auto) (0.0-0.7) K/uL Baso # (Auto) (0.0-0.1) K/uL Nucleated RBC % /100WBC Nucleated RBCs # K/uL Sodium 132 L (136-145) mmol/L Potassium 4.1 (3.5-5.1) mmol/L Chloride 96 L (98-107) mmol/L Carbon Dioxide 29.5 (21.0-32.0) mmol/L BUN 7 (7.0-18.0) mg/dL Creatinine 0.7 (0.6-1.0) mg/dL Est Cr Clr Drug Dosing 60.84 mL/min Estimated GFR (MDRD) > 60.0 ml/min Glucose 129 H (74-106) mg/dL POC Glucose 134 H (70-99) mg/dL Calcium 8.4 L (8.5-10.1) mg/dL Lazaro Results Last 24 Hours: Microbiology 12/02/20 07:22 Aerobic Blood Culture - Preliminary Blood NO GROWTH AFTER 3 DAYS Anaerobic Blood Culture - Preliminary NO GROWTH AFTER 3 DAYS 12/02/20 05:43 Aerobic Blood Culture - Preliminary Blood NO GROWTH AFTER 3 DAYS Anaerobic Blood Culture - Preliminary NO GROWTH AFTER 3 DAYS 12/01/20 00:47 Aerobic Blood Culture - Preliminary Blood - Venous - Lab Draw NO GROWTH AFTER 4 DAYS Anaerobic Blood Culture - Preliminary NO GROWTH AFTER 4 DAYS 12/01/20 00:25 Aerobic Blood Culture - Preliminary Blood - Venous Anaerobic Blood Culture - Preliminary NO GROWTH AFTER 4 DAYS 11/30/20 00:25 Blood Culture Identification Panel - Final Blood Escherichia Coli Med Orders - Current: Current Medications Acetaminophen (Acetaminophen 325 Mg Tab) 650 mg PO Q4H PRN PRN Reason: Pain/Fever Last Admin: 12/04/20 09:22 Dose: 650 mg Documented by: Albuterol/Ipratropium (Albuterol/Ipratropium 3.0-0.5 Mg/3 Ml Neb Soln) 3 ml NEB Q4HRRT PRN PRN Reason: Shortness of Breath Alprazolam (Alprazolam 0.5 Mg Tab) 1.5 mg PO Q6H [facility] Last Admin: 12/05/20 09:08 Dose: 1.5 mg Documented by: Bisacodyl (Bisacodyl 10 Mg Supp) 10 mg RECTAL DAILY PRN PRN Reason: Constipation Dextrose/Water (50% Dextrose In Water 50 Ml Syringe) 50 ml IVPUSH ASDIRECTED PRN PRN Reason: Hypoglycemia Diltiazem HCl (Diltiazem 120 Mg Cap.Cd) 120 mg PO DAILY [facility] Last Admin: 12/05/20 09:06 Dose: 120 mg Documented by: Docusate Sodium (Docusate Sodium 100 Mg Cap) 100 mg PO BID [facility] Last Admin: 12/05/20 09:06 Dose: 100 mg Documented by: Glucagon (Glucagon,Human Recombinant 1 Mg Vial) 1 mg IM ASDIRECTED PRN PRN Reason: Hypoglycemia Heparin Sodium (Porcine) (Heparin Sodium 5,000 Units/Ml Vial) 5,000 units SUBCUT Q12H [facility] Last Admin: 12/05/20 08:58 Dose: 5,000 units Documented by: Pantoprazole Sodium 40 mg/ (Sodium Chloride) 10 mls @ 300 mls/hr IV DAILY [facility] Last Admin: 12/05/20 09:05 Dose: 300 mls/hr Documented by: Ertapenem 1 gm/ Sodium (Chloride) 50 mls @ 100 mls/hr IV Q24H [facility] Last Admin: 12/04/20 16:59 Dose: 100 mls/hr Documented by: Insulin Aspart (Insulin Aspart 100 Units/Ml 3 Ml Pen) 0 unit SUBCUT TIDAC [facility]; Protocol Last Admin: 12/05/20 07:36 Dose: Not Given Documented by: Irbesartan (Irbesartan 150 Mg Tab) 150 mg PO BEDTIME [facility] Last Admin: 12/04/20 21:39 Dose: 150 mg Documented by: Nystatin (Nystatin Susp 100,000 Unit/Ml 5 Ml Ud Cup) 5 ml PO QID [facility] Last Admin: 12/05/20 06:33 Dose: 5 ml Documented by: Omeprazole (Omeprazole 20 Mg Cap.Cr) 40 mg PO ACBREAKFAST [facility] Last Admin: 12/05/20 06:33 Dose: 40 mg Documented by: Ondansetron HCl (Ondansetron 4 Mg/2 Ml Sdv) 4 mg IVPUSH Q4H PRN PRN Reason: Nausea/Vomiting Doxepin 100 Mg (Capsule) 1 each PO BEDTIME [facility] Last Admin: 12/04/20 21:41 Dose: 1 each Documented by: Synthroid 100 Mcg (Tablet) 1 each PO ACBREAKFAST [facility] Last Admin: 12/05/20 06:34 Dose: 1 each Documented by: Cholecalciferol ( Vitamin D3) 125 Mcg Tab 1 each PO DAILY [facility] Last Admin: 12/05/20 09:08 Dose: 1 each Documented by: Phenol/Menthol (Phenol 1.4% Oral [place] 177 Ml Bottle) 0 ml MUCMEM Q2H PRN PRN Reason: Sore Throat Rosuvastatin Calcium (Rosuvastatin 10 Mg Tab) 10 mg PO BEDTIME [facility] Last Admin: 12/04/20 21:40 Dose: 10 mg Documented by: Sodium Chloride (Sodium Chloride 0.9% 2.5 Ml Syringe) 2.5 ml FLUSH ASDIRECTED PRN PRN Reason: Keep Vein Open Discontinued Medications Alprazolam (Alprazolam 0.5 Mg Tab) 1 mg PO QID [facility] Last Admin: 12/01/20 06:31 Dose: 1 mg Documented by: Alprazolam (Alprazolam 0.5 Mg Tab) 1 mg PO Q6H [facility] Last Admin: 12/04/20 11:01 Dose: 1 mg Documented by: Alprazolam (Alprazolam 0.5 Mg Tab) 1.5 mg PO Q6H [facility] Bisacodyl (Bisacodyl 10 Mg Supp) 10 mg RECTAL ONETIME ONE Stop: 12/02/20 09:28 Last Admin: 12/02/20 10:28 Dose: 10 mg Documented by: Cholecalciferol (Cholecalciferol (Vitamin D3) 25 Mcg Tab) 125 mcg PO DAILY [facility] Last Admin: 12/05/20 09:11 Dose: Not Given Documented by: Fluconazole (Fluconazole 100 Mg Tab) 150 mg PO DAILY JORGE Stop: 12/02/20 09:01 Last Admin: 12/02/20 10:27 Dose: 150 mg Documented by: Sodium Chloride (Normal Saline) 1,000 mls @ 999 mls/hr IV .Bolus ONE Stop: 12/01/20 00:50 Last Admin: 12/01/20 00:14 Dose: 999 mls/hr Documented by: Lactated Ringer's (Ringers, Lactated) 1,000 mls @ 999 mls/hr IV .BOLUS [facility] Last Admin: 12/01/20 01:29 Dose: 999 mls/hr Documented by: Meropenem/Sodium Chloride (Meropenem In Ns 1 Gm/50 Ml) 50 mls @ 100 mls/hr IV ONETIME ONE Stop: 12/01/20 01:56 Last Admin: 12/01/20 01:42 Dose: 100 mls/hr Documented by: Lactated Ringer's (Ringers, Lactated) 1,000 mls @ 999 mls/hr IV .BOLUS [facility] Last Admin: 12/01/20 01:43 Dose: 999 mls/hr Documented by: Lactated Ringer's (Ringers, Lactated) 1,000 mls @ 125 mls/hr IV ASDIRECTED [facility] Last Admin: 12/02/20 00:42 Dose: 125 mls/hr Documented by: Meropenem/Sodium Chloride (Meropenem In Ns 1 Gm/50 Ml) 50 mls @ 100 mls/hr IV Q8H [facility] Last Admin: 12/04/20 11:01 Dose: 100 mls/hr Documented by: Magnesium Sulfate 4 gm/ Premix 100 mls @ 33.333 mls/hr IV ONETIME ONE Stop: 12/02/20 14:33 Last Admin: 12/02/20 12:03 Dose: 33.333 mls/hr Documented by: Ertapenem 1 gm/ Sodium (Chloride) 50 mls @ 100 mls/hr IV Q24H [facility] Ketorolac Tromethamine (Ketorolac 15 Mg/Ml Sdv) 15 mg IVPUSH ONETIME ONE Stop: 11/30/20 23:51 Last Admin: 12/01/20 00:14 Dose: 15 mg Documented by: Levothyroxine Sodium (Levothyroxine 50 Mcg Tab) 50 mcg PO ONETIME ONE Stop: 12/03/20 12:01 Last Admin: 12/03/20 12:26 Dose: 50 mcg Documented by: Non-Formulary Medication (Alprazolam [Alprazolam Er]) 1 mg PO TID [facility] Nystatin (Nystatin Susp 100,000 Unit/Ml 5 Ml Ud Cup) 5 ml PO BID [facility] Last Admin: 12/01/20 09:11 Dose: 5 ml Documented by: Ondansetron HCl (Ondansetron 4 Mg/2 Ml Sdv) 4 mg IVPUSH ONETIME ONE Stop: 11/30/20 23:51 Last Admin: 12/01/20 00:14 Dose: 4 mg Documented by: Alprazolam 1 Mg (Tablet) 1 each PO 0400,1000,1600,2200 [facility] Last Admin: 12/03/20 04:24 Dose: 1 each Documented by: Sodium Chloride (Sodium Chloride 0.9% 10 Ml Syringe) 10 ml FLUSH ASDIRECTED PRN PRN Reason: Keep Vein Open Sodium Chloride (Sodium Chloride 0.9% 2.5 Ml Syringe) 2.5 ml FLUSH ASDIRECTED PRN PRN Reason: Keep Vein Open - Exam Urinary Catheter Total Time: 0Days 15Hours General: Alert, Oriented, Cooperative, No Acute Distress Lungs: Clear to Auscultation, Normal Respiratory Effort Cardiovascular: Regular Rate, Regular Rhythm GI/Abdominal Exam: Normal Bowel Sounds, Soft, Non-Tender Extremities: Normal Inspection, Normal Range of Motion, Non-Tender, No Pedal Edema Neurological: No New Focal Deficit Psy/Mental Status: Alert, Normal Affect, Normal Mood - Patient Data Lab Results Last 24 hrs: Laboratory Results - last 24 hr 12/04/20 12/04/20 12/05/20 Range/Units 11:19 16:56 05:20 WBC 8.23 (4.0-11.0) K/uL RBC 3.46 L (4.30-5.90) M/uL Hgb 9.9 L (12.0-16.0) g/dL Hct 29.7 L (36.0-46.0) % MCV 85.8 (80.0-98.0) fL MCH 28.6 (27.0-32.0) pg MCHC 33.3 (31.0-37.0) g/dL RDW Std Deviation 43.8 (28.0-62.0) fl RDW Coeff of Eran 14 (11.0-15.0) % Plt Count 362 (150-400) K/uL MPV 8.50 (7.40-12.00) fL Neut % (Auto) 61.0 (48.0-80.0) % Lymph % (Auto) 26.0 (16.0-40.0) % [place] % (Auto) 9.7 (0.0-15.0) % Eos % (Auto) 2.9 (0.0-7.0) % Baso % (Auto) 0.4 (0.0-1.5) % Neut # (Auto) 5.0 (1.4-5.7) K/uL Lymph # (Auto) 2.1 (0.6-2.4) K/uL [place] # (Auto) 0.8 (0.0-0.8) K/uL Eos # (Auto) 0.2 (0.0-0.7) K/uL Baso # (Auto) 0.0 (0.0-0.1) K/uL Nucleated RBC % 0.0 /100WBC Nucleated RBCs # 0 K/uL Sodium (136-145) mmol/L Potassium (3.5-5.1) mmol/L Chloride (98-107) mmol/L Carbon Dioxide (21.0-32.0) mmol/L BUN (7.0-18.0) mg/dL Creatinine (0.6-1.0) mg/dL Est Cr Clr Drug Dosing mL/min Estimated GFR (MDRD) ml/min Glucose (74-106) mg/dL POC Glucose 191 H 120 H (70-99) mg/dL Calcium (8.5-10.1) mg/dL 12/05/20 12/05/20 Range/Units 05:20 06:42 WBC (4.0-11.0) K/uL RBC (4.30-5.90) M/uL Hgb (12.0-16.0) g/dL Hct (36.0-46.0) % MCV (80.0-98.0) fL MCH (27.0-32.0) pg MCHC (31.0-37.0) g/dL RDW Std Deviation (28.0-62.0) fl RDW Coeff of Eran (11.0-15.0) % Plt Count (150-400) K/uL MPV (7.40-12.00) fL Neut % (Auto) (48.0-80.0) % Lymph % (Auto) (16.0-40.0) % [place] % (Auto) (0.0-15.0) % Eos % (Auto) (0.0-7.0) % Baso % (Auto) (0.0-1.5) % Neut # (Auto) (1.4-5.7) K/uL Lymph # (Auto) (0.6-2.4) K/uL [place] # (Auto) (0.0-0.8) K/uL Eos # (Auto) (0.0-0.7) K/uL Baso # (Auto) (0.0-0.1) K/uL Nucleated RBC % /100WBC Nucleated RBCs # K/uL Sodium 132 L (136-145) mmol/L Potassium 4.1 (3.5-5.1) mmol/L Chloride 96 L (98-107) mmol/L Carbon Dioxide 29.5 (21.0-32.0) mmol/L BUN 7 (7.0-18.0) mg/dL Creatinine 0.7 (0.6-1.0) mg/dL Est Cr Clr Drug Dosing 60.84 mL/min Estimated GFR (MDRD) > 60.0 ml/min Glucose 129 H (74-106) mg/dL POC Glucose 134 H (70-99) mg/dL Calcium 8.4 L (8.5-10.1) mg/dL Result Diagrams: 12/05/20 05:20 12/05/20 05:20 L[facility]aro Results Last 24 hrs: Microbiology 12/02/20 07:22 Aerobic Blood Culture - Preliminary Blood NO GROWTH AFTER 3 DAYS Anaerobic Blood Culture - Preliminary NO GROWTH AFTER 3 DAYS 12/02/20 05:43 Aerobic Blood Culture - Preliminary Blood NO GROWTH AFTER 3 DAYS Anaerobic Blood Culture - Preliminary NO GROWTH AFTER 3 DAYS 12/01/20 00:47 Aerobic Blood Culture - Preliminary Blood - Venous - Lab Draw NO GROWTH AFTER 4 DAYS Anaerobic Blood Culture - Preliminary NO GROWTH AFTER 4 DAYS 12/01/20 00:25 Aerobic Blood Culture - Preliminary Blood - Venous Anaerobic Blood Culture - Preliminary NO GROWTH AFTER 4 DAYS 11/30/20 00:25 Blood Culture Identification Panel - Final Blood Escherichia Coli Sepsis Event Note - Evaluation Sepsis Screening Result: No Definite Risk - Focused Exam Vital Signs: Vital Signs Temp Pulse Pulse Resp BP BP Pulse Ox 12/05/20 09:06 81 136/61 12/05/20 09:01 97.4 F 81 16 136/61 93 L 12/05/20 04:17 97.6 F 80 16 111/61 94 L 12/05/20 00:17 97.5 F 84 16 109/57 L 93 L 12/04/20 21:39 139/70 - Problem List & Annotations (1) Abdominal pain SNOMED Code(s): 34066070 Code(s): R10.9 - UNSPECIFIED ABDOMINAL PAIN Status: Acute Current Visit: Yes (2) Gomez catheter in place on admission SNOMED Code(s): 812368343 Code(s): Z97.8 - PRESENCE OF OTHER SPECIFIED DEVICES Status: Acute Current Visit: Yes (3) Dehydration SNOMED Code(s): 76388868 Code(s): E86.0 - DEHYDRATION Status: Acute Current Visit: Yes (4) Hyponatremia SNOMED Code(s): 12889353 Code(s): E87.1 - HYPO-OSMOLALITY AND HYPONATREMIA Status: Acute Current Visit: Yes (5) Urinary tract infection SNOMED Code(s): 66754749 Code(s): N39.0 - URINARY TRACT INFECTION, SITE NOT SPECIFIED Status: Acute Current Visit: Yes (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 SNOMED Code(s): 403406148 Code(s): Z22.39 - CARRIER OF OTHER SPECIFIED BACTERIAL DISEASES Status: Chronic Current Visit: No (7) Urinary retention SNOMED Code(s): 799007680 Code(s): R33.9 - RETENTION OF URINE, UNSPECIFIED Status: Chronic Current Visit: No (8) Depression with anxiety SNOMED Code(s): 708505617 Code(s): F41.8 - OTHER SPECIFIED ANXIETY DISORDERS Status: Chronic Curren t Visit: No (9) H/O thyroidectomy SNOMED Code(s): 718796071, 301294596 Code(s): 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 Current Visit: No (10) HLD (hyperlipidemia) SNOMED Code(s): 82442849 Code(s): E78.5 - HYPERLIPIDEMIA, UNSPECIFIED Status: Chronic Current Visit: No (11) HTN (hypertension) SNOMED Code(s): 64803797 Code(s): I10 - ESSENTIAL (PRIMARY) HYPERTENSION Status: Chronic Current Visit: No (12) Hypothyroidism associated with surgical procedure SNOMED Code(s): 85324678 Code(s): 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 Current Visit: No (13) Type 2 diabetes mellitus SNOMED Code(s): 94969117 Code(s): E11.9 - TYPE 2 DIABETES MELLITUS WITHOUT COMPLICATIONS Status: Chronic Current Visit: No Qualifiers: Diabetes mellitus [facility] insulin use: without manager long term care use (14) Oral thrush SNOMED Code(s): 19502515 Code(s): B37.0 - CANDIDAL STOMATITIS Status: Acute Current Visit: No (15) Bacteremia SNOMED Code(s): 2151192 Code(s): R78.81 - BACTEREMIA Status: Acute Current Visit: Yes - Problem List Review Problem List Initiated/Reviewed/Updated: Yes - Plan Plan:: This 70-year-old female admitted with hyponatremia and UTI with indwelling catheter 1. UTI with indwelling catheter, ESBL E. coli in previous cultures/ESBL ecoli bacteremia -Urine culture noted, first set of blood cultures came back positive for ESBL E. coli, repeat cultures have been negative -Continue ertapenem based on the culture and sensitivity -Continue isolation precautions in view of drug-resistant bacteria -Continues to void well per self -From previous admission she has follow-up with urology in December -Due to deconditioning, will consult PT OT to evaluate and treat 2. Hyponatremia -Improving today -Continue to liter free water fluid restriction. Patient counseled on this along with . 3. Oral thrush -Continue nystatin to 4 times daily 4. Diabetes type 2 -Hold oral agents -NovoLog sliding scale 3 times a day with meals -ADA diet 5. Hypertension -Continue home meds 6. Hypothyroidism secondary to thyroidectomy -Continue levothyroxine, 7. Depression/anxiety -Continue home medications -No suicidal ideation VTE prophylaxis: Heparin GI prophylaxis: Protonix CODE STATUS: Full code Dispo: 2 to 2 days pending improvement as well as improvement in deconditioning. Patient and will discuss whether like to receive outpatient infusion therapy. Patient will only need approximately 7 to 9 days and would be okay with IM injections or replacing IV every couple days if needed.
[2020-12-05] MEDS: Ertapenem 1 GM in Sodium Chloride 0.9% 50 ML IV SCH (16:57)
[2020-12-05] MEDS: Irbesartan 150 MG Tab PO SCH (20:52)
[2020-12-05] MEDS: Rosuvastatin 10 MG Tab PO SCH (20:52)
[2020-12-05] MEDS: Acetaminophen 325 MG Tab PO PRN (21:12)
[2020-12-06] MEDS: Nystatin Susp 100,000 Unit/ML 5 ML UD Cup PO SCH ×4 (00:04→17:02)
[2020-12-06] MEDS: ALPRAZolam 0.5 MG Tab PO SCH ×4 (05:05→21:04)
[2020-12-06 05:36] LABS: BLOOD UREA NITROGEN,BUN 12 mg/dL (7.0-18.0); CARBON DIOXIDE,CO2 30.3 mmol/L (21.0-32.0); CHLORIDE,CL 96 mmol/L (98-107); GLUCOSE RANDOM 115 mg/dL (74-106); POTASSIUM,K 4.3 mmol/L (3.5-5.1); SODIUM,NA 133 mmol/L (136-145)
[2020-12-06] MEDS: SYNTHROID 100 MCG PO SCH (06:53)
[2020-12-06] MEDS: Omeprazole 20 MG Cap.CR PO SCH (06:53)
[2020-12-06] MEDS: Insulin Aspart 100 Units/ML 3 ML Pen SUBCUT SCH ×3 (07:54→17:04)
--- NOTE | 2020-12-06 08:00 | PCM.PN ---
- General Info Date of Service: 12/06/20 Admission Dx/Problem (Free Text): Admission Diagnosis/Problem Admission Diagnosis/Problem Hyponatremia Subjective Update: Slowly improving, but continues to be significantly depressed and anxious about any changes or discussions nursing or providers have with her. Worrying about what will happen in future and feeling very anxious about being able to urinate when she goes home, even though she is urinating large amounts now without concerns. Patient denies chest pain or SOB. No abdominal pain, reports poor appetite but tolerating ensures well. Encouraged to be up with PT as well as nursing and in chair TID. She has not decided on where to have outpatient infusion yet, here or [facility]. We did discuss possible DC in am if she continues to do well with PT. OT has discharged her. Will need to resume Home Health. Functional Status: Reports: Pain Controlled, Tolerating Diet, Ambulating, Urinating - Review of Systems General: Reports: Fatigue. Denies: Appetite HEENT: Reports: No Symptoms. Denies: Headaches, Sore Throat, Visual Changes Pulmonary: Reports: No Symptoms. Denies: Shortness of Breath Cardiovascular: Reports: No Symptoms. Denies: Chest Pain Gastrointestinal: Reports: Decreased Appetite. Denies: Abdominal Pain, Nausea, Vomiting Genitourinary: Reports: No Symptoms. Denies: Dysuria, Frequency, Burning Musculoskeletal: Reports: Back Pain (chronic) Skin: Reports: No Symptoms Neurological: Reports: No Symptoms Psychiatric: Reports: No Symptoms - Patient Data Vitals - Most Recent: Last Vital Signs Temp 96.6 F L 12/06/20 04:00 Pulse 81 12/06/20 04:00 Resp 14 12/06/20 04:00 BP 122/58 L 12/06/20 04:00 Pulse Ox 92 L 12/06/20 04:00 Weight - Most Recent: 78.698 kg I&O - Last 24 Hours: Intake & Output 12/05/20 12/06/20 12/06/20 22:59 06:59 14:59 Intake Total 943 840 Output Total 1200 1400 Balance -257 -560 Lab Results Last 24 Hours: Laboratory Results - last 24 hr 12/05/20 12/06/20 12/06/20 Range/Units 17:21 05:01 05:01 WBC 10.47 (4.0-11.0) K/uL RBC 3.58 L (4.30-5.90) M/uL Hgb 10.2 L (12.0-16.0) g/dL Hct 31.0 L (36.0-46.0) % MCV 86.6 (80.0-98.0) fL MCH 28.5 (27.0-32.0) pg MCHC 32.9 (31.0-37.0) g/dL RDW Std Deviation 43.6 (28.0-62.0) fl RDW Coeff of Eran 14 (11.0-15.0) % Plt Count 369 (150-400) K/uL MPV 8.20 (7.40-12.00) fL Add Manual Diff YES Neutrophils % (Manual) 53 (48.0-80.0) % Band Neutrophils % 1 % Lymphocytes % (Manual) 34 (16.0-40.0) % Monocytes % (Manual) 6 (0.0-15.0) % Eosinophils % (Manual) 4 (0.0-7.0) % Basophils % (Manual) 1 (0.0-1.5) % Myelocytes % 1 % Nucleated RBC % 0.0 /100WBC Absolute Seg Neuts 5.5 (1.4-5.7) Band Neutrophils # 0.1 Lymphocytes # (Manual) 3.6 H (0.6-2.4) Monocytes # (Manual) 0.6 (0.0-0.8) Eosinophils # (Manual) 0.4 (0.0-0.7) Basophils # (Manual) 0.1 (0.0-0.1) Absolute Myelocytes 0.1 Nucleated RBCs # 0 K/uL Sodium 133 L (136-145) mmol/L Potassium 4.3 (3.5-5.1) mmol/L Chloride 96 L (98-107) mmol/L Carbon Dioxide 30.3 (21.0-32.0) mmol/L BUN 12 (7.0-18.0) mg/dL Creatinine 0.8 (0.6-1.0) mg/dL Est Cr Clr Drug Dosing 53.23 mL/min Estimated GFR (MDRD) > 60.0 ml/min Glucose 115 H (74-106) mg/dL POC Glucose 140 H (70-99) mg/dL Calcium 8.4 L (8.5-10.1) mg/dL Magnesium 2.1 (1.8-2.4) mg/dL 12/06/20 Range/Units 06:53 WBC (4.0-11.0) K/uL RBC (4.30-5.90) M/uL Hgb (12.0-16.0) g/dL Hct (36.0-46.0) % MCV (80.0-98.0) fL MCH (27.0-32.0) pg MCHC (31.0-37.0) g/dL RDW Std Deviation (28.0-62.0) fl RDW Coeff of Eran (11.0-15.0) % Plt Count (150-400) K/uL MPV (7.40-12.00) fL Add Manual Diff Neutrophils % (Manual) (48.0-80.0) % Band Neutrophils % % Lymphocytes % (Manual) (16.0-40.0) % Monocytes % (Manual) (0.0-15.0) % Eosinophils % (Manual) (0.0-7.0) % Basophils % (Manual) (0.0-1.5) % Myelocytes % % Nucleated RBC % /100WBC Absolute Seg Neuts (1.4-5.7) Band Neutrophils # Lymphocytes # (Manual) (0.6-2.4) Monocytes # (Manual) (0.0-0.8) Eosinophils # (Manual) (0.0-0.7) Basophils # (Manual) (0.0-0.1) Absolute Myelocytes Nucleated RBCs # K/uL Sodium (136-145) mmol/L Potassium (3.5-5.1) mmol/L Chloride (98-107) mmol/L Carbon Dioxide (21.0-32.0) mmol/L BUN (7.0-18.0) mg/dL Creatinine (0.6-1.0) mg/dL Est Cr Clr Drug Dosing mL/min Estimated GFR (MDRD) ml/min Glucose (74-106) mg/dL POC Glucose 126 H (70-99) mg/dL Calcium (8.5-10.1) mg/dL Magnesium (1.8-2.4) mg/dL [facility] Results Last 24 Hours: Microbiology 12/02/20 07:22 Aerobic Blood Culture - Preliminary Blood NO GROWTH AFTER 4 DAYS Anaerobic Blood Culture - Preliminary NO GROWTH AFTER 4 DAYS 12/02/20 05:43 Aerobic Blood Culture - Preliminary Blood NO GROWTH AFTER 4 DAYS Anaerobic Blood Culture - Preliminary NO GROWTH AFTER 4 DAYS 12/01/20 00:47 Aerobic Blood Culture - Final Blood - Venous - Lab Draw NO GROWTH AFTER 5 DAYS Anaerobic Blood Culture - Final NO GROWTH AFTER 5 DAYS 12/01/20 00:25 Aerobic Blood Culture - Preliminary Blood - Venous Anaerobic Blood Culture - Final NO GROWTH AFTER 5 DAYS Med Orders - Current: Current Medications Acetaminophen (Acetaminophen 325 Mg Tab) 650 mg PO Q4H PRN PRN Reason: Pain/Fever Last Admin: 12/05/20 21:12 Dose: 650 mg Documented by: Albuterol/Ipratropium (Albuterol/Ipratropium 3.0-0.5 Mg/3 Ml Neb Soln) 3 ml NEB Q4HRRT PRN PRN Reason: Shortness of Breath Alprazolam (Alprazolam 0.5 Mg Tab) 1.5 mg PO Q6H [facility] Last Admin: 12/06/20 05:05 Dose: 1.5 mg Documented by: Bisacodyl (Bisacodyl 10 Mg Supp) 10 mg RECTAL DAILY PRN PRN Reason: Constipation Dextrose/Water (50% Dextrose In Water 50 Ml Syringe) 50 ml IVPUSH ASDIRECTED PRN PRN Reason: Hypoglycemia Diltiazem HCl (Diltiazem 120 Mg Cap.Cd) 120 mg PO DAILY [facility] Last Admin: 12/05/20 09:06 Dose: 120 mg Documented by: Docusate Sodium (Docusate Sodium 100 Mg Cap) 100 mg PO BID [facility] Last Admin: 12/05/20 20:52 Dose: 100 mg Documented by: Glucagon (Glucagon,Human Recombinant 1 Mg Vial) 1 mg IM ASDIRECTED PRN PRN Reason: Hypoglycemia Heparin Sodium (Porcine) (Heparin Sodium 5,000 Units/Ml Vial) 5,000 units SUBCUT Q12H [facility] Last Admin: 12/05/20 20:54 Dose: 5,000 units Documented by: Pantoprazole Sodium 40 mg/ (Sodium Chloride) 10 mls @ 300 mls/hr IV DAILY [facility] Last Admin: 12/05/20 09:05 Dose: 300 mls/hr Documented by: Ertapenem 1 gm/ Sodium (Chloride) 50 mls @ 100 mls/hr IV Q24H [facility] Last Admin: 12/05/20 16:57 Dose: 100 mls/hr Documented by: Insulin Aspart (Insulin Aspart 100 Units/Ml 3 Ml Pen) 0 unit SUBCUT TIDAC [facility]; Protocol Last Admin: 12/06/20 07:54 Dose: Not Given Documented by: Irbesartan (Irbesartan 150 Mg Tab) 150 mg PO BEDTIME [facility] Last Admin: 12/05/20 20:52 Dose: 150 mg Documented by: Nystatin (Nystatin Susp 100,000 Unit/Ml 5 Ml Ud Cup) 5 ml PO QID [facility] Last Admin: 12/06/20 05:04 Dose: 5 ml Documented by: Omeprazole (Omeprazole 20 Mg Cap.Cr) 40 mg PO ACBREAKFAST [facility] Last Admin: 12/06/20 06:53 Dose: 40 mg Documented by: Ondansetron HCl (Ondansetron 4 Mg/2 Ml Sdv) 4 mg IVPUSH Q4H PRN PRN Reason: Nausea/Vomiting Doxepin 100 Mg (Capsule) 1 each PO BEDTIME [facility] Last Admin: 12/05/20 20:53 Dose: 1 each Documented by: Synthroid 100 Mcg (Tablet) 1 each PO ACBREAKFAST [facility] Last Admin: 12/06/20 06:53 Dose: 1 each Documented by: Cholecalciferol ( Vitamin D3) 125 Mcg Tab 1 each PO DAILY [facility] Last Admin: 12/05/20 09:08 Dose: 1 each Documented by: Phenol/Menthol (Phenol 1.4% Oral [place] 177 Ml Bottle) 0 ml MUCMEM Q2H PRN PRN Reason: Sore Throat Rosuvastatin Calcium (Rosuvastatin 10 Mg Tab) 10 mg PO BEDTIME [facility] Last Admin: 12/05/20 20:52 Dose: 10 mg Documented by: Sodium Chloride (Sodium Chloride 0.9% 2.5 Ml Syringe) 2.5 ml FLUSH ASDIRECTED P RN PRN Reason: Keep Vein Open Discontinued Medications Alprazolam (Alprazolam 0.5 Mg Tab) 1 mg PO QID [facility] Last Admin: 12/01/20 06:31 Dose: 1 mg Documented by: Alprazolam (Alprazolam 0.5 Mg Tab) 1 mg PO Q6H [facility] Last Admin: 12/04/20 11:01 Dose: 1 mg Documented by: Alprazolam (Alprazolam 0.5 Mg Tab) 1.5 mg PO Q6H [facility] Bisacodyl (Bisacodyl 10 Mg Supp) 10 mg RECTAL ONETIME ONE Stop: 12/02/20 09:28 Last Admin: 12/02/20 10:28 Dose: 10 mg Documented by: Cholecalciferol (Cholecalciferol (Vitamin D3) 25 Mcg Tab) 125 mcg PO DAILY [facility] Last Admin: 12/05/20 09:11 Dose: Not Given Documented by: Fluconazole (Fluconazole 100 Mg Tab) 150 mg PO DAILY [facility] Stop: 12/02/20 09:01 Last Admin: 12/02/20 10:27 Dose: 150 mg Documented by: Sodium Chloride (Normal Saline) 1,000 mls @ 999 mls/hr IV .Bolus ONE Stop: 12/01/20 00:50 Last Admin: 12/01/20 00:14 Dose: 999 mls/hr Documented by: Lactated Ringer's (Ringers, Lactated) 1,000 mls @ 999 mls/hr IV .BOLUS [facility] Last Admin: 12/01/20 01:29 Dose: 999 mls/hr Documented by: Meropenem/Sodium Chloride (Meropenem In Ns 1 Gm/50 Ml) 50 mls @ 100 mls/hr IV ONETIME ONE Stop: 12/01/20 01:56 Last Admin: 12/01/20 01:42 Dose: 100 mls/hr Documented by: Lactated Ringer's (Ringers, Lactated) 1,000 mls @ 999 mls/hr IV .BOLUS [facility] Last Admin: 12/01/20 01:43 Dose: 999 mls/hr Documented by: Lactated Ringer's (Ringers, Lactated) 1,000 mls @ 125 mls/hr IV ASDIRECTED [facility] Last Admin: 12/02/20 00:42 Dose: 125 mls/hr Documented by: Meropenem/Sodium Chloride (Meropenem In Ns 1 Gm/50 Ml) 50 mls @ 100 mls/hr IV Q8H [facility] Last Admin: 12/04/20 11:01 Dose: 100 mls/hr Documented by: Magnesium Sulfate 4 gm/ Premix 100 mls @ 33.333 mls/hr IV ONETIME ONE Stop: 12/02/20 14:33 Last Admin: 12/02/20 12:03 Dose: 33.333 mls/hr Documented by: Ertapenem 1 gm/ Sodium (Chloride) 50 mls @ 100 mls/hr IV Q24H [facility] Ketorolac Tromethamine (Ketorolac 15 Mg/Ml Sdv) 15 mg IVPUSH ONETIME ONE Stop: 11/30/20 23:51 Last Admin: 12/01/20 00:14 Dose: 15 mg Documented by: Levothyroxine Sodium (Levothyroxine 50 Mcg Tab) 50 mcg PO ONETIME ONE Stop: 12/03/20 12:01 Last Admin: 12/03/20 12:26 Dose: 50 mcg Documented by: Non-Formulary Medication (Alprazolam [Alprazolam Er]) 1 mg PO TID [facility] Nystatin (Nystatin Susp 100,000 Unit/Ml 5 Ml Ud Cup) 5 ml PO BID [facility] Last Admin: 12/01/20 09:11 Dose: 5 ml Documented by: Ondansetron HCl (Ondansetron 4 Mg/2 Ml Sdv) 4 mg IVPUSH ONETIME ONE Stop: 11/30/20 23:51 Last Admin: 12/01/20 00:14 Dose: 4 mg Documented by: Alprazolam 1 Mg (Tablet) 1 each PO 0400,1000,1600,2200 [facility] Last Admin: 12/03/20 04:24 Dose: 1 each Documented by: Sodium Chloride (Sodium Chloride 0.9% 10 Ml Syringe) 10 ml FLUSH ASDIRECTED PRN PRN Reason: Keep Vein Open Sodium Chloride (Sodium Chloride 0.9% 2.5 Ml Syringe) 2.5 ml FLUSH ASDIRECTED PRN PRN Reason: Keep Vein Open - Exam Quality Assessment: DVT Prophylaxis. No: Supplemental Oxygen, Urine Catheter Urinary Catheter Total Time: 0Days 15Hours General: Alert, Oriented, Cooperative, No Acute Distress Lungs: Clear to Auscultation, Normal Respiratory Effort Cardiovascular: Regular Rate, Regular Rhythm GI/Abdominal Exam: Normal Bowel Sounds, Soft, Non-Tender Extremities: Normal Inspection, Normal Range of Motion, Non-Tender, No Pedal Edema Neurological: No New Focal Deficit Psy/Mental Status: Alert, Normal Affect, Normal Mood - Patient Data Lab Results Last 24 hrs: Laboratory Results - last 24 hr 12/05/20 12/06/20 12/06/20 Range/Units 17:21 05:01 05:01 WBC 10.47 (4.0-11.0) K/uL RBC 3.58 L (4.30-5.90) M/uL Hgb 10.2 L (12.0-16.0) g/dL Hct 31.0 L (36.0-46.0) % MCV 86.6 (80.0-98.0) fL MCH 28.5 (27.0-32.0) pg MCHC 32.9 (31.0-37.0) g/dL RDW Std Deviation 43.6 (28.0-62.0) fl RDW Coeff of Eran 14 (11.0-15.0) % Plt Count 369 (150-400) K/uL MPV 8.20 (7.40-12.00) fL Add Manual Diff YES Neutrophils % (Manual) 53 (48.0-80.0) % Band Neutrophils % 1 % Lymphocytes % (Manual) 34 (16.0-40.0) % Monocytes % (Manual) 6 (0.0-15.0) % Eosinophils % (Manual) 4 (0.0-7.0) % Basophils % (Manual) 1 (0.0-1.5) % Myelocytes % 1 % Nucleated RBC % 0.0 /100WBC Absolute Seg Neuts 5.5 (1.4-5.7) Band Neutrophils # 0.1 Lymphocytes # (Manual) 3.6 H (0.6-2.4) Monocytes # (Manual) 0.6 (0.0-0.8) Eosinophils # (Manual) 0.4 (0.0-0.7) Basophils # (Manual) 0.1 (0.0-0.1) Absolute Myelocytes 0.1 Nucleated RBCs # 0 K/uL Sodium 133 L (136-145) mmol/L Potassium 4.3 (3.5-5.1) mmol/L Chloride 96 L (98-107) mmol/L Carbon Dioxide 30.3 (21.0-32.0) mmol/L BUN 12 (7.0-18.0) mg/dL Creatinine 0.8 (0.6-1.0) mg/dL Est Cr Clr Drug Dosing 53.23 mL/min Estimated GFR (MDRD) > 60.0 ml/min Glucose 115 H (74-106) mg/dL POC Glucose 140 H (70-99) mg/dL Calcium 8.4 L (8.5-10.1) mg/dL Magnesium 2.1 (1.8-2.4) mg/dL 12/06/20 Range/Units 06:53 WBC (4.0-11.0) K/uL RBC (4.30-5.90) M/uL Hgb (12.0-16.0) g/dL Hct (36.0-46.0) % MCV (80.0-98.0) fL MCH (27.0-32.0) pg MCHC (31.0-37.0) g/dL RDW Std Deviation (28.0-62.0) fl RDW Coeff of Eran (11.0-15.0) % Plt Count (150-400) K/uL MPV (7.40-12.00) fL Add Manual Diff Neutrophils % (Manual) (48.0-80.0) % Band Neutrophils % % Lymphocytes % (Manual) (16.0-40.0) % Monocytes % (Manual) (0.0-15.0) % Eosinophils % (Manual) (0.0-7.0) % Basophils % (Manual) (0.0-1.5) % Myelocytes % % Nucleated RBC % /100WBC Absolute Seg Neuts (1.4-5.7) Band Neutrophils # Lymphocytes # (Manual) (0.6-2.4) Monocytes # (Manual) (0.0-0.8) Eosinophils # (Manual) (0.0-0.7) Basophils # (Manual) (0.0-0.1) Absolute Myelocytes Nucleated RBCs # K/uL Sodium (136-145) mmol/L Potassium (3.5-5.1) mmol/L Chloride (98-107) mmol/L Carbon Dioxide (21.0-32.0) mmol/L BUN (7.0-18.0) mg/dL Creatinine (0.6-1.0) mg/dL Est Cr Clr Drug Dosing mL/min Estimated GFR (MDRD) ml/min Glucose (74-106) mg/dL POC Glucose 126 H (70-99) mg/dL Calcium (8.5-10.1) mg/dL Magnesium (1.8-2.4) mg/dL Result Diagrams: 12/06/20 05:01 12/06/20 05:01 [facility] Results Last 24 hrs: Microbiology 12/02/20 07:22 Aerobic Blood Culture - Preliminary Blood NO GROWTH AFTER 4 DAYS Anaerobic Blood Culture - Preliminary NO GROWTH AFTER 4 DAYS 12/02/20 05:43 Aerobic Blood Culture - Preliminary Blood NO GROWTH AFTER 4 DAYS Anaerobic Blood Culture - Preliminary NO GROWTH AFTER 4 DAYS 12/01/20 00:47 Aerobic Blood Culture - Final Blood - Venous - Lab Draw NO GROWTH AFTER 5 DAYS Anaerobic Blood Culture - Final NO GROWTH AFTER 5 DAYS 12/01/20 00:25 Aerobic Blood Culture - Preliminary Blood - Venous Anaerobic Blood Culture - Final NO GROWTH AFTER 5 DAYS Sepsis Event Note - Evaluation Sepsis Screening Result: No Definite Risk - Focused Exam Vital Signs: Vital Signs Temp Pulse Resp BP BP Pulse Ox 12/06/20 04:00 96.6 F L 81 14 122/58 L 92 L 12/06/20 00:00 98.1 F 78 14 119/59 L 94 L 12/05/20 20:52 125/62 12/05/20 20:49 97.0 F 82 14 125/62 93 L - Problem List & Annotations (1) Abdominal pain SNOMED Code(s): 70833953 Code(s): R10.9 - UNSPECIFIED ABDOMINAL PAIN Status: Acute Current Visit: Yes (2) Gomez catheter in place on admission SNOMED Code(s): 969362090 Code(s): Z97.8 - PRESENCE OF OTHER SPECIFIED DEVICES Status: Acute Current Visit: Yes (3) Dehydration SNOMED Code(s): 30909791 Code(s): E86.0 - DEHYDRATION Status: Acute Current Visit: Yes (4) Hyponatremia SNOMED Code(s): 37097222 Code(s): E87.1 - HYPO-OSMOLALITY AND HYPONATREMIA Status: Acute Current Visit: Yes (5) Urinary tract infection SNOMED Code(s): 66757056 Code(s): N39.0 - URINARY TRACT INFECTION, SITE NOT SPECIFIED Status: Acute Current Visit: Yes (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 SNOMED Code(s): 264338384 Code(s): Z22.39 - CARRIER OF OTHER SPECIFIED BACTERIAL DISEASES Status: Chronic Current Visit: No (7) Urinary retention SNOMED Code(s): 233237191 Code(s): R33.9 - RETENTION OF URINE, UNSPECIFIED Status: Chronic Current Visit: No (8) Depression with anxiety SNOMED Code(s): 467548511 Code(s): F41.8 - OTHER SPECIFIED ANXIETY DISORDERS Status: Chronic Current Visit: No (9) H/O thyroidectomy SNOMED Code(s): 946371624, 965313493 Code(s): 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 Current Visit: No (10) HLD (hyperlipidemia) SNOMED Code(s): 94301168 Code(s): E78.5 - HYPERLIPIDEMIA, UNSPECIFIED Status: Chronic Current Visit: No (11) HTN (hypertension) SNOMED Code(s): 68411794 Code(s): I10 - ESSENTIAL (PRIMARY) HYPERTENSION Status: Chronic Current Visit: No (12) Hypothyroidism associated with surgical procedure SNOMED Code(s): 93766480 Code(s): 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 Current Visit: No (13) Type 2 diabetes mellitus SNOMED Code(s): 20350703 Code(s): E11.9 - TYPE 2 DIABETES MELLITUS WITHOUT COMPLICATIONS Status: Chronic Current Visit: No Qualifiers: Diabetes mellitus terminal manager insulin use: without terminal manager use (14) Oral thrush SNOMED Code(s): 02223867 Code(s): B37.0 - CANDIDAL STOMATITIS Status: Acute Current Visit: No (15) Bacteremia SNOMED Code(s): 0833080 Code(s): R78.81 - BACTEREMIA Status: Acute Current Visit: Yes - Problem List Review Problem List Initiated/Reviewed/Updated: Yes - My Orders Last 24 Hours: My Active Orders 12/05/20 10:36 OT Evaluation and Treatment [CONS] Routine 12/05/20 11:22 Up to Chair [RC] ASDIRECTED 12/07/20 05:11 BASIC METABOLIC PANEL,BMP [CHEM] AM CBC WITH AUTO DIFF [HEME] AM MAGNESIUM [CHEM] AM 12/08/20 05:11 BASIC METABOLIC PANEL,BMP [CHEM] AM CBC WITH AUTO DIFF [HEME] AM MAGNESIUM [CHEM] AM - Plan Plan:: This 70-year-old female admitted with hyponatremia and UTI with indwelling catheter 1. UTI with indwelling catheter, ESBL E. coli in previous cultures/ESBL ecoli bacteremia -Urine culture noted, first set of blood cultures came back positive for ESBL E. coli, repeat cultures have been negative -Continue ertapenem, will need 14 day course minus what she has had in hospital on discharge. -Continue isolation precautions in view of drug-resistant bacteria -Unable to void this morning, will straight cath. Counseled patient and on the need to straight cath 4-6 times daily per recommended by Urology on admission -From previous admission she has follow-up with urology in December -Due to deconditioning, will consult PT OT to evaluate and treat 2. Hyponatremia -Improving today -Continue 2 L free water fluid restriction. Patient counseled on this along with . 3. Oral thrush -Continue nystatin to 4 times daily 4. Diabetes type 2 -Hold oral agents -NovoLog sliding scale 3 times a day with meals -ADA diet 5. Hypertension -Continue home meds 6. Hypothyroidism secondary to thyroidectomy -Continue levothyroxine, 7. Depression/anxiety -Continue home medications -No suicidal ideation VTE prophylaxis: Heparin GI prophylaxis: Protonix CODE STATUS: Full code Dispo: Possible home in am. Patient and will discuss whether like to receive outpatient infusion therapy. Patient will only need approximately 7 to 9 days and would be okay with IM injections or replacing IV every couple days if needed.
[2020-12-06] MEDS: Heparin Sodium 5,000 Units/ML Vial SUBCUT SCH ×2 (08:55→21:01)
[2020-12-06] MEDS: Diltiazem 120 MG Cap.CD PO SCH (08:56)
[2020-12-06] MEDS: Docusate Sodium 100 MG Cap PO SCH ×2 (08:56→21:03)
[2020-12-06] MEDS: Pantoprazole 40 MG in Sodium Chloride 0.9% 10 ML IV SCH (08:57)
[2020-12-06] MEDS: CHOLECALCIFEROL 125 MCG PO SCH (08:58)
[2020-12-06] MEDS: Ertapenem 1 GM in Sodium Chloride 0.9% 50 ML IV SCH (17:00)
[2020-12-06] MEDS: Irbesartan 150 MG Tab PO SCH (21:02)
[2020-12-06] MEDS: Rosuvastatin 10 MG Tab PO SCH (21:03)
[2020-12-07] MEDS: Acetaminophen 325 MG Tab PO PRN ×2 (00:11→16:12)
[2020-12-07] MEDS: ALPRAZolam 0.5 MG Tab PO SCH ×4 (04:49→21:57)
[2020-12-07] MEDS: Nystatin Susp 100,000 Unit/ML 5 ML UD Cup PO SCH ×4 (06:41→19:00)
[2020-12-07 06:56] LABS: BLOOD UREA NITROGEN,BUN 13 mg/dL (7.0-18.0); CARBON DIOXIDE,CO2 29.5 mmol/L (21.0-32.0); CHLORIDE,CL 97 mmol/L (98-107); GLUCOSE RANDOM 120 mg/dL (74-106); POTASSIUM,K 3.8 mmol/L (3.5-5.1); SODIUM,NA 134 mmol/L (136-145)
[2020-12-07] MEDS: Heparin Sodium 5,000 Units/ML Vial SUBCUT SCH ×2 (09:00→19:00)
[2020-12-07] MEDS: Omeprazole 20 MG Cap.CR PO SCH (09:00)
[2020-12-07] MEDS: Diltiazem 120 MG Cap.CD PO SCH (10:04)
[2020-12-07] MEDS: Docusate Sodium 100 MG Cap PO SCH ×2 (10:06→20:41)
[2020-12-07] MEDS: SYNTHROID 100 MCG PO SCH (10:07)
[2020-12-07] MEDS: CHOLECALCIFEROL 125 MCG PO SCH (10:08)
[2020-12-07] MEDS: Pantoprazole 40 MG in Sodium Chloride 0.9% 10 ML IV SCH (10:11)
[2020-12-07] MEDS: Insulin Aspart 100 Units/ML 3 ML Pen SUBCUT SCH ×3 (11:28→17:50)
--- NOTE | 2020-12-07 11:57 | PCM.PN ---
- General Info Date of Service: 12/07/20 Admission Dx/Problem (Free Text): Admission Diagnosis/Problem Admission Diagnosis/Problem Hyponatremia Subjective Update: Patient continues to be very depressed thinking of only negative concerns regarding healthcare. She is very pessimistic about self cathing and the ability of herself to do this. Patient has been counseled significantly regarding the risks of having indwelling catheter that subsequently led to her becoming septic and bacteremic and that recommendations per urology have recommended against indwelling catheter and thus needing self-catheterization when unable to void. at bedside is very willing to learn how to help and feels patient will do better at home in her own environment. Patient has intermittent ability to urinate for herself which she did this morning as well as last night. She denies any chest pain or shortness of breath. Continue to report poor appetite but eating and drinking boost and light meals appropriately. Denies any diarrhea. Functional Status: Reports: Pain Controlled, Tolerating Diet, Ambulating, Urinating - Review of Systems General: Reports: No Symptoms. Denies: Weakness, Fatigue HEENT: Reports: No Symptoms. Denies: Ear Pain, Headaches Pulmonary: Reports: No Symptoms. Denies: Shortness of Breath Cardiovascular: Reports: No Symptoms. Denies: Chest Pain Gastrointestinal: Reports: No Symptoms. Denies: Abdominal Pain, Nausea, Vomiting Genitourinary: Reports: No Symptoms. Denies: Dysuria, Frequency, Burning Musculoskeletal: Reports: No Symptoms. Denies: Neck Pain Skin: Reports: No Symptoms Neurological: Reports: No Symptoms Psychiatric: Reports: No Symptoms - Patient Data Vitals - Most Recent: Last Vital Signs Temp 97.2 F 12/07/20 08:00 Pulse 74 12/07/20 10:04 Resp 20 12/07/20 08:00 BP 128/61 12/07/20 10:04 Pulse Ox 95 12/07/20 08:00 Weight - Most Recent: 78.698 kg I&O - Last 24 Hours: Intake & Output 12/06/20 12/07/20 12/07/20 22:59 06:59 14:59 Intake Total 958 Output Total 2600 750 Balance -1642 -750 Lab Results Last 24 Hours: Laboratory Results - last 24 hr 12/06/20 12/07/20 12/07/20 Range/Units 17:07 05:50 05:50 WBC 13.86 H (4.0-11.0) K/uL RBC 3.53 L (4.30-5.90) M/uL Hgb 10.3 L (12.0-16.0) g/dL Hct 30.9 L (36.0-46.0) % MCV 87.5 (80.0-98.0) fL MCH 29.2 (27.0-32.0) pg MCHC 33.3 (31.0-37.0) g/dL RDW Std Deviation 45.0 (28.0-62.0) fl RDW Coeff of Eran 15 (11.0-15.0) % Plt Count 394 (150-400) K/uL MPV 8.40 (7.40-12.00) fL Add Manual Diff YES Neutrophils % (Manual) 71 (48.0-80.0) % Lymphocytes % (Manual) 23 (16.0-40.0) % Monocytes % (Manual) 5 (0.0-15.0) % Eosinophils % (Manual) 1 (0.0-7.0) % Nucleated RBC % 0.0 /100WBC Absolute Seg Neuts 9.8 H (1.4-5.7) Lymphocytes # (Manual) 3.2 H (0.6-2.4) Monocytes # (Manual) 0.7 (0.0-0.8) Eosinophils # (Manual) 0.1 (0.0-0.7) Nucleated RBCs # 0 K/uL Sodium 134 L (136-145) mmol/L Potassium 3.8 (3.5-5.1) mmol/L Chloride 97 L (98-107) mmol/L Carbon Dioxide 29.5 (21.0-32.0) mmol/L BUN 13 (7.0-18.0) mg/dL Creatinine 0.7 (0.6-1.0) mg/dL Est Cr Clr Drug Dosing 60.84 mL/min Estimated GFR (MDRD) > 60.0 ml/min Glucose 120 H (74-106) mg/dL POC Glucose 158 H (70-99) mg/dL Calcium 8.6 (8.5-10.1) mg/dL Magnesium 2.0 (1.8-2.4) mg/dL 07/28/21 07/28/21 Range/Units 06:47 11:36 WBC (4.0-11.0) K/uL RBC (4.30-5.90) M/uL Hgb (12.0-16.0) g/dL Hct (36.0-46.0) % MCV (80.0-98.0) fL MCH (27.0-32.0) pg MCHC (31.0-37.0) g/dL RDW Std Deviation (28.0-62.0) fl RDW Coeff of Eran (11.0-15.0) % Plt Count (150-400) K/uL MPV (7.40-12.00) fL Add Manual Diff Neutrophils % (Manual) (48.0-80.0) % Lymphocytes % (Manual) (16.0-40.0) % Monocytes % (Manual) (0.0-15.0) % Eosinophils % (Manual) (0.0-7.0) % Nucleated RBC % /100WBC Absolute Seg Neuts (1.4-5.7) Lymphocytes # (Manual) (0.6-2.4) Monocytes # (Manual) (0.0-0.8) Eosinophils # (Manual) (0.0-0.7) Nucleated RBCs # K/uL Sodium (136-145) mmol/L Potassium (3.5-5.1) mmol/L Chloride (98-107) mmol/L Carbon Dioxide (21.0-32.0) mmol/L BUN (7.0-18.0) mg/dL Creatinine (0.6-1.0) mg/dL Est Cr Clr Drug Dosing mL/min Estimated GFR (MDRD) ml/min Glucose (74-106) mg/dL POC Glucose 122 H 211 H (70-99) mg/dL Calcium (8.5-10.1) mg/dL Magnesium (1.8-2.4) mg/dL Lazaro Results Last 24 Hours: Microbiology 12/02/20 07:22 Aerobic Blood Culture - Final Blood NO GROWTH AFTER 5 DAYS Anaerobic Blood Culture - Final NO GROWTH AFTER 5 DAYS 12/02/20 05:43 Aerobic Blood Culture - Final Blood NO GROWTH AFTER 5 DAYS Anaerobic Blood Culture - Final NO GROWTH AFTER 5 DAYS Med Orders - Current: Current Medications Acetaminophen (Acetaminophen 325 Mg Tab) 650 mg PO Q4H PRN PRN Reason: Pain/Fever Last Admin: 12/07/20 00:11 Dose: 650 mg Documented by: Albuterol/Ipratropium (Albuterol/Ipratropium 3.0-0.5 Mg/3 Ml Neb Soln) 3 ml NEB Q4HRRT PRN PRN Reason: Shortness of Breath Alprazolam (Alprazolam 0.5 Mg Tab) 1.5 mg PO Q6H [facility] Last Admin: 12/07/20 10:03 Dose: 1.5 mg Documented by: Bisacodyl (Bisacodyl 10 Mg Supp) 10 mg RECTAL DAILY PRN PRN Reason: Constipation Dextrose/Water (50% Dextrose In Water 50 Ml Syringe) 50 ml IVPUSH ASDIRECTED PRN PRN Reason: Hypoglycemia Diltiazem HCl (Diltiazem 120 Mg Cap.Cd) 120 mg PO DAILY [facility] Last Admin: 12/07/20 10:04 Dose: 120 mg Documented by: Docusate Sodium (Docusate Sodium 100 Mg Cap) 100 mg PO BID [facility] Last Admin: 12/07/20 10:06 Dose: 100 mg Documented by: Glucagon (Glucagon,Human Recombinant 1 Mg Vial) 1 mg IM ASDIRECTED PRN PRN Reason: Hypoglycemia Heparin Sodium (Porcine) (Heparin Sodium 5,000 Units/Ml Vial) 5,000 units SUBCUT Q12H [facility] Last Admin: 12/07/20 09:00 Dose: 5,000 units Documented by: Pantoprazole Sodium 40 mg/ (Sodium Chloride) 10 mls @ 300 mls/hr IV DAILY [facility] Last Admin: 12/07/20 10:11 Dose: 300 mls/hr Documented by: Ertapenem 1 gm/ Sodium (Chloride) 50 mls @ 100 mls/hr IV Q24H [facility] Last Admin: 12/06/20 17:00 Dose: 100 mls/hr Documented by: Insulin Aspart (Insulin Aspart 100 Units/Ml 3 Ml Pen) 0 unit SUBCUT TIDAC [facility]; Protocol Last Admin: 12/07/20 11:38 Dose: 2 units Documented by: Irbesartan (Irbesartan 150 Mg Tab) 150 mg PO BEDTIME [facility] Last Admin: 12/06/20 21:02 Dose: 150 mg Documented by: Nystatin (Nystatin Susp 100,000 Unit/Ml 5 Ml Ud Cup) 5 ml PO QID [facility] Last Admin: 12/07/20 11:48 Dose: 5 ml Documented by: Omeprazole (Omeprazole 20 Mg Cap.Cr) 40 mg PO ACBREAKFAST [facility] Last Admin: 12/07/20 09:00 Dose: 40 mg Documented by: Ondansetron HCl (Ondansetron 4 Mg/2 Ml Sdv) 4 mg IVPUSH Q4H PRN PRN Reason: Nausea/Vomiting Doxepin 100 Mg (Capsule) 1 each PO BEDTIME [facility] Last Admin: 12/06/20 21:04 Dose: 1 each Documented by: Synthroid 100 Mcg (Tablet) 1 each PO ACBREAKFAST [facility] Last Admin: 12/07/20 10:07 Dose: 1 each Documented by: Cholecalciferol ( Vitamin D3) 125 Mcg Tab 1 each PO DAILY [facility] Last Admin: 12/07/20 10:08 Dose: 1 each Documented by: Phenol/Menthol (Phenol 1.4% Oral [place] 177 Ml Bottle) 0 ml MUCMEM Q2H PRN PRN Reason: Sore Throat Rosuvastatin Calcium (Rosuvastatin 10 Mg Tab) 10 mg PO BEDTIME [facility] Last Admin: 12/06/20 21:03 Dose: 10 mg Documented by: Sodium Chloride (Sodium Chloride 0.9% 2.5 Ml Syringe) 2.5 ml FLUSH ASDIRECTED PRN PRN Reason: Keep Vein Open Discontinued Medications Alprazolam (Alprazolam 0.5 Mg Tab) 1 mg PO QID [facility] Last Admin: 12/01/20 06:31 Dose: 1 mg Documented by: Alprazolam (Alprazolam 0.5 Mg Tab) 1 mg PO Q6H [facility] Last Admin: 12/04/20 11:01 Dose: 1 mg Documented by: Alprazolam (Alprazolam 0.5 Mg Tab) 1.5 mg PO Q6H [facility] Bisacodyl (Bisacodyl 10 Mg Supp) 10 mg RECTAL ONETIME ONE Stop: 12/02/20 09:28 Last Admin: 12/02/20 10:28 Dose: 10 mg Documented by: Cholecalciferol (Cholecalciferol (Vitamin D3) 25 Mcg Tab) 125 mcg PO DAILY [facility] Last Admin: 12/05/20 09:11 Dose: Not Given Documented by: Fluconazole (Fluconazole 100 Mg Tab) 150 mg PO DAILY [facility] Stop: 12/02/20 09:01 Last Admin: 12/02/20 10:27 Dose: 150 mg Documented by: Sodium Chloride (Normal Saline) 1,000 mls @ 999 mls/hr IV .Bolus ONE Stop: 12/01/20 00:50 Last Admin: 12/01/20 00:14 Dose: 999 mls/hr Documented by: Lactated Ringer's (Ringers, Lactated) 1,000 mls @ 999 mls/hr IV .BOLUS [facility] Last Admin: 12/01/20 01:29 Dose: 999 mls/hr Documented by: Meropenem/Sodium Chloride (Meropenem In Ns 1 Gm/50 Ml) 50 mls @ 100 mls/hr IV ONETIME ONE Stop: 12/01/20 01:56 Last Admin: 12/01/20 01:42 Dose: 100 mls/hr Documented by: Lactated Ringer's (Ringers, Lactated) 1,000 mls @ 999 mls/hr IV .BOLUS [facility] Last Admin: 12/01/20 01:43 Dose: 999 mls/hr Documented by: Lactated Ringer's (Ringers, Lactated) 1,000 mls @ 125 mls/hr IV ASDIRECTED [facility] Last Admin: 12/02/20 00:42 Dose: 125 mls/hr Documented by: Meropenem/Sodium Chloride (Meropenem In Ns 1 Gm/50 Ml) 50 mls @ 100 mls/hr IV Q8H [facility] Last Admin: 12/04/20 11:01 Dose: 100 mls/hr Documented by: Magnesium Sulfate 4 gm/ Premix 100 mls @ 33.333 mls/hr IV ONETIME ONE Stop: 12/02/20 14:33 Last Admin: 12/02/20 12:03 Dose: 33.333 mls/hr Documented by: Ertapenem 1 gm/ Sodium (Chloride) 50 mls @ 100 mls/hr IV Q24H [facility] Ketorolac Tromethamine (Ketorolac 15 Mg/Ml Sdv) 15 mg IVPUSH ONETIME ONE Stop: 11/30/20 23:51 Last Admin: 12/01/20 00:14 Dose: 15 mg Documented by: Levothyroxine Sodium (Levothyroxine 50 Mcg Tab) 50 mcg PO ONETIME ONE Stop: 12/03/20 12:01 Last Admin: 12/03/20 12:26 Dose: 50 mcg Documented by: Non-Formulary Medication (Alprazolam [Alprazolam Er]) 1 mg PO TID [facility] Nystatin (Nystatin Susp 100,000 Unit/Ml 5 Ml Ud Cup) 5 ml PO BID [facility] Last Admin: 12/01/20 09:11 Dose: 5 ml Documented by: Ondansetron HCl (Ondansetron 4 Mg/2 Ml Sdv) 4 mg IVPUSH ONETIME ONE Stop: 11/30/20 23:51 Last Admin: 12/01/20 00:14 Dose: 4 mg Documented by: Alprazolam 1 Mg (Tablet) 1 each PO 0400,1000,1600,2200 [facility] Last Admin: 12/03/20 04:24 Dose: 1 each Documented by: Sodium Chloride (Sodium Chloride 0.9% 10 Ml Syringe) 10 ml FLUSH ASDIRECTED PRN PRN Reason: Keep Vein Open Sodium Chloride (Sodium Chloride 0.9% 2.5 Ml Syringe) 2.5 ml FLUSH ASDIRECTED PRN PRN Reason: Keep Vein Open - Exam Urinary Catheter Total Time: 0Days 15Hours General: Alert, Oriented, Cooperative, No Acute Distress Lungs: Clear to Auscultation, Normal Respiratory Effort Cardiovascular: Regular Rate, Regular Rhythm GI/Abdominal Exam: Normal Bowel Sounds, Soft, Non-Tender Back Exam: Normal Inspection, Full Range of Motion Extremities: Normal Inspection, Normal Range of Motion, Non-Tender, No Pedal Edema Neurological: No New Focal Deficit Psy/Mental Status: Alert, Normal Affect, Normal Mood - Patient Data Lab Results Last 24 hrs: Laboratory Results - last 24 hr 12/06/20 12/07/20 12/07/20 Range/Units 17:07 05:50 05:50 WBC 13.86 H (4.0-11.0) K/uL RBC 3.53 L (4.30-5.90) M/uL Hgb 10.3 L (12.0-16.0) g/dL Hct 30.9 L (36.0-46.0) % MCV 87.5 (80.0-98.0) fL MCH 29.2 (27.0-32.0) pg MCHC 33.3 (31.0-37.0) g/dL RDW Std Deviation 45.0 (28.0-62.0) fl RDW Coeff of Eran 15 (11.0-15.0) % Plt Count 394 (150-400) K/uL MPV 8.40 (7.40-12.00) fL Add Manual Diff YES Neutrophils % (Manual) 71 (48.0-80.0) % Lymphocytes % (Manual) 23 (16.0-40.0) % Monocytes % (Manual) 5 (0.0-15.0) % Eosinophils % (Manual) 1 (0.0-7.0) % Nucleated RBC % 0.0 /100WBC Absolute Seg Neuts 9.8 H (1.4-5.7) Lymphocytes # (Manual) 3.2 H (0.6-2.4) Monocytes # (Manual) 0.7 (0.0-0.8) Eosinophils # (Manual) 0.1 (0.0-0.7) Nucleated RBCs # 0 K/uL Sodium 134 L (136-145) mmol/L Potassium 3.8 (3.5-5.1) mmol/L Chloride 97 L (98-107) mmol/L Carbon Dioxide 29.5 (21.0-32.0) mmol/L BUN 13 (7.0-18.0) mg/dL Creatinine 0.7 (0.6-1.0) mg/dL Est Cr Clr Drug Dosing 60.84 mL/min Estimated GFR (MDRD) > 60.0 ml/min Glucose 120 H (74-106) mg/dL POC Glucose 158 H (70-99) mg/dL Calcium 8.6 (8.5-10.1) mg/dL Magnesium 2.0 (1.8-2.4) mg/dL 12/07/20 12/07/20 Range/Units 06:47 11:36 WBC (4.0-11.0) K/uL RBC (4.30-5.90) M/uL Hgb (12.0-16.0) g/dL Hct (36.0-46.0) % MCV (80.0-98.0) fL MCH (27.0-32.0) pg MCHC (31.0-37.0) g/dL RDW Std Deviation (28.0-62.0) fl RDW Coeff of Eran (11.0-15.0) % Plt Count (150-400) K/uL MPV (7.40-12.00) fL Add Manual Diff Neutrophils % (Manual) (48.0-80.0) % Lymphocytes % (Manual) (16.0-40.0) % Monocytes % (Manual) (0.0-15.0) % Eosinophils % (Manual) (0.0-7.0) % Nucleated RBC % /100WBC Absolute Seg Neuts (1.4-5.7) Lymphocytes # (Manual) (0.6-2.4) Monocytes # (Manual) (0.0-0.8) Eosinophils # (Manual) (0.0-0.7) Nucleated RBCs # K/uL Sodium (136-145) mmol/L Potassium (3.5-5.1) mmol/L Chloride (98-107) mmol/L Carbon Dioxide (21.0-32.0) mmol/L BUN (7.0-18.0) mg/dL Creatinine (0.6-1.0) mg/dL Est Cr Clr Drug Dosing mL/min Estimated GFR (MDRD) ml/min Glucose (74-106) mg/dL POC Glucose 122 H 211 H (70-99) mg/dL Calcium (8.5-10.1) mg/dL Magnesium (1.8-2.4) mg/dL Result Diagrams: 12/07/20 05:50 12/07/20 05:50 [facility] Results Last 24 hrs: Microbiology 12/02/20 07:22 Aerobic Blood Culture - Final Blood NO GROWTH AFTER 5 DAYS Anaerobic Blood Culture - Final NO GROWTH AFTER 5 DAYS 12/02/20 05:43 Aerobic Blood Culture - Final Blood NO GROWTH AFTER 5 DAYS Anaerobic Blood Culture - Final NO GROWTH AFTER 5 DAYS Sepsis Event Note - Evaluation Sepsis Screening Result: No Definite Risk - Focused Exam Vital Signs: Vital Signs Temp Pulse Pulse Resp BP BP Pulse Ox 12/07/20 10:04 74 128/61 12/07/20 08:00 97.2 F 96 20 128/61 95 12/07/20 04:00 97.3 F 81 14 120/62 90 L 12/06/20 23:58 97.6 F 88 14 132/64 94 L - Problem List & Annotations (1) Abdominal pain SNOMED Code(s): 51033579 Code(s): R10.9 - UNSPECIFIED ABDOMINAL PAIN Status: Acute Current Visit: Yes (2) Gomez catheter in place on admission SNOMED Code(s): 586174711 Code(s): Z97.8 - PRESENCE OF OTHER SPECIFIED DEVICES Status: Acute Current Visit: Yes (3) Dehydration SNOMED Code(s): 05023307 Code(s): E86.0 - DEHYDRATION Status: Acute Current Visit: Yes (4) Hyponatremia SNOMED Code(s): 19958789 Code(s): E87.1 - HYPO-OSMOLALITY AND HYPONATREMIA Status: Acute Current Visit: Yes (5) Urinary tract infection SNOMED Code(s): 55653341 Code(s): N39.0 - URINARY TRACT INFECTION, SITE NOT SPECIFIED Status: Acute Current Visit: Yes (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 SNOMED Code(s): 337284154 Code(s): Z22.39 - CARRIER OF OTHER SPECIFIED BACTERIAL DISEASES Status: Ch ronic Current Visit: No (7) Urinary retention SNOMED Code(s): 875038294 Code(s): R33.9 - RETENTION OF URINE, UNSPECIFIED Status: Chronic Current Visit: No (8) Depression with anxiety SNOMED Code(s): 294528138 Code(s): F41.8 - OTHER SPECIFIED ANXIETY DISORDERS Status: Chronic Current Visit: No (9) H/O thyroidectomy SNOMED Code(s): 421983311, 185409842 Code(s): 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 Current Visit: No (10) HLD (hyperlipidemia) SNOMED Code(s): 67705292 Code(s): E78.5 - HYPERLIPIDEMIA, UNSPECIFIED Status: Chronic Current Visit: No (11) HTN (hypertension) SNOMED Code(s): 66012316 Code(s): I10 - ESSENTIAL (PRIMARY) HYPERTENSION Status: Chronic Current Visit: No (12) Hypothyroidism associated with surgical procedure SNOMED Code(s): 01399767 Code(s): 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 Current Visit: No (13) Type 2 diabetes mellitus SNOMED Code(s): 24428239 Code(s): E11.9 - TYPE 2 DIABETES MELLITUS WITHOUT COMPLICATIONS Status: Chronic Current Visit: No Qualifiers: Diabetes mellitus watermelon inspector insulin use: without penitentiary use (14) Oral thrush SNOMED Code(s): 34130014 Code(s): B37.0 - CANDIDAL STOMATITIS Status: Acute Current Visit: No (15) Bacteremia SNOMED Code(s): 0617065 Code(s): R78.81 - BACTEREMIA Status: Acute Current Visit: Yes - Problem List Review Problem List Initiated/Reviewed/Updated: Yes - My Orders Last 24 Hours: My Active Orders 12/06/20 13:09 Communication Order [RC] ROUTINE 12/06/20 13:15 Urinary Catheter Insertion [Insert Urinary Catheter] [OM.PC] Q5H 12/06/20 18:15 Urinary Catheter Insertion [Insert Urinary Catheter] [OM.PC] Q5H 12/06/20 23:15 Urinary Catheter Insertion [Insert Urinary Catheter] [OM.PC] Q5H 12/07/20 04:15 Urinary Catheter Insertion [Insert Urinary Catheter] [OM.PC] Q5H 12/07/20 08:20 [employer] Discontinue [Cardiac Monitoring Discontinue] [RC] Click to Edit 12/07/20 09:15 Urinary Catheter Insertion [Insert Urinary Catheter] [OM.PC] Q5H 12/07/20 14:15 Urinary Catheter Insertion [Insert Urinary Catheter] [OM.PC] Q5H 12/07/20 19:15 Urinary Catheter Insertion [Insert Urinary Catheter] [OM.PC] Q5H 12/08/20 00:15 Urinary Catheter Insertion [Insert Urinary Catheter] [OM.PC] Q5H 12/08/20 05:11 BASIC METABOLIC PANEL,BMP [CHEM] AM CBC WITH AUTO DIFF [HEME] AM MAGNESIUM [CHEM] AM 12/08/20 05:15 Urinary Catheter Insertion [Insert Urinary Catheter] [OM.PC] Q5H 12/08/20 10:15 Urinary Catheter Insertion [Insert Urinary Catheter] [OM.PC] Q5H 12/08/20 15:15 Urinary Catheter Insertion [Insert Urinary Catheter] [OM.PC] Q5H 12/08/20 20:15 Urinary Catheter Insertion [Insert Urinary Catheter] [OM.PC] Q5H 12/09/20 01:15 Urinary Catheter Insertion [Insert Urinary Catheter] [OM.PC] Q5H 12/09/20 06:15 Urinary Catheter Insertion [Insert Urinary Catheter] [OM.PC] Q5H 12/09/20 11:15 Urinary Catheter Insertion [Insert Urinary Catheter] [OM.PC] Q5H 12/09/20 16:15 Urinary Catheter Insertion [Insert Urinary Catheter] [OM.PC] Q5H 12/09/20 21:15 Urinary Catheter Insertion [Insert Urinary Catheter] [OM.PC] Q5H 12/10/20 02:15 Urinary Catheter Insertion [Insert Urinary Catheter] [OM.PC] Q5H 12/10/20 07:15 Urinary Catheter Insertion [Insert Urinary Catheter] [OM.PC] Q5H 12/10/20 12:15 Urinary Catheter Insertion [Insert Urinary Catheter] [OM.PC] Q5H - Plan Plan:: This 70-year-old female admitted with hyponatremia and UTI with indwelling catheter 1. UTI with indwelling catheter, ESBL E. coli in previous cultures/ESBL ecoli bacteremia -Urine culture noted, first set of blood cultures came back positive for ESBL E. coli, repeat cultures have been negative -Continue ertapenem, will need 14 day course minus what she has had in hospital on discharge. We will set up outpatient infusion. -Continue isolation precautions in view of drug-resistant bacteria -Patient voiding intermittently per self. Will be taught to self cathing today with discharge in a.m. to be taught as well. Nursing staff aware and will complete this today -From previous admission she has follow-up with urology in December -Due to deconditioning, will consult PT OT to evaluate and treat 2. Hyponatremia -Resolved 3. Oral thrush -Continue nystatin to 4 times daily 4. Diabetes type 2 -Hold oral agents -NovoLog sliding scale 3 times a day with meals -ADA diet 5. Hypertension -Continue home meds 6. Hypothyroidism secondary to thyroidectomy -Continue levothyroxine, 7. Depression/anxiety -Continue home medications -No suicidal ideation -Xanax bottle spilled here will provide refill. VTE prophylaxis: Heparin GI prophylaxis: Protonix CODE STATUS: Full code Dispo: Possible home in am. Patient will be arranged to have outpatient infusion for another 5 days to complete 14-day course.
[2020-12-07] MEDS: Ertapenem 1 GM in Sodium Chloride 0.9% 50 ML IV SCH (15:35)
[2020-12-07] MEDS: Rosuvastatin 10 MG Tab PO SCH (20:40)
[2020-12-07] MEDS: Irbesartan 150 MG Tab PO SCH (20:40)
[2020-12-08] MEDS: Nystatin Susp 100,000 Unit/ML 5 ML UD Cup PO SCH ×3 (00:37→12:30)
[2020-12-08] MEDS: ALPRAZolam 0.5 MG Tab PO SCH ×3 (03:52→15:04)
[2020-12-08] MEDS: Insulin Aspart 100 Units/ML 3 ML Pen SUBCUT SCH ×2 (06:33→12:29)
[2020-12-08] MEDS: Omeprazole 20 MG Cap.CR PO SCH (06:34)
[2020-12-08] MEDS: SYNTHROID 100 MCG PO SCH (06:34)
[2020-12-08 07:21] LABS: BLOOD UREA NITROGEN,BUN 12 mg/dL (7.0-18.0); CHLORIDE,CL 99 mmol/L (98-107); GLUCOSE RANDOM 124 mg/dL (74-106); POTASSIUM,K 4.6 mmol/L (3.5-5.1); SODIUM,NA 136 mmol/L (136-145)
[2020-12-08] MEDS: Pantoprazole 40 MG in Sodium Chloride 0.9% 10 ML IV SCH (08:22)
[2020-12-08] MEDS: Docusate Sodium 100 MG Cap PO SCH (08:22)
[2020-12-08] MEDS: Heparin Sodium 5,000 Units/ML Vial SUBCUT SCH (08:22)
[2020-12-08] MEDS: Diltiazem 120 MG Cap.CD PO SCH (08:23)
[2020-12-08] MEDS: CHOLECALCIFEROL 125 MCG PO SCH (08:23)
--- NOTE | 2020-12-08 10:57 | PCM.DCSUM1 ---
Discharge Summary - Hospital Course Brief History: This 70-year-old female with past medical history of HLD, hypothyroidism post thyroidectomy, type 2 diabetes, history of depression anxiety with inpatient admissions and recent bladder infection secondary to urinary retention with ESBL E. coli presented to the ER with concerns of fevers and chills at home. She was recently admitted for hyponatremia as well as urinary retention with a Gomez catheter placed. She was treated with meropenem and discharged home on Macrobid. Patient reports that she had a fever yesterday that started with generalized malaise, diffuse body aches and weakness. Reports that she has had mild nausea but no vomiting. Reports diffuse abdominal discomfort and lower abdomen. She denies any diarrhea or constipation and no black or bloody bowel movements. No chest pain shortness of breath palpitation sore throat sinus congestion or neck pain. In ER leukocytosis noted at 13,000 hemoglobin 11.4 sodium 125 chloride 89. BUN 16 creatinine 1.0 glucose 210. Lactic acid 1.9. AST 13 ALT 32. Lipase 160 UA reveals moderate occult blood negative nitrite moderate leukocyte esterase 2-6 WBCs bacteria 2+. Covid swab negative. CT of her abdomen pelvis completed due to abdominal pain. Cholelithiasis noted without any sign of gallbladder wall thickening or pericholecystic fluid. No bowel distention no signs of pancreatitis. In the ER she was treated with IV fluid bolus x3 L along with Zofran and meropenem. Patient will be admitted for hyponatremia and UTI with indwelling catheter. Patient has had readmission secondary to urinary retention and UTIs. Patient reports that this urinary retention started after increased dose of doxepin a couple months ago. Doxepin was decreased down to 100 mg last admission so she has been off high dose for approximately 2 weeks. Patient very unmotivated with self-cares and reports she needs significant help with ADLs from her . - Discharge Data Discharge Date: 12/08/20 Discharge Disposition: Home, Self-Care 01 Condition: Stable - Referral to Home Health Primary Care Physician: Calin Nieto MD - Discharge Diagnosis/Problem(s) (1) Abdominal pain SNOMED Code(s): 54686945 ICD Code: R10.9 - UNSPECIFIED ABDOMINAL PAIN Status: Acute Current Visit: Yes (2) Gomez catheter in place on admission SNOMED Code(s): 180367725 ICD Code: Z97.8 - PRESENCE OF OTHER SPECIFIED DEVICES Status: Acute Current Visit: Yes (3) Dehydration SNOMED Code(s): 52198667 ICD Code: E86.0 - DEHYDRATION Status: Acute Current Visit: Yes (4) Hyponatremia SNOMED Code(s): 27613041 ICD Code: E87.1 - HYPO-OSMOLALITY AND HYPONATREMIA Status: Acute Current Visit: Yes (5) Urinary tract infection SNOMED Code(s): 73763352 ICD Code: N39.0 - URINARY TRACT INFECTION, SITE NOT SPECIFIED Status: Acute Current Visit: Yes (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 SNOMED Code(s): 425483346 ICD Code: Z22.39 - CARRIER OF OTHER SPECIFIED BACTERIAL DISEASES Status: Chronic Current Visit: No (7) Urinary retention SNOMED Code(s): 440952435 ICD Code: R33.9 - RETENTION OF URINE, UNSPECIFIED Status: Chronic Current Visit: No (8) Depression with anxiety SNOMED Code(s): 306829989 ICD Code: F41.8 - OTHER SPECIFIED ANXIETY DISORDERS Status: Chronic Current Visit: No (9) H/O thyroidectomy SNOMED Code(s): 524102350, 395520598 ICD Code: 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 Current Visit: No (10) HLD (hyperlipidemia) SNOMED Code(s): 75649714 ICD Code: E78.5 - HYPERLIPIDEMIA, UNSPECIFIED Status: Chronic Current Visit: No (11) HTN (hypertension) SNOMED Code(s): 15002018 ICD Code: I10 - ESSENTIAL (PRIMARY) HYPERTENSION Status: Chronic Current Visit: No (12) Hypothyroidism associated with surgical procedure SNOMED Code(s): 38597297 ICD Code: 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 Current Visit: No (13) Type 2 diabetes mellitus SNOMED Code(s): 42452881 ICD Code: E11.9 - TYPE 2 DIABETES MELLITUS WITHOUT COMPLICATIONS Status: Chronic Current Visit: No Qualifiers: Diabetes mellitus 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: without local intermodal truck driver use (14) Oral thrush SNOMED Code(s): 02580940 ICD Code: B37.0 - CANDIDAL STOMATITIS Status: Acute Current Visit: No (15) Bacteremia SNOMED Code(s): 1671730 ICD Code: R78.81 - BACTEREMIA Status: Acute Current Visit: Yes (16) Generalized weakness SNOMED Code(s): 82239772 ICD Code: R53.1 - WEAKNESS Status: Acute Current Visit: Yes - Patient Summary/Data Consults: Consultations 12/04/20 14:28 Consult to Physical Therapy [PT Evaluation and Treatment] [CONS] Routine 12/05/20 10:36 OT Evaluation and Treatment [CONS] Routine Hospital Course: Admission diagnoses Sepsis UTI Hyponatremia Discharge diagnoses Sepsis resolved ESBL E. coli bacteremia UTI Hyponatremia resolved Other PMH Diabetes type 2 Hypertension Thyroidism secondary to thyroidectomy Severe depression/anxiety Kala was admitted secondary to sepsis likely secondary to chronic Gomez catheter which had been in place from previous admission 2 to 3 weeks prior to this admission. Patient was noted to have urinary retention suspected from increased dose of doxepin. Patient has history of ESBL E. coli and was treated with broad-spectrum antibiotics on admission due to this. She was started on meropenem and vancomycin for adequate coverage. Gomez catheter was changed out. Doxepin dose had been decreased from previous admission. Dr. Braga, urologist from [facility] was contacted for any recommendations regarding urinary retention and now sepsis secondary to UTI. She is the urologist patient has follow-up with but has yet to meet for urinary retention. Dr. Braga recommended removing Gomez catheter due to sepsis and bacteremia from UTI. Recommended self cathing 4-6 times a day also could consider estrogen cream. Patient and were counseled on this initially patient had severe anxiety reaction to this but was willing to try remove Gomez catheter and attempt to void on her own. After Gomez catheter was removed on 12/03/2020 patient voided herself for much of the weekend but had then retention noted Saturday evening after she was told discharge would likely be in the next day or two. Patient was then needed to be straight cathed 2-3 times by nursing. At this point she again was counseled on the need for learning to self cath. Patient continues to have generalized anxiety and depression regarding anything with healthcare. She is an highly critical of care but yet seems very fearful to go home as she feels she is going to go home and continue to have her body "breakdown ". seems more motivated and willing to learn self cathing along with willing to take care of his at home. Patient has been offered many times home health to be resumed but she has declined this. During her time patient was noted to be bacteremic with ESBL coli. Antibiotics deescalated to ertapenem 1 g IV daily. Patient has continued to slowly improve but has setbacks with mental health. Patient has been urged to be seen by her psychiatric and mental health providers so they are able to help monitor medications and help improve her mood. Patient will be discharged home on five more days of ertapenem 1 g IV/IM daily. During her stay she was noted to be hyponatremic this is likely secondary to polydipsia could be related to oral thrush as well as antidepressants. She was held to 2 L free water fluid restriction and sodium improved. She was counseled she should attempt to do this at home limiting free water to 2 L daily. Her and her both understand counseling regarding this. Patient will be discharged home with nystatin for oral thrush likely secondary to antibiotic use. Also has vaginal candidiasis noted will add Monistat as well. Patient is to have follow-up with urology regarding urinary retention and urinary concerns. She will have physical therapy follow-up for generalized weakness as well as looking into pelvic floor rehab. Patient was counseled heavily regarding straight cath along with being shown by nursing staff and her techniques and anatomy. Patient continues to be very anxious and has negative outlook on most things. She brings up generalized issues at home. She will be discharged home today with 5-day remaining to finish 14-day course of Carbapenem for ESBL E. coli bacteremia. Repeat blood cultures have been negative. Patient will have follow-up with PCP along with urology and was highly advised to follow with psychiatric mental health provider. She is to return to the ER clinic if concerns should arise sooner. - Patient Instructions Diet: Regular Diet as Tolerated Diet, Other: 2 L free water limit. Activity: As Tolerated, Rest and Relax Today Showering/Bathing: May Shower Notify Provider of: Fever, Increased Pain, Swelling and Redness, Drainage, Nausea and/or Vomiting Other/Special Instructions: Attempt to void every 4-6 hours, if unable to void during this time please straight cath yourself. Follow up with psychiatrist and mental health provider. COme daily to Infusion [facility] at [facility] for IV antibiotic. On Weekends arrive to ER and check in at admissions for IV therapy and you will be directed to Med/Surg unit. Please come at same time daily to insure adequate treatment with antibiotics. - Discharge Plan *PRESCRIPTION DRUG MONITORING PROGRAM REVIEWED*: Not Applicable *COPY OF PRESCRIPTION DRUG MONITORING REPORT IN PATIENT KAREY: Not Applicable Prescriptions/Med Rec: ALPRAZolam [Alprazolam] 1 mg PO QID PRN #64 tablet PRN Reason: Anxiety Ertapenem [INVanz] 1 gm IV Q24H #5 vial Miconazole Nitrate [Monistat 3] 24 gm VG DAILY 7 Days #1 tube Nystatin [Mycostatin] 5 ml PO QID #250 ml Home Medications: Home Meds Glimepiride 1 mg PO QAM 01/26/19 [History] Rosuvastatin [Crestor] 10 mg PO BEDTIME 07/28/19 [History] Irbesartan [Avapro] 150 mg PO DAILY 09/14/20 [History] Levothyroxine Sodium [Synthroid] 100 mcg PO QAM 09/14/20 [History] Diltiazem [Cardizem CD] 120 mg PO BEDTIME 11/11/20 [History] Doxepin HCl [Doxepin] 100 mg PO BEDTIME 12/01/20 [History] Docusate Sodium [Colace] 100 mg PO DAILY PRN 12/02/20 [History] Cholecalciferol (Vitamin D3) [Vitamin D3] 5,000 unit PO DAILY 12/03/20 [History] Esomeprazole Magnesium [Nexium] 40 mg PO DAILY 12/03/20 [History] Levothyroxine Sodium [Synthroid] 150 mcg PO QAM 12/03/20 [History] ALPRAZolam [Alprazolam] 1 mg PO QID PRN #64 tablet 12/07/20 [Rx] Ertapenem [INVanz] 1 gm IV Q24H #5 vial 12/07/20 [Rx] Nystatin [Mycostatin] 5 ml PO QID #250 ml 12/07/20 [Rx] Miconazole Nitrate [Monistat 3] 24 gm VG DAILY 7 Days #1 tube 12/08/20 [Rx] Oxygen Therapy Mode: Room Air Patient Handouts: Ertapenem Injection, Alprazolam tablets, ESBL Infection Information, Nystatin oral suspension, Clean Intermittent Catheterization, Female Referrals: Roma Braga DO [Ordering Only Provider] - 12/19/20 3:45 pm (Follow up with your urologist as necessary.) Calin Nieto MD [Primary Care Provider] - 12/14/20 2:00 pm - Discharge Summary/Plan Comment DC Time >30 min.: Yes (Counseling reagarding DC instructions, meds and follow up) - Patient Data Vitals - Most Recent: Last Vital Signs Temp 97.1 F 12/08/20 08:00 Pulse 80 12/08/20 08:23 Resp 20 12/08/20 08:00 BP 130/65 12/08/20 08:23 Pulse Ox 95 12/08/20 08:00 Weight - Most Recent: 78.698 kg I&O - Last 24 hours: Intake & Output 12/07/20 12/08/20 12/08/20 22:59 06:59 14:59 Intake Total 1300 350 Output Total 2800 1800 Balance -1500 -1450 Lab Results - Last 24 hrs: Laboratory Results - last 24 hr 12/07/20 12/07/20 12/08/20 Range/Units 11:36 17:05 05:58 WBC 13.83 H (4.0-11.0) K/uL RBC 3.64 L (4.30-5.90) M/uL Hgb 10.7 L (12.0-16.0) g/dL Hct 31.8 L (36.0-46.0) % MCV 87.4 (80.0-98.0) fL MCH 29.4 (27.0-32.0) pg MCHC 33.6 (31.0-37.0) g/dL RDW Std Deviation 44.7 (28.0-62.0) fl RDW Coeff of Eran 15 (11.0-15.0) % Plt Count 385 (150-400) K/uL MPV 8.50 (7.40-12.00) fL Add Manual Diff YES Neutrophils % (Manual) 53 (48.0-80.0) % Band Neutrophils % 6 % Lymphocytes % (Manual) 32 (16.0-40.0) % Monocytes % (Manual) 4 (0.0-15.0) % Eosinophils % (Manual) 4 (0.0-7.0) % Basophils % (Manual) 1 (0.0-1.5) % Nucleated RBC % 0.0 /100WBC Absolute Seg Neuts 7.3 H (1.4-5.7) Band Neutrophils # 0.8 Lymphocytes # (Manual) 4.4 H (0.6-2.4) Monocytes # (Manual) 0.6 (0.0-0.8) Eosinophils # (Manual) 0.6 (0.0-0.7) Basophils # (Manual) 0.1 (0.0-0.1) Nucleated RBCs # 0 K/uL Sodium (136-145) mmol/L Potassium (3.5-5.1) mmol/L Chloride (98-107) mmol/L Carbon Dioxide (21.0-32.0) mmol/L BUN (7.0-18.0) mg/dL Creatinine (0.6-1.0) mg/dL Est Cr Clr Drug Dosing mL/min Estimated GFR (MDRD) ml/min Glucose (74-106) mg/dL POC Glucose 211 H 158 H (70-99) mg/dL Calcium (8.5-10.1) mg/dL Magnesium (1.8-2.4) mg/dL 12/08/20 12/08/20 Range/Units 05:58 06:30 WBC (4.0-11.0) K/uL RBC (4.30-5.90) M/uL Hgb (12.0-16.0) g/dL Hct (36.0-46.0) % MCV (80.0-98.0) fL MCH (27.0-32.0) pg MCHC (31.0-37.0) g/dL RDW Std Deviation (28.0-62.0) fl RDW Coeff of Eran (11.0-15.0) % Plt Count (150-400) K/uL MPV (7.40-12.00) fL Add Manual Diff Neutrophils % (Manual) (48.0-80.0) % Band Neutrophils % % Lymphocytes % (Manual) (16.0-40.0) % Monocytes % (Manual) (0.0-15.0) % Eosinophils % (Manual) (0.0-7.0) % Basophils % (Manual) (0.0-1.5) % Nucleated RBC % /100WBC Absolute Seg Neuts (1.4-5.7) Band Neutrophils # Lymphocytes # (Manual) (0.6-2.4) Monocytes # (Manual) (0.0-0.8) Eosinophils # (Manual) (0.0-0.7) Basophils # (Manual) (0.0-0.1) Nucleated RBCs # K/uL Sodium 136 (136-145) mmol/L Potassium 4.6 (3.5-5.1) mmol/L Chloride 99 (98-107) mmol/L Carbon Dioxide 30.0 (21.0-32.0) mmol/L BUN 12 (7.0-18.0) mg/dL Creatinine 0.6 (0.6-1.0) mg/dL Est Cr Clr Drug Dosing 70.98 mL/min Estimated GFR (MDRD) > 60.0 ml/min Glucose 124 H (74-106) mg/dL POC Glucose 131 H (70-99) mg/dL Calcium 8.9 (8.5-10.1) mg/dL Magnesium 2.2 (1.8-2.4) mg/dL RACHEL Results - Last 24 hrs: Microbiology 12/02/20 07:22 Aerobic Blood Culture - Final Blood NO GROWTH AFTER 5 DAYS Anaerobic Blood Culture - Final NO GROWTH AFTER 5 DAYS 12/02/20 05:43 Aerobic Blood Culture - Final Blood NO GROWTH AFTER 5 DAYS Anaerobic Blood Culture - Final NO GROWTH AFTER 5 DAYS Med Orders - Current: Current Medications Acetaminophen (Acetaminophen 325 Mg Tab) 650 mg PO Q4H PRN PRN Reason: Pain/Fever Last Admin: 12/07/20 16:12 Dose: 650 mg Documented by: Albuterol/Ipratropium (Albuterol/Ipratropium 3.0-0.5 Mg/3 Ml Neb Soln) 3 ml NEB Q4HRRT PRN PRN Reason: Shortness of Breath Alprazolam (Alprazolam 0.5 Mg Tab) 1.5 mg PO Q6H JORGE Last Admin: 12/08/20 10:09 Dose: 1.5 mg Documented by: Bisacodyl (Bisacodyl 10 Mg Supp) 10 mg RECTAL DAILY PRN PRN Reason: Constipation Dextrose/Water (50% Dextrose In Water 50 Ml Syringe) 50 ml IVPUSH ASDIRECTED PRN PRN Reason: Hypoglycemia Diltiazem HCl (Diltiazem 120 Mg Cap.Cd) 120 mg PO DAILY JORGE Last Admin: 12/08/20 08:23 Dose: 120 mg Documented by: Docusate Sodium (Docusate Sodium 100 Mg Cap) 100 mg PO BID [facility] Last Admin: 12/08/20 08:22 Dose: 100 mg Documented by: Glucagon (Glucagon,Human Recombinant 1 Mg Vial) 1 mg IM ASDIRECTED PRN PRN Reason: Hypoglycemia Heparin Sodium (Porcine) (Heparin Sodium 5,000 Units/Ml Vial) 5,000 units SUBCUT Q12H JORGE Last Admin: 12/08/20 08:22 Dose: 5,000 units Documented by: Pantoprazole Sodium 40 mg/ (Sodium Chloride) 10 mls @ 300 mls/hr IV DAILY [facility] Last Admin: 12/08/20 08:22 Dose: 300 mls/hr Documented by: Ertapenem 1 gm/ Sodium (Chloride) 50 mls @ 100 mls/hr IV Q24H [facility] Last Admin: 12/07/20 15:35 Dose: 100 mls/hr Documented by: Insulin Aspart (Insulin Aspart 100 Units/Ml 3 Ml Pen) 0 unit SUBCUT TIDAC [facility]; Protocol Last Admin: 12/08/20 06:33 Dose: Not Given Documented by: Irbesartan (Irbesartan 150 Mg Tab) 150 mg PO BEDTIME [facility] Last Admin: 12/07/20 20:40 Dose: 150 mg Documented by: Nystatin (Nystatin Susp 100,000 Unit/Ml 5 Ml Ud Cup) 5 ml PO QID [facility] Last Admin: 12/08/20 06:34 Dose: 5 ml Documented by: Omeprazole (Omeprazole 20 Mg Cap.Cr) 40 mg PO ACBREAKFAST [facility] Last Admin: 12/08/20 06:34 Dose: 40 mg Documented by: Ondansetron HCl (Ondansetron 4 Mg/2 Ml Sdv) 4 mg IVPUSH Q4H PRN PRN Reason: Nausea/Vomiting Doxepin 100 Mg (Capsule) 1 each PO BEDTIME [facility] Last Admin: 12/07/20 20:41 Dose: 1 each Documented by: Synthroid 100 Mcg (Tablet) 1 each PO ACBREAKFAST [facility] Last Admin: 12/08/20 06:34 Dose: 1 each Documented by: Cholecalciferol ( Vitamin D3) 125 Mcg Tab 1 each PO DAILY [facility] Last Admin: 12/08/20 08:23 Dose: 1 each Documented by: Phenol/Menthol (Phenol 1.4% Oral [place] 177 Ml Bottle) 0 ml MUCMEM Q2H PRN PRN Reason: Sore Throat Rosuvastatin Calcium (Rosuvastatin 10 Mg Tab) 10 mg PO BEDTIME [facility] Last Admin: 12/07/20 20:40 Dose: 10 mg Documented by: Sodium Chloride (Sodium Chloride 0.9% 2.5 Ml Syringe) 2.5 ml FLUSH ASDIRECTED PRN PRN Reason: Keep Vein Open Discontinued Medications Alprazolam (Alprazolam 0.5 Mg Tab) 1 mg PO QID [facility] Last Admin: 12/01/20 06:31 Dose: 1 mg Documented by: Alprazolam (Alprazolam 0.5 Mg Tab) 1 mg PO Q6H [facility] Last Admin: 12/04/20 11:01 Dose: 1 mg Documented by: Alprazolam (Alprazolam 0.5 Mg Tab) 1.5 mg PO Q6H [facility] Bisacodyl (Bisacodyl 10 Mg Supp) 10 mg RECTAL ONETIME ONE Stop: 12/02/20 09:28 Last Admin: 12/02/20 10:28 Dose: 10 mg Documented by: Cholecalciferol (Cholecalciferol (Vitamin D3) 25 Mcg Tab) 125 mcg PO DAILY [facility] Last Admin: 12/05/20 09:11 Dose: Not Given Documented by: Fluconazole (Fluconazole 100 Mg Tab) 150 mg PO DAILY [facility] Stop: 12/02/20 09:01 Last Admin: 12/02/20 10:27 Dose: 150 mg Documented by: Sodium Chloride (Normal Saline) 1,000 mls @ 999 mls/hr IV .Bolus ONE Stop: 12/01/20 00:50 Last Admin: 12/01/20 00:14 Dose: 999 mls/hr Documented by: Lactated Ringer's (Ringers, Lactated) 1,000 mls @ 999 mls/hr IV .BOLUS [facility] Last Admin: 12/01/20 01:29 Dose: 999 mls/hr Documented by: Meropenem/Sodium Chloride (Meropenem In Ns 1 Gm/50 Ml) 50 mls @ 100 mls/hr IV ONETIME ONE Stop: 12/01/20 01:56 Last Admin: 12/01/20 01:42 Dose: 100 mls/hr Documented by: Lactated Ringer's (Ringers, Lactated) 1,000 mls @ 999 mls/hr IV .BOLUS [facility] Last Admin: 12/01/20 01:43 Dose: 999 mls/hr Documented by: Lactated Ringer's (Ringers, Lactated) 1,000 mls @ 125 mls/hr IV ASDIRECTED [facility] Last Admin: 12/02/20 00:42 Dose: 125 mls/hr Documented by: Meropenem/Sodium Chloride (Meropenem In Ns 1 Gm/50 Ml) 50 mls @ 100 mls/hr IV Q8H [facility] Last Admin: 12/04/20 11:01 Dose: 100 mls/hr Documented by: Magnesium Sulfate 4 gm/ Premix 100 mls @ 33.333 mls/hr IV ONETIME ONE Stop: 12/02/20 14:33 Last Admin: 12/02/20 12:03 Dose: 33.333 mls/hr Documented by: Ertapenem 1 gm/ Sodium (Chloride) 50 mls @ 100 mls/hr IV Q24H [facility] Ketorolac Tromethamine (Ketorolac 15 Mg/Ml Sdv) 15 mg IVPUSH ONETIME ONE Stop: 11/30/20 23:51 Last Admin: 12/01/20 00:14 Dose: 15 mg Documented by: Levothyroxine Sodium (Levothyroxine 50 Mcg Tab) 50 mcg PO ONETIME ONE Stop: 12/03/20 12:01 Last Admin: 12/03/20 12:26 Dose: 50 mcg Documented by: Non-Formulary Medication (Alprazolam [Alprazolam Er]) 1 mg PO TID [facility] Nystatin (Nystatin Susp 100,000 Unit/Ml 5 Ml Ud Cup) 5 ml PO BID [facility] Last Admin: 12/01/20 09:11 Dose: 5 ml Documented by: Ondansetron HCl (Ondansetron 4 Mg/2 Ml Sdv) 4 mg IVPUSH ONETIME ONE Stop: 11/30/20 23:51 Last Admin: 12/01/20 00:14 Dose: 4 mg Documented by: Alprazolam 1 Mg (Tablet) 1 each PO 0400,1000,1600,2200 [facility] Last Admin: 12/03/20 04:24 Dose: 1 each Documented by: Sodium Chloride (Sodium Chloride 0.9% 10 Ml Syringe) 10 ml FLUSH ASDIRECTED PRN PRN Reason: Keep Vein Open Sodium Chloride (Sodium Chloride 0.9% 2.5 Ml Syringe) 2.5 ml FLUSH ASDIRECTED PRN PRN Reason: Keep Vein Open
[2020-12-08] MEDS: Ertapenem 1 GM in Sodium Chloride 0.9% 50 ML IV SCH (15:04)
[2020-12-08 17:30] VITALS: BP 153/81; PULSE 89
== END 2020-12-08 17:40 | disposition home health service (06) | DRG 698 ==
LOC: MW.ED 22:38 → MW.MS 12-01 02:43 → OBSVTOIN 12-01 11:24 → MW.MS 12-01 15:36
PROVIDERS: ADMIT Student in an Organized Health Care Education/Training Program; ATTEND Student in an Organized Health Care Education/Training Program
DX: T83.511A Infection and inflammatory reaction due to indwelling urethral catheter, initial encounter (principal); A41.51 Sepsis due to Escherichia coli [E. coli]; E87.1 Hypo-osmolality and hyponatremia; R10.9 Unspecified abdominal pain; J30.9 Allergic rhinitis, unspecified; E78.00 Pure hypercholesterolemia, unspecified; B37.0 Candidal stomatitis; N39.0 Urinary tract infection, site not specified; K44.9 Diaphragmatic hernia without obstruction or gangrene; M19.90 Unspecified osteoarthritis, unspecified site; G89.29 Other chronic pain; M54.9 Dorsalgia, unspecified; M54.2 Cervicalgia; F32.9 Major depressive disorder, single episode, unspecified; F41.9 Anxiety disorder, unspecified; E78.5 Hyperlipidemia, unspecified; E03.9 Hypothyroidism, unspecified; Z88.1 Allergy status to other antibiotic agents; Z79.84 Long term (current) use of oral hypoglycemic drugs; Z79.890 Hormone replacement therapy; Z79.899 Other long term (current) drug therapy; E11.9 Type 2 diabetes mellitus without complications; Y84.6 Urinary catheterization as the cause of abnormal reaction of the patient, or of later complication, without mention of misadventure at the time of the procedure; E86.0 Dehydration; B96.20 Unspecified Escherichia coli [E. coli] as the cause of diseases classified elsewhere; R33.9 Retention of urine, unspecified; F41.8 Other specified anxiety disorders; E89.0 Postprocedural hypothyroidism; Z20.822 Contact with and (suspected) exposure to COVID-19; I10 Essential (primary) hypertension; R53.1 Weakness; K21.9 Gastro-esophageal reflux disease without esophagitis; Z90.89 Acquired absence of other organs; Z98.890 Other specified postprocedural states; Y92.89 Other specified places as the place of occurrence of the external cause
CPT/HCPCS: 36415 ×2; 74176; 80053 ×2; 81001; 82947; 83605; 83690; 85025 ×2; 87040 ×2; 87077; 87086; 87150; 87186; 93005; A9270 ×3; C9113; J1885; J2185 ×2; J2405; J7030; J7120 ×3; U0002; 51701; 51798; 80048; 83735; 84100; 97110-GP; 97161-GP; 97165-GO; J1335; J1644; J1815-GY; J3475; J7620-GY